=== PATIENT | female | born 1950 | race Caucasian/White ===

== ENCOUNTER → 2016-06-18 | Outpatient (CLI) | payer MEDICARE ==
[2016-06-18 14:41] LABS: BASO % 0.4 % (0.0-1.0); EOS # 0.1 K/mm3 (0.0-0.50); EOS % 0.9 % (0.0-3.0); LARGE UNSTAINED CELL # 0.2 K/mm3 (0.0-0.4); LARGE UNSTAINED CELL % 1.6 % (0.0-4.0); LYMPH # 2.5 K/mm3 (1.5-4.5); LYMPH % 22.5 % (24.0-44.0); MEAN CORPUSCULAR HEMOGLOBIN 34.1 pg (27.0-33.0); MEAN CORPUSCULAR HGB CONC 34.2 g/dl (32.0-36.5); MEAN CORPUSCULAR VOLUME 99.8 fl (80.0-96.0); MONO # 0.6 K/mm3 (0.0-0.8); MONO % 5.4 % (0.0-5.0); NEUTROPHILS # 7.8 K/mm3 (1.8-7.7); NEUTROPHILS % 69.3 % (36.0-66.0); PLATELET COUNT, AUTOMATED 283 k/mm3 (150-450); RED CELL DISTRIBUTION WIDTH 13.2 % (11.5-14.5); WHITE BLOOD COUNT 11.2 K/mm3 (4.0-10.0)
[2016-06-18 15:01] LABS: ALBUMIN 3.9 GM/DL (3.2-5.2); ALT/SGPT 20 U/L (12-78); CREATININE FOR GFR 0.97 MG/DL (0.55-1.02); GLOMERULAR FILTRATION RATE > 60.0 (>45)
== END ==
LOC: M LAB 13:48
PROVIDERS: ATTEND Internal Medicine Rheumatology
DX: Z51.81 Encounter for therapeutic drug level monitoring (principal); Z79.899 Other long term (current) drug therapy; M06.09 Rheumatoid arthritis without rheumatoid factor, multiple sites

== ENCOUNTER → 2016-09-13 | Outpatient (CLI) | payer MEDICARE ==
[2016-09-13 11:13] LABS: BASO % 0.4 % (0.0-1.0); EOS # 0.2 K/mm3 (0.0-0.50); EOS % 1.9 % (0.0-3.0); LARGE UNSTAINED CELL # 0.1 K/mm3 (0.0-0.4); LARGE UNSTAINED CELL % 0.5 % (0.0-4.0); LYMPH # 1.5 K/mm3 (1.5-4.5); MEAN CORPUSCULAR HEMOGLOBIN 34.7 pg (27.0-33.0); MEAN CORPUSCULAR HGB CONC 34.5 g/dl (32.0-36.5); MEAN CORPUSCULAR VOLUME 100.4 fl (80.0-96.0); MONO # 0.5 K/mm3 (0.0-0.8); MONO % 4.2 % (0.0-5.0); NEUTROPHILS # 9.3 K/mm3 (1.8-7.7); NEUTROPHILS % 80.9 % (36.0-66.0); PLATELET COUNT, AUTOMATED 246 k/mm3 (150-450); RED CELL DISTRIBUTION WIDTH 13.7 % (11.5-14.5); WHITE BLOOD COUNT 11.5 K/mm3 (4.0-10.0)
[2016-09-13 11:35] LABS: ALBUMIN 3.5 GM/DL (3.2-5.2); ALT/SGPT 19 U/L (12-78); CREATININE FOR GFR 0.91 MG/DL (0.55-1.02); GLOMERULAR FILTRATION RATE > 60.0 (>45)
== END ==
LOC: M LAB 10:36
PROVIDERS: ATTEND Internal Medicine Rheumatology
DX: Z51.81 Encounter for therapeutic drug level monitoring (principal); Z79.899 Other long term (current) drug therapy; M06.09 Rheumatoid arthritis without rheumatoid factor, multiple sites

== ENCOUNTER → 2016-11-05 | Outpatient (CLI) | payer MEDICAID, MEDICARE ==
[2016-11-05 13:38] LABS: BASO # 0.1 K/mm3 (0.0-0.2); BASO % 0.6 % (0.0-1.0); EOS # 0.1 K/mm3 (0.0-0.50); EOS % 1.2 % (0.0-3.0); LARGE UNSTAINED CELL # 0.1 K/mm3 (0.0-0.4); LARGE UNSTAINED CELL % 1.2 % (0.0-4.0); LYMPH # 3.1 K/mm3 (1.5-4.5); LYMPH % 28.2 % (24.0-44.0); MEAN CORPUSCULAR HEMOGLOBIN 34.2 pg (27.0-33.0); MEAN CORPUSCULAR HGB CONC 34.4 g/dl (32.0-36.5); MEAN CORPUSCULAR VOLUME 99.6 fl (80.0-96.0); MONO # 0.5 K/mm3 (0.0-0.8); MONO % 4.3 % (0.0-5.0); NEUTROPHILS # 6.7 K/mm3 (1.8-7.7); NEUTROPHILS % 64.6 % (36.0-66.0); PLATELET COUNT, AUTOMATED 265 k/mm3 (150-450); RED CELL DISTRIBUTION WIDTH 13.1 % (11.5-14.5); WHITE BLOOD COUNT 10.4 K/mm3 (4.0-10.0)
[2016-11-05 14:34] LABS: ALBUMIN 3.6 GM/DL (3.2-5.2); CREATININE FOR GFR 1.07 MG/DL (0.55-1.02); GLOMERULAR FILTRATION RATE 54.5 (>45)
== END ==
LOC: M LAB 12:57
PROVIDERS: ATTEND Internal Medicine Rheumatology
DX: Z79.899 Other long term (current) drug therapy (principal)

== ENCOUNTER → 2016-12-04 | Outpatient (CLI) | payer MEDICARE ==
[2016-12-04 13:34] LABS: ALBUMIN 3.6 GM/DL (3.2-5.2); ALT/SGPT 19 U/L (12-78); CREATININE FOR GFR 0.97 MG/DL (0.55-1.02); GLOMERULAR FILTRATION RATE > 60.0 (>45)
[2016-12-04 13:41] LABS: BASO % 0.6 % (0.0-1.0); EOS # 0.1 K/mm3 (0.0-0.50); EOS % 0.9 % (0.0-3.0); LARGE UNSTAINED CELL # 0.2 K/mm3 (0.0-0.4); LARGE UNSTAINED CELL % 1.7 % (0.0-4.0); LYMPH # 2.2 K/mm3 (1.5-4.5); LYMPH % 23.5 % (24.0-44.0); MEAN CORPUSCULAR HEMOGLOBIN 34.3 pg (27.0-33.0); MEAN CORPUSCULAR HGB CONC 34.6 g/dl (32.0-36.5); MEAN CORPUSCULAR VOLUME 99.1 fl (80.0-96.0); MONO # 0.5 K/mm3 (0.0-0.8); MONO % 5.1 % (0.0-5.0); NEUTROPHILS # 6.3 K/mm3 (1.8-7.7); NEUTROPHILS % 68.2 % (36.0-66.0); PLATELET COUNT, AUTOMATED 259 k/mm3 (150-450); RED CELL DISTRIBUTION WIDTH 13.1 % (11.5-14.5); WHITE BLOOD COUNT 9.2 K/mm3 (4.0-10.0)
== END ==
LOC: M LAB 12:29
PROVIDERS: ATTEND Internal Medicine Rheumatology
DX: Z51.81 Encounter for therapeutic drug level monitoring (principal); Z79.899 Other long term (current) drug therapy; M06.09 Rheumatoid arthritis without rheumatoid factor, multiple sites

== ENCOUNTER → 2017-02-11 | Outpatient (CLI) | payer MEDICARE ==
[2017-02-11 14:05] LABS: BASO # 0.1 10^3/uL (0.0-0.2); BASO % 0.4 % (0.0-1.0); EOS # 0.1 10^3/uL (0.0-0.50); EOS % 1.1 % (0.0-3.0); IMMATURE GRANULOCYTE % 0.4 % (0-0); LYMPH % 26.2 % (24.0-44.0); MEAN CORPUSCULAR HEMOGLOBIN 33.8 pg (27.0-33.0); MEAN CORPUSCULAR HGB CONC 33.7 g/dl (32.0-36.5); MEAN CORPUSCULAR VOLUME 100.2 fl (80.0-96.0); MONO % 8.8 % (0.0-5.0); NEUTROPHILS # 7.1 10^3/uL (1.8-7.7); NEUTROPHILS % 63.1 % (36.0-66.0); PLATELET COUNT, AUTOMATED 296 10^3/uL (150-450); RED CELL DISTRIBUTION WIDTH 14.3 % (11.5-14.5); WHITE BLOOD COUNT 11.3 10^3/uL (4.0-10.0)
[2017-02-11 14:37] LABS: ALBUMIN 3.6 GM/DL (3.2-5.2); ALT/SGPT 23 U/L (12-78); BLOOD UREA NITROGEN 11 MG/DL (7-18); CREATININE FOR GFR 0.86 MG/DL (0.55-1.02); GLOMERULAR FILTRATION RATE > 60.0 (>45)
== END ==
LOC: M LAB 13:32
PROVIDERS: ATTEND Internal Medicine Rheumatology
DX: M06.09 Rheumatoid arthritis without rheumatoid factor, multiple sites (principal)

== ENCOUNTER → 2017-04-19 | Outpatient (CLI) | payer MEDICARE ==
[2017-04-19 12:54] LABS: BASO % 0.4 % (0.0-1.0); EOS # 0.1 10^3/uL (0.0-0.50); EOS % 1.1 % (0.0-3.0); HEMATOCRIT 44.7 % (36.0-47.0); HEMOGLOBIN 14.9 g/dl (12.0-16.0); IMMATURE GRANULOCYTE # 0.1 10^3/uL (0-0); IMMATURE GRANULOCYTE % 0.6 % (0-0); LYMPH # 1.6 10^3/uL (1.5-4.5); MEAN CORPUSCULAR HEMOGLOBIN 33.3 pg (27.0-33.0); MEAN CORPUSCULAR HGB CONC 33.3 g/dl (32.0-36.5); MEAN CORPUSCULAR VOLUME 99.8 fl (80.0-96.0); MONO # 0.5 10^3/uL (0.0-0.8); MONO % 4.6 % (0.0-5.0); NEUTROPHILS # 7.8 10^3/uL (1.8-7.7); NEUTROPHILS % 77.3 % (36.0-66.0); PLATELET COUNT, AUTOMATED 231 10^3/uL (150-450); RED BLOOD COUNT 4.48 10^6/uL (4.00-5.40); RED CELL DISTRIBUTION WIDTH 13.2 % (11.5-14.5); WHITE BLOOD COUNT 10.1 10^3/uL (4.0-10.0)
[2017-04-19 13:25] LABS: ALBUMIN 3.3 GM/DL (3.2-5.2); ALT/SGPT 15 U/L (12-78); CREATININE FOR GFR 0.99 MG/DL (0.55-1.02); GLOMERULAR FILTRATION RATE 59.6 (>45)
[2017-04-19 13:25] LABS: BLOOD UREA NITROGEN 16 MG/DL (7-18)
== END ==
LOC: M LAB 11:27
DX: Z51.81 Encounter for therapeutic drug level monitoring (principal); Z79.899 Other long term (current) drug therapy; M06.09 Rheumatoid arthritis without rheumatoid factor, multiple sites
CPT/HCPCS: 84460

== ENCOUNTER 2018-03-11 06:27 | Day surgery (SDC) | payer MEDICARE ==
[~2018-03-11] VITALS: Ht 157.5 cm; Wt 59.0 kg
[~2018-03-11 06:27] MED LIST: ALPR0.25 PO; ASPI1TAB PO; BUSP15TA47 PO; FOLI1TAB5 PO; METH2.5T48 PO; METO50TA7 PO; NORT25CA2 PO; NORT75CA2 PO; OMEP20CA3 PO; SIMV10TA2 PO; VITA50005 PO
[2018-03-11] MEDS ORDERED: NS 1,000 ML IV ONE (07:30)
[2018-03-11] MEDS ORDERED: PROPOFOL 200 MG/20 ML VIAL As Ordered ONE ×2 (07:43→07:55)
[2018-03-11] MEDS ORDERED: LIDOCAINE 2% INJ 100 MG/5 ML SDV (FOR ANES.) As Ordered ONE (07:43)
--- NOTE | 2018-03-11 08:07 | ROOR ---
Patient Name: Gloria Raza Procedure Date: 03/11/2018 7:34 AM Date of : 1950 Age: 67 Room: [facility] Gender: Female Note Status: Finalized Procedure: Colonoscopy Indications: Screening for colorectal malignant neoplasm Providers: Nima Rodriguez MD Referring MD: Kiko Rae MD Requesting Provider: Medicines: Monitored Anesthesia Care Complications: No immediate complications. Procedure: Pre-Anesthesia Assessment: - Prior to the procedure, a History and Physical was performed, and patient medications and allergies were reviewed. The patient is competent. The risks and benefits of the procedure and the sedation options and risks were discussed with the patient. All questions were answered and informed consent was obtained. Patient identification and proposed procedure were verified by the physician, the nurse and the anesthesiologist in the procedure room. Mental Status Examination: alert and oriented. Airway Examination: normal oropharyngeal airway and neck mobility. Respiratory Examination: clear to auscultation. CV Examination: normal. Prophylactic Antibiotics: The patient does not require prophylactic antibiotics. Prior Anticoagulants: The patient has taken no previous anticoagulant or antiplatelet agents. ASA Grade Assessment: II - A patient with mild systemic disease. After reviewing the risks and benefits, the patient was deemed in satisfactory condition to undergo the procedure. The anesthesia plan was to use monitored anesthesia care (MAC). Immediately prior to administration of medications, the patient was re-assessed for adequacy to receive sedatives. The heart rate, respiratory rate, oxygen saturations, blood pressure, adequacy of pulmonary ventilation, and response to care were monitored throughout the procedure. The physical status of the patient was re-assessed after the procedure. The Colonoscope was introduced through the anus and advanced to the terminal ileum, with identification of the appendiceal orifice and IC valve. Findings: The perianal and digital rectal examinations were normal. The terminal ileum appeared normal. A 4 mm polyp was found in the ascending colon. The polyp was sessile. The polyp was removed with a jumbo cold forceps. Resection and retrieval were complete. Verification of patient identification for the specimen was done by the physician and nurse using the patient's name, date and medical record number. Estimated blood loss was minimal. A 3 mm polyp was found in the descending colon. The polyp was sessile. The polyp was removed with a jumbo cold forceps. Resection and retrieval were complete. Non-bleeding external and internal hemorrhoids were found during retroflexion. The hemorrhoids were large. Impression: - The examined portion of the ileum was normal. - One 4 mm polyp in the ascending colon, removed with a jumbo cold forceps. Resected and retrieved. - One 3 mm polyp in the descending colon, removed with a jumbo cold forceps. Resected and retrieved. - Non-bleeding external and internal hemorrhoids. Recommendation: - Patient has a contact number available for emergencies. The signs and symptoms of potential delayed complications were discussed with the patient. Return to normal activities tomorrow. Written discharge instructions were provided to the patient. - High fiber diet. - Continue present medications. - Await pathology results. - Repeat colonoscopy in 5-10 years for surveillance based on pathology results. - Return to primary care physician. - Based on the biopsy results you will receive a phone call from GI clinic in 2-3 weeks to review the pathology results AND/OR your results will be faxed to your Primary care physician. Nima Rodriguez MD Nima Rodriguez MD 03/11/2018 8:07:16 AM This report has been signed electronically. Number of Addenda: 0 Note Initiated On: 03/11/2018 7:34 AM Estimated Blood Loss: Estimated blood loss was minimal.
[2018-03-11] MEDS ORDERED: ePHEDrine SULFATE 25 MG/5 ML(5MG/ML) SYRINGE As Ordered ONE (08:11)
[2018-03-11 08:20] VITALS: BP 112/63
== END 2018-03-11 08:30 | disposition home or self-care (01) ==
LOC: M OPP 06:27
PROVIDERS: ATTEND Internal Medicine Gastroenterology
DX: D12.2 Benign neoplasm of ascending colon (principal); D12.4 Benign neoplasm of descending colon; K64.8 Other hemorrhoids; Z12.11 Encounter for screening for malignant neoplasm of colon

== ENCOUNTER 2018-03-16 14:34 | Emergency (ER) | payer MEDICARE | END 2018-03-16 15:51 | disposition home or self-care (01) | LOC: M ED 14:34 | DX: S60.222A Contusion of left hand, initial encounter (principal); Y04.8XXA Assault by other bodily force, initial encounter; Y92.018 Other place in single-family (private) house as the place of occurrence of the external cause; Y07.499 Other family member, perpetrator of maltreatment and neglect; I10 Essential (primary) hypertension; E78.5 Hyperlipidemia, unspecified; K21.9 Gastro-esophageal reflux disease without esophagitis; F41.9 Anxiety disorder, unspecified; Z91.048 Other nonmedicinal substance allergy status; F17.210 Nicotine dependence, cigarettes, uncomplicated | CPT/HCPCS: 73130 ==

== ENCOUNTER → 2019-04-09 | Outpatient (CLI) | payer MEDICARE ==
[~2019-04-09] MED LIST changes: -ASPI1TAB PO; +ASPI81TA26 PO; +AZOP0.2S OD; +FOLI1TAB11 PO; -FOLI1TAB5 PO; +LOPE1CAP5 PO; +OMEP1CAP73 PO; -OMEP20CA3 PO; -SIMV10TA2 PO; +SIMV10TA21 PO; +TRAV04OPD OD
--- NOTE | 2019-04-09 11:22 | REPMRS ---
Patient History The patient states she had a clinical breast exam in April 2019.Family history of breast cancer under age 50 in daughter. No Hormone Replacement Therapy Digital Woman Screen Mammo: April 09, 2019 - Exam #: [id number] Bilateral CC and MLO view(s) were taken. Technologist: Jennifer Oliva, Technologist Prior study comparison: July 06, 2015, digital woman screen mammo performed at [facility]. May 20, 2014, digital woman screen mammo performed at [facility]. FINDINGS: There are scattered fibroglandular densities. There is a 10 mm nodular neodensity showing spiculation in the upper outer quadrant of the right breast which merits further evaluation. There has been no other change in the appearance of the mammogram from the prior studies. There is a mild amount of scattered fibroglandular density which is fairly symmetric. There is no other interval development of dominant mass, architectural distortion, or grouped microcalcification suggestive of malignancy. 3-D tomosynthesis shows no additional findings. Assessment: BI-RADS/ACR category 0 mammogram, Incomplete: Need additional imaging evaluation and/or prior mammograms for comparison. Recommendation Ultrasound and special view mammogram of the right breast. This patient's Lifetime Breast Cancer Risk is estimated at 8.1 %. This mammogram was interpreted with the aid of an FDA-approved computer-aided dectection system. Electronically Signed By: Buster Mcwilliams MD 04/09/19 [id number]
--- NOTE | 2019-04-15 11:27 | DEXA ---
AP SPINE L1 - L4 0.952 -2.0 -0.3 LT FEMUR TOTAL 0.922 -0.7 0.8 LT NECK 0.870 -1.2 0.5 RT FEMUR TOTAL 0.839 -1.3 0.1 RT NECK 0.801 -1.7 0.0 TOTAL BODY TOTAL OTHER COMMENTS: There is low bone density of the spine and hips. The density of the spine has increased 0.0% since the initial exam on 10/19/2003. The spine density has increased 3.5% since the most recent exam on 08/04/2015. The density of the left hip has decreased 3.8% since the initial exam on 10/19/2003. The density of the left hip has increased 3.2% since the most recent exam on 08/04/2015. The density of the right hip has decreased 6.0% since the initial exam on 10/19/2003. The density of the right hip has decreased 3.7% since the most recent exam on 08/04/2015. FOLLOW-UP: Recommendation for the next bone density exam: 2 years. LANIE
== END ==
LOC: M WHC 09:34
PROVIDERS: ATTEND Family Medicine
DX: Z01.411 Encounter for gynecological examination (general) (routine) with abnormal findings (principal); Z12.31 Encounter for screening mammogram for malignant neoplasm of breast; M81.0 Age-related osteoporosis without current pathological fracture; Z80.3 Family history of malignant neoplasm of breast; N63.11 Unspecified lump in the right breast, upper outer quadrant
CPT/HCPCS: 77063; 77067; 77080; G0101

== ENCOUNTER → 2019-04-24 | Outpatient (CLI) | payer MEDICARE ==
--- NOTE | 2019-04-24 13:33 | REP ---
Digital diagnostic unilateral right breast mammography with CAD and focused right breast sonography: History: Screening mammography April 09, 2019 was BIRADS category 0 incomplete because of a nodular neodensity in the upper outer quadrant of the right breast for which diagnostic imaging was recommended. Comparison is also made with the July 06, 2015 prior study. Mammographic findings: Mediolateral, CC and MLO magnified spot views confirm the presence of a spiculated nodule in the upper outer quadrant of the right breast measuring 8 mm in greatest diameter. This has suspicious mammographic features. It appears to contain a few tiny microcalcifications as well. Sonographic findings: The right breast is examined from 10 o'clock to 11 o'clock position. At 10 o'clock, there is a hypoechoic mass producing acoustic shadowing with hyperechoic tissue adjacent to it. This measures 7 x 5 x 6 mm and is located 5.6 cm from the nipple. This is felt to correspond with the mammographic opacity. Impression: BIRADS 5: BI-RADS/ACR category 5 mammogram. Highly Suggestive of Malignancy - appropriate action should be taken. BIRADS category 5 highly suspicious right breast imaging. Spiculated nodule seen mammographically in the upper outer quadrant with a corresponding irregular shadowing mass seen sonographically. Ultrasound-guided needle biopsy recommended with marker clip placement and post clip placement mammography. This mammogram was interpreted with the aid of an FDA-approved computer-aided detection system. The patient states she had a clinical breast exam in April 2019. The patient letter being requested is m4. Electronically Signed by Fantasma Mcwilliams MD 04/24/2019 06:38 P
== END ==
LOC: M RAD 09:37
PROVIDERS: ATTEND Family Medicine
DX: Z12.31 Encounter for screening mammogram for malignant neoplasm of breast (principal); R92.8 Other abnormal and inconclusive findings on diagnostic imaging of breast

== ENCOUNTER → 2019-05-20 | Outpatient (CLI) | payer MEDICARE ==
[~2019-05-20] MED LIST changes: +LIDOCAINE 1% MDV 20ML VIAL As Ordered ONE
[2019-05-20 12:04] VITALS: BP 139/67
--- NOTE | 2019-05-20 14:03 | REP ---
DIGITAL DIAGNOSTIC UNILATERAL RIGHT BREAST MAMMOGRAPHY WITH CAD: Two views. HISTORY: Marker clip placement views. The patient status post ultrasound-guided needle biopsy for a spiculated nodule in the right breast upper outer quadrant. Comparison mammography April 09, 2019. FINDINGS: Craniocaudal and true mediolateral views demonstrate the target spiculated nodule in the superior breast just lateral to the plane of the nipple on the CC view. Post biopsy edema is seen indicating good biopsy targeting. However, no marker clip is visible. The marker clip apparently did not deploy. Since the target is visible and conspicuous both mammographically and sonographically, we opted not to re-attempt clip deployment. IMPRESSION: Marker clip apparently did not deploy. Spiculated nodular target persists both mammographically and sonographically. This mammogram was interpreted with the aid of an FDA-approved computer-aided detection system. Electronically Signed by Fantasma Mcwilliams MD 05/20/2019 04:28 P
--- NOTE | 2019-05-20 16:31 | REP ---
Ultrasound-guided right breast biopsy. The procedure was performed by MONI Pacheco, under the direct supervision of Dr. Mcwilliams. The risks and benefits of the procedure were explained to the patient and informed consent was obtained both verbally and written. Directly prior to the start of the procedure, a formal timeout was completed in the procedure room. The right breast mass was localized using ultrasound guidance. The skin was prepped and draped in a sterile fashion. 10 ml of buffered lidocaine was used as a local anesthetic. Using ultrasound guidance a 13-gauge suction assisted Mammotome needle was inserted and 8 core biopsy samples were obtained. The patient tolerated the procedure well and there were no immediate complications. After the appropriate monitored convalescence the patient was discharged from the department. Reviewed by MONI Rojo 05/20/2019 02:06 P Electronically Signed by Fantasma Mcwilliams MD 05/20/2019 04:22 P
== END | disposition home or self-care (01) ==
LOC: M IRPRO 11:37
PROVIDERS: ATTEND Family Medicine
DX: C50.411 Malignant neoplasm of upper-outer quadrant of right female breast (principal); Z17.0 Estrogen receptor positive status [ER+]

== ENCOUNTER → 2019-06-04 | Outpatient (CLI) | payer MEDICARE ==
[~2019-06-04] MED LIST changes: -LIDOCAINE 1% MDV 20ML VIAL As Ordered ONE
== END ==
LOC: M PLALAB 14:17
PROVIDERS: ATTEND Surgery
DX: Z13.79 Encounter for other screening for genetic and chromosomal anomalies (principal)

== ENCOUNTER → 2019-06-16 | Outpatient (REF) | payer MEDICARE ==
[2019-06-16 13:50] LABS: BLOOD UREA NITROGEN 14 MG/DL (7-18); CALCIUM LEVEL 10.4 MG/DL (8.8-10.2); CARBON DIOXIDE LEVEL 31 MEQ/L (21-32); CHLORIDE LEVEL 105 MEQ/L (98-107); GLOMERULAR FILTRATION RATE > 60.0 (>45); GLUCOSE, FASTING 104 MG/DL (70-100); POTASSIUM SERUM 4.3 MEQ/L (3.5-5.1); SODIUM LEVEL 138 MEQ/L (136-145)
== END ==
LOC: M PLALAB 11:44
PROVIDERS: ATTEND Surgery
DX: C50.919 Malignant neoplasm of unspecified site of unspecified female breast (principal)

== ENCOUNTER → 2019-06-17 | Outpatient (CLI) | payer MEDICARE ==
[~2019-06-17] MED LIST changes: +PROHANCE 279.3MG/ML 15ML VIAL (A9576) As Ordered ONE
--- NOTE | 2019-06-17 10:14 | REP ---
MRI BILATERAL BREAST WITH AND WITHOUT CONTRAST: HISTORY: Right breast cancer. COMPARISON: Mammogram 04/09/2019, 04/24/2019 and postbiopsy mammogram 05/20/2019. TECHNIQUE: Multiple sequences obtained in the axial, coronal and sagittal planes prior to and following the intravenous administration of 12 mL ProHance. Images are evaluated in the 5skills software including dynamic post-IV gadolinium axial T1 fat sat images, CAD images, color overlay images and MIP reconstruction images. In the upper outer quadrant of the right breast, approximately 6.5 cm from the nipple, there is a spiculated enhancing mass. It measures proximally 1.3 x 0.9 x 0.9 cm. There is variable internal enhancement with areas of persistent enhancement, other areas of gradually increasing enhancement, and yet other areas demonstrating rapid enhancement with washout. This lesion is consistent with the postbiopsy pathology result of carcinoma. More posteriorly in the right breast, near the chest wall, there are small ill-defined areas of hyperintensity mixed with areas of signal dropout consistent with a small area of postbiopsy hemorrhage and hemosiderin deposition. No other suspicious enhancing mass is seen bilaterally. There is mild background parenchymal enhancement. There is mild fibroglandular tissue scattered bilaterally. There is no axillary adenopathy with several small subcentimeter lymph nodes present bilaterally. Incidental note is made of multiple small cysts in the liver, which do not enhance. IMPRESSION: BIRADS category 6 known breast cancer upper outer quadrant right breast. The biopsy proven, known breast cancer in the upper outer quadrant of the right breast is located approximately 6.5 cm from the nipple and demonstrates mixed internal enhancement with spiculated margins. More posteriorly in the right breast near the chest wall, there is signal abnormality consistent with a small amount of postbiopsy hemorrhage. There is no other enhancing suspicious mass or morphologic abnormality bilaterally. No evidence of axillary adenopathy. Electronically Signed by Guillermo Niño MD 06/17/2019 10:36 A
== END ==
LOC: M RAD 07:40
PROVIDERS: ATTEND Surgery
DX: C50.919 Malignant neoplasm of unspecified site of unspecified female breast (principal)
CPT/HCPCS: A9576; C8908

== ENCOUNTER → 2019-06-23 | Outpatient (REF) | payer MEDICARE ==
[~2019-06-23] MED LIST changes: -PROHANCE 279.3MG/ML 15ML VIAL (A9576) As Ordered ONE; +SULF500T2 PO
[2019-06-23 17:29] LABS: IONIZED CALCIUM 5.2 MG/DL (4.5-5.3)
[2019-06-23 17:49] LABS: PTH INTACT 110.6 PG/ML (18.5-88.0)
== END ==
LOC: M LAB REF 17:22
PROVIDERS: ATTEND Family Medicine
DX: E83.52 Hypercalcemia (principal)

== ENCOUNTER → 2019-06-24 | Outpatient (CLI) | payer MEDICARE ==
[2019-06-24 11:46] VITALS: BP 124/76
--- NOTE | 2019-06-24 12:38 | REP ---
FOCUSED LEFT BREAST SONOGRAPHY: HISTORY: Confirmed invasive lobular carcinoma in the contralateral right breast April 2019. Palpable abnormality 12 o'clock position in the left breast. FINDINGS: Focused left breast scanning is performed in the area of the palpable abnormality. Somewhat heterogeneous fibroglandular background echotexture is seen. No cyst or mass is seen. No acoustic shadowing is noted. IMPRESSION: BIRADS category 1 negative findings. Clinical followup is advised.
--- NOTE | 2019-06-24 12:39 | REP ---
DIGITAL DIAGNOSTIC UNILATERAL RIGHT BREAST MAMMOGRAPHY WITH CAD: TWO VIEWS. HISTORY: Marker clip placement views. Comparison right breast mammography May 20, 2019. Recent biopsy right breast showed invasive lobular carcinoma. Ultrasound-guided procedure today. FINDINGS: There is a needle biopsy marker clip in the upper outer quadrant of the right breast at the site of today's biopsy. There is also a needle biopsy marker clip in the medial edge of the spiculated mass which was previously biopsied. No other finding. IMPRESSION: Two marker clips are now visible.
--- NOTE | 2019-06-24 12:40 | REP ---
FOCUSED RIGHT BREAST SONOGRAPHY: HISTORY: Right breast mass. Ultrasound guided biopsy. FINDINGS: Sonographic guidance to is provided to Dr. Delaney who performed ultrasound-guided needle biopsy of the right breast at the site of a palpable abnormality at the 10 o'clock position. A marker clip was placed here. A second marker clip was placed at the site of the previous biopsy which was shown to be invasive lobular carcinoma.
--- NOTE | 2019-06-24 13:49 | ROOPDOC ---
[facility] Report Of Operation Report of Operation DATE OF PROCEDURE: 06/24/19 PREPROCEDURE DIAGNOSES: Left breast invasive lobular carcinoma and additional left breast mass POSTPROCEDURE DIAGNOSES: Left breast invasive lobular carcinoma and additional left breast mass PROCEDURE: Ultrasound-guided biopsy of the left breast palpable mass with clip placement and additional clip placement at at the site of previously biopsied it right breast cancer SURGEON: Sloan Woodward BLOCK SEALER: ANESTHESIA: Local ESTIMATED BLOOD LOSS: Approximately 1 mL. COMPLICATIONS: None REMARKS: 2 clips are visible on postbiopsy mammogram. Both clips are in expected locations DESCRIPTION OF PROCEDURE: Lidocaine 1% LOT [id number] Expiration 05/2020 Sodium Bicarbonate 8.4% LOT [id number] Expiration 07/2020 Hydromark clip LOT [id number] Expiration 01/2022 SHAPE4 (closed coil) AT PREVIOUS BX site (KNOWN CA) Hydromark clip LOT [id number] Expiration 03/2022 SHAPE3 (open spring) AT RIGHT PALPABLE MASS Bx device: Click Quote Save [id number] x10 cm LOT HUEN 1024 Expiration 03/2022 Informed consent was obtained. The most common risk and possible complications including bleeding, hematoma, bruising, infection, injury to surrounding structures were explained to the patient and she expressed understanding. We have agreed to do a biopsy of the palpable mass area away from previously biopsied cancer. We are also planning to place 2 clips. One clip will be placed at the site of new biopsy. The other clip will be placed at the site of previously biopsied cancer because that mass was not previously marked with the clip which makes things easier during surgical planning. Patient was taken to the procedure room and placed on the bed in the supine position with the right upper extremity placed above the head. Appropriate time out was done stating patients name, date of , and the procedure to be performed. The right breast was prepped and draped in the usual fashion. The ultrasound was used to confirm the location of the previously biopsied cancer at 10:00 6CFN. The areas of palpable mass, which is located at the lateral edge of the previously biopsied cancer, was also scanned with ultrasound for possible targets and some tissue irregularity was chosen for target. Procedure was started at the site of previously biopsied cancer. Plain Lidocaine 1% and 8.4% sodium bicarbonate 10:1 mix was used to numb the skin and the tissues along the anticipated clip delivery system track. Small skin incision was made with blade number 11. The Hydromark SHAPE4 introducer was inserted into anesthetized breast under direct vision and a clip was deployed at the mass site. Post-clip placement image was captured. Direct pressure was held post removal of the device. Next, our attention was shifter toward palpable right breast mass which was located at the edge of previously biopsied cancer. Ultrasound was used to assure safe tack of biopsy away from the lung and muscle. Plain Lidocaine 1% and 8.4% sodium bicarbonate 10:1 mix was used to numb the skin, the biopsy site and tissues along the anticipated biopsy tract. Small skin incision was made with blade number 11. BARD Marquee 14G cannula with introducer ([id number]) was inserted through the incision and advanced under the ultrasound guidance to position immediately adjacent to the lesion. Next, the introducer was removed and BARD Marquee 14G biopsy device was places in the cannula. Pre-biopsy imaging, and post-biopsy imaging were captured. Five good core biopsies were taken at various levels of the lesion. Specimen was placed in formaldehyde, labeled with appropriate biopsy site and patients name, and sent to pathology for evaluation. Next, the biopsy device was withdrawn and a clip introducer was inserted into the biopsy site via the cannula. The Hydromark SHAPE 3 clip was deployed under direct vision. Post-clip placement image was captured. Manual pressure over the biopsy cavity and tract was held after the clip introducer was withdrawn. No bleeding was noted upon removal of the pressure. Post-biopsy mammogram of the right breast was obtained and showed two clips in expected position. Postprocedural dressing was placed. Patient tolerated procedure well. Discharge instructions were discussed with the patient and she expressed understanding. SLOAN WOODWARD DO Jun 24, 2019 13:16
== END ==
LOC: M WHCPRO 09:49
PROVIDERS: ATTEND Surgery
DX: N60.11 Diffuse cystic mastopathy of right breast (principal); D05.02 Lobular carcinoma in situ of left breast

== ENCOUNTER 2019-07-10 06:45 | Day surgery (SDC) | payer MEDICARE ==
[~2019-07-10] VITALS: Ht 154.9 cm; Wt 61.2 kg
[~2019-07-10 06:45] MED LIST changes: -AZOP0.2S OD; +AZOP0.2S OU; +IBUP200C28 PO; +LIDOCAINE 1% MDV 20ML VIAL SQ PRN; -TRAV04OPD OD; +TRAV04OPD OU
[2019-07-10] MEDS ORDERED: LR 1,000 ML IV ONE (07:00)
[2019-07-10] MEDS ORDERED: LIDO2.5C15 (07:52)
[2019-07-10] MEDS ORDERED: LIDOCAINE 1% SDV 30ML VIAL As Ordered ONE (08:39)
[2019-07-10] MEDS ORDERED: BUPIVACAINE HCL 0.25% 30ML VIAL As Ordered ONE (08:39)
[2019-07-10] MEDS ORDERED: METHYLENE BLUE 0.5% (5MG/ML) 10 ML AMP (PROVAYBLUE)(Q9968 PER 1MG) As Ordered ONE (08:40)
[2019-07-10] MEDS ORDERED: ceFAZolin SOD 2 GM in IV 1 EA IV ONE (09:45)
[2019-07-10] MEDS ORDERED: HEPARIN SOD (PORCINE) 5000UNITS/ML VIAL (J1644 PER 1000UNITS) SQ ONE (09:45)
[2019-07-10] MEDS ORDERED: NS 1,000 ML IV SCH (09:45)
[2019-07-10] MEDS ORDERED: dexameTHASONE 4 MG/ML 1ML VIAL (J1100 PER 1MG) As Ordered ONE (09:55)
[2019-07-10] MEDS ORDERED: fentaNYL 250 MCG/5 ML INJECTION (J3010) As Ordered ONE (09:55)
[2019-07-10] MEDS ORDERED: MIDAZOLAM INJ 2MG/2ML VIAL (J2250 PER 1MG) As Ordered ONE (09:55)
[2019-07-10] MEDS ORDERED: ONDANSETRON 4MG/2ML VIAL (J2405 PER 1MG) As Ordered ONE (09:55)
[2019-07-10] MEDS ORDERED: ePHEDrine SULFATE 25 MG/5 ML(5MG/ML) SYRINGE As Ordered ONE ×2 (09:56→12:04)
[2019-07-10] MEDS ORDERED: LIDOCAINE 2% 100MG/5ML SDV (FOR ANES.) As Ordered ONE (09:56)
[2019-07-10] MEDS ORDERED: SUGAMMADEX SODIUM 500 MG/5 ML VIAL (BRIDION) As Ordered ONE (09:56)
[2019-07-10] MEDS ORDERED: PHENYLephrine HCL 500 MCG/5 ML (100MCG/ML) SYRINGE (J2370) As Ordered ONE ×3 (09:56→13:11)
[2019-07-10] MEDS ORDERED: ROCURONIUM BROMIDE 50 MG/5 ML VIAL As Ordered ONE (09:56)
[2019-07-10] MEDS ORDERED: propofoL 200 MG/20 ML VIAL As Ordered ONE (09:56)
[2019-07-10] MEDS ORDERED: BUPIVACAINE LIPOSOME/PF 1.3% 20ML VIAL (13.3MG/ML)(EXPAREL)(C9290 PER1MG) As Ordered ONE (10:03)
[2019-07-10] MEDS ORDERED: ACETAMINOPHEN 1000MG 100ML IV BTL (OFIRMEV) (J0131 PER 10MG) As Ordered ONE (10:35)
--- NOTE | 2019-07-10 11:52 | REP ---
Right Breast Lymphoscintigraphy The procedure was performed by MONI Pacheco, under the direct supervision of Dr. Niño. The risks and benefits of the procedure were explained to the patient and informed consent was obtained both verbally and written. Directly prior to the start of the procedure, a formal timeout was completed in the procedure room. Using topical anesthetic and sterile technique 1.032 mCi of technetium 99m filtered sulfur colloid was injected subdermally in eight fractionated periareolar injections. Images obtained 1 hour after injection show a right axillary focus. Impression: 1. Right axillary focus. Reviewed by MONI Rojo 07/10/2019 11:11 A Electronically Signed by Guillermo Niño MD 07/10/2019 11:40 A
[2019-07-10] MEDS ORDERED: TRAM50TA2 PO (13:50)
[2019-07-10] MEDS ORDERED: fentaNYL 100 MCG/2 ML INJECTION (J3010) IV PRN (14:00)
[2019-07-10] MEDS ORDERED: LR 1,000 ML IV SCH (14:00)
[2019-07-10] MEDS ORDERED: ONDANSETRON 4MG/2ML VIAL (J2405 PER 1MG) IV PRN (14:00)
[2019-07-10 15:25] VITALS: BP 137/76
--- NOTE | 2019-07-10 16:42 | REP ---
Specimen radiography right breast: Single view. History: Excisional biopsy. Comparison mammography June 24, 2019. Findings: Specimen radiograph demonstrates a [place] localizer wire centrally located in the excised specimen. The marker clip from previous biopsy and the spiculated nodular opacity are seen centrally in the specimen as well. Electronically Signed by Fantasma Mcwilliams MD 07/10/2019 05:35 P
--- NOTE | 2019-07-11 14:31 | ROOPDOC ---
[facility] Report Of Operation Report of Operation DATE OF PROCEDURE: 07/10/19 PREPROCEDURE DIAGNOSES: Right invasive lobular carcinoma. POSTPROCEDURE DIAGNOSES: Right invasive lobular carcinoma. PROCEDURE: Right lumpectomy and right sentinel lymph node biopsy with Intra-Op wire placement. SURGEON: Sloan Delaney PLATE PAINTER APPRENTICE: Briana Slater ANESTHESIA: general anesthesia was used. ESTIMATED BLOOD LOSS: Approximately 25 mL. COMPLICATIONS: none REMARKS: Clip and the wire are seen in the middle of the lumpectomy specimen. Sonographic targeted was seen Intra-Op during dissection and preop during wire placement DESCRIPTION OF PROCEDURE: INDICATIONS: Ms. Raza is a 69-year-old woman who was found to have a suspicious mass in the right breast on screening mammogram. This was evaluated with US and sonographic correlate was found. US guided biopsy of the right breast mass came back as invasive lobular carcinoma, ER +, RI+, HER-2 negative, grade 2. 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 During the clinical breast exam she was found to have area of density much more extensive than the sonographically visualized tumor. Since invasive lobular carcinoma can be extensive without clear mass lesion formation, we performed ultrasound guided biopsy of the density and pathology came back as fibrocystic changes without malignancy. We have discussed surgical options with mastectomy and lumpectomy along with sentinel lymph node biopsy. Due to patients current age and the Coronavirus pandemic, she opted for breast conservative surgery with sentinel lymph node biopsy on the right. She was medically cleared for surgery by her primary care doctor. Risks and possible complications of surgical procedure including bleeding, infection and injury to surrounding structures were explained to the patient and she wished to proceed. Consent was signed. My initials were placed on the operative site. Subcutaneous injection of 5000 units of heparin was done in Preop. The injection of radioactive tracer was done in radiology department preoperatively. Lymphoscintigraphy imaging was reviewed in preop. DETAILS: Patient was taken to the operating room and placed on the operating room table. A sign in was called stating patients name, date of and the procedure to be done. Preoperative antibiotics were infused. Smooth induction of general anesthesia was done. Patients hands were extended on arm rests. Care was taken not to over extend the arms. Procedure was started with right breast intraop wire localization. Appropriate time out was done and patients name, date of , and the procedure to be done were confirmed. Right breast was cleaned by me. Intraoperative ultrasound was used to confirm location of the Hydromark clip. Location of the clip was marked on the skin as well. 21 G Kopans Breast Lesion Localization Needle was used to place 25 cm wire through the lesion. The wire was placed next to the clip and through the cancer. The end of the wire was passed a centimeter deep. The images were captured confirming adequate placement of the localizing wire. Data Reduction Technician assisted with the wire placement. Next, patients right breast and axilla were prepped and draped in the usual fashion. Care was taken not to displace the wire. Appropriate time out was done again prior second part of the procedure. Patients name, date of , and the procedure to be done were confirmed. Procedure was started with sentinel lymph node biopsy. Neoprobe was used to locate area of maximum intensity of the signal. Local anesthetic using 1% lidocaine and 0.25 % Marcaine 50/50 mix was injected. An incision was made with scalpel number 15 at the inferior aspect of axillary hair line in the right axilla where the maximum signal was identified. The sharp and blunt dissection was continued through the subcutaneous adipose tissue. Clavipectoral fascia was opened. Neoprobe was used to guide the dissection. First sentinel lymph node was identified and excised. The ex-vivo 10 second count was 1572. Second sentinel lymph node was identified and excised as well. The ex-vivo 10 second count was 1228. Third sentinel lymph node was identified and excised as well. The ex-vivo 10 second count was 6141. The specimens were labeled with patients name and sent to pathology. No additional lymph nodes with high radioactive signal were identified. The 10 second count of the background was 280. Doctors Bryon assistance was critical to obtain adequate hemostasis and to progress case in expeditious fashion. Additional local anesthetic was injected into surrounding tissues. Wound was irrigated. Clavipectoral fascia was closed with 3-0 Vicryl interrupted suture. Dermal layer was closed with interrupted 3-0 Monocryl. Surgical glue was applied to the incision at the end of the procedure. Next, our attention was turned toward the right breast. Local anesthetic using 1% lidocaine and 0.25 % Marcaine 50/50 mix was injected at the site of planned periareolar incision. The incision was made with the scalpel. Subcutaneous skin flaps were raised and the guide wire was carefully pulled into the wound. Dissection was carries along the wire until the previously marked on the skin area of target lesion location was encountered. At this point, wider excision of the tissue surrounding the wire was done. The Hydromark clip was identified in the tissue with intraoperative hockey stick ultrasound probe. The end of the wire was identified with palpation. The lumpectomy specimen was carefully removed from the breast keeping its proper orientation and moved to the back table where margins were marked with the surgical inking kit following the standard colors recommendations. Specimen was then placed on the grid and placed in [employer] Specimen Imaging System. The image revealed the wire and the Hydromark in the specimen. The specimen was labeled with patients name and right lumpectomy and sent to pathology. Next, four additional margins were taken: inferior, superior, medial, and lateral. All new margins, defined as margin farthest away from lumpectomy cavity, were marked with black ink. Each margin was sent as a separate specimen with appropriate labeling. The deep margin was at the muscle and no additional tissue was removed. Anterior margin was at the dermal layer which was thin hence no additional margin was taken anteriorly. Wound was thoroughly irrigated. Doctor Yu assistance was critical again in achieving adequate hemostasis and in progressing the case in expeditious fashion. Additional local anesthetic was injected into surrounding tissues. Clips were placed to clinton the cavity. Dr Slater performed oncoplastic closure of the space created by removing the tumor and surrounding tissue. 3-0 Vicryl was used to approximate tissues and to eliminate the defect. The dermis was closed with 3-0 Monocryl. Surgical glue was placed over the incision. Patient emerged from the anesthesia without any problems. Fluffs were placed over the operative site and patients chest was wrapped snuggly in the GINA wrap. Sponge and instrument counts were done and were correct. Patient tolerated procedure well and was taken to recovery unit in stable condition. SLOAN DELANEY DO Jul 10, 2019 23:15
== END 2019-07-10 15:28 | disposition home or self-care (01) ==
LOC: M SDC 06:45
PROVIDERS: ATTEND Surgery
DX: C50.411 Malignant neoplasm of upper-outer quadrant of right female breast (principal); Z17.0 Estrogen receptor positive status [ER+]; I10 Essential (primary) hypertension; E78.5 Hyperlipidemia, unspecified; E11.9 Type 2 diabetes mellitus without complications; E55.9 Vitamin D deficiency, unspecified; E83.52 Hypercalcemia; M06.09 Rheumatoid arthritis without rheumatoid factor, multiple sites; K58.8 Other irritable bowel syndrome; K21.9 Gastro-esophageal reflux disease without esophagitis; M79.7 Fibromyalgia; F41.9 Anxiety disorder, unspecified; M81.0 Age-related osteoporosis without current pathological fracture; Z79.82 Long term (current) use of aspirin; Z79.899 Other long term (current) drug therapy
CPT/HCPCS: 19125; 36415; 38525; 76942; 78195; 86850; 86900; 86901; 88305; 88307; 88342; A9541; J0131; J0690; J1100; J1644; J2250; J2370; J2405; J3010

== ENCOUNTER → 2019-07-30 | Outpatient (CLI) | payer MEDICARE ==
[~2019-07-30] MED LIST changes: +LETR2.5T2 PO; +LIDO2.5C15; -LIDOCAINE 1% MDV 20ML VIAL SQ PRN; +TRAM50TA2 PO
--- NOTE | 2019-08-04 10:31 | RADONC ---
RADIATION ONCOLOGY CONSULTATION NOTE DATE: 07/30/2019 CHART #: [id number] DIAGNOSIS: Right breast cancer. STAGE: I A, pT1b, pN0, M0, ER positive, FL positive, HER2/mague negative. ECOG PERFORMANCE STATUS: 0. CONSULTATION NOTE: Ms. Raza is a very pleasant 69-year-old white female with the diagnosis of what appears to be a stage I A, pT1b, pN0, M0, moderately differentiated grade 2 invasive lobular carcinoma of the right breast which is ER positive, FL positive and HER2/mague negative, who is presenting to us today status post lumpectomy and sentinel lymph node biopsy for consideration of postoperative radiation therapy for conservative breast management. HISTORY OF PRESENT ILLNESS: The patient was in her usual state of health, but found to have a suspicious area in her right breast. On 07/10/2019, the patient underwent lumpectomy and sentinel lymph node biopsy. Pathology revealed a 1.0 cm x 0.8 cm x 0.8 cm moderately differentiated invasive lobular carcinoma. Lymph vascular invasion was not identified. There was noted to be perineural invasion. The margins of resection were negative for malignancy. A total of two sentinel lymph nodes were sampled and were negative for metastatic disease. Again, the tumor was noted to be estrogen receptor strongly positive at 100%, progesterone receptor strongly positive at 100% and HER2/mague negative. The patient is now presenting as noted above for discussion of postoperative radiation therapy for conservative breast management. Oncotype DX test is not yet available and the patient is scheduled to be seen by her medical oncologist, Dr. Yue Renteria, at 2 o'clock this afternoon for further discussion. PAST MEDICAL HISTORY: The patient's past medical history is positive for fibromyalgia, kidney stones, osteoporosis, vertigo. She had an appendectomy as well as an abdominal hysterectomy. She had a polypectomy on the larynx. ALLERGIES: The patient is allergic to nickel and adhesives. SOCIAL HISTORY: The patient has a long smoking history. She does not abuse alcohol. FAMILY HISTORY: The patient's daughter had breast cancer. REVIEW OF SYSTEMS: The patient's review of systems is noncontributory. Denies nausea, vomiting, fevers, chills, night sweats, diplopia, headaches, anxiety or depression, anorexia, weight loss, visual disturbances, chest pain, urinary or bowel difficulties, bone pain, or neurological problems. PHYSICAL EXAMINATION: Physical examination was deferred as per COVID-19 precautions. This was a telephone consultation. ASSESSMENT: Clearly, the patient is a candidate for postoperative radiation therapy and I have so informed her. I have discussed with the patient in detail the potential benefits as well as possible acute and chronic sequelae of external beam radiation therapy. We discussed logistics of treatment planning, simulation and subsequent fractionated daily radiation treatments. Oncotype testing is pending and the patient is scheduled to be seen by her medical oncologist, Dr. Yue Renteria, at 2 o'clock this afternoon to discuss systemic therapy. Clearly, if the patient is to receive systemic therapy, that will be delivered prior to radiation and the patient will then be referred back to us and radiation will start several months from now. If however chemotherapy is not to be given, radiation can begin without delay. We also spoke of the conventional fractionated radiation therapy to the breast versus hypofractionated [place] protocol radiation. We talked of the benefits and the drawbacks of each. In light of the COVID-19 situation, the patient may consider the hypofractionated protocol as preferable if for technical reasons it can begin without difficulty. Thank you for allowing us to participate in the care of this very pleasant woman. If I could be of any further assistance or provide you with any information, please feel free to contact me anytime. As always warm regards. This is a telemedicine visit. The patient was informed of the risks including security breech, technological failure, inability to perform a comprehensive physical exam which could delay or prevent an accurate diagnosis, and potential complications from treatment decisions rendered over a telemedicine platform. The patient understands and consented to the use of telehealth services phone only. cc: DO Yue Lepe MD
== END ==
LOC: M ONCR 10:05
PROVIDERS: ATTEND Radiology Radiation Oncology
DX: C50.911 Malignant neoplasm of unspecified site of right female breast (principal)

== ENCOUNTER → 2019-08-04 | Outpatient (REF) | payer MEDICARE ==
[2019-08-04 19:25] LABS: ALBUMIN 3.7 GM/DL (3.2-5.2); ALT/SGPT 35 U/L (12-78); BILIRUBIN,TOTAL 0.5 MG/DL (0.2-1.0); BLOOD UREA NITROGEN 16 MG/DL (7-18); CALCIUM LEVEL 10.3 MG/DL (8.8-10.2); CARBON DIOXIDE LEVEL 28 MEQ/L (21-32); CHLORIDE LEVEL 109 MEQ/L (98-107); CREATININE FOR GFR 0.85 MG/DL (0.55-1.30); GLOMERULAR FILTRATION RATE > 60.0 (>39); GLUCOSE, FASTING 84 MG/DL (70-100); POTASSIUM SERUM 4.5 MEQ/L (3.5-5.1); SODIUM LEVEL 143 MEQ/L (136-145); TOTAL PROTEIN 6.8 GM/DL (6.4-8.2)
== END ==
LOC: M LABDRWAD 18:34
PROVIDERS: ATTEND Internal Medicine Medical Oncology
DX: C50.919 Malignant neoplasm of unspecified site of unspecified female breast (principal)

== ENCOUNTER → 2019-08-25 | Outpatient (REF) | payer MEDICARE ==
[2019-08-25 13:57] LABS: ALBUMIN 3.7 GM/DL (3.2-5.2); ALT/SGPT 27 U/L (12-78); BILIRUBIN,TOTAL 0.8 MG/DL (0.2-1.0); BLOOD UREA NITROGEN 13 MG/DL (7-18); CARBON DIOXIDE LEVEL 27 MEQ/L (21-32); CHLORIDE LEVEL 107 MEQ/L (98-107); CREATININE FOR GFR 0.93 MG/DL (0.55-1.30); GLOMERULAR FILTRATION RATE > 60.0 (>39); GLUCOSE, FASTING 133 MG/DL (70-100); POTASSIUM SERUM 4.5 MEQ/L (3.5-5.1); SODIUM LEVEL 140 MEQ/L (136-145); TOTAL PROTEIN 6.8 GM/DL (6.4-8.2)
== END ==
LOC: M LABDRWAD 12:22
PROVIDERS: ATTEND Internal Medicine Medical Oncology
DX: C50.919 Malignant neoplasm of unspecified site of unspecified female breast (principal)

== ENCOUNTER 2019-08-28 15:00 | Outpatient (RCR) | payer MEDICARE ==
[2019-08-13 15:00] LABS: HEMATOCRIT 41.9 % (36.0-47.0); HEMOGLOBIN 13.9 g/dl (12.0-15.5); MEAN CORPUSCULAR HEMOGLOBIN 32.9 pg (27.0-33.0); MEAN CORPUSCULAR HGB CONC 33.2 g/dl (32.0-36.5); MEAN CORPUSCULAR VOLUME 99.1 fl (80.0-96.0); PLATELET COUNT, AUTOMATED 262 10^3/uL (150-450); RED BLOOD COUNT 4.23 10^6/uL (4.00-5.40); WHITE BLOOD COUNT 10.5 10^3/uL (4.0-10.0)
--- NOTE | 2019-08-18 12:05 | RADONC ---
RADIATION ONCOLOGY SIMULATION NOTE DATE: 08/13/2019 CHART NUMBER: [id number] SIMULATION NOTE: Ms. Raza was taken to the CT scan for CT simulation of her right breast field. CT was accomplished without difficulty or discomfort. Radiation treatment planning is underway and radiation treatments will begin subsequently. An immobilization device was created without difficulty or discomfort. It will be used throughout the course of treatment. I was physically present throughout the course of CT simulation.
== END 2019-08-30 ==
LOC: M ONCR 15:00
PROVIDERS: ATTEND Radiology Radiation Oncology
DX: C50.411 Malignant neoplasm of upper-outer quadrant of right female breast (principal)

== ENCOUNTER 2019-09-21 14:57 | Outpatient (RCR) | payer MEDICARE ==
--- NOTE | 2019-09-02 09:45 | RADONC ---
RADIATION ONCOLOGY PROGRESS NOTE DATE: 08/25/2019 CHART #: [id number] Ms. Raza underwent her first fraction of radiation today to her right breast for a dose of 267 cGy. It was tolerated without difficulty or discomfort. REVIEW OF SYSTEMS: The patient's review of systems is noncontributory. Denies nausea, vomiting, fevers, chills, night sweats, diplopia, headaches, anxiety or depression, anorexia, weight loss, visual disturbances, chest pain, urinary or bowel difficulties, bone pain, or neurological problems. PHYSICAL EXAMINATION: Clearly, the patient's breast showed no evidence of radiation change present as this was her first fraction. The remainder of her physical exam remained unchanged as well. Ms. Raza tolerated her first fraction without difficulty and radiation will continue as scheduled.
--- NOTE | 2019-09-06 11:09 | RADONC ---
RADIATION ONCOLOGY PROGRESS NOTE DATE: 08/31/2019 CHART NUMBER: [id number] PROGRESS NOTE: Ms. San is presently at a dose of 1335 cGy to her right breast and is tolerating treatments quite well at this point with no complaints related to her radiation therapy. She has no significant breast or bone pain. REVIEW OF SYSTEMS: The patient's review of systems is noncontributory. Denies nausea, vomiting, fevers, chills, night sweats, diplopia, headaches, anxiety or depression, anorexia, weight loss, visual disturbances, chest pain, urinary or bowel difficulties, bone pain, or neurological problems. PHYSICAL EXAMINATION: The patient's skin is in good condition with no evidence of moist or dry desquamation. The remainder of her physical exam remains unchanged. Ms. San is tolerating treatments quite well radiation will continue as scheduled.
--- NOTE | 2019-09-11 08:39 | RADONC ---
RADIATION ONCOLOGY PROGRESS NOTE DATE: 09/07/2019 CHART #: [id number] Ms. Raza is presently at a dose of 2670 cGy to her right breast and is tolerating treatments quite well at this point with no complaints related to her radiation therapy. She had no breast pain or other problems. REVIEW OF SYSTEMS: The patient's review of systems is noncontributory. Denies nausea, vomiting, fevers, chills, night sweats, diplopia, headaches, anxiety or depression, anorexia, weight loss, visual disturbances, chest pain, urinary or bowel difficulties, bone pain, or neurological problems. PHYSICAL EXAMINATION: The patient's skin is in good condition with no evidence of moist or dry desquamation. The remainder of her physical exam remains unchanged. Ms. Raza is tolerating treatments quite well and radiation will continue as scheduled.
--- NOTE | 2019-09-12 12:47 | RADONC ---
RADIATION ONCOLOGY SIMULATION NOTE DATE: 09/08/2019 CHART NUMBER: [id number] SIMULATION NOTE: Ms. San was taken to the linear accelerator today for clinical setup of her right breast electron boost field. Setup was accomplished without difficulty or discomfort. Radiation treatment planning is underway and radiation treatments will begin subsequently. An immobilization device was created without difficulty or discomfort. It will be used throughout the course of treatment. I was physically present throughout the course of clinical setup simulation.
--- NOTE | 2019-09-16 13:34 | RADONC ---
RADIATION ONCOLOGY PROGRESS NOTE DATE: 09/14/2019 CHART #: [id number] Ms. Raza is presently at a dose of 4005 cGy to her right breast and is tolerating treatments quite well at this point with no complaints related to her radiation therapy. She is having no breast or bone pain. REVIEW OF SYSTEMS: The patient's review of systems is noncontributory. Denies nausea, vomiting, fevers, chills, night sweats, diplopia, headaches, anxiety or depression, anorexia, weight loss, visual disturbances, chest pain, urinary or bowel difficulties, bone pain, or neurological problems. PHYSICAL EXAMINATION: The patient's skin is in good condition with no evidence of moist or dry desquamation. The remainder of her physical exam remains unchanged. Ms. Raza is tolerating treatments quite well and radiation will continue as scheduled.
--- NOTE | 2019-09-30 11:03 | RADONC ---
RADIATION ONCOLOGY DATE: 09/22/2019 Gloria Raza carries the diagnosis of right breast CA. She started radiation therapy on 09/15/2019 and she received a total dose of 4905 cGy in 20 fractions from 08/25/2019 to 09/21/2019. Initial dose of 4005 cGy was delivered in 15 fractions to the right breast using 6 MEV photon beams from 08/25/2019 to 09/14/2019. An additional dose of 900 cGy in five fractions was boosted to the lumpectomy site using 6 MEV electron beams from 09/15/2019 through 09/21/2019. Treatment was uneventful. She did not have any complaints or discomfort. She developed a moderate degree of skin erythema. Further skin care instructions was given to her. She is scheduled to start tamoxifen. She was advised continuous followup care with physicians involved and she was also asked to return here in 1 month for checkup. LANIE
== END 2019-09-29 ==
LOC: M ONCR 14:57
PROVIDERS: ATTEND Radiology Radiation Oncology
DX: C50.411 Malignant neoplasm of upper-outer quadrant of right female breast (principal)

== ENCOUNTER → 2019-10-21 | Outpatient (CLI) | payer MEDICARE ==
[~2019-10-21] MED LIST changes: +EXEM25TA PO; +OFLO3OPSO; +PREDOPD
== END ==
LOC: M ONCR 15:01
PROVIDERS: ATTEND Radiology Radiation Oncology
DX: C50.411 Malignant neoplasm of upper-outer quadrant of right female breast (principal)

== ENCOUNTER → 2020-01-27 | Outpatient (CLI) | payer MEDICARE ==
--- NOTE | 2020-01-27 15:15 | RADONC ---
Radiation Oncology Hx/FUP Radiation Oncology Hx/FUP Date of Service: Jan 27, 2020 Pt Identifier Gloria Raza is a 69 year old female seen for a followup visit today at the department of radiation oncology for a history of right breast cancer pT1bN0(sn)M0 ER/NM+ HER2- Grade 2. She is s/p lumpectomy and SLNB on 07/10/19 and she completed adjuvant RT 40 Gy in 15 fractions WBI and 9 Gy in 5 fractions to the tumor bed on 09/21/19. She continues on letrozole. She carries a CHEK2 mutation. Diagnosis/Treatment History Oncologic History As above Interval History Feels well overall. Complains of join pain on letrozole, would like to switch AI. Has call in to Dr. Evangelista about this. No skin or cosmetic concerns at this time. Has mammogram scheduled for April 2020. Current Therapy Letrozole Stage pT1bN0(sn)M0 ER/NM+ HER2- Grade 2 stage IA right breast cancer Social History: Current smoker 50+ pack year Non-drinker Allergies / Meds Allergies: Coded Allergies: nickel (Verified Allergy, Intermediate, rash, 07/03/19) adhesive (Verified Adverse Reaction, Mild, redness, 07/03/19) Home Meds Active Scripts Letrozole (Letrozole) 2.5 Mg Tablet, 1 TAB PO DAILY for 30 Days, #30 TAB 11 Refills Prov:Yue Renteria MD 07/30/19 Reported Medications Ofloxacin (Ofloxacin) 0.3% 5ML Drops 01/27/20 Prednisolone Acetate (Prednisolone Acetate 1% Opth Susp) 5 Ml Drops.susp 01/27/20 Sulfasalazine (Sulfasalazine) 500 Mg Tablet, 1 TAB PO BID 12/01/19 Loperamide HCl (Loperamide) 2 Mg Capsule, 2 MG PO PRN, CAP 05/12/19 Travoprost (Travatan Z) 0.004% 2.5ML Drops, 1 DROP OU QPM, #3 ML 05/12/19 Brinzolamide (Azopt) 1% 10ML Drops.susp, 1 DROP OU BID for 30 Days, #5 ML 05/12/19 Alprazolam (Alprazolam) 0.25 Mg Tab, 0.25 MG PO PRN PRN for ANXIETY/AGITATION, TAB 02/27/18 Aspirin (Aspirin EC) 81 Mg Tab, 81 MG PO DAILY, #30 TAB 02/27/18 Omeprazole (Omeprazole) 20 Mg Cap, 20 MG PO DAILY, CAP 02/27/18 Simvastatin (Simvastatin) 10 Mg Tab, 10 MG PO QHS, TAB 02/27/18 Metoprolol Tartrate (Metoprolol Tartrate) 50 Mg Tab, 50 MG PO BID, TAB 02/27/18 Nortriptyline HCl (Nortriptyline HCl) 25 Mg Cap, 25 MG PO QHS, CAP 02/27/18 Nortriptyline HCl (Nortriptyline HCl) 75 Mg Cap, 75 MG PO QHS, CAP 02/27/18 Buspirone HCl (Buspirone HCl) 15 Mg Tab, 15 MG PO BID, TAB 02/27/18 Review of Systems Review of Systems Constitutional: Denies: ROS Unabtainable, Chills, Fever, Malaise, Night Sweats, Weakness, Fatigue, Weight Loss, Lethargy, Normal appetite, Other symptoms Eyes: Denies: Pain, Vision change, Conjunctivae inflammation, Eyelid inflammation, Redness, Other HEENT: Denies: Head Aches, Ear Pain, Dysphagia, Sinus Congestion, Post Nasal Drip, Sore Throat, Epistaxis, Other Symptoms Skin: Denies: Rash, Lesions, Jaundice, Bruising, Other Breast: Denies: New Breast Lumps / Masses, Nipple Retraction, Nipple Discharge, Breast Skin Changes, Breast Pain or Tenderness, Other Breast Complaints Pulmonary: Denies: Dyspnea, Cough, Pleuritic Chest Pain, Other Symptoms Cardiovascular: Denies: Chest Pain, Palpitations, Orthopnea, Paroxysmal Noc. Dyspnea, Edema, Lt Headedness, Other Symptoms Gastrointestinal: Denies: Nausea, Vomiting, Abdominal Pain, Diarrhea, Constipation, Melena, Hematochezia, Other Symptoms Genitourinary: Denies: Dysuria, Frequency, Incontinence, Hematuria, Retention, Other Symptoms Hematologic: Denies: Bruising, Bleeding Excessively, Petecchia, Purpura, Enlarged Lymph Nodes, Other Hematologic Musculoskeletal: Denies: Neck pain, Shoulder pain, Arm pain, Back pain, Hand pain, Leg pain, Foot pain, Joint pain, Muscle pain, Spasms, Gout, Joint sweling, Muscle stiffness, Midthoracic pain, Other Neurological: Denies: Weakness, Numbness, Incoordination, Change in Speech, Confusion, Seizures, Other Symptoms Psych: Denies: Mood Normal, Anxiety, Depression, Memory Issues, Thoughts of Self Harm, Anger, Thoughts of harming Other, Other Psych Physical Examination Vital Signs Ht 62" Wt 132 lb BMI 24 P 83 RR 18 BP 128/84 O2 97% Pain 0 Fatigue 0 General Exam: Positive: Alert, Cooperative, No Acute Distress Eye Exam: Positive: PERRLA, EOMI ENT EXAM: Positive: Atraumatic, Pharynx Normal Neck Exam: Positive: Supple; Negative: Lymphadenopathy Chest Exam: Positive: Clear to auscultation, Normal air movement Heart Exam: Positive: Rate Normal, Regular Rhythm Breast Exam: Positive: Symmetric Bilaterally (Ptosis Bl symmetrical lie and shape); Negative: Lumps or Masses (No palpable lumps in breast or axillae BL. There is palpable post-operative fibrosis in the central right breast ), Nipple Retraction, Nipple Discharge, Skin Changes (No skin pigmentation changes, no telangiectasias. ) Abdomen Exam: Positive: Normal bowel sounds, Soft; Negative: Tenderness Extremity Exam: Negative: Edema Skin Exam: Positive: Nl turgor and temperature; Negative: Rash Neuro Exam: Positive: Normal Gait, Normal Speech, Cranial Nerves 3-12 NL Psych Exam: Positive: Mental status NL, Mood NL; Negative: Anxiety Diagnostic and Laboratory Diagnostic Review Radiologic images, relevant labs and pathology reports were personally reviewed and discussed with Ms. Raza. Assessment and Plan Impression Assessment Ms. Raza is a 69 year old female with a history of right breast cancer pT1bN0(sn)M0 ER/NM+ HER2- Grade 2. She is s/p lumpectomy and SLNB on 07/10/19 and she completed adjuvant RT 40 Gy in 15 fractions WBI and 9 Gy in 5 fractions to the tumor bed on 09/21/19. She continues on letrozole. She carries a CHEK2 mutation. She is doing well overall. She has no discernible sequelae of RT in the treated right breast, nor evidence of recurrent disease on exam today. She expressed desire to try a different AI, will see Dr. Evangelista about this. She has mammograms scheduled for April 2020. Because she has follow up in place with surgical oncology, medical oncology and mammography, I will see her on an annual basis from now. Plan Follow up in 1 year Ms. Raza was encouraged to call with questions or concerns in the interim period. CASSIE BOOGIE MD Jan 27, 2020 15:15
== END | disposition home or self-care (01) ==
LOC: M ONCR 14:24
PROVIDERS: ATTEND General Practice
DX: Z85.3 Personal history of malignant neoplasm of breast (principal)

== ENCOUNTER → 2020-04-11 | Outpatient (REF) | payer MEDICARE ==
[~2020-04-11] MED LIST changes: +TAMO20TA8 PO
[2020-04-11 17:02] LABS: HEMOGLOBIN A1c 13.3 %
== END ==
LOC: M LAB REF 16:31
PROVIDERS: ATTEND Family Medicine
DX: E11.9 Type 2 diabetes mellitus without complications (principal)

== ENCOUNTER → 2020-05-09 | Outpatient (CLI) | payer MEDICARE ==
--- NOTE | 2020-05-09 14:32 | REPMRS ---
Patient History The patient states she had a clinical breast exam in 04/2020 Patient has history of cancer in the right breast at age 69 and has history of cancer in the right breast at age 68. Family history of breast cancer under age 50 in daughter. Malignant radio exam breast specimen of the right breast, July 10, 2019. Benign US guided breast biopsy. of the left breast, June 24, 2019. Malignant US guided breast biopsy of the right breast, May 20, 2019. Radiation therapy of the right breast, 2019. No Hormone Replacement Therapy Diagnostic Bilateral Mammo: May 09, 2020 - Exam #: [id number] Bilateral CC and MLO view(s) were taken. Technologist: Gloria Nielsen, Technologist Prior study comparison: June 24, 2019, right breast diagnostic unilateral mammo performed at [facility]. May 20, 2019, right breast digital mammo diagnostic unilateral, performed at [facility]. April 09, 2019, bilateral digital woman screen mammo performed at [facility]. FINDINGS: There are scattered fibroglandular densities. The Volpara volumetric breast density category is:B. There are post treatment changes in the right breast. There are multiple surgical clips at the lumpectomy site and in the axilla on the right breast. There has been no change in the appearance of the mammogram from the prior studies. There is a mild amount of scattered fibroglandular density which is fairly symmetric. There is no interval development of dominant mass, architectural distortion, or grouped microcalcification suggestive of malignancy. 3-D tomosynthesis shows no additional findings. Assessment: BI-RADS/ACR category 2 mammogram. Benign Findings. Recommendation Routine screening mammogram of both breasts in 1 year (for women over age 40). This patient's [facility] Lifetime Breast Cancer Risk is estimated at %. This mammogram was interpreted with the aid of an FDA-approved computer-aided dectection system. Electronically Signed By: Buster Mcwilliams MD 05/09/20 [id number]
== END ==
LOC: M WHC 13:47
PROVIDERS: ATTEND Surgery
DX: Z85.3 Personal history of malignant neoplasm of breast (principal)
CPT/HCPCS: 77066; G0279

== ENCOUNTER → 2020-09-02 | Outpatient (REF) | payer MEDICARE ==
[~2020-09-02] MED LIST changes: +LIDO1CRE42; -LIDO2.5C15; +METF500T13 PO
[2020-09-02 16:26] LABS: PTH INTACT 43.4 PG/ML (18.5-88.0)
== END ==
LOC: M LAB REF 15:33
PROVIDERS: ATTEND Nurse Practitioner Adult Health
DX: E83.52 Hypercalcemia (principal)

== ENCOUNTER → 2020-09-28 | Outpatient (CLI) | payer MEDICARE ==
[~2020-09-28] MED LIST changes: +CENTCHW4 PO; +CVS5000S2 PO; +D31000TA2 PO; +E-Z-GAS II EFFERVESCENT PACKET (SODIUM BICARB./CITRIC ACID/SIMETHICONE) As Ordered ONE; +E-Z-HD 98% w/w 340GM SUSP BTL As Ordered ONE; +E-Z-PAQUE 96% w/w SUSP 176GM BTL As Ordered ONE; +METF-838 PO; +OMEG10002 PO
--- NOTE | 2020-09-28 17:05 | REP ---
INDICATION: WT LOSS EARLY SATITY. COMPARISON: None. TECHNIQUE: The procedure was performed under the direct supervision of Dr. Mcwilliams. The images were reviewed with Dr. Mcwilliams. Liquid barium and gas producing crystals were given in the erect position as well as liquid barium in the prone oblique position in order to perform a double contrast upper GI examination. Additionally liquid barium was given at the end of the examination in order to perform a small bowel follow through. A combination od fluoroscopy, spot films and last image hold technology was utilized, 2.6 minutes of fluoro time was utilized for this procedure. FINDINGS: The beef breaker film shows no organomegaly or pathological masses. The intestinal gas pattern is non-specific. The oral and pharyngeal stages of deglutition are unremarkable. During esophageal transport there are tertiary waves demonstrated. There is no esophagitis stricture mucosal ring or hiatal hernia. There is gastroesophageal reflux demonstrated to the level of the thoracic inlet. Within the stomach there are prominent folds which may represent gastritis. There is no miles ulcer identified. The stomach is otherwise unremarkable.. The duodenal bentley are normally outlined . The mucosal folds are smooth and regular. There is no duodenitis pancreatitis peptic ulcer disease or neoplasm. The visualized portion of the proximal small bowel appears normal in course and caliber. The barium column was followed through the small bowel to the level of the terminal ileum. Small bowel transit time is approximately 30 minutes. During fluoroscopy gentle palpation shows all loops are freely movable and pliable. There are no fixed or angulated loops. The small bowel mucosal pattern is normal in course and caliber. There is no transition to suggest a partial small-bowel obstruction. Spot filming of the terminal ileum shows it to be unremarkable. IMPRESSION: 1. Tertiary waves. 2. Prominent gastric folds which may represent gastritis. There is no miles ulcer identified. 3. There is gastroesophageal reflux demonstrated to the level of the thoracic inlet. . <Electronically signed by Rigoberto Warner > 09/28/20 1701 <Electronically signed by Buster Mcwilliams > 09/28/20 1702
== END ==
LOC: M RAD 08:48
PROVIDERS: ATTEND Nurse Practitioner Adult Health
DX: R19.2 Visible peristalsis (principal); K31.9 Disease of stomach and duodenum, unspecified; K21.9 Gastro-esophageal reflux disease without esophagitis; R63.4 Abnormal weight loss; R68.81 Early satiety

== ENCOUNTER → 2020-10-10 | Outpatient (REF) | payer MEDICARE ==
[~2020-10-10] MED LIST changes: -E-Z-GAS II EFFERVESCENT PACKET (SODIUM BICARB./CITRIC ACID/SIMETHICONE) As Ordered ONE; -E-Z-HD 98% w/w 340GM SUSP BTL As Ordered ONE; -E-Z-PAQUE 96% w/w SUSP 176GM BTL As Ordered ONE
== END ==
LOC: M LAB REF 11:22
PROVIDERS: ATTEND Family Medicine
DX: E83.52 Hypercalcemia (principal)

== ENCOUNTER → 2020-10-14 | Outpatient (CLI) | payer MEDICARE ==
[2020-10-14 13:41] LABS: BLOOD UREA NITROGEN 16 MG/DL (7-18); CALCIUM LEVEL 10.3 MG/DL (8.8-10.2); CARBON DIOXIDE LEVEL 29 MEQ/L (21-32); CHLORIDE LEVEL 110 MEQ/L (98-107); CREATININE FOR GFR 0.62 MG/DL (0.55-1.30); GLOMERULAR FILTRATION RATE > 60.0 (>39); GLUCOSE, FASTING 126 MG/DL (70-100); POTASSIUM SERUM 4.4 MEQ/L (3.5-5.1); SODIUM LEVEL 143 MEQ/L (136-145)
== END ==
LOC: M PLALAB 11:08
PROVIDERS: ATTEND Surgery
DX: Z91.89 Other specified personal risk factors, not elsewhere classified (principal)

== ENCOUNTER → 2020-10-17 | Outpatient (CLI) | payer MEDICARE ==
--- NOTE | 2020-10-17 11:51 | REP ---
INDICATION: PERSONAL H/O NICOTINE DEPEND. COMPARISON: CT this 05/07/2011 TECHNIQUE: Low-dose lung CT screening protocol FINDINGS: There is 11 mm pleural based nodule longer than tall adjacent linear a density from it in the paraspinal region on image of 32-35. This is in the superior segment of the right lower lobe. There are a few other scattered nodules adjacent on image 33 with a tree in bud appearance. Triangular shaped soft tissue density pleural based on image 23 also noted. A see no definite other upper or lower lobe nodules. The right middle lobe shows some parenchymal scarring in the medial and lateral segments pleural based and curvilinear. The left lung is clear. No enlargement of the cardiac silhouette. IMPRESSION: 1. Lung RADS category 4A suspicious, new solid nodule about 11 mm size superior segment in the right lower lobe and some adjacent smaller nodules with a tree in bud configuration. Given this set of findings a follow-up low-dose CT in 3 months may be performed, PET-CT can also be utilized with patient's showing solid components greater than 8 mm size. With this category of findings there is a 5-15% chance of malignancy at the time of the examination. Follow-up is certainly warranted. <Electronically signed by Yazan Diaz > 10/17/20 [id number]
== END ==
LOC: M RAD 10:52
PROVIDERS: ATTEND Internal Medicine Medical Oncology
DX: R91.8 Other nonspecific abnormal finding of lung field (principal); Z87.891 Personal history of nicotine dependence

== ENCOUNTER → 2020-10-21 | Outpatient (CLI) | payer MEDICARE ==
[~2020-10-21] MED LIST changes: +PROHANCE 279.3MG/ML 5ML VIAL As Ordered ONE
--- NOTE | 2020-10-22 09:03 | REP ---
INDICATION: HIGH RISK BREAST CA H/O BREAST CA SELF. Personal history of a right breast malignancy diagnosed in July of 2019. Positive family history of breast carcinoma. Status post right breast radiotherapy. COMPARISON: Comparison mammography May 09, 2020. Comparison breast MRI study June 17, 2019. TECHNIQUE: Three Dana MRI imaging was performed with a dedicated breast coil. Axial, coronal, and sagittal T1 and T2 weighted scans were obtained with and without fat saturation in the usual fashion. The study includes dynamically acquired post gadolinium-enhanced imaging with image subtraction. Maximum intensity projection and multi planar reformation imaging is included as well. This study is interpreted with the aid of [employer], an FDA approved computer aided detection (CAD) software program, on a dedicated breast MRI workstation. The gadolinium enhancement dose is 9 mL of intravenous ProHance. FINDINGS: There is a mild amount of fibroglandular tissue bilaterally corresponding with the mammographic pattern. There is minimal background parenchymal enhancement. There is no evidence of axillary lymphadenopathy or significant breast cystic change. Multiple foci of magnetic field susceptibility artifact are scattered throughout the superior right breast and in the right axilla consistent with postoperative clips and or needle biopsy marker clips. The numerous small hepatic cysts under a cm in diameter are seen and there are granular filling defects in the gallbladder lumen consistent with cholelithiasis. The gallbladder was not included in the field of view of the previous study. The liver cysts are unchanged. High-resolution pre and post-contrast T1 and T2 weighted scans show no suspicious morphologic abnormality in either breast. Dynamically acquired sequential postcontrast images show no suspicious area of enhancement and washout kinetics in either breast to suggest malignancy. Subtraction images show no additional abnormality. There are some prominent retroareolar ducts bilaterally. This is unchanged. IMPRESSION: BI-RADS category 2 benign bilateral breast MRI findings. Cholelithiasis and subcentimeter hepatic cysts noted incidentally. <Electronically signed by Buster Mcwilliams > 10/22/20 [id number]
== END ==
LOC: M RAD 15:35
PROVIDERS: ATTEND Surgery
DX: Z91.89 Other specified personal risk factors, not elsewhere classified (principal); Z85.3 Personal history of malignant neoplasm of breast
CPT/HCPCS: A9576; C8908

== ENCOUNTER → 2020-11-22 | Outpatient (CLI) | payer MEDICARE ==
[~2020-11-22] MED LIST changes: -PROHANCE 279.3MG/ML 5ML VIAL As Ordered ONE
[2020-11-22 10:56] LABS: PLATELET COUNT, AUTOMATED 265 10^3/uL (150-450)
[2020-11-22 11:07] LABS: INR 0.93; PROTHROMBIN TIME 12.8 SECONDS (12.7-14.5)
[2020-11-22 11:08] LABS: PARTIAL THROMBOPLASTIN TIME 38.8 SECONDS (25.9-37.0)
== END ==
LOC: M LAB 09:59
PROVIDERS: ATTEND Internal Medicine Pulmonary Disease
DX: R91.1 Solitary pulmonary nodule (principal); Z79.01 Long term (current) use of anticoagulants

== ENCOUNTER → 2020-12-08 | Outpatient (CLI) | payer MEDICARE ==
[~2020-12-08] MED LIST changes: +LIDOCAINE 1% MDV 20ML VIAL As Ordered ONE; +SODIUM BICARBONATE 8.4% INJ 50MEQ 50 ML VIAL As Ordered ONE
[2020-12-08 10:53] VITALS: BP 133/59
--- NOTE | 2020-12-08 12:54 | REP ---
INDICATION: RLL NODULE. COMPARISON: CT 10/17/2020. TECHNIQUE: CT chest performed without the use of intravenous contrast. Sagittal and coronal reconstruction images are performed. FINDINGS: Lungs: The previously noted nodular opacity in the superior segment of the right lower lobe has resolved. There is mild scattered interstitial fibrotic change which appears stable. Mediastinum: No gross adenopathy. Ashly: No gross adenopathy. Axilla: No gross adenopathy. Pleura: No effusion. Heart: Not enlarged. Thoracic aorta: No aneurysm. Upper abdominal structures: Multiple gallstones are seen in the gallbladder. There is a 1.8 cm left renal nodule a in the upper pole, not definitely a cyst. Subcentimeter intrarenal calculus is seen in the left lower pole. Visualized osseous structures: There are degenerative changes of the spine without compression deformity.. IMPRESSION: The previously noted nodular opacity in the superior segment of the right lower lobe has resolved. Therefore CT-guided biopsy is not performed today. There is a nodule in the upper pole the left kidney 1.8 cm in diameter which is measuring greater than water density. This could represent a complex cyst or solid nodule. Recommend renal ultrasound to further evaluate. <Electronically signed by Guillermo Niño > 12/08/20 [id number]
== END ==
LOC: M IRPRO 10:34
PROVIDERS: ATTEND Internal Medicine Pulmonary Disease
DX: R91.1 Solitary pulmonary nodule (principal); Z53.8 Procedure and treatment not carried out for other reasons

== ENCOUNTER → 2020-12-13 | Outpatient (REF) | payer MEDICARE ==
[~2020-12-13] MED LIST changes: +ALBU8.5H; +AMOX875T2 PO; +ANTI2TAB16 PO; +ASPI1CHW3 PO; +BREO1INH3; +BREO1INH3 INH; +FISH1000 PO; +GLIM1TAB4 PO; +IBUP200C25 PO; -LIDOCAINE 1% MDV 20ML VIAL As Ordered ONE; +ONDA-83 PO; +PROAAER10 INH; +PROC10TA5 PO; +ROLLMIS8 XX; -SODIUM BICARBONATE 8.4% INJ 50MEQ 50 ML VIAL As Ordered ONE; +SULF1TAB30 PO; +VITMTA PO; +XARE10TA PO; +ZOFR4TAB16 PO
[2020-12-13 18:31] LABS: C REACTIVE PROTEIN QUANTITATIV 0.62 MG/DL (0.00-0.30); PTH INTACT 63.5 PG/ML (18.5-88.0)
== END ==
LOC: M LAB REF 16:50
PROVIDERS: ATTEND Family Medicine
DX: E83.52 Hypercalcemia (principal); R63.4 Abnormal weight loss

== ENCOUNTER → 2021-01-18 | Outpatient (CLI) | payer MEDICARE ==
[~2021-01-18] MED LIST changes: -ALBU8.5H; -AMOX875T2 PO; -ANTI2TAB16 PO; -ASPI1CHW3 PO; -BREO1INH3; -BREO1INH3 INH; -FISH1000 PO; -GLIM1TAB4 PO; -IBUP200C25 PO; -ONDA-83 PO; -PROAAER10 INH; -PROC10TA5 PO; -ROLLMIS8 XX; -SULF1TAB30 PO; -VITMTA PO; -XARE10TA PO; -ZOFR4TAB16 PO
--- NOTE | 2021-01-18 15:01 | RADONC ---
Radiation Oncology Hx/FUP Radiation Oncology Hx/FUP Date of Service: Jan 18, 2021 Pt Identifier Gloria Raza is a 70 year old female seen for a followup visit today at the department of radiation oncology for a history of pT1bN0(sn)M0 ER/MS+ HER2- Grade 2. She is s/p lumpectomy and SLNB on 07/10/19 and she completed adjuvant RT 40 Gy in 15 fractions WBI and 9 Gy in 5 fractions to the tumor bed on 09/21/19. She continues on letrozole. She carries a CHEK2 mutation. Diagnosis/Treatment History Oncologic History As above Survivorship Test Due Next Last result Notes TSH, T4* 6m post-tx, then q1y N/A Carotid US* q10 y post-tx N/A Smoking cessation Assess annually if applicable Next visit Not ready to quit 12/[address] chest q1y if eligible per [facility] Per Dr. Ohara/[facility] Mammograms Min q1y, if breast conservation summer negative CBC,CMP, Lipids q1y 2021 DEXA q2y if on AI [address] Hollis Interval History Gloria feels well she has been trying to gain back weight after losing some over the last year. She had a screening CT chest which showed a small nodule which on subsequent study resolved. Thought to be RA nodule. She has established with Dr. Ohara who is helping to follow this up. She is now on breo which has helped her breathing. Current Therapy Letrozole Stage pT1bN0(sn)M0 ER/MS+ HER2- Grade 2 stage IA right breast cancer Social History: Current smoker 50+ pack year Non-drinker Allergies / Meds Allergies: Coded Allergies: nickel (Verified Allergy, Intermediate, rash, 07/03/19) adhesive (Verified Adverse Reaction, Mild, redness, 07/03/19) Home Meds Active Scripts Tamoxifen Citrate (Tamoxifen Citrate) 20 Mg Tablet, 20 MG PO DAILY, #90 TAB 2 Refills Prov:TEO HOLLIS MD FACP 05/25/20 Reported Medications Multivit-Min/Iron/Folic/Vit K1 (Centrum Chewables Adults Tab) 1 Each Tab.chew, 1 TAB PO DAILY for 30 Days, #30 TAB 09/21/20 Cholecalciferol (Vitamin D3) (Vitamin D3) 1,000 Unit Tablet, 5000 UNITS PO DAILY, TAB 09/21/20 Cyanocobalamin (Vitamin B-12) (Vitamin B12) 5,000 Mcg Tab.rapdis, 500 MCG PO DAILY 09/21/20 Plevna-3/Dha/Epa/Fish Oil (Fish Oil 1,000 mg Softgel) 1 Each Capsule, 1 CAP PO DAILY for 30 Days, #30 CAP 09/21/20 Metformin HCl (Metformin HCl ER) 500 Mg Tab.er.24h, 1 TAB PO BID 09/21/20 Sulfasalazine (Sulfasalazine) 500 Mg Tablet, 1 TAB PO BID 12/01/19 Loperamide HCl (Loperamide) 2 Mg Capsule, 2 MG PO PRN, CAP 05/12/19 Alprazolam (Alprazolam) 0.25 Mg Tab, 0.25 MG PO PRN PRN for ANXIETY/AGITATION, TAB 02/27/18 Aspirin (Aspirin EC) 81 Mg Tab, 81 MG PO DAILY, #30 TAB 02/27/18 Omeprazole (Omeprazole) 20 Mg Cap, 20 MG PO DAILY, CAP 02/27/18 Simvastatin (Simvastatin) 10 Mg Tab, 10 MG PO QHS, TAB 02/27/18 Metoprolol Tartrate (Metoprolol Tartrate) 50 Mg Tab, 50 MG PO BID, TAB 02/27/18 Nortriptyline HCl (Nortriptyline HCl) 25 Mg Cap, 25 MG PO QHS, CAP 02/27/18 Nortriptyline HCl (Nortriptyline HCl) 75 Mg Cap, 75 MG PO QHS, CAP 02/27/18 Buspirone HCl (Buspirone HCl) 15 Mg Tab, 15 MG PO TID, TAB 02/27/18 Review of Systems Review of Systems Constitutional: Denies: Fatigue, Weight Loss Eyes: Denies: Pain HEENT: Denies: Head Aches Skin: Denies: Rash Breast: Denies: New Breast Lumps / Masses, Nipple Retraction, Breast Pain or Tenderness Pulmonary: Reports: Dyspnea, Cough Cardiovascular: Denies: Chest Pain, Edema Gastrointestinal: Denies: Abdominal Pain Musculoskeletal: Denies: Neck pain, Back pain Neurological: Denies: Weakness, Numbness Psych: Reports: Mood Normal Physical Examination Vital Signs Wt 111 lbs T 97.2 P 80 RR 18 BP 123/71 O2 96% Pain 0 Fatigue 0 General Exam: Alert, Cooperative, No Acute Distress Eye Exam: PERRLA, EOMI ENT EXAM: Atraumatic Neck Exam: Supple Chest Exam: Clear to auscultation, Normal air movement Breast Exam: Symmetric Bilaterally (ptotic. no lesions Bl) Abdomen Exam: Soft Extremity Exam: Negative: Edema Neuro Exam: Normal Gait, Normal Speech, Cranial Nerves 3-12 NL Psych Exam: Mental status NL Diagnostic and Laboratory Diagnostic Review Radiologic images, relevant labs and pathology reports were personally reviewed and discussed with Ms. Raza. Assessment and Plan Impression Assessment Ms. Raza is a 70 year old female with a history of pT1bN0(sn)M0 ER/MS+ HER2- Grade 2. She is s/p lumpectomy and SLNB on 07/10/19 and she completed adjuvant RT 40 Gy in 15 fractions WBI and 9 Gy in 5 fractions to the tumor bed on 09/21/19. She continues on letrozole. She carries a CHEK2 mutation. She is doing well. Mammography is up to date and she has appropriate medical oncology, surgical and pulmonology follow up. No evidence of disease on exam. I will see her in 12 months time in effort to split follow up with her other providers. Performance Status ECOG 0 Plan 12 month follow up Ms. Raza was encouraged to call with questions or concerns in the interim period. Billing Statement Total time of [23] minutes was spent preparing for the visit [1], obtaining HPI [6], examining the patient [1], reviewing diagnostic tests [2], discussing m anagement options [6], coordinating care [2], and writing this note [5]. CASSIE BOOGIE MD Jan 18, 2021 15:01
== END ==
LOC: M ONCR 13:48
PROVIDERS: ATTEND General Practice
DX: C50.411 Malignant neoplasm of upper-outer quadrant of right female breast (principal); F17.210 Nicotine dependence, cigarettes, uncomplicated; Z79.82 Long term (current) use of aspirin; Z79.84 Long term (current) use of oral hypoglycemic drugs; Z79.899 Other long term (current) drug therapy; Z91.048 Other nonmedicinal substance allergy status; Z91.09 Other allergy status, other than to drugs and biological substances; Z92.3 Personal history of irradiation

== ENCOUNTER 2021-03-02 17:35 | Inpatient (IN) | payer MEDICARE ==
[~2021-03-02] VITALS: Ht 154.9 cm; Wt 47.3 kg
--- OUTSIDE RECORDS SUMMARY | 2021-03-02 17:43 | CCD | Continuity of Care Document ---
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 Automatic Name Role Phone Kiko Rae MD AUTM [phone] Nahum Gibbs MD AUTM [phone] [facility] AUTM [facility] AUTM [phone] [facility] AUTM [phone] Che Delaney DO AUTM Guillermo Deras MD AUTM [phone] Yue Renteria MD AUTM [phone] Problems Active Problems Provider Date Orthostatic hypotension Onset: 1 Prediabetes Onset: 11/20/2010 Benign paroxysmal positional vertigo Ons et: 08/26/2010 Fatigue Onset: 07/22/2010 Hypercalcemia Onset: 09/22/2009 Vitamin D deficiency Onset: 12/06/2008 Leukocytosis Onset: 08/09/2008 Fibromyositis Onset: 03/16/2008 Tobacco dependence syndrome Onset: 03/07 Mixed hyperlipidemia Onset: 02/27/2008 Benign essential hypertension Onset: 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 Onset: 5 Adenomatous polyp of colon Kiko Rae M.D. Onset: 03/26 Social History Type Date Description Comments Sex Unknown ETOH Use Rarely consumes alcohol Tobacco Use Start: Unknown End: Unknown Patient is a former smoker pack/day 45 years Quit 03/27/19 and "only cheated a couple times" Allergies and adverse reactions Description No Known Drug Allergies Medications Active Medications SIG Qnty Indications Ordering Provide r Date Vitamin D3 Ultra Potency 1.25mg (80019 Ut) Tablets 1 tablet once a week 12tabs Kiko Rae M.D. 10/11/2020 Vitamin B12 3000mcg Tablets Sub 1/2 by mouth every day Kiko Rae M.D. 10/11/2020 Letrozole 2.5mg Tablets 1 by mouth every day 30tabs Kiko Rae M.D. 10/11/2020 Prolia 60mg/ml Soln Prefill Syring e inject under the skin every 6 months 1Dawit Maier 10/11/2020 Glimepiride 1mg Tablets take one tablet by mouth every day before breakfast 90tabs Kiko Rae M.D. 06/21/2020 Onetouch Verio Flex Blood Glucose Monito ring System w/Device Kit use as directed DX E11.65 1eliezer Rae M.D. 04/15/2020 [employer] Verio Strips test twice a day dx e11.65 200eliezer Rae M.D. 04/15/2020 [employer]etouch Ultrasoft Lancets Misc test twice a day e11.65 200eliezer Rae M.D. 04/15/19 21 Onetouch Delica Lancing Dev Misc use twice daily 1eliezer Rae M.D. 04/15/2020 Onetouch Delica Plus Lancets Extra Fine 33G Plus 33G Misc use to test blood sugar two times a day E11.65 200eliezer Rae M.D. 04/15/2020 Metformin HCL ER 500mg Tablets ER 24HR 1 by mouth bid 180tabs E11.65 Kiko Rae M.D. 04/12/2020 Aspirin Adult Low Dose 81mg Tablet s DR 1 by mouth every day 90tabs Kiko Rae M.D. 07/20/19 16 Lotrisone 1-0.05% Cream apply toically BId to right flank lesion. 45gm Kiko Rae M.D. 07/[address] 1 by mouth every day 90capnatty Rae M.D. 09/17/2014 Simvastatin 10mg Tablets take one tablet by mouth at bedtime 90tamicha Rae M.D. 015 Metoprolol Tartrate 50mg Tablets 1 by mouth twice a day 180tamicha Rae M.D. 5 Econazole Nitrate 1% Cream twice a day 85gm Kiko Rae M.D. 09/17/2014 Alprazolam 0.25mg Tablets 1 by mouth every day as needed anxiety 20tamicha Rae M.D. 09/17 Nortriptyline HCL 75mg Capsules 1 by mouth every night at bedtime 90steph Rae M.D. Nortriptyline HCL 25mg Capsules take 1 capsule by mouth at bedtime 90steph Rae M.D. Sulfasalazine 500mg Tablets 1 by mouth twice a day Unknown Fish Oil 1290 MG Per Sevig/900 MG [place] 3 1 Tablet Dailt\\Y Unknown Multivitamin Adult Tablets 1 by mouth every day Unknown Tamoxifen Citrate 20mg Tablets every day Unknown Administration Of Flu Vaccine Inj ection Unknown Medications Administered in Office Medication SIG Qnty Indications Ordering Provider Date Administration Of Flu Vaccine Inj martine Rae M.D. 01/06/2020 Administration Of Flu Vaccine Inj martine Rae M.D. 01/06/2019 Administration Of Flu Vaccine Inj martine Rae M.D. 02/05/2018 Therapeutic Injection Injection Unknown 07/05/2017 Administration Of Flu Vaccine Inj martine Rae M.D. 01/18/2017 Administration Of Flu Vaccine Inj martine Rae M.D. 01/12/2016 Administration Of Flu Vaccine Inj martine Rae M.D. 01/18/2015 Immunizations CPT Code Status Date Vaccine Lot # [id number] Given 01/12/2021 Influenza Vaccin e Quadrivalent Preser/Antibiotic Free Im Use [id number] 60022 Given 01/06/2020 Influenza Vaccin e Quadrivalent Preser/Antibiotic Free Im Use 168805 15457 Given 01/06/2019 Influenza Vaccin e Quadrivalent Preser/Antibiotic Free Im Use [id number] 94585 Given 02/05/2018 Influenza Virus Vaccine, Quadrivalent ([id number]), Derived From 2 Given 01/18/2017 Influenza Vaccin e Quadrivalent Preser/Antibiotic Free Im Use [id number] Q2037 Given 01/12/2016 Fluvirin Virus Vaccine 66794 01 Q2037 Given 01/18/2015 Fluvirin Virus Vaccine 10578 01 92955 Given 12/16/2013 Influenza Virus Vaccine 08422 Given 08/03/2013 Adacel- Tetanus Diphtheria P ertussis 08388 Given 03/04/2013 Influenza Virus Vaccine 46765 Given 01/09/2012 Influenza Virus Vaccine 39430 Given 01/30/2010 Influenza Virus Vaccine 13818 Given 01/30/2010 Influenza Virus Vaccine 48361 Given 01/12/2010 Influenza Virus Vaccine 19694 Given 05/30/2005 Pneumovax 23 57690 Given 04/01/2005 Adacel- Tetanus Diphtheria P ertussis 94662 Refused 08/14/2018 Zoster Vaccine 17032 Refused 08/14/2018 Shingrix Zoster Vaccine (HZV), Recombinant, Subunit, Adjuvanted Vital Signs Date Vital Result Comment 12/13/2020 2:36pm BP Systolic 120 mmHg BP Diastolic 70 mmHg Heart Rate 78 /min Height 62 inches 5'2" Weight 106.00 lb BMI (Body Mass Index) 19.4 kg/m2 10/11/2020 3:00pm BP Systolic 119 mmHg BP Diastolic 82 mmHg Heart Rate 91 /min Height 62 inches 5'2" Weight 111.00 lb BMI (Body Mass Index) 20.3 kg/m2 Results Test Acquired Date Facility Test Result H/L Range Note Complete Blood Count 12/13/2020 [facility] radha luz Contract Forester: Dr Primo Field [place] [id number] [phone] WBC 11.6 x10*3/UL High 4.1 - 10.9 1 RBC 4.39 x10*6/UL 4.20 - 6.30 Hemoglobin 14.1 g/dL 12.0 - 18.0 Hematocrit 41.5 % 37.0 - 51.0 MCV 94.4 fL 80.0 - 97.0 MCH 32.1 pg High 26.0 - 32.0 MCHC 34.0 g/dL 31.0 - 38.0 RDW 12.7 % 11.6 - 13.7 PLT 302 x10*3/UL 140 - 440 MPV 9.0 FL 7.8 - 11.0 Lymph % 21.4 % 10.0 - 58.5 Mid % 6.3 % 1.7 - 9.3 Neut % 72.3 % 37.0 - 92.0 Lymph # 2.5 x10*3/UL 0.6 - 4.1 Mid # 0.7 x10*3/UL High 0.1 - 0.6 Neut # 8.4 x10*3/UL High 2.0 - 7.8 Laboratory test finding 12/13/2020 [facility] [email or web address], Contract Forester: [place] [address] [phone] Sed Rate 30 mm/hr High 0 - 15 A1c 12/13/2020 [place] [facility] , Contract Forester: [place] [address] [phone] Hba1c 6.6 % High <5.7 2 Est Avg Glucose 143 mg/dL High 60 - 110 Comprehensive Chem Profile 12/13/2020 [place], Contract Forester: [place] [address] [phone] Glucose 218 mg/dL High 74 - 99 3 BUN 14 mg/dL 7 - 18 Creatinine 0.9 mg/dL 0.6 - 1.3 Sodium 140 mEq/L 136 - 145 Potassium 4.0 mEq/L 3.5 - 5.1 Chloride 103 mEq/L 98 - 107 Carbon Dioxide 32 mEq/L 21 - 32 Calcium 10.5 mg/dL High 8.5 - 10.1 4 Alk. Phosphatase 54 mg/dL 46 - 116 Total Bilirubin 0.3 mg/dL 0.2 - 1.0 Ast (Sgot) 19 U/L 15 - 37 Alt (SGPT) 19 U/L 12 - 78 Albumin 3.4 g/dL 3.4 - 5.0 Total Protein 7.0 g/dL 6.4 - 8.2 A/G Ratio 0.94 CALC Low 1.00 - 1.90 GFR >= 60 mL/min >60 GFR >= 60 mL/min >60 5 Laboratory test finding 12/13/[address] [address] [phone] PTH Intact 63.5 pg/mL Normal 18.5-88.0 Ionized Calcium 5.5 mg/dL High 4.5-5.3 C Reactive Protein Quantitativ 0.62 mg/dL High 0.00-0.30 Laboratory test finding 11/22/[address] [address] [phone] Platelet Count, Automated 265 10 Normal 150-45 0 PT & Aptt 11/22/2020 [facility] nter [address] [place] [address] [phone] Prothrombin Time 12.8 seconds Normal 12.7-14.5 Inr 0.93 Normal 6 Partial Thromboplastin Time 38.8 seconds High 25.9-37.0 Basic Metabolic Profile 10/14/[address] [address] [phone] Glucose, Fasting 126 mg/dL High 70-100 Blood Urea Nitrogen 16 mg/dL Normal 7-18 Creatinine For GFR 0.62 mg/dL Normal 0.55-1.30 Glomerular Filtration Rate > 60.0 Normal >39 7 Sodium Level 143 mEq/L Normal 136-145 Potassium Serum 4.4 mEq/L Normal 3.5-5.1 Chloride Level 110 mEq/L High 98-107 Carbon Dioxide Level 29 mEq/L Normal 21-32 Anion Gap 4 mEq/L Low 8-16 Calcium Level 10.3 mg/dL High 8.8-10.2 Comprehensive Chem Profile 10/10/2020 [place] radha Fletcher Contract Forester: [place] [address] [phone] Glucose 138 mg/dL High 74 - 99 8 BUN 17 mg/dL 7 - 18 Creatinine 0.7 mg/dL 0.6 - 1.3 Sodium 141 mEq/L 136 - 145 Potassium 4.4 mEq/L 3.5 - 5.1 Chloride 104 mEq/L 98 - 107 Carbon Dioxide 29 mEq/L 21 - 32 Calcium 10.4 mg/dL High 8.5 - 10.1 9 Alk. Phosphatase 52 mg/dL 46 - 116 Total Bilirubin 0.5 mg/dL 0.2 - 1.0 Ast (Sgot) 15 U/L 15 - 37 Alt (SGPT) 16 U/L 12 - 78 Albumin 3.2 g/dL Low 3.4 - 5.0 Total Protein 6.2 g/dL Low 6.4 - 8.2 A/G Ratio 1.07 CALC 1.00 - 1.90 GFR >= 60 mL/min >60 GFR >= 60 mL/min >60 10 Microalbumin/Creatinine Urine 10/10/2020 [facility], Contract Forester: Dr Primo Field [place] [id number] [phone] Microalbumin Urine 29.8 mg/L High 1.3 - 20.0 Urine Creatinine 141.3 mg/dL High 30.0 - 125.0 Microalb/Creat Ratio 21.1 ug/mg 0.0 - 30.0 Lipid Profile 10/10/2020 [facility] , Contract Forester: [place] [address] [phone] Cholesterol 183 mg/dL 131 - 200 Triglycerides 186 mg/dL High 30 - 150 HDL Cholesterol 67 mg/dL High 35 - 60 LDL (Calculated) 79 CALC 50 - 159 Laboratory test finding 10/10/2020 [facility] [address] [place] [address] [phone] Ionized Calcium 5.2 mg/dL Normal 4.5-5.3 Laboratory test finding 09/02/2020 [facility] [address] [place] [address] [phone] Vitamin B12 Level 421 pg/mL Normal 247-911 11 PTH Intact 43.4 pg/mL Normal 18.5-88.0 Laboratory test finding 09/02/2020 [place] [facility] Contract Forester: [place] [address] [phone] Vitamin D 25-Hydroxy 47.2 ng/ml 24.0 - 80.0 12 Complete Blood Count 09/02/2020 [facility] Contract Forester: [place] [address] [phone] WBC 11.3 x10*3/UL High 4.1 - 10.9 RBC 4.59 x10*6/UL 4.20 - 6.30 Hemoglobin 14.5 g/dL 12.0 - 18.0 Hematocrit 43.3 % 37.0 - 51.0 MCV 94.2 fL 80.0 - 97.0 MCH 31.5 pg 26.0 - 32.0 MCHC 33.4 g/dL 31.0 - 38.0 RDW 13.1 % 11.6 - 13.7 PLT 336 x10*3/UL 140 - 440 MPV 8.9 FL 7.8 - 11.0 Lymph % 16.8 % 10.0 - 58.5 Mid % 4.8 % 1.7 - 9.3 Neut % 78.4 % 37.0 - 92.0 Lymph # 1.9 x10*3/UL 0.6 - 4.1 Mid # 0.5 x10*3/UL 0.1 - 0.6 Neut # 8.9 x10*3/UL High 2.0 - 7.8 A1c 09/02/2020 [facility] Contract Forester: [place] [address] [phone] Hba1c 7.6 % High <5.7 13 Est Avg Glucose 171 mg/dL High 60 - 110 Comprehensive Chem Profile 09/02/2020 [facility] Contract Forester: [place] [address] [phone] Glucose 146 mg/dL High 74 - 99 14 BUN 15 mg/dL 7 - 18 Creatinine 0.8 mg/dL 0.6 - 1.3 Sodium 142 mEq/L 136 - 145 Potassium 4.1 mEq/L 3.5 - 5.1 Chloride 105 mEq/L 98 - 107 Carbon Dioxide 26 mEq/L 21 - 32 Calcium 10.7 mg/dL High 8.5 - 10.1 15 Alk. Phosphatase 51 mg/dL 46 - 116 Total Bilirubin 0.4 mg/dL 0.2 - 1.0 Ast (Sgot) 12 U/L Low 15 - 37 Alt (SGPT) 14 U/L 12 - 78 Albumin 3.4 g/dL 3.4 - 5.0 Total Protein 6.2 g/dL Low 6.4 - 8.2 A/G Ratio 1.21 CALC 1.00 - 1.90 GFR >= 60 mL/min >60 GFR >= 60 mL/min >60 16 Laboratory test finding 09/02/2020 [facility] Contract Forester: [place] [address] [phone] Thyroid Stimulating Hormone 2.61 uIU/mL 0.3 6 - 3.74 1 NOTE: RESULT VERIFIED. 2 Lab Result Notes: Pre-Diabetes 5.7 - 6.4 % Diabetes = or > 6.5% 3 100-125 mg/dL PRE-DIABET ES/FASTING >126 mg/dL DIABETES/FASTING 4 NOTE: RESULT VERIFIED. 5 CHRONIC KIDNEY DISEASE STAGI NG PER NKF STAGE I & II GFR >= 60 NORMAL TO MILDLY DECREASED STAGE III GFR 30-59 MODERATELY DECREASED STAGE IV GFR 15-29 SEVERELY DECREASED STAGE V GFR <15 VERY LITTLE GFR LEFT ESRD GFR <15 ON RADIOLOGY ADMINISTRATOR 6 THERAPUTIC HUMAN INR VALUES INDICATIONS NORMAL RANGES PROPHYLAXIS/TREATMENT OF: VENOUS THROMBOSIS 2.0-3.0 PULMONARY EMBOLISM 2.0-3.0 PREVENTION OF SYSTEMIC EMBOLISM FROM: TISSUE HEART VALVES 2.0-3.0 ACUTE MYOCARDIAL INFARCTION 2.0-3.0 VALVULAR HEART DISEASE 2.0-3.0 ATRIAL FIBRILLATION 2.0-3.0 MECHANICAL VALVES(HIGH RISK) 2.5-3.5 RECURRENT MYOCARDIAL INFARCTION 2.5-3.5 7 Units are mL/min/1.73 m2 Chronic Kidney Disease Staging per NKF: Stage I & II GFR >=60 Normal to Mildly Decreased Stage III GFR 30-59 Moderately Decreased Stage IV GFR 15-29 Severely Decreased Stage V GFR <15 Very Little GFR Left ESRD GFR <15 on RADIOLOGY ADMINISTRATOR 8 100-125 mg/dL PRE-DIABET ES/FASTING >126 mg/dL DIABETES/FASTING 9 NOTE: RESULT VERIFIED. 10 CHRONIC KIDNEY DISEASE STAGI NG PER NKF STAGE I & II GFR >= 60 NORMAL TO MILDLY DECREASED STAGE III GFR 30-59 MODERATELY DECREASED STAGE IV GFR 15-29 SEVERELY DECREASED STAGE V GFR <15 VERY LITTLE GFR LEFT ESRD GFR <15 ON RADIOLOGY ADMINISTRATOR 11 VITAMIN B12 NORMAL RANGE NORMAL 247 - 911 PG/ML INDETERMINATE 211 - 246 PG/ML DEFICIENT LESS THAN 211 PG/ML 12 This test was performed [employer] Vitamin D immunoassay kit. Values obtained with different assay methods should not be used interchangeably. 13 Lab Result Notes: Pre-Diabetes 5.7 - 6.4 % Diabetes = or > 6.5% 14 100-125 mg/dL PRE-DIABET ES/FASTING >126 mg/dL DIABETES/FASTING 15 NOTE: CALCIUM,ALBUMIN,T.PROTEIN VERIFIED 16 CHRONIC KIDNEY DISEASE STAGI NG PER NKF STAGE I & II GFR >= 60 NORMAL TO MILDLY DECREASED STAGE III GFR 30-59 MODERATELY DECREASED STAGE IV GFR 15-29 SEVERELY DECREASED STAGE V GFR <15 VERY LITTLE GFR LEFT ESRD GFR <15 ON RADIOLOGY ADMINISTRATOR Procedures Date Code Description Status 10/11/2020 13770 Office/Outpatient Established Mo d MDM 30-39 Min Completed 09/02/2020 65396 Office/Outpatient Established Mo d MDM 30-39 Min Completed 05/20/2019 [id number] Mammogram Completed 04/24/2019 [id number] Mammogram Completed 04/09/2019 [id number] Bone Mineral Density Test [facility] 04/09/2019 [id number] Mammogram Completed 08/14/2018 [id number] Diabetic Retinal Eye Exam [facility] 07/15/2018 [id number] Diabetic Retinal Eye Exam [facility] 03/11/2018 [id number] Colonoscopy Completed 03/04/2018 [id number] Diabetic Retinal Eye Exam [facility] 02/26/2018 [id number] Diabetic Retinal Eye Exam [facility] 05/20/2017 [id number] Colonoscopy Completed 07/06/2015 [id number] Mammogram Completed Medical Devices Description No Information Available Encounters Type Date Location Provider Dx Diagnosis Office Visit 10/11/2020 3:00p [facility] Kiko Rae M.D. R63.4 Abnormal weight loss Z79.84 FPC (current) use of o ral hypoglycemic drugs E11.65 Type 2 diabetes mellitus wit h hyperglycemia E83.52 Hypercalcemia F41.9 Anxiety disorder, unspecifie d M06.09 Rheumatoid arthritis w/o rhe umatoid factor, multiple sites M79.7 Fibromyalgia Z85.3 Personal history of malignan t neoplasm of breast Office Visit 09/02/2020 9:20a [facility] ne, NUTRITION AND DIETETICS INSTRUCTOR R68.81 Early satiety R63.4 Abnormal weight loss R53.83 Other fatigue E11.65 Type 2 diabetes mellitus wit h hyperglycemia E55.9 Vitamin D deficiency, unspec ified Assessments Date Code Description Provider 12/13/2020 E83.52 Hypercalcemia Kiko Rae M.D. 12/13/2020 R63.4 Abnormal weight loss Kiko RcKamini pappas M.D. 12/13/2020 E11.65 Type 2 diabetes mellitus with hy perglycemia Kiko Rae M.D. 12/13/2020 M06.09 Rheumatoid arthritis without rhe umatoid factor, multiple sit Kiko Rae M.D. 12/13/2020 Z85.3 Personal history of malignant ne oplasm of breast Kiko Rae M.D. 12/13/2020 R91.8 Other nonspecific abnormal findi ng of lung field Kiko Rae M.D. 10/11/2020 R63.4 Abnormal weight loss Kiko RcKamini pappas M.D. 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 10/11/2020 E11.65 Type 2 diabetes mellitus with hy perglycemia Kiko Rae M.D. 10/11/2020 E83.52 Hypercalcemia Kiko Rae M.D. 10/11/2020 F41.9 Anxiety disorder, unspecified Juaquin Rae M.D. 10/11/2020 M06.09 Rheumatoid arthritis without rhe umatoid factor, multiple sit Kiko Rae M.D. 10/11/2020 M79.7 Fibromyalgia Kiko Rae M.D. 10/11/2020 Z85.3 Personal history of malignant ne oplasm of breast Kiko Rae M.D. 10/10/2020 E83.52 Hypercalcemia Kiko Rae M.D. 10/10/2020 E83.52 Hypercalcemia Lab Schedule 10/10/2020 E11.65 Type 2 diabetes mellitus with hy perglycemia Kiko Rae M.D. 10/10/2020 E11.65 Type 2 diabetes mellitus with hy perglycemia Lab Schedule 10/10/2020 E78.5 Hyperlipidemia, unspecified Renny Rae M.D. 10/10/2020 E78.5 Hyperlipidemia, unspecified Lab Schedule 09/02/2020 R68.81 Early satiety Jayne Avery, [facility] 09/02/2020 R63.4 Abnormal weight loss Jayne Avery , [facility] 09/02/2020 R53.83 Other fatigue Jayne Avery [facility] 09/02/2020 E11.65 Type 2 diabetes mellitus with hy perglycemia Jayne Avery [facility] 09/02/2020 E55.9 Vitamin D deficiency, unspecifie d Jayne Avery [facility] Plan of Treatment 12/13/2020 - Kiko Rae M.D.* E83.52 Hypercalcemia * R63.4 Abnormal weight loss * E11.65 Type 2 diabetes mellitus with hyperglycemia * M06.09 Rheumatoid arthritis w/o rheumatoid factor, multiple sites * Z85.3 Personal history of malignant neoplasm of breast * R91.8 Other nonspecific abnormal finding of lung field * * Comments:* 1. Hypercalcemia: We do await for labs today. Her calcium level was high prior although ionized calcium level was normal. Concerned for underlying cancer and work up with Dr Evangelista and Dr Ohara is ongoing. I am rechecking today with ionized calcum and PTH as well as imflammatory markers.2. Abnormal weight loss: I also very concerned with her continued weight loss raad in the setting of possible cancer. She was recently treated for breast cancer and a biopsy was planned for the lungs. If not present an abdominal pelvis CT / PET scan mentioned but no report, patient is unsure and we will check on this.3. Type 2 diabetes mellitus with hyperglycemia: We do await for labs. Continue current regimen, improved on last check.4. Rheumatoid arthritis w/o rheumatoid factor, multiple sites: Doing well with sulfasalazine 500 mg 1 tablet twice daily. She will follow with up with Rheumatology at [facility] appropriately. Inflammatory marker labs sent.5. Personal history of malignant neoplasm of breast: Patient has been tolerating Tamox ifen well. She did have joint pain with letrozole in the past. She will continue to follow up with Dr. Evangelista and Dr. Delaney appropriately.6. Other nonspecific abnormal finding of lung field: She did have CT-guided lung biopsy via Dr. Ohara on 12/08/2020, which per patient was unable to be done after not being seen on the imaging. She was noted to have 1 cm nodule on LDCT scan in October via Dr. Evangelista. She is going to follow up with Dr. Ohara tomorrow. We will monitor.Ongoing cares: I am going to see her again in 1 month with TBD. She will call and follow up on those ordered today. She will also call to verify all medicines since she is not sure of each of them If she has new problems or issues sooner she will let us know. Functional Status Description No Information Available Mental Status Description No Information Available Referrals Description No Information Available
--- OUTSIDE RECORDS SUMMARY | 2021-03-02 17:43 | CCD | Continuity of Care Document ---
Author Author Nurse Ginger Gloria Makenna Organization Unknown Address [address] [facility] [address] [place] [address] Phone [phone] Care Team Providers Care Ranch Supervisor Name Role Phone Kiko Rae MD AUTM [phone] Nahum Gibbs MD AUTM [phone] [facility] AUTM [facility] AUTM [phone] [facility] AUTM [phone] Che Delaney DO AUTM [phone] Guillermo Deras MD AUTM [phone] Yue Renteria MD AUTM [phone] Problems Active Problems Provider Date Orthostatic hypotension [...] r Date Vitamin D3 Ultra Potency 1.25mg (49120 Ut) Tablets 1 tablet once a week [...] Fish Oil 1290 MG Per Sevig/900 MG Delancey 3 1 Tablet Dailt\\Y Unknown Multivitamin Adult Tablets 1 by mouth every day Unknown Tamoxifen Citrate 20mg Tablets every day Unknown Administration Of Flu Vaccine Inj ection Unknown Medications Administered in Office Medication SIG Qnty Indications Ordering Provider Date Administration Of Flu Vaccine Inj martine Rae M.D. 01/12/2021 Administration Of Flu Vaccine Inj marleeion Kiko Rae M.D. 01/06/2020 Administration Of Flu Vaccine Inj martine Rae M.D. 01/06/2019 Administration Of Flu Vaccine Inj martine Rae M.D. 02/05/2018 Therapeutic Injection Injection Unknown 07/05/2017 Administration Of Flu Vaccine Inj martine Rae M.D. 01/18/2017 Administration Of Flu Vaccine Inj martine Rae M.D. 01/12/2016 Administration Of Flu Vaccine Inj ection Kiko Rae M.D. 01/18/2015 Immunizations CPT Code Status Date Vaccine Lot # [id number] Given 01/12/2021 Influenza Vaccin e Quadrivalent Preser/Antibiotic Free Im Use [id number] 01834 Given 01/06/2020 Influenza Vaccin e Quadrivalent Preser/Antibiotic Free Im Use [id number] 53000 Given 01/06/2019 Influenza Vaccin e Quadrivalent Preser/Antibiotic Free Im Use [id number] 38544 Given 02/05/2018 Influenza Virus Vaccine, Quadrivalent ([id number]), Derived From 1 Given 01/18/2017 Influenza Vaccin e Quadrivalent Preser/Antibiotic Free Im Use [id number] Given 01/12/2016 Fluvirin Virus Vaccine 70585 01 Q2037 Given 01/18/2015 Fluvirin Virus Vaccine 07443 01 30687 Given 12/16/2013 Influenza Virus Vaccine 03790 Given 08/03/2013 Adacel- Tetanus Diphtheria P ertussis 84409 Given 03/04/2013 Influenza Virus Vaccine 00751 Given 01/09/2012 Influenza Virus Vaccine 33117 Given 01/30/2010 Influenza Virus Vaccine 62093 Given 01/30/2010 Influenza Virus Vaccine 36025 Given 01/12/2010 Influenza Virus Vaccine 69868 Given 05/30/2005 Pneumovax 23 51832 Given 04/01/2005 Adacel- Tetanus Diphtheria P ertussis 13673 Refused 08/14/2018 Zoster Vaccine 46965 Refused 08/14/2018 Shingrix Zoster Vaccine (HZV), Recombinant, [...] Range Note Complete Blood Count 12/13/2020 [facility] Down Filler: Dr Primo Field [place] [id number] [phone] WBC 11.6 x10*3/UL High 4.1 - 10.9 [...] 2.0 - 7.8 Laboratory test finding 12/13/2020 [facility], Down Filler: [place] [address] [phone] Sed Rate 30 mm/hr High 0 - 15 A1c 12/13/2020 [facility] Down Filler: [place] [address] [phone] Hba1c 6.6 % High <5.7 2 Est Avg Glucose 143 mg/dL High 60 - 110 Comprehensive Chem Profile 12/13/2020 [facility] Down Filler: [place] [address] [phone] Glucose 218 mg/dL High 74 - 99 [...] mL/min >60 5 Laboratory test finding 12/13/[address] [address] [phone] PTH Intact 63.5 pg/mL Normal 18.5-88.0 Ionized Calcium 5.5 mg/dL High 4.5-5.3 C Reactive Protein Quantitativ 0.62 mg/dL High 0.00-0.30 Laboratory test finding 11/22/[address] [address] [phone] Platelet Count, Automated 265 10 Normal 150-45 0 PT & Aptt 11/22/2020 [facility]ter [address] [place] [address] [phone] Prothrombin Time 12.8 seconds Normal 12.7-14.5 Inr 0.93 Normal 6 Partial Thromboplastin Time 38.8 seconds High 25.9-37.0 Basic Metabolic Profile 10/14/[address] [address] [phone] Glucose, Fasting 126 mg/dL High 70-100 Blood [...] mg/dL High 8.8-10.2 Comprehensive Chem Profile 10/10/2020 [facility] Down Filler: Dr Primo Field [place], [place] [address] [phone] Glucose 138 mg/dL High 74 - 99 [...] 60 mL/min >60 10 Microalbumin/Creatinine Urine 10/10/2020 [facility], Down Filler: Dr Primo Field [place], [place] [address] [phone] Microalbumin Urine 29.8 mg/L High 1.3 - 20.0 Urine Creatinine 141.3 mg/dL High 30.0 - 125.0 Microalb/Creat Ratio 21.1 ug/mg 0.0 - 30.0 Lipid Profile 10/10/2020 [facility] , Down Filler: [place] [address] [phone] Cholesterol 183 mg/dL 131 - 200 Triglycerides 186 mg/dL High 30 - 150 HDL Cholesterol 67 mg/dL High 35 - 60 LDL (Calculated) 79 CALC 50 - 159 Laboratory test finding 10/10/2020 [facility] [address] [place] [address] [phone] Ionized Calcium 5.2 mg/dL Normal 4.5-5.3 Laboratory test finding 09/02/2020 [facility] [address] [place] [address] [phone] Vitamin B12 Level 421 pg/mL Normal 247-911 11 PTH Intact 43.4 pg/mL Normal 18.5-88.0 Laboratory test finding 09/02/2020 [facility] murphy Down Filler: [place] [address] [phone] Vitamin D 25-Hydroxy 47.2 ng/ml 24.0 - 80.0 12 Complete Blood Count 09/02/2020 [facility] Down Filler: [place] [address] [phone] WBC 11.3 x10*3/UL High 4.1 - 10.9 [...] x10*3/UL High 2.0 - 7.8 A1c 09/02/2020 [facility] , Down Filler: [place] [address] [phone] Hba1c 7.6 % High <5.7 13 Est Avg Glucose 171 mg/dL High 60 - 110 Comprehensive Chem Profile 09/02/2020 [facility] Down Filler: [place] [address] [phone] Glucose 146 mg/dL High 74 - 99 [...] mL/min >60 16 Laboratory test finding 09/02/2020 [facility] Down Filler: [place] [address] [phone] Thyroid Stimulating Hormone 2.61 uIU/mL 0.3 6 [...] LITTLE GFR LEFT ESRD GFR <15 ON METAL SMELTER 6 THERAPUTIC HUMAN INR VALUES INDICATIONS NORMAL [...] Little GFR Left ESRD GFR <15 on METAL SMELTER 8 100-125 mg/dL PRE-DIABET ES/FASTING >126 mg/dL DIABETES/FASTING 9 NOTE: RESULT VERIFIED. 10 CHRONIC KIDNEY DISEASE STAGI NG PER NKF STAGE I & II GFR >= 60 NORMAL TO MILDLY DECREASED STAGE III GFR 30-59 MODERATELY DECREASED STAGE IV GFR 15-29 SEVERELY DECREASED STAGE V GFR <15 VERY LITTLE GFR LEFT ESRD GFR <15 ON METAL SMELTER 11 VITAMIN B12 NORMAL RANGE NORMAL 247 - 911 PG/ML INDETERMINATE 211 - 246 PG/ML DEFICIENT LESS THAN 211 PG/ML 12 This test was performed [employer] Vitamin D immunoassay kit. Values obtained with [...] LITTLE GFR LEFT ESRD GFR <15 ON METAL SMELTER Procedures Date Code Description Status 10/11/2020 79765 Office/Outpatient Established Mo d MDM 30-39 Min Completed 09/02/2020 52925 Office/Outpatient Established Mo d MDM 30-39 Min Completed 05/20/2019 [id number] Mammogram Completed 04/24/2019 [id number] Mammogram Completed 04/09/2019 [id number] Bone Mineral Density Test [facility] 04/09/2019 [id number] Mammogram Completed 08/14/2018 [id number] Diabetic Retinal Eye Exam [facility] 07/15/2018 [id number] Diabetic Retinal Eye Exam [facility] 03/11/2018 [id number] Colonoscopy Completed 03/04/2018 [id number] Diabetic Retinal Eye Exam [facility] 02/26/2018 [id number] Diabetic Retinal Eye Exam [facility] 05/20/2017 [id number] Colonoscopy Completed 07/06/2015 [id number] Mammogram Completed Medical Devices Description No Information Available Encounters Type Date Location Provider Dx Diagnosis Office Visit 10/11/2020 3:00p [facility] Kiko Rae M.D. 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 01/12/2021 Z23 Encounter for immunization Nurse Schedule 12/13/2020 E83.52 Hypercalcemia Kiko Rae M.D. 12/13/2020 R63.4 Abnormal weight loss Kiko pappas M.D. 12/13/2020 E11.65 Type 2 diabetes mellitus with hy perglycemia Kiko Rae M.D. 12/13/2020 M06.09 Rheumatoid arthritis without rhe umatoid factor, multiple sit Kiko Rae M.D. 12/13/2020 Z85.3 Personal history of malignant ne oplasm of breast Kiko Rae M.D. 12/13/2020 R91.8 Other nonspecific abnormal findi ng of lung field Kiko Rae M.D. 10/11/2020 R63.4 Abnormal weight loss Kiko pappas M.D. 10/11/2020 Z79.84 technician terminal and repeater (current) use of oral hypoglycemic drugs Kiko [...] Schedule 09/02/2020 R68.81 Early satiety Jayne Avery, [facility] 09/02/2020 R63.4 Abnormal weight loss Jayne Avery [facility] 09/02/2020 R53.83 Other fatigue Jayne Avery [facility] 09/02/2020 E11.65 Type 2 diabetes mellitus with hy perglycemia Jayne Avery, [facility] 09/02/2020 E55.9 Vitamin D deficiency, unspecifie d Jayne Avery [facility] Plan of Treatment 12/13/2020 - Kiko [...] will follow with up with Rheumatology at [facility] appropriately. Inflammatory marker labs sent.5. Personal history [...]
--- OUTSIDE RECORDS SUMMARY | 2021-03-02 17:43 | CCD | Continuity of Care Document ---
Author Author Gloria OHARA MD Organization Unknown Address [address] [place] [address] Phone [phone] Care Team Providers Care Chief Procurement Officer Name Role Phone Kiko Rae M.D. AUTM [phone] AUTM Unavailable Nuvia Evangelista M.D. AUTM [phone] AUTM Unavailable Problems Active Problems Provider Date Dyspnea Krzysztof Ohara MD Onset: 03/27/2011 Cough Krzysztof Ohara MD Onset: 03/27/2011 Ex-smoker Krzysztof Ohara MD Onset: 03/27/2011 Body mass index 30+ - obesity Krzysztof Ohara MD Onset: Obesity Krzysztof Ohara MD Onset: 03/27/2011 Social History Type Date Description Comments Sex Unknown ETOH Use Denies alcohol use Tobacco Use Start: Unknown End: Unknown Patient is a former smoker April 2019 Smoking Status Reviewed: 12/20/20 Patient is a former smoker [facility] 2019 Allergies and adverse reactions Description No Known Drug Allergies Medications Active Medications SIG Qnty Indications Ordering Provide r Date Albuterol Sulfate HFA 108(90Base) mcg/Act Aerosol inhale two puffs by mouth four times a day as needed 25.5gm Krzysztof Ohara MD 12/20/2020 Breo Ellipta 200-25mcg/Inh Aerosol 1 puff every day 180units Krzysztof Ohara MD 12/20/[address] take 4 tabs by mouth prior to procedure per instructions. 4tabs Z12.11 Alfonzo Clifford MD 02/13/2018 Glucerna Advance Shake Liquid 3 shakes by mouth every day Unknown Sentry Senior Tablets 1 tab by mouth every day Unknown Sulfasalazine 500mg Tablets 1 tab by mouth twice a day ( take after eating/ meals ) Unknown Fish Oil 1000mg Capsules 1 cap by mouth every day Unknown Glimepiride 1mg Tablets 1 tab by mouth every day Unknown Metformin HCL 500mg Tablets 1 tab by mouth twice a day Unknown Loperamide HCL 2mg Capsules take 1 capsule 1-2 times a day for severe diarrhea (only take when having diarrhea) Unknown Tamoxifen Citrate 20mg Tablets 1 tab by mouth every day Unknown Alprazolam 0.25mg Tablets 1 tab by mouth every day as needed Unknown Aspirin 81mg Tablets DR 1 tab by mouth every day Unknown Vitamin D (Ergocalciferol) 73200Dttm Capsules every 2 weeks Unknown Metoprolol Tartrate 50mg Tablets 1 tab by mouth every day 60tabs Unknown Buspirone HCL 15mg Tablets 1 tab by mouth three times a day Unknown Nortriptyline HCL 75mg Capsules 1 cap by mouth every day at bedtime Unknown Simvastatin 10mg Tablets 1 tab by mouth every day Unknown Omeprazole 20mg Capsules DR 1 cap by mouth every day Unknown Nortriptyline HCL 25mg Capsules 1 cap by mouth every day at bedtime Unknown Immunizations CPT Code Status Date Vaccine Lot # [id number] Given 02/07/2011 Influenza Vaccine 3 Years Of Age Or Older (Flulaval) Vital Signs Date Vital Result Comment 12/20/2020 2:30pm BP Systolic 124 mmHg BP Diastolic 80 mmHg Heart Rate 101 /min O2 % BldC Oximetry 95 % Room Air Height 62 inches 5'2" [place] Body Weight 110 lb 02/13/2018 10:07am BP Systolic 124 mmHg BP Diastolic 72 mmHg Height 62 inches 5'2" Weight 136.00 lb BMI (Body Mass Index) 24.9 kg/m2 [place] Body Weight 110 lb Weight 61.690 kg BSA (Body Surface Area) 1.62 m2 Results Test Acquired Date Facility Test Result H/L Range Note Coag Panel For Procedures 11/22/2020 [facility] [address] [place] [address] [phone] Platelet Count, Automated 265 10 Normal 150-45 0 Prothrombin Time/Inr 11/22/2020 [facility] enter Main Lab [address] [place] [address] [phone] Prothrombin Time 12.8 seconds Normal 12.7-14.5 Inr 0.93 Normal 1 Partial Thromboplastin Time 38.8 seconds High 25.9-37.0 1 THERAPUTIC HUMAN INR VALUES INDICATIONS NORMAL RANGES PROPHYLAXIS/TREATMENT OF: VENOUS THROMBOSIS 2.0-3.0 PULMONARY EMBOLISM 2.0-3.0 PREVENTION OF SYSTEMIC EMBOLISM FROM: TISSUE HEART VALVES 2.0-3.0 ACUTE MYOCARDIAL INFARCTION 2.0-3.0 VALVULAR HEART DISEASE 2.0-3.0 ATRIAL FIBRILLATION 2.0-3.0 MECHANICAL VALVES(HIGH RISK) 2.5-3.5 RECURRENT MYOCARDIAL INFARCTION 2.5-3.5 Procedures Date Code Description Status 12/20/2020 16980 Office/Outpatient Established Mo d MDM 30-39 Min Completed 12/20/2020 55093 Inhaler Teaching Completed 12/15/2020 85028 Diffusing Capacity Completed 12/15/2020 42683 Plethysmography Determination Courtney ng Volumes & Per Airway Resist Completed 12/15/2020 23796 Bronchospasm Evaluation Complete d 12/14/2020 60314 Office/Outpatient Established Mo d MDM 30-39 Min Completed 11/14/2020 16198 Office/Outpatient New Moderate M DM 45-59 Minutes Completed Medical Devices Description No Information Available Encounters Type Date Location Provider Dx Diagnosis Office Visit 12/20/2020 2:45p [facility] Rosalio Ohara MD J43.9 Emphysema, unspecified R91.8 Other nonspecific abnormal f inding of lung field Z87.891 Personal history of nicotine dependence Office Visit 12/14/2020 1:00p [facility] Rosalio Ohara MD R91.8 Other nonspecific abnormal finding of courtney ng field R06.02 Shortness of breath Z87.891 Personal history of nicotine dependence 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 Office Visit 11/14/2020 10:00a [facility] Rosalio Ohara MD R91.1 Solitary pulmonary nodule R91.8 Other nonspecific abnormal f inding of lung field Z87.891 Personal history of nicotine dependence 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 Assessments Date Code Description Provider 12/20/2020 J43.9 Emphysema, unspecified Krzysztof Ohara MD 12/20/2020 R91.8 Other nonspecific abnormal findi ng of lung field Krzysztof Ohara MD 12/20/2020 Z87.891 Personal history of nicotine dep irineoence Krzysztof Ohara MD 12/15/2020 R91.1 Solitary pulmonary nodule [facility] 12/14/2020 R91.8 Other nonspecific abnormal findi ng of lung field Krzysztof Ohara MD 12/14/2020 R06.02 Shortness of breath Krzysztof guerrero MD 12/14/2020 Z87.891 Personal history of nicotine dep irineoence Krzysztof Ohara MD 12/14/2020 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 Krzysztof Ohara MD 11/14/2020 R91.1 Solitary pulmonary nodule Aarti taylor Ohara MD 11/14/2020 R91.8 Other nonspecific abnormal findi ng of lung field Krzysztof Ohara MD 11/14/2020 Z87.891 Personal history of nicotine dep irineoence Krzysztof Ohara MD 11/14/2020 Z79.899 Other long-term (current) drug t herapy Krzysztof Ohara MD Plan of Treatment Future Appointment(s):* 03/22/2021 1:30 pm - Krzysztof Ohara MD at [facility] 12/20/2020 - Krzysztof Ohara MD* J43.9 Emphysema, unspecified * R91.8 Other nonspecific abnormal finding of lung field * Z87.891 Personal history of nicotine dependence * * Comments:* ~ At this point, we will start her on Breo 200 mcg Ellipta, and she was instructed on the use of the device, and samples and script were provided. We, also, instructed her on the use of an albuterol HFA, as she can use that on a p.r.n. basis.~ I will see her in a minimum of 3 months with spirometry, oximetry and flow volume loop for her underlying obstructive lung disease. ~ She will need low-dose CT scanning, at least, yearly, and I will make those arrangements at some point between now and then, as we will be following her regularly because of her medication changes. She can, certainly, call sooner in the interim if problems arise with which we can be of assistance. * Follow up:* Follow up in three months with spirometry, oximetry and flow volume loop. Functional Status Description No Information Available Mental Status Description No Information Available Referrals Refer to Reason for Referral Status Appt Date Krzysztof Ohara M.D. ABNORMAL CT Closed 1 [facility] [address] [place], [place] [address] [phone]
--- OUTSIDE RECORDS SUMMARY | 2021-03-02 17:43 | CCD | Continuity of Care Document ---
Author Author Gloria PRIETO M.D. Organization Unknown Address [address] [facility] [address] [place] [address] Phone [phone] Care Team Providers Care Block And Case Maker Name Role Phone Kiko Prieto MD AUTM [phone] Nahum Gibbs MD AUTM [phone] [facility] AUTM [phone] [facility] AUTM [phone] [facility] AUTM [phone] Che Delaney DO AUTM Guillermo Deras MD AUTM [phone] Yue Renteria MD AUTM [phone] Problems Active Problems Provider Date Orthostatic hypotension [...] reflux finding Onset: 008 Essential hypertension Kiko Prieto M.D. Onset: 5 Adenomatous polyp of colon Kiko Prieto M.D. Onset: 03/26 Social History Type Date Description Comments Sex Unknown ETOH Use Rarely consumes alcohol Tobacco Use Start: Unknown End: Unknown Patient is a former smoker pack/day 45 years Quit 03/27/19 and "only cheated a couple times" Allergies and adverse reactions Description No Known Drug Allergies Medications Active Medications SIG Qnty Indications Ordering Provide r Date Vitamin D3 Ultra Potency 1.25mg (91041 Ut) Tablets 1 tablet once a week 12tabs Kiko Prieto M.D. 10/11/2020 Vitamin B12 3000mcg Tablets Sub 1/2 by mouth every day Kiko Prieto M.D. 10/11/2020 Letrozole 2.5mg Tablets 1 by mouth every day 30tabs Kiko Prieto M.D. 10/11/2020 Prolia 60mg/ml Soln Prefill Syring e inject under the skin every 6 months Dawit Rene 10/11/2020 Glimepiride 1mg Tablets take one tablet by mouth every day before breakfast 90tabs Kiko Prieto M.D. 06/21/2020 Onetouch Verio Flex Blood Glucose Monito ring System w/Device Kit use as directed DX E11.65 1eliezer Prieto M.D. 04/15/2020 Onetouch Verio Strips test twice a day dx e11.65 200eliezer Prieto M.D. 04/15/2020 Onetouch Ultrasoft Lancets Misc test twice a day e11.65 200eliezer Prieto M.D. 04/15/19 Onetouch Delica Lancing Dev Misc use twice daily mago Prieto M.D. 04/15/2020 Onetouch Delica Plus Lancets Extra Fine 33G Plus 33G Misc use to test blood sugar two times a day E11.65 200eliezer Prieto M.D. 04/15/2020 Metformin HCL ER 500mg Tablets ER 24HR 1 by mouth bid 180tabs E11.65 Kiko Prieto M.D. 04/12/2020 Aspirin Adult Low Dose 81mg Tablet s DR 1 by mouth every day 90tabs Kiko Prieto M.D. 07/20/19 16 Lotrisone 1-0.05% Cream apply toically BId to right flank lesion. 45gm Kiko Prieto M.D. 07/[address] 1 by mouth every day 90capnatty Prieto M.D. 09/17/2014 Simvastatin 10mg Tablets take one tablet by mouth at bedtime 90tamicha Prieto M.D. 015 Metoprolol Tartrate 50mg Tablets 1 by mouth twice a day 180tamicha Prieto M.D. 5 Econazole Nitrate 1% Cream twice a day 85gm Kiko Prieto M.D. 09/17/2014 Alprazolam 0.25mg Tablets 1 by mouth every day as needed anxiety 20tamicha Prieto M.D. 09/17 Nortriptyline HCL 75mg Capsules 1 by mouth every night at bedtime 90steph Prieto M.D. Nortriptyline HCL 25mg Capsules take 1 capsule by mouth at bedtime 90steph Prieto M.D. Sulfasalazine 500mg Tablets 1 by mouth twice a day Unknown Fish Oil 1290 MG Per Sevig/900 MG [place] 3 1 Tablet Dailt\\Y Unknown Multivitamin Adult Tablets 1 by mouth every day Unknown Tamoxifen Citrate 20mg Tablets every day Unknown Administration Of Flu Vaccine Inj ection Unknown Medications Administered in Office Medication SIG Qnty Indications Ordering Provider Date Administration Of Flu Vaccine Inj martine Prieto M.D. 01/06/2020 Administration Of Flu Vaccine Inj marleeion Kiko Prieto M.D. 01/06/2019 Administration Of Flu Vaccine Inj martine Prieto M.D. 02/05/2018 Therapeutic Injection Injection Unknown 07/05/2017 Administration Of Flu Vaccine Inj martine Prieto M.D. 01/18/2017 Administration Of Flu Vaccine Inj martine Prieto M.D. 01/12/2016 Administration Of Flu Vaccine Inj marleeion Kiko Prieto M.D. 01/18/2015 Immunizations CPT Code Status Date Vaccine Lot # 37864 Given 01/06/2020 Influenza Vaccin e Quadrivalent Preser/Antibiotic Free Im Use [id number] 51797 Given 01/06/2019 Influenza Vaccin e Quadrivalent Preser/Antibiotic Free Im Use [id number] 06341 Given 02/05/2018 Influenza Virus Vaccine, Quadrivalent ([id number]), Derived From 8 Given 01/18/2017 Influenza Vaccin e Quadrivalent Preser/Antibiotic Free Im Use [id number] Q2037 Given 01/12/2016 Fluvirin Virus Vaccine 98888 01 Q2037 Given 01/18/2015 Fluvirin Virus Vaccine 96949 01 01058 Given 12/16/2013 Influenza Virus Vaccine 81250 Given 08/03/2013 Adacel- Tetanus Diphtheria P ertussis 27137 Given 03/04/2013 Influenza Virus Vaccine 81725 Given 01/09/2012 Influenza Virus Vaccine 51596 Given 01/30/2010 Influenza Virus Vaccine 63008 Given 01/30/2010 Influenza Virus Vaccine 62539 Given 01/12/2010 Influenza Virus Vaccine 13983 Given 05/30/2005 Pneumovax 23 49258 Given 04/01/2005 Adacel- Tetanus Diphtheria P ertussis 21520 Refused 08/14/2018 Zoster Vaccine 87804 Refused 08/14/2018 Shingrix Zoster Vaccine (HZV), Recombinant, [...] H/L Range Note Complete Blood Count 12/13/2020 [facility] sradha Tree Warden: [place] [address] [phone] WBC 11.6 x10*3/UL High 4.1 - 10.9 [...] 2.0 - 7.8 Laboratory test finding 12/13/2020 [facility] isdharmesh, Tree Warden: [place] [address] [phone] Sed Rate 30 mm/hr High 0 - 15 A1c 12/13/2020 [facility] , Tree Warden: [place] [address] [phone] Hba1c 6.6 % High <5.7 2 Est Avg Glucose 143 mg/dL High 60 - 110 Comprehensive Chem Profile 12/13/2020 [facility], Tree Warden: [place] [address] [phone] Glucose 218 mg/dL High 74 - 99 [...] mL/min >60 5 Laboratory test finding 12/13/[address] [address] [phone] PTH Intact 63.5 pg/mL Normal 18.5-88.0 Ionized Calcium 5.5 mg/dL High 4.5-5.3 C Reactive Protein Quantitativ 0.62 mg/dL High 0.00-0.30 Laboratory test finding 11/22/[address] [address] [phone] Platelet Count, Automated 265 10 Normal 150-45 0 PT & Aptt 11/22/2020 [facility] nter [address] [place] [address] [phone] Prothrombin Time 12.8 seconds Normal 12.7-14.5 Inr 0.93 Normal 6 Partial Thromboplastin Time 38.8 seconds High 25.9-37.0 Basic Metabolic Profile 10/14/[address] [address] [phone] Glucose, Fasting 126 mg/dL High 70-100 Blood [...] mg/dL High 8.8-10.2 Comprehensive Chem Profile 10/10/2020 [facility] Fletcher Tree Warden: [place] [address] [phone] Glucose 138 mg/dL High 74 - 99 [...] 60 mL/min >60 10 Microalbumin/Creatinine Urine 10/10/2020 [facility], Tree Warden: [place] [address] [phone] Microalbumin Urine 29.8 mg/L High 1.3 - 20.0 Urine Creatinine 141.3 mg/dL High 30.0 - 125.0 Microalb/Creat Ratio 21.1 ug/mg 0.0 - 30.0 Lipid Profile 10/10/2020 [facility] , Tree Warden: [place] [address] [phone] Cholesterol 183 mg/dL 131 - 200 Triglycerides 186 mg/dL High 30 - 150 HDL Cholesterol 67 mg/dL High 35 - 60 LDL (Calculated) 79 CALC 50 - 159 Laboratory test finding 10/10/2020 [place] [address] [phone] Ionized Calcium 5.2 mg/dL Normal 4.5-5.3 Laboratory test finding 09/02/2020 [place] [place] [address] [phone] Vitamin B12 Level 421 pg/mL Normal 247-911 11 PTH Intact 43.4 pg/mL Normal 18.5-88.0 Laboratory test finding 09/02/2020 [facility] isdharmesh, pc Tree Warden: Dr Pirmo [place] [id number] [phone] Vitamin D 25-Hydroxy 47.2 ng/ml 24.0 - 80.0 12 Complete Blood Count 09/02/2020 [facility] s, pc Tree Warden: Dr Primo Field [place] [id number] [phone] WBC 11.3 x10*3/UL High 4.1 - 10.9 [...] x10*3/UL High 2.0 - 7.8 A1c 09/02/2020 [facility] , [facility] Tree Warden: [place] [address] [phone] Hba1c 7.6 % High <5.7 13 Est Avg Glucose 171 mg/dL High 60 - 110 Comprehensive Chem Profile 09/02/2020 [facility], [facility] Tree Warden: Dr Primo Field [place], [place] [address] [phone] Glucose 146 mg/dL High 74 - 99 [...] >60 16 Laboratory test finding 09/02/2020 Esequiel Salinas isdharmesh, pc Tree Warden: [place] [address] [phone] Thyroid Stimulating Hormone 2.61 uIU/mL 0.3 6 [...] LITTLE GFR LEFT ESRD GFR <15 ON ORNAMENTAL METAL FABRICATOR APPRENTICE 6 THERAPUTIC HUMAN INR VALUES INDICATIONS NORMAL [...] Little GFR Left ESRD GFR <15 on ORNAMENTAL METAL FABRICATOR APPRENTICE 8 100-125 mg/dL PRE-DIABET ES/FASTING >126 mg/dL DIABETES/FASTING 9 NOTE: RESULT VERIFIED. 10 CHRONIC KIDNEY DISEASE STAGI NG PER NKF STAGE I & II GFR >= 60 NORMAL TO MILDLY DECREASED STAGE III GFR 30-59 MODERATELY DECREASED STAGE IV GFR 15-29 SEVERELY DECREASED STAGE V GFR <15 VERY LITTLE GFR LEFT ESRD GFR <15 ON ORNAMENTAL METAL FABRICATOR APPRENTICE 11 VITAMIN B12 NORMAL RANGE NORMAL 247 - 911 PG/ML INDETERMINATE 211 - 246 PG/ML DEFICIENT LESS THAN 211 PG/ML 12 This test was performed usin [email or web address] Vitamin D immunoassay kit. Values obtained with [...] LITTLE GFR LEFT ESRD GFR <15 ON ORNAMENTAL METAL FABRICATOR APPRENTICE Procedures Date Code Description Status 10/11/2020 50458 Office/Outpatient Established Mo d MDM 30-39 Min Completed 09/02/2020 42497 Office/Outpatient Established Mo d MDM 30-39 Min Completed 05/20/2019 [id number] Mammogram Completed 04/24/2019 [id number] Mammogram Completed 04/09/2019 [id number] Bone Mineral Density Test Comple [facility] 04/09/2019 [id number] Mammogram Completed 08/14/2018 [id number] Diabetic Retinal Eye Exam [facility] 07/15/2018 [id number] Diabetic Retinal Eye Exam Comple [facility] 03/11/2018 [id number] Colonoscopy Completed 03/04/2018 [id number] Diabetic Retinal Eye Exam [facility] 02/26/2018 [id number] Diabetic Retinal Eye Exam Comple [facility] 05/20/2017 [id number] Colonoscopy Completed 07/06/2015 [id number] Mammogram Completed Medical Devices Description No Information Available Encounters Type Date Location Provider Dx Diagnosis Office Visit 10/11/2020 3:00p [facility] Kiko Prieto M.D. R63.4 Abnormal weight loss Z79.84 USP (current) use of o ral hypoglycemic drugs E11.65 Type 2 diabetes mellitus wit h hyperglycemia E83.52 Hypercalcemia F41.9 Anxiety disorder, unspecifie d M06.09 Rheumatoid arthritis w/o rhe umatoid factor, multiple sites M79.7 Fibromyalgia Z85.3 Personal history of malignan t neoplasm of breast Office Visit 09/02/2020 9:20a [facility], RECONCILIATION COORDINATOR R68.81 Early satiety R63.4 Abnormal weight loss R53.83 Other fatigue E11.65 Type 2 diabetes mellitus wit h hyperglycemia E55.9 Vitamin D deficiency, unspec ified Assessments Date Code Description Provider 12/13/2020 E83.52 Hypercalcemia Kiko Prieto M.D. 12/13/2020 R63.4 Abnormal weight loss Kikomiguelina Andrea Kermit pappas M.D. 12/13/2020 E11.65 Type 2 diabetes mellitus with hy perglycemia Kiko Prieto M.D. 12/13/2020 M06.09 Rheumatoid arthritis without rhe umatoid factor, multiple sit Kiko Prieto M.D. 12/13/2020 Z85.3 Personal history of malignant ne oplasm of breast Kiko Prieto M.D. 12/13/2020 R91.8 Other nonspecific abnormal findi ng of lung field Kiko Prieto M.D. 10/11/2020 R63.4 Abnormal weight loss Kiko RcKamini pappas M.D. 10/11/2020 Z79.84 USP (current) use of oral hypoglycemic drugs Kiko Prieto M.D. 10/11/2020 E11.65 Type 2 diabetes mellitus with hy perglycemia Kiko Prieto M.D. 10/11/2020 E83.52 Hypercalcemia Kiko Prieto M.D. 10/11/2020 F41.9 Anxiety disorder, unspecified Juaquin Prieto M.D. 10/11/2020 M06.09 Rheumatoid arthritis without rhe umatoid factor, multiple sit Kiko Prieto M.D. 10/11/2020 M79.7 Fibromyalgia Kiko Prieto M.D. 10/11/2020 Z85.3 Personal history of malignant ne oplasm of breast Kiko Prieto M.D. 10/10/2020 E83.52 Hypercalcemia Kiko Prieto M.D. 10/10/2020 E83.52 Hypercalcemia Lab Schedule 10/10/2020 E11.65 Type 2 diabetes mellitus with hy perglycemia Kiko Prieto M.D. 10/10/2020 E11.65 Type 2 diabetes mellitus with hy perglycemia Lab Schedule 10/10/2020 E78.5 Hyperlipidemia, unspecified Renny Prieto M.D. 10/10/2020 E78.5 Hyperlipidemia, unspecified Lab Schedule 09/02/2020 R68.81 Early satiety Jayne Avery [facility] 09/02/2020 R63.4 Abnormal weight loss Jayne Avery [facility] 09/02/2020 R53.83 Other fatigue Jayne Avery [facility] 09/02/2020 E11.65 Type 2 diabetes mellitus with hy perglycemia Jayne Avery [facility] 09/02/2020 E55.9 Vitamin D deficiency, unspecifie d Jayne Avery [facility] Plan of Treatment Future Appointment(s):* 01/12/2021 10:30 am - Nurse Schedule at [facility] 12/13/2020 - Kiko Prieto M.D.* E83.52 Hypercalcemia * R63.4 Abnormal weight [...] will follow with up with Rheumatology at [facility] appropriately. Inflammatory marker labs sent.5. Personal [...]
--- OUTSIDE RECORDS SUMMARY | 2021-03-02 17:43 | CCD ---
Author Author [facility] Organization [facility] Address Unknown Phone Unavailable Care Team Providers Care Senior Principal Software Engineer Name Role Phone Kwan Unavailable PROBLEMS Type Condition ICD9-CM Code ZYS40-LW Code Onset Dates Condition S tatus W/U Status Risk SNOMED Code Notes Problem Hypercalcemia E83.52 Active confirmed 519512 09 Problem Invasive lobular carcinoma of breast in female C50 .919 Active confirmed 481439099 Problem Stress incontinence N39.3 Active confirmed 67548122 Problem Vaginal atrophy N95.2 Active confirmed 2971 65166 Problem Cystocele N81.10 Active confirmed 372578076 Problem Menopausal disorder N95.9 Active confirmed 029637422 ALLERGIES Allergen (clinical drug ingredient) Drug/Non Drug Allergy do cumented on EMR Reaction Allergy Type Onset Date Status Adhesive Unknown Drug Allergy 06/04/2019 Active nickel Nickel Unknown Drug Allergy 06/04/2019 Active ENCOUNTERS from 1950 to 2021-01-19 Encounter Location Date Provider Diagnosis [facility] [address] [place] [address] [place] [address] 08 Dec, 2020 Jennifer Bowens Invasive lobular carcinoma o f breast in female C50.919 ; At high risk for breast cancer Z91.89 ; Breast pain N64.4 ; Genetic testing Z13.79 ; Hypercalcemia E83.52 ; Aspirin long-term use Z79.82 and Right elbow tendinitis M77.8 IMMUNIZATIONS No Information SOCIAL HISTORY Tobacco Use: Social History Observation Description Date Details (start date - stop date) Former Smoker Sex Assigned At : Social History Observation Description Sex Assigned At Unknown Language: Question Answer Notes Languages spoken: Samoan Alcohol Screening: Question Answer Notes Did you have a drink containing alcohol in the past year? No Points 0 Interpretation Negative BMI Care Goal Follow-Up Question Answer Notes Above Normal BMI Follow-Up Giving encouragement to exercise Tobacco Use: Question Answer Notes Are you a: former smoker How long has it been since you last smoked? 1-3 months REASON FOR REFERRAL No Information VITAL SIGNS Weight 113.6 lbs Dec, Weight-kg 51.53 kg Dec, Height 61.8 in Dec, BMI 20.91 kg/m2 Dec, Heart Rate 64 /min Dec, Respiratory Rate 18 /min Dec, Temperature 98.1 degrees Fahrenheit Dec, Oximetry 96 Dec, MEDICATIONS Medication SIG (Take, Route, Frequency, Duration) Notes Start Da te End Date Status Nystatin-Triamcinolone 082313-4.1 UNIT/GM-% 1 applicat ion to affected area Externally twice daily for 10, then off 5 days back on for twice daily for 10days. Active Methotrexate Sodium 2.5 MG 4 tabs Orally once weekly Not-Taking Fish Oil 1000 MG 1 capsule Orally Once a day for 30 day(s) Active Travatan Not-Taking Lidocaine-Prilocaine 2.5-2.5 % apply generously to the right nipple 2 hours before coming to hospital. Cover with plastic wrap Externally once for 1 day May, Not-Taking Letrozole 2.5 MG 1 tablet Orally Once a day Active Letrozole 2.5 MG 1 tablet Orally Once a day Active Imodium A-D 2 MG 1 tablet Orally 8 time(s) a day if needed for diarrhea for 30 day(s) as needed Active Omeprazole 20mg 20mg 1 tab(s) oral daily Active Folic Acid 1 MG 1 tablet Orally Once a day for 30 day(s) Not-Taking Azopt 1 % 1 drop into affected eye Ophthalmic Three times a day Not-Taking Metoprolol Tartrate 50 mg 1 tab(s) oral twice daily Active Nortriptyline HCl 75 MG takes 1 -75mg. cap and 1 25m g. cap at once Orally at night for 30 day(s) Active Econazole Nitrate 1 % 1 application to affected area Externally twi ce aily Not-Taking sulfaSALAzine 500 MG 1 tablet Orally twice daily Active Simvastatin 10 10mg 1 tab(s) oral daily Active ALPRAZolam 0.25 MG 1 tablet on the tongue and allow to dissolve Ora lly PRN Active Vitamin D 38090 U 1 capsule Orally every other wk. Not-Taking Prolia 60 MG/ML as directed Subcutaneous Not-Taking busPIRone HCl 15 MG 1 tablet Orally 3 x daily Active metFORMIN HCl 500 MG 1 tablet with a meal Orally Once a day Active Aspirin 81 81 MG 1 tablet Orally Once a day has not taken since surge ry Active PROCEDURES No Information RESULTS No Results REASON FOR VISIT 1.5 year postop, R CA, CHEK 2 mutation, follows high risk screening, MRI 10/19, M ammo 05/2021, ok for Melia MEDICAL (GENERAL) HISTORY Type Description Date Medical History fibromyalgia Medical History arhtritis, inflamatory Medical History fibrocystic breast disease Medical History kidney and gall stones Medical History neg. for ciliac disease Medical History sees chiropractor Medical History osteoporosis Medical History blood calcium levels are high Medical History vertigo Medical History Right breast invasive lobular carcinoma Surgical History appendectomy Surgical History fx jaw Surgical History abdominal hysterectomy 1985 Surgical History throat polypectomy Surgical History colonoscopy 2005, 2017 Surgical History breast biopsy/ benign/ at [facility] yrs. ago/ unsure what breast. Surgical History Bilateral cataract Surgical History Right breast biopsy - benign 06/24/2019 Surgical History Right breast biopsy - invasive carcinoma 05/2019 Surgical History Right breast lumpectomy 07/10/2019 Goals Section No Information Health Concerns No Information MEDICAL EQUIPMENT No Information MENTAL STATUS No Information FUNCTIONAL STATUS No Information ASSESSMENTS Encounter Date Diagnosis Assessment Notes Treatment Notes Treatm ent Clinical Notes Dec, Invasive lobular carcinoma of breast in female (ICD-10 - C50.919) RIGHT BREAST CANCER ILC ER 100% [place] 100% HER2 Negative GRADE 2 cT 1c (1.3 cm on MRI) cN0 cM0 STAGE 1 pT1b (1.0 cm) pN0 (0/3) cM0 STAGE1 s/p Right lumpectomy and right sentinel lymph node biopsy 07/10/2019 MARGINS NEGATIVE NO LVI + PERINEURAL INVASION ONCOTYPE DX SCORE:14 GENETICS: CHEK2 RT completed, on Tamoxifen (2/2 bone/ jaw pain) Some dimpling post op-does not bother patient PLAN: 1: Follow up for 2 year post op on 06/30/2021 mmmogram ordered for 05/10/2021-needs to be scheduled 3. Following with Medical Oncology, on tamoxifen All questions were answered. Patient expressed understanding and agrees with the plan Dec, At high risk for breast cancer (ICD-10 - Z91.89) Based on the history of CHEK2 mutation and right ILC patient is at increased risk to develop additional breast cancers. She is agreeable to continue high risk screening since no mastectomies were done. Her last MRI was done on 10/21/2020. Her last mammogram was done on 05/09/2020. Her next MRI will need to be ordered for 10/22/2021. Her next mammogram will need to be scheduled for 05/2021. All questions were answered. Patient agrees with the plan Dec, Breast pain (ICD-10 - N64.4) Patient's pain is noncyclical, worse on palpation. Patient may follow up with me on as needed basis. All questions were answered. Patient agrees with the plan Dec, Genetic testing (ICD-10 - Z13.79) I have discussed genetic results previously. Patient has a known CHEK2 mutation. Dec, Hypercalcemia (ICD-10 - E83.52) Primary care team is managing Dec, Aspirin long-term use (ICD-10 - Z79.82) on ASA and Sulfasalazine Dec, Right elbow tendinitis (ICD-10 - M77.8) Patient reports right elbow tendinitis. This is being evaluated by arthritis physician. Patient could not remember the name. I will defer treatment to them Dec, Other Total time spent with patient: 35 min Total time spent reviewing notes, labs, and diagnostic imagin 37 minutes spent on this encounter PLAN OF TREATMENT Treatment Notes Assessment Notes Clinical Notes Invasive lobular carcinoma of breast in female RIGHT B REAST CANCERILC ER 100% [place] 100% HER2 Negative GRADE 2cT 1c (1.3 cm on MRI) cN0 cM0 STAGE 1pT1b (1.0 cm) pN0 (0/3) cM0 SAUNN2h/p Right lumpectomy and right sentinel lymph node biopsy 07/10/2019MARGINS NEGATIVENO LVI+ PERINEURAL INVASIONONCOTYPE DX SCORE:14GENETICS: [id number] completed, on Tamoxifen (2/2 bone/ jaw pain)Some dimpling post op-does not bother patientPLAN:1: Follow up for 2 year post op on 06/30/2021mmmogram ordered for 05/10/2021-needs to be scheduled3. Following with Medical Oncology, on tamoxifenAll questions were answered. Patient expressed understanding and agrees with the plan At high risk for breast cancer Based on the history of CHEK2 mutation and right ILC patient is at increased risk to develop additional breast cancers.She is agreeable to continue high risk screening since no mastectomies were done.Her last MRI was done on 10/21/2020. Her last mammogram was done on 05/09/2020.Her next MRI will need to be ordered for 10/22/2021. Her next mammogram will need to be scheduled for 05/2021.All questions were answered. Patient agrees with the plan Breast pain Patient's pain is noncyclica l, worse on palpation.Patient may follow up with me on as needed basis.All questions were answered. Patient agrees with the plan Genetic testing I have discussed genetic res ults previously. Patient has a known CHEK2 mutation. Hypercalcemia Primary care team is managing Aspirin long-term use on ASA and Sulfasalazine Right elbow tendinitis Patient reports right elbow tendinitis. This is being evaluated by arthritis physician. Patient could not remember the name. I will defer treatment to them Next Appt Details 6 Months Reason:2 year brca f/u, needs i maging first Provider Name:Jennifer Thaojac, 2021-06-30 02:00:00 PM, [address] [place] [address], , [place], [place], [facility], Follow Up:6 Months2 year brca f/u, needs imaging first Insurance Providers Payer Name Payer Address Payer Phone Insured Name Patient Relati onship to Insured Coverage Start Date Coverage End Date [facility] [address] [address] [facility] [address] [phone] CAMMY GARNER MEDICARE Part A and B [address] [facility] [address] [phone] CAMMY GARNER
--- OUTSIDE RECORDS SUMMARY | 2021-03-02 17:43 | CCD | Continuity of Care Document ---
Author Author Gloria PRIETO M.D. Organization Unknown Address [address] [facility] [address] [place] [address] Phone [phone] Care Team Providers Care Leguillon Debeader Name Role Phone Kiko Prieto MD AUTM [phone] Nahum Gibbs MD AUTM [phone] [facility] AUTM [facility] AUTM [phone] [facility] AUTM [phone] Che Delaney DO AUTM Guillermo Deras MD AUTM [phone] Yue Renteria MD AUTM [phone] Problems Active Problems Provider Date Orthostatic hypotension [...] r Date Vitamin D3 Ultra Potency 1.25mg (96274 Ut) Tablets 1 tablet once a week 12tabs Kiko Prieto M.D. 10/11/2020 Vitamin B12 3000mcg Tablets Sub 1/2 by mouth every day Kiko Prieto M.D. 10/11/2020 Letrozole 2.5mg Tablets 1 by mouth every day 30tabs Kiko Prieto M.D. 10/11/2020 Prolia 60mg/ml Soln Prefill Syring e inject under the skin every 6 months Daiwt Rene 10/11/2020 Glimepiride 1mg Tablets take one [...] Fish Oil 1290 MG Per Sevig/900 MG Jackson 3 1 Tablet Dailt\\Y Unknown Multivitamin Adult [...] CPT Code Status Date Vaccine Lot # 27658 Given 01/06/2020 Influenza Vaccin e Quadrivalent Preser/Antibiotic Free Im Use [id number] 24121 Given 01/06/2019 Influenza Vaccin e Quadrivalent Preser/Antibiotic Free Im Use [id number] 67259 Given 02/05/2018 Influenza Virus Vaccine, Quadrivalent (Cciiv4), Derived From 5 Given 01/18/2017 Influenza Vaccin e Quadrivalent Preser/Antibiotic Free Im Use [id number] Q2037 Given 01/12/2016 Fluvirin Virus Vaccine 64056 01 Q2037 Given 01/18/2015 Fluvirin Virus Vaccine 81187 01 62017 Given 12/16/2013 Influenza Virus Vaccine 45334 Given 08/03/2013 Adacel- Tetanus Diphtheria P ertussis 58544 Given 03/04/2013 Influenza Virus Vaccine 80657 Given 01/09/2012 Influenza Virus Vaccine 92376 Given 01/30/2010 Influenza Virus Vaccine 55276 Given 01/30/2010 Influenza Virus Vaccine 20111 Given 01/12/2010 Influenza Virus Vaccine 10771 Given 05/30/2005 Pneumovax 23 54548 Given 04/01/2005 Adacel- Tetanus Diphtheria P ertussis 50672 Refused 08/14/2018 Zoster Vaccine 23850 Refused 08/14/2018 Shingrix Zoster Vaccine (HZV), Recombinant, [...] H/L Range Note Complete Blood Count 12/13/2020 [facility] Program Director/Traffic Director sradha Slitting Machine Operator Helper: [place] [address] [phone] WBC 11.6 x10*3/UL High 4.1 - 10.9 [...] 2.0 - 7.8 Laboratory test finding 12/13/2020 [facility] [employer] Outreach Specialist isdharmesh, Slitting Machine Operator Helper: [place] [address] [phone] Sed Rate 30 mm/hr High 0 - 15 A1c 12/13/2020 [facility] , Slitting Machine Operator Helper: [place] [address] [phone] Hba1c 6.6 % High <5.7 2 Est Avg Glucose 143 mg/dL High 60 - 110 Comprehensive Chem Profile 12/13/2020 [facility], Slitting Machine Operator Helper: [place] [address] [phone] Glucose 218 mg/dL High 74 - 99 [...] mL/min >60 5 Laboratory test finding 12/13/[address] [address] [phone] [phone] Intact 63.5 pg/mL Normal 18.5-88.0 Ionized Calcium 5.5 mg/dL High 4.5-5.3 C Reactive Protein Quantitativ 0.62 mg/dL High 0.00-0.30 Laboratory test finding 11/22/[address] [address] [phone] Platelet Count, Automated 265 10 Normal 150-45 0 PT & Aptt 11/22/2020 [facility] nter [address] [place] [address] [phone] Prothrombin Time 12.8 seconds Normal 12.7-14.5 Inr 0.93 Normal 6 Partial Thromboplastin Time 38.8 seconds High 25.9-37.0 Basic Metabolic Profile 10/14/[address] [address] [phone] Glucose, Fasting 126 mg/dL High 70-100 Blood [...] mg/dL High 8.8-10.2 Comprehensive Chem Profile 10/10/2020 [facility] radha Fletcher Slitting Machine Operator Helper: [place] [address] [phone] Glucose 138 mg/dL High 74 - 99 [...] 60 mL/min >60 10 Microalbumin/Creatinine Urine 10/10/2020 [facility], Slitting Machine Operator Helper: [place] [address] [phone] Microalbumin Urine 29.8 mg/L High 1.3 - 20.0 Urine Creatinine 141.3 mg/dL High 30.0 - 125.0 Microalb/Creat Ratio 21.1 ug/mg 0.0 - 30.0 Lipid Profile 10/10/2020 [facility] , Slitting Machine Operator Helper: [place] [address] [phone] Cholesterol 183 mg/dL 131 - 200 Triglycerides 186 mg/dL High 30 - 150 HDL Cholesterol 67 mg/dL High 35 - 60 LDL (Calculated) 79 CALC 50 - 159 Laboratory test finding 10/10/2020 [place] [address] [phone] Ionized Calcium 5.2 mg/dL Normal 4.5-5.3 Laboratory test finding 09/02/2020 [place] [address] [place] [address] [phone] Vitamin B12 Level 421 pg/mL Normal 247-911 11 PTH Intact 43.4 pg/mL Normal 18.5-88.0 Laboratory test finding 09/02/2020 [facility] [employer] Outreach Specialist isdharmesh, pc Slitting Machine Operator Helper: Dr Primo Field [place] [id number] [phone] Vitamin D 25-Hydroxy 47.2 ng/ml 24.0 - 80.0 12 Complete Blood Count 09/02/2020 [facility] Program Director/Traffic Director s, pc Slitting Machine Operator Helper: Dr Primo Field [place] [id number] [phone] WBC 11.3 x10*3/UL High 4.1 - 10.9 [...] x10*3/UL High 2.0 - 7.8 A1c 09/02/2020 [facility] Slitting Machine Operator Helper: [place] [address] [phone] Hba1c 7.6 % High <5.7 13 Est Avg Glucose 171 mg/dL High 60 - 110 Comprehensive Chem Profile 09/02/2020 [facility] pc Slitting Machine Operator Helper: Dr Primo Field [place], [place] [address] [phone] Glucose 146 mg/dL High 74 - 99 [...] test finding 09/02/2020 [facility] isdharmesh, pc Slitting Machine Operator Helper: [place] [address] [phone] Thyroid Stimulating Hormone 2.61 uIU/mL 0.3 6 [...] LITTLE GFR LEFT ESRD GFR <15 ON AIRLINE MANAGERIAL SUPERVISOR 6 THERAPUTIC HUMAN INR VALUES INDICATIONS NORMAL [...] Little GFR Left ESRD GFR <15 on AIRLINE MANAGERIAL SUPERVISOR 8 100-125 mg/dL PRE-DIABET ES/FASTING >126 mg/dL DIABETES/FASTING 9 NOTE: RESULT VERIFIED. 10 CHRONIC KIDNEY DISEASE STAGI NG PER NKF STAGE I & II GFR >= 60 NORMAL TO MILDLY DECREASED STAGE III GFR 30-59 MODERATELY DECREASED STAGE IV GFR 15-29 SEVERELY DECREASED STAGE V GFR <15 VERY LITTLE GFR LEFT ESRD GFR <15 ON AIRLINE MANAGERIAL SUPERVISOR 11 VITAMIN B12 NORMAL RANGE NORMAL 247 - 911 PG/ML INDETERMINATE 211 - 246 PG/ML DEFICIENT LESS THAN 211 PG/ML 12 This test was performed usin T-VIPS Vitamin D immunoassay kit. Values obtained with [...] LITTLE GFR LEFT ESRD GFR <15 ON AIRLINE MANAGERIAL SUPERVISOR Procedures Date Code Description Status 10/11/2020 22627 Office/Outpatient Established Mo d MDM 30-39 Min Completed 09/02/2020 13753 Office/Outpatient Established Mo d MDM 30-39 Min Completed 05/20/2019 [id number] Mammogram Completed 04/24/2019 [id number] Mammogram Completed 04/09/2019 [id number] Bone Mineral Density Test [facility] 04/09/2019 [id number] Mammogram Completed 08/14/2018 [id number] Diabetic Retinal Eye Exam [facility] 07/15/2018 [id number] Diabetic Retinal Eye Exam [facility] 03/11/2018 [id number] Colonoscopy Completed 03/04/2018 [id number] Diabetic Retinal Eye Exam [facility] 02/26/2018 [id number] Diabetic Retinal Eye Exam [facility] 05/20/2017 [id number] Colonoscopy Completed 07/06/2015 [id number] Mammogram Completed Medical Devices Description No Information Available Encounters Type Date Location Provider Dx Diagnosis Office Visit 10/11/2020 3:00p [facility] Kiko Prieto M.D. R63.4 Abnormal weight loss Z79.84 senior care (current) use of o ral hypoglycemic drugs E11.65 Type 2 diabetes mellitus wit h hyperglycemia E83.52 Hypercalcemia F41.9 Anxiety disorder, unspecifie d M06.09 Rheumatoid arthritis w/o rhe umatoid factor, multiple sites M79.7 Fibromyalgia Z85.3 Personal history of malignan t neoplasm of breast Office Visit 09/02/2020 9:20a [facility].CKamini Sultana Pi ne, CEMENTER HELPER R68.81 Early satiety R63.4 Abnormal weight loss [...] loss Kiko RcKamini pappas M.D. 10/11/2020 Z79.84 senior care (current) use of oral hypoglycemic drugs Kiko [...] Schedule 09/02/2020 R68.81 Early satiety Jayne Avery [facility] 09/02/2020 R63.4 Abnormal weight loss Jayne Avery [facility] 09/02/2020 R53.83 Other fatigue Jayne Avery [facility] 09/02/2020 E11.65 Type 2 diabetes mellitus with hy perglycemia Jayne Avrey [facility] 09/02/2020 E55.9 Vitamin D deficiency, unspecifie d Jayne Avery [facility] Plan of Treatment Future Appointment(s):* 01/12/2021 10:30 am - Nurse Schedule at [facility] 12/13/2020 - Kiko Prieto M.D.* [...] will follow with up with Rheumatology at [facility] appropriately. Inflammatory marker labs sent.5. Personal [...]
--- OUTSIDE RECORDS SUMMARY | 2021-03-02 17:43 | CCD | Continuity of Care Document ---
Author Author Nurse Ginger Gloria Makenna Organization Unknown Address [address] [facility] [address] [place] [address] Phone [phone] Care Team Providers Care Mold Release Worker Name Role Phone Kiko Rae MD AUTM [phone] Nahum Gibbs MD AUTM [phone] [facility] Chiropractic AUTM [phone] [facility] AUTM [phone] [facility] AUTM [phone] Che Delaney DO AUTM [phone] Guillermo Deras MD AUTM [phone] Yue Renteria MD AUTM [phone] Problems Active Problems Provider Date Orthostatic hypotension [...] r Date Vitamin D3 Ultra Potency 1.25mg (91712 Ut) Tablets 1 tablet once a week [...] Fish Oil 1290 MG Per Sevig/900 MG [place] 3 1 Tablet Dailt\\Y Unknown Multivitamin Adult [...] CPT Code Status Date Vaccine Lot # 96189 Given 01/12/2021 Influenza Vaccin e Quadrivalent Preser/Antibiotic Free Im Use 250975 85710 Given 01/06/2020 Influenza Vaccin e Quadrivalent Preser/Antibiotic Free Im Use 329960 73221 Given 01/06/2019 Influenza Vaccin e Quadrivalent Preser/Antibiotic Free Im Use 198291 21091 Given 02/05/2018 Influenza Virus Vaccine, Quadrivalent (Cciiv4), Derived From 2 Given 01/18/2017 Influenza Vaccin e Quadrivalent Preser/Antibiotic Free Im Use 740028 Q2037 Given 01/12/2016 Fluvirin Virus Vaccine 79095 01 Q2037 Given 01/18/2015 Fluvirin Virus Vaccine 18965 01 45315 Given 12/16/2013 Influenza Virus Vaccine 52832 Given 08/03/2013 Adacel- Tetanus Diphtheria P ertussis 43283 Given 03/04/2013 Influenza Virus Vaccine 62117 Given 01/09/2012 Influenza Virus Vaccine 78931 Given 01/30/2010 Influenza Virus Vaccine 96656 Given 01/30/2010 Influenza Virus Vaccine 89303 Given 01/12/2010 Influenza Virus Vaccine 78421 Given 05/30/2005 Pneumovax 23 27208 Given 04/01/2005 Adacel- Tetanus Diphtheria P ertussis 97188 Refused 08/14/2018 Zoster Vaccine 31058 Refused 08/14/2018 Shingrix Zoster Vaccine (HZV), Recombinant, [...] Range Note Complete Blood Count 12/13/2020 [facility] Public Policy Analyst radha luz Sheet Metal Shop Helper: Dr Primo Field [place] [id number] [phone] WBC 11.6 x10*3/UL High 4.1 - 10.9 [...] 2.0 - 7.8 Laboratory test finding 12/13/2020 [place] [employer] Pipeline Supervisor isdharmesh, Sheet Metal Shop Helper: [place] [address] [phone] Sed Rate 30 mm/hr High 0 - 15 A1c 12/13/2020 [facility] Intern[facility] , Sheet Metal Shop Helper: [place] [address] [phone] Hba1c 6.6 % High <5.7 2 Est Avg Glucose 143 mg/dL High 60 - 110 Comprehensive Chem Profile 12/13/2020 [facility] ernjeffrey, Sheet Metal Shop Helper: [place] [address] [phone] Glucose 218 mg/dL High 74 - 99 [...] mL/min >60 5 Laboratory test finding 12/13/[address] [address] [phone] [phone] Intact 63.5 pg/mL Normal 18.5-88.0 Ionized Calcium 5.5 mg/dL High 4.5-5.3 C Reactive Protein Quantitativ 0.62 mg/dL High 0.00-0.30 Laboratory test finding 11/22/[address] [address] [phone] Platelet Count, Automated 265 10 Normal 150-45 0 PT & Aptt 11/22/2020 [facility] nter [address] [place] [address] [phone] Prothrombin Time 12.8 seconds Normal 12.7-14.5 Inr 0.93 Normal 6 Partial Thromboplastin Time 38.8 seconds High 25.9-37.0 Basic Metabolic Profile 10/14/[address] [address] [phone] Glucose, Fasting 126 mg/dL High 70-100 Blood [...] mg/dL High 8.8-10.2 Comprehensive Chem Profile 10/10/2020 [place] radha Fletcher Sheet Metal Shop Helper: [place] [address] [phone] Glucose 138 mg/dL High 74 - 99 [...] 60 mL/min >60 10 Microalbumin/Creatinine Urine 10/10/2020 [facility], Sheet Metal Shop Helper: Dr Primo Field [place] [id number] [phone] Microalbumin Urine 29.8 mg/L High 1.3 - 20.0 Urine Creatinine 141.3 mg/dL High 30.0 - 125.0 Microalb/Creat Ratio 21.1 ug/mg 0.0 - 30.0 Lipid Profile 10/10/2020 [facility] , Sheet Metal Shop Helper: [place] [address] [phone] Cholesterol 183 mg/dL 131 - 200 Triglycerides 186 mg/dL High 30 - 150 HDL Cholesterol 67 mg/dL High 35 - 60 LDL (Calculated) 79 CALC 50 - 159 Laboratory test finding 10/10/2020 [facility] [address] [place] [address] [phone] Ionized Calcium 5.2 mg/dL Normal 4.5-5.3 Laboratory test finding 09/02/2020 [facility] [address] [place] [address] [phone] Vitamin B12 Level 421 pg/mL Normal 247-911 11 PTH Intact 43.4 pg/mL Normal 18.5-88.0 Laboratory test finding 09/02/2020 [place] [employer] Pipeline Supervisor ists, pc Sheet Metal Shop Helper: [place] [address] [phone] Vitamin D 25-Hydroxy 47.2 ng/ml 24.0 - 80.0 12 Complete Blood Count 09/02/2020 [place] Public Policy Analyst s pc Sheet Metal Shop Helper: [place] [address] [phone] WBC 11.3 x10*3/UL High 4.1 - 10.9 [...] x10*3/UL High 2.0 - 7.8 A1c 09/02/2020 [place] Intern[facility] , pc Sheet Metal Shop Helper: [place] [address] [phone] Hba1c 7.6 % High <5.7 13 Est Avg Glucose 171 mg/dL High 60 - 110 Comprehensive Chem Profile 09/02/2020 [facility] [facility], pc Sheet Metal Shop Helper: [place] [address] [phone] Glucose 146 mg/dL High 74 - 99 [...] Laboratory test finding 09/02/2020 [facility] murphy, pc Sheet Metal Shop Helper: [place] [address] [phone] Thyroid Stimulating Hormone 2.61 uIU/mL 0.3 6 [...] LITTLE GFR LEFT ESRD GFR <15 ON DEGREASING WHEEL OPERATOR 6 THERAPUTIC HUMAN INR VALUES INDICATIONS NORMAL [...] Little GFR Left ESRD GFR <15 on DEGREASING WHEEL OPERATOR 8 100-125 mg/dL PRE-DIABET ES/FASTING >126 mg/dL DIABETES/FASTING 9 NOTE: RESULT VERIFIED. 10 CHRONIC KIDNEY DISEASE STAGI NG PER NKF STAGE I & II GFR >= 60 NORMAL TO MILDLY DECREASED STAGE III GFR 30-59 MODERATELY DECREASED STAGE IV GFR 15-29 SEVERELY DECREASED STAGE V GFR <15 VERY LITTLE GFR LEFT ESRD GFR <15 ON DEGREASING WHEEL OPERATOR 11 VITAMIN B12 NORMAL RANGE NORMAL 247 - 911 PG/ML INDETERMINATE 211 - 246 PG/ML DEFICIENT LESS THAN 211 PG/ML 12 This test was performed [employer] Vitamin D immunoassay kit. Values obtained with [...] LITTLE GFR LEFT ESRD GFR <15 ON DEGREASING WHEEL OPERATOR Procedures Date Code Description Status 10/11/2020 31582 Office/Outpatient Established Mo d MDM 30-39 Min Completed 09/02/2020 50576 Office/Outpatient Established Mo d MDM 30-39 Min Completed 05/20/2019 [id number] Mammogram Completed 04/24/2019 [id number] Mammogram Completed 04/09/2019 [id number] Bone Mineral Density Test Comple [facility] 04/09/2019 [id number] Mammogram Completed 08/14/2018 [id number] Diabetic Retinal Eye Exam [facility] 07/15/2018 [id number] Diabetic Retinal Eye Exam [facility] 03/11/2018 [id number] Colonoscopy Completed 03/04/2018 [id number] Diabetic Retinal Eye Exam [facility] 02/26/2018 [id number] Diabetic Retinal Eye Exam [facility] 05/20/2017 [id number] Colonoscopy Completed 07/06/2015 [id number] Mammogram Completed Medical Devices Description No Information Available Encounters Type Date Location Provider Dx Diagnosis Office Visit 10/11/2020 3:00p [facility] Kiko Rae M.D. R63.4 Abnormal weight loss Z79.84 longterm (current) use of o ral hypoglycemic drugs E11.65 Type 2 diabetes mellitus wit h hyperglycemia E83.52 Hypercalcemia F41.9 Anxiety disorder, unspecifie d M06.09 Rheumatoid arthritis w/o rhe umatoid factor, multiple sites M79.7 Fibromyalgia Z85.3 Personal history of malignan t neoplasm of breast Office Visit 09/02/2020 9:20a [facility]Roopa Sultana Pi ne, ROUTE SALESPERSON R68.81 Early satiety R63.4 Abnormal weight loss [...] loss Kiko RcKamini pappas M.D. 10/11/2020 Z79.84 manager long term care (current) use of oral hypoglycemic drugs [...] Schedule 09/02/2020 R68.81 Early satiety Jayne Avery, [facility] 09/02/2020 R63.4 Abnormal weight loss Jayne Avery , [facility] 09/02/2020 R53.83 Other fatigue Jayne Avery [facility] 09/02/2020 E11.65 Type 2 diabetes mellitus with hy perglycemia Jayne Avery [facility] 09/02/2020 E55.9 Vitamin D deficiency, unspecifie d Jayne Avery [facility] Plan of Treatment 12/13/2020 - Kiko [...] will follow with up with Rheumatology at [facility] appropriately. Inflammatory marker labs sent.5. Personal [...]
--- OUTSIDE RECORDS SUMMARY | 2021-03-02 17:43 | CCD | Continuity of Care Document ---
Author Author Nurse Ginger Gloria Makenna Organization Unknown Address [address] [facility] [address] [place] [address] Phone [phone] Care Team Providers Care Woolen Suiting Shrinker Name Role Phone Kiko Rae MD AUTM [phone] Nahum Gibbs MD AUTM [phone] [facility] AUTM [phone] [facility] AUTM [phone] [facility] AUTM [phone] Che Delaney DO AUTM Guillermo Deras MD AUTM [phone] Yue Renteria MD AUTM [phone] Problems Active Problems Provider Date Orthostatic hypotension [...] r Date Vitamin D3 Ultra Potency 1.25mg (23489 Ut) Tablets 1 tablet once a week [...] Nitrate 1% Cream twice a day 85gm iKko Rae M.D. 09/17/2014 Alprazolam 0.25mg Tablets 1 by mouth every day as needed anxiety 20tamicha Rae M.D. 09/17 Nortriptyline HCL 75mg Capsules 1 by mouth every night at bedtime 90steph Rae M.D. Nortriptyline HCL 25mg Capsules take 1 capsule by mouth at bedtime 90steph Rae M.D. Sulfasalazine 500mg Tablets 1 by mouth twice a day Unknown Fish Oil 1290 MG Per Sevig/900 MG Searcy 3 1 Tablet Dailt\\Y Unknown Multivitamin Adult [...] CPT Code Status Date Vaccine Lot # 62085 Given 01/12/2021 Influenza Vaccin e Quadrivalent Preser/Antibiotic Free Im Use [id number] 40748 Given 01/06/2020 Influenza Vaccin e Quadrivalent Preser/Antibiotic Free Im Use 523107 79480 Given 01/06/2019 Influenza Vaccin e Quadrivalent Preser/Antibiotic Free Im Use 109684 10434 Given 02/05/2018 Influenza Virus Vaccine, Quadrivalent (Cciiv4), Derived From 2 Given 01/18/2017 Influenza Vaccin e Quadrivalent Preser/Antibiotic Free Im Use [id number] Q2037 Given 01/12/2016 Fluvirin Virus Vaccine 79107 01 Q2037 Given 01/18/2015 Fluvirin Virus Vaccine 19458 01 88231 Given 12/16/2013 Influenza Virus Vaccine 00913 Given 08/03/2013 Adacel- Tetanus Diphtheria P ertussis 40179 Given 03/04/2013 Influenza Virus Vaccine 43889 Given 01/09/2012 Influenza Virus Vaccine 52801 Given 01/30/2010 Influenza Virus Vaccine 72009 Given 01/30/2010 Influenza Virus Vaccine 52482 Given 01/12/2010 Influenza Virus Vaccine 93547 Given 05/30/2005 Pneumovax 23 93448 Given 04/01/2005 Adacel- Tetanus Diphtheria P ertussis 12760 Refused 08/14/2018 Zoster Vaccine 75591 Refused 08/14/2018 Shingrix Zoster Vaccine (HZV), Recombinant, [...] Range Note Complete Blood Count 12/13/2020 [facility] Power Saw Mechanic radha luz Carpet Installation Specialist: Dr Primo Field [place] [id number] [phone] WBC 11.6 x10*3/UL High 4.1 - 10.9 [...] 2.0 - 7.8 Laboratory test finding 12/13/2020 [facility] [facility]iping Inspector isdharmesh, Carpet Installation Specialist: [place] [address] [phone] Sed Rate 30 mm/hr High 0 - 15 A1c 12/13/2020 [facility] [facility] , Carpet Installation Specialist: [place] [address] [phone] Hba1c 6.6 % High <5.7 2 Est Avg Glucose 143 mg/dL High 60 - 110 Comprehensive Chem Profile 12/13/2020 [facility] ern[facility]ff[facility], Carpet Installation Specialist: [place] [address] [phone] Glucose 218 mg/dL High 74 - 99 [...] mL/min >60 5 Laboratory test finding 12/13/[address] [address] [phone] PTH Intact 63.5 pg/mL Normal 18.5-88.0 Ionized Calcium 5.5 mg/dL High 4.5-5.3 C Reactive Protein Quantitativ 0.62 mg/dL High 0.00-0.30 Laboratory test finding 11/22/[address] [address] [phone] Platelet Count, Automated 265 10 Normal 150-45 0 PT & Aptt 11/22/2020 [facility] nter [address] [place] [address] [phone] Prothrombin Time 12.8 seconds Normal 12.7-14.5 Inr 0.93 Normal 6 Partial Thromboplastin Time 38.8 seconds High 25.9-37.0 Basic Metabolic Profile 10/14/[address] [address] [phone] Glucose, Fasting 126 mg/dL High 70-100 Blood [...] mg/dL High 8.8-10.2 Comprehensive Chem Profile 10/10/2020 [place] radha Fletcher Carpet Installation Specialist: [place] [address] [phone] Glucose 138 mg/dL High 74 - 99 [...] 60 mL/min >60 10 Microalbumin/Creatinine Urine 10/10/2020 [facility], Carpet Installation Specialist: Dr Primo Field [place] [id number] [phone] Microalbumin Urine 29.8 mg/L High 1.3 - 20.0 Urine Creatinine 141.3 mg/dL High 30.0 - 125.0 Microalb/Creat Ratio 21.1 ug/mg 0.0 - 30.0 Lipid Profile 10/10/2020 [facility] , Carpet Installation Specialist: [place] [address] [phone] Cholesterol 183 mg/dL 131 - 200 Triglycerides 186 mg/dL High 30 - 150 HDL Cholesterol 67 mg/dL High 35 - 60 LDL (Calculated) 79 CALC 50 - 159 Laboratory test finding 10/10/2020 [facility] [address] [place] [address] [phone] Ionized Calcium 5.2 mg/dL Normal 4.5-5.3 Laboratory test finding 09/02/2020 [facility] [address] [place] [address] [phone] Vitamin B12 Level 421 pg/mL Normal 247-911 11 PTH Intact 43.4 pg/mL Normal 18.5-88.0 Laboratory test finding 09/02/2020 [facility] [facility]ip[facility] Inspector ists, pc Carpet Installation Specialist: [place] [address] [phone] Vitamin D 25-Hydroxy 47.2 ng/ml 24.0 - 80.0 12 Complete Blood Count 09/02/2020 [place] [facility] Saw Mechanic s pc Carpet Installation Specialist: [place] [address] [phone] WBC 11.3 x10*3/UL High 4.1 - 10.9 [...] x10*3/UL High 2.0 - 7.8 A1c 09/02/2020 [facility] , pc Carpet Installation Specialist: [place] [address] [phone] Hba1c 7.6 % High <5.7 13 Est Avg Glucose 171 mg/dL High 60 - 110 Comprehensive Chem Profile 09/02/2020 [facility], pc Carpet Installation Specialist: [place] [address] [phone] Glucose 146 mg/dL High 74 - 99 [...] Laboratory test finding 09/02/2020 Esequiel murphy, pc Carpet Installation Specialist: [place] [address] [phone] Thyroid Stimulating Hormone 2.61 uIU/mL 0.3 6 [...] LITTLE GFR LEFT ESRD GFR <15 ON SWINGING CUT OFF SAW OPERATOR 6 THERAPUTIC HUMAN INR VALUES INDICATIONS [...] Little GFR Left ESRD GFR <15 on SWINGING CUT OFF SAW OPERATOR 8 100-125 mg/dL PRE-DIABET ES/FASTING >126 mg/dL DIABETES/FASTING 9 NOTE: RESULT VERIFIED. 10 CHRONIC KIDNEY DISEASE STAGI NG PER NKF STAGE I & II GFR >= 60 NORMAL TO MILDLY DECREASED STAGE III GFR 30-59 MODERATELY DECREASED STAGE IV GFR 15-29 SEVERELY DECREASED STAGE V GFR <15 VERY LITTLE GFR LEFT ESRD GFR <15 ON SWINGING CUT OFF SAW OPERATOR 11 VITAMIN B12 NORMAL RANGE NORMAL 247 - 911 PG/ML INDETERMINATE 211 - 246 PG/ML DEFICIENT LESS THAN 211 PG/ML 12 This test was performed [employer] Vitamin D immunoassay kit. Values obtained with [...] LITTLE GFR LEFT ESRD GFR <15 ON SWINGING CUT OFF SAW OPERATOR Procedures Date Code Description Status 10/11/2020 89319 Office/Outpatient Established Mo d MDM 30-39 Min Completed 09/02/2020 62791 Office/Outpatient Established Mo d MDM 30-39 Min Completed 05/20/2019 [id number] Mammogram Completed 04/24/2019 [id number] Mammogram Completed 04/09/2019 [id number] Bone Mineral Density Test [facility] 04/09/2019 [id number] Mammogram Completed 08/14/2018 [id number] Diabetic Retinal Eye Exam [facility] 07/15/2018 [id number] Diabetic Retinal Eye Exam [facility] 03/11/2018 [id number] Colonoscopy Completed 03/04/2018 [id number] Diabetic Retinal Eye Exam [facility] 02/26/2018 [id number] Diabetic Retinal Eye Exam [facility] 05/20/2017 [id number] Colonoscopy Completed 07/06/2015 [id number] Mammogram Completed Medical Devices Description No Information Available Encounters Type Date Location Provider Dx Diagnosis Office Visit 10/11/2020 3:00p [facility] Kiko Rae M.D. R63.4 Abnormal weight loss Z79.84 [facility] (current) use of o ral hypoglycemic drugs E11.65 Type 2 diabetes mellitus wit h hyperglycemia E83.52 Hypercalcemia F41.9 Anxiety disorder, unspecifie d M06.09 Rheumatoid arthritis w/o rhe umatoid factor, multiple sites M79.7 Fibromyalgia Z85.3 Personal history of malignan t neoplasm of breast Office Visit 09/02/2020 9:20a [facility] Sult[facility] Pi ne, VEGETABLE SCULLION R68.81 Early satiety R63.4 Abnormal weight loss [...] loss Kiko RcKamini pappas M.D. 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 10/11/2020 E11.65 Type 2 diabetes mellitus with hy perglycemia Kiko Rae M.D. 10/11/2020 E83.52 Hypercalcemia Kiko aRe M.D. 10/11/2020 F41.9 Anxiety disorder, unspecified Juaquin [...] Schedule 09/02/2020 R68.81 Early satiety Jayne Avery, [facility] 09/02/2020 R63.4 Abnormal weight loss Jayne Avery , [facility] 09/02/2020 R53.83 Other fatigue Jayne Avery [facility] 09/02/2020 E11.65 Type 2 diabetes mellitus with hy perglycemia Jayne Avery [facility] 09/02/2020 E55.9 Vitamin D deficiency, unspecifie d Jayne Avery [facility] Plan of Treatment 12/13/2020 - Kiko [...] will follow with up with Rheumatology at [facility] appropriately. Inflammatory marker labs sent.5. [...]
--- OUTSIDE RECORDS SUMMARY | 2021-03-02 17:43 | CCD | Continuity of Care Document ---
Author Author Gloria PRIETO M.D. Organization Unknown Address [address] [facility] [address] [place] [address] Phone [phone] Care Team Providers Care Wire Brush Operator Name Role Phone Kiko Prieto MD AUTM [phone] Nahum Gibbs MD AUTM [phone] [facility] Chiropractic AUTM [facility] AUTM [phone] [facility] AUTM [phone] Che Delaney DO AUTM [phone] Guillermo Deras MD AUTM [phone] Yue Renteria MD AUTM [phone] Problems Active Problems Provider Date Orthostatic hypotension [...] r Date Vitamin D3 Ultra Potency 1.25mg (36607 Ut) Tablets 1 tablet once a week [...] Fish Oil 1290 MG Per Sevig/900 MG [place] 3 1 Tablet Dailt\\Y Unknown Multivitamin Adult [...] CPT Code Status Date Vaccine Lot # 83937 Given 01/06/2020 Influenza Vaccin e Quadrivalent Preser/Antibiotic Free Im Use 009240 36111 Given 01/06/2019 Influenza Vaccin e Quadrivalent Preser/Antibiotic Free Im Use 644186 30497 Given 02/05/2018 Influenza Virus Vaccine, Quadrivalent (Cciiv4), Derived From 7 Given 01/18/2017 Influenza Vaccin e Quadrivalent Preser/Antibiotic Free Im Use 950921 Q2037 Given 01/12/2016 Fluvirin Virus Vaccine 45826 01 Q2037 Given 01/18/2015 Fluvirin Virus Vaccine 87530 01 06159 Given 12/16/2013 Influenza Virus Vaccine 77014 Given 08/03/2013 Adacel- Tetanus Diphtheria P ertussis 89711 Given 03/04/2013 Influenza Virus Vaccine 62247 Given 01/09/2012 Influenza Virus Vaccine 05267 Given 01/30/2010 Influenza Virus Vaccine 47812 Given 01/30/2010 Influenza Virus Vaccine 65632 Given 01/12/2010 Influenza Virus Vaccine 72477 Given 05/30/2005 Pneumovax 23 85581 Given 04/01/2005 Adacel- Tetanus Diphtheria P ertussis 15018 Refused 08/14/2018 Zoster Vaccine 28807 Refused 08/14/2018 Shingrix Zoster Vaccine (HZV), Recombinant, [...] H/L Range Note Complete Blood Count 12/13/2020 [place] [facility] Teacher sradha Distribution Systems Serviceperson: [place] [address] [phone] WBC 11.6 x10*3/UL High 4.1 - 10.9 [...] 2.0 - 7.8 Laboratory test finding 12/13/2020 [place] Technical Recruiter isdharmesh, Distribution Systems Serviceperson: [place] [address] [phone] Sed Rate 30 mm/hr High 0 - 15 A1c 12/13/2020 [facility] , Distribution Systems Serviceperson: [place] [address] [phone] Hba1c 6.6 % High <5.7 2 Est Avg Glucose 143 mg/dL High 60 - 110 Comprehensive Chem Profile 12/13/2020 [place] [facility] ernjeffrey, Distribution Systems Serviceperson: [place] [address] [phone] Glucose 218 mg/dL High 74 - 99 [...] mL/min >60 5 Laboratory test finding 12/13/[address] [address] [phone] PTH Intact 63.5 pg/mL Normal 18.5-88.0 Ionized Calcium 5.5 mg/dL High 4.5-5.3 C Reactive Protein Quantitativ 0.62 mg/dL High 0.00-0.30 Laboratory test finding 11/22/[address] [address] [phone] Platelet Count, Automated 265 10 Normal 150-45 0 PT & Aptt 11/22/2020 [facility] nter [address] [place] [address] [phone] Prothrombin Time 12.8 seconds Normal 12.7-14.5 Inr 0.93 Normal 6 Partial Thromboplastin Time 38.8 seconds High 25.9-37.0 Basic Metabolic Profile 10/14/[address] [address] [phone] Glucose, Fasting 126 mg/dL High 70-100 Blood [...] mg/dL High 8.8-10.2 Comprehensive Chem Profile 10/10/2020 [place] radha Fletcher Distribution Systems Serviceperson: [place] [address] [phone] Glucose 138 mg/dL High 74 - 99 [...] 60 mL/min >60 10 Microalbumin/Creatinine Urine 10/10/2020 [facility], Distribution Systems Serviceperson: [place] [address] [phone] Microalbumin Urine 29.8 mg/L High 1.3 - 20.0 Urine Creatinine 141.3 mg/dL High 30.0 - 125.0 Microalb/Creat Ratio 21.1 ug/mg 0.0 - 30.0 Lipid Profile 10/10/2020 [place] [facility] , Distribution Systems Serviceperson: [place] [address] [phone] Cholesterol 183 mg/dL 131 - 200 Triglycerides 186 mg/dL High 30 - 150 HDL Cholesterol 67 mg/dL High 35 - 60 LDL (Calculated) 79 CALC 50 - 159 Laboratory test finding 10/10/2020 [place] [address] [phone] Ionized Calcium 5.2 mg/dL Normal 4.5-5.3 Laboratory test finding 09/02/2020 [place] [address] [place] [address] [phone] Vitamin B12 Level 421 pg/mL Normal 247-911 11 PTH Intact 43.4 pg/mL Normal 18.5-88.0 Laboratory test finding 09/02/2020 [place] Technical Recruiter isdharmesh, pc Distribution Systems Serviceperson: Dr Primo Field [place] [id number] [phone] Vitamin D 25-Hydroxy 47.2 ng/ml 24.0 - 80.0 12 Complete Blood Count 09/02/2020 [place] Music Therapy Teacher s, pc Distribution Systems Serviceperson: Dr Primo Field [place] [id number] [phone] WBC 11.3 x10*3/UL High 4.1 - 10.9 [...] x10*3/UL High 2.0 - 7.8 A1c 09/02/2020 [facility] , [facility] Distribution Systems Serviceperson: [place] [address] [phone] Hba1c 7.6 % High <5.7 13 Est Avg Glucose 171 mg/dL High 60 - 110 Comprehensive Chem Profile 09/02/2020 [place] [facility], pc Distribution Systems Serviceperson: Dr Primo Field [place], [place] [address]99 [phone] Glucose 146 mg/dL High 74 - 99 [...] test finding 09/02/2020 Esequiel Salinas isdharmesh, pc Distribution Systems Serviceperson: [place] [address] [phone] Thyroid Stimulating Hormone 2.61 uIU/mL 0.3 6 [...] LITTLE GFR LEFT ESRD GFR <15 ON SSRS DEVELOPER 6 THERAPUTIC HUMAN INR VALUES INDICATIONS NORMAL [...] Little GFR Left ESRD GFR <15 on SSRS DEVELOPER 8 100-125 mg/dL PRE-DIABET ES/FASTING >126 mg/dL DIABETES/FASTING 9 NOTE: RESULT VERIFIED. 10 CHRONIC KIDNEY DISEASE STAGI NG PER NKF STAGE I & II GFR >= 60 NORMAL TO MILDLY DECREASED STAGE III GFR 30-59 MODERATELY DECREASED STAGE IV GFR 15-29 SEVERELY DECREASED STAGE V GFR <15 VERY LITTLE GFR LEFT ESRD GFR <15 ON SSRS DEVELOPER 11 VITAMIN B12 NORMAL RANGE NORMAL 247 - 911 PG/ML INDETERMINATE 211 - 246 PG/ML DEFICIENT LESS THAN 211 PG/ML 12 This test was performed usin [email or web address] Vitamin D immunoassay kit. Values obtained with [...] LITTLE GFR LEFT ESRD GFR <15 ON SSRS DEVELOPER Procedures Date Code Description Status 10/11/2020 39414 Office/Outpatient Established Mo d MDM 30-39 Min Completed 09/02/2020 47232 Office/Outpatient Established Mo d MDM 30-39 Min Completed 05/20/2019 [id number] Mammogram Completed 04/24/2019 [id number] Mammogram Completed 04/09/2019 [id number] Bone Mineral Density Test [facility] 04/09/2019 [id number] Mammogram Completed 08/14/2018 [id number] Diabetic Retinal Eye Exam [facility] 07/15/2018 [id number] Diabetic Retinal Eye Exam [facility] 03/11/2018 [id number] Colonoscopy Completed 03/04/2018 [id number] Diabetic Retinal Eye Exam [facility] 02/26/2018 [id number] Diabetic Retinal Eye Exam [facility] 05/20/2017 [id number] Colonoscopy Completed 07/06/2015 [id number] Mammogram Completed Medical Devices Description No Information Available Encounters Type Date Location Provider Dx Diagnosis Office Visit 10/11/2020 3:00p [facility] Kiko Prieto M.D. R63.4 Abnormal weight loss Z79.84 assisted (current) use of o ral hypoglycemic drugs E11.65 Type 2 diabetes mellitus wit h hyperglycemia E83.52 Hypercalcemia F41.9 Anxiety disorder, unspecifie d M06.09 Rheumatoid arthritis w/o rhe umatoid factor, multiple sites M79.7 Fibromyalgia Z85.3 Personal history of malignan t neoplasm of breast Office Visit 09/02/2020 9:20a [facility], P.CKamini Sultana Pi ne, LIME SPREADER R68.81 Early satiety R63.4 Abnormal weight loss [...] loss Kiko RcKamini pappas M.D. 10/11/2020 Z79.84 assisted (current) use of oral hypoglycemic drugs Kiko [...] Type 2 diabetes mellitus with hy perglycemia iKko Prieto M.D. 10/10/2020 E11.65 Type 2 diabetes mellitus with hy perglycemia Lab Schedule 10/10/2020 E78.5 Hyperlipidemia, unspecified Renny Prieto M.D. 10/10/2020 E78.5 Hyperlipidemia, unspecified Lab Schedule 09/02/2020 R68.81 Early satiety Jayne Avery [facility] 09/02/2020 R63.4 Abnormal weight loss Jayne Avery [facility] 09/02/2020 R53.83 Other fatigue Jayne Avery [facility] 09/02/2020 E11.65 Type 2 diabetes mellitus with hy perglycemia Jayne Avery [facility] 09/02/2020 E55.9 Vitamin D deficiency, unspecifie d Jayne Avery [facility] Plan of Treatment Future Appointment(s):* 01/12/2021 10:30 am - Nurse Schedule at [facility] 12/13/2020 - Kiko Prieto M.D.* [...] will follow with up with Rheumatology at [facility] appropriately. Inflammatory marker labs sent.5. Personal history [...]
--- OUTSIDE RECORDS SUMMARY | 2021-03-02 17:44 | CCD | Continuity of Care Document ---
Author Author Pulmonary Lab Gloria Mensah Organization Unknown Address [address] [place] [address] Phone [phone] Care Team Providers Care Lead Caster Helper Name Role Phone Kiko Rae M.D. AUTM [phone] AUTM Unavailable Nuvia Evangelista M.D. AUTM [phone] AUTM Unavailable Problems Active Problems Provider Date [...] former smoker April 2019 Smoking Status Reviewed: 11/14/20 Patient is a former smoker [facility] 2019 Allergies, Adverse Reactions, Alerts Description No Known Drug Allergies Medications Active Medications SIG Qnty Indications Ordering Provide r Date Dulcolax 5mg Tablets DR take 4 tabs by mouth prior to procedure per instructions. 4tabs Z12.11 Alfonzo Clifford MD 02/13/2018 Alprazolam 0.25mg Tablets 1 tab by mouth every day as needed Unknown Glucerna Advance Shake Liquid 3 shakes by [...] 1 tab by mouth every day Unknown Aspirin 81mg Tablets DR 1 tab by mouth every day Unknown Vitamin D (Ergocalciferol) 52886Ofug Capsules every 2 weeks Unknown Metoprolol Tartrate [...] (Flulaval) Vital Signs Date Vital Result Comment 02/13/2018 10:07am BP Systolic 124 mmHg BP Diastolic 72 mmHg Height 62 inches 5'2" Weight 136.00 lb BMI (Body Mass Index) 24.9 kg/m2 Mcrae Body Weight 110 lb Weight 61.690 kg BSA (Body Surface Area) 1.62 m2 03/27/2011 8:33am BP Systolic 122 mmHg BP Diastolic 80 mmHg Heart Rate 87 /min O2 % BldC Oximetry 95 % Height 61.25 inches Weight 161.00 lb BMI (Body Mass Index) 30.2 kg/m2 Weight 73.028 kg Results Test Acquired Date Facility Test Result H/L Range Note Coag Panel For Procedures 11/22/2020 [facility] [address] [place] [address] [phone] Platelet Count, Automated 265 10 Normal 150-45 0 Prothrombin Time/Inr 11/22/2020 [facility] Lab [address] [place] [address] [phone] Prothrombin Time 12.8 seconds Normal 12.7-14.5 Inr [...] INFARCTION 2.5-3.5 Procedures Date Code Description Status 12/15/2020 18925 Diffusing Capacity Completed 12/15/2020 48699 Plethysmography Determination Courtney ng Volumes & Per Airway Resist Completed 12/15/2020 99424 Bronchospasm Evaluation Complete d 12/14/2020 80673 Office/Outpatient Established Mo d MDM 30-39 Min Completed 11/14/2020 89434 Office/Outpatient New Moderate M DM 45-59 Minutes Completed Medical Devices Description No Information Available Encounters Type Date Location Provider Dx Diagnosis Office Visit 12/14/2020 1:00p [facility] Rosalio Ohara MD R91.8 Other nonspecific abnormal finding of courtney ng field R06.02 Shortness of breath Z87.891 Personal history of nicotine dependence Z79.899 Other senior living (current) dr melendez therapy Office Visit 11/14/2020 10:00a [facility] Rosalio Ohara MD R91.1 Solitary pulmonary nodule R91.8 Other nonspecific abnormal f inding of lung field Z87.891 Personal history of nicotine dependence Z79.899 Other senior living (current) dr melendez therapy Assessments Date Code Description Provider 12/15/2020 R91.1 Solitary pulmonary nodule [facility] 12/14/2020 R91.8 Other nonspecific abnormal findi ng of lung field Krzysztof Ohara MD 12/14/2020 R06.02 Shortness of breath Krzysztof guerrero MD 12/14/2020 Z87.891 Personal history of nicotine dep endence Krzysztof Ohara MD 12/14/2020 Z79.899 Other senior living (current) drug t herapy Krzysztof Ohara MD 11/14/2020 R91.1 Solitary pulmonary nodule Aarti Ohara MD 11/14/2020 R91.8 Other nonspecific abnormal findi ng of lung field Krzysztof Ohara MD 11/14/2020 Z87.891 Personal history of nicotine dep endence Krzysztof Ohara MD 11/14/2020 Z79.899 Other senior living (current) drug t herapy Krzysztof Ohara MD Plan of Treatment Future Appointment(s):* 12/20/2020 2:45 pm - Krzysztof Ohara MD at [facility] Pulmonary/Thoracic 12/14/2020 - Krzysztof Ohara MD* R91.8 Other nonspecific abnormal finding of lung field * R06.02 Shortness of breath * Z87.891 Personal history of nicotine dependence * Z79.899 Other senior living (current) drug therapy * * Comments:* ~ At this point, we will schedule her pulmonary function testing. I will see her in return with them. We did discuss the fact that she should have continued lung cancer surveillance, at least, for the next 9 years. She wonders who will schedule that and, certainly, if she has active issues with which we need to be involved, I will be more than happy to do that. Otherwise, she had been having her surveillance done through Dr. Evangelista, in view of her history of breast cancer. We will make that decision as time goes on. We await her pulmonary function, and I will see her in return at that time. She says she still follows closely with Dr. Rae.~ She tells me she was seen by the "welfare doctor" yesterday who told her she needs to be taking vitamin B. She is not sure why, and I have asked her to discuss it more with Dr. Rae. ~ We will see her as outlined above. * Follow up:* See after PFTs Functional Status Description No Information Available Mental Status Description No Information Available Referrals Refer to Dr Reason for Referral Status Appt Date Krzysztof Ohara M.D. ABNORMAL CT Scheduled 1 [facility] [address] [place], [place] [id number] [phone]
--- OUTSIDE RECORDS SUMMARY | 2021-03-02 17:44 | CCD | Continuity of Care Document ---
Author Author Gloria PRIETO M.D. Organization Unknown Address [address] [facility] [address] [place] [address] Phone [phone] Care Team Providers Care Supervisor Rice Milling Name Role Phone Kiko Prieto MD AUTM [phone] Nahum Gibbs MD AUTM [phone] [facility] AUTM [phone] [facility] AUTM [phone] [facility] AUTM [phone] Che Delaney DO AUTM [phone] Guillermo Deras MD AUTM [phone] Yue Renteria MD AUTM [phone] Problems Active Problems Provider Date Orthostatic hypotension [...] 03/27/19 and "only cheated a couple times" Allergies, Adverse Reactions, Alerts Description No Known Drug Allergies Medications Active Medications SIG Qnty Indications Ordering Provide r Date Vitamin D3 Ultra Potency 1.25mg (67996 Ut) Tablets 1 tablet once a week [...] a day e11.65 200eliezer Prieto M.D. 04/15/19 21 Onetouch Delica Lancing Dev [...] DR 1 by mouth every day 90tabs Melissa Peñaloza.D. 07/20/19 16 Lotrisone 1-0.05% Cream apply toically BId to right flank lesion. 45gm Kiko Prieto M.D. 07/[address] 1 by mouth every day 90steph Prieto M.D. 09/17/2014 Simvastatin 10mg Tablets take one tablet by mouth at bedtime 90tamicha Pireto M.D. 015 Metoprolol Tartrate 50mg Tablets 1 [...] Fish Oil 1290 MG Per Sevig/900 MG Dunlap 3 1 Tablet Dailt\\Y Unknown Multivitamin Adult Tablets 1 by mouth every day Unknown Tamoxifen Citrate 20mg Tablets every day Unknown Administration Of Flu Vaccine Inj ection Unknown Medications Administered in Office Medication SIG Qnty Indications Ordering Provider Date Administration Of Flu Vaccine Inj martine Prieto M.D. 01/06/2020 Administration Of Flu Vaccine Inj martine Prieto M.D. 01/06/2019 Administration Of Flu Vaccine Inj martine Prieto M.D. 02/05/2018 Therapeutic Injection Injection Unknown 07/05/2017 Administration Of Flu Vaccine Inj martine Prieto M.D. 01/18/2017 Administration Of Flu Vaccine Inj maritne Prieto M.D. 01/12/2016 Administration Of Flu Vaccine Inj ection Kiko Prieto M.D. 01/18/2015 Immunizations CPT Code Status Date Vaccine Lot # [id number] Given 01/06/2020 Influenza Vaccin e Quadrivalent Preser/Antibiotic Free Im Use 334578 18665 Given 01/06/2019 Influenza Vaccin e Quadrivalent Preser/Antibiotic Free Im Use 990394 46534 Given 02/05/2018 Influenza Virus Vaccine, Quadrivalent (Cciiv4), Derived From 4 Given 01/18/2017 Influenza Vaccin e Quadrivalent Preser/Antibiotic Free Im Use [id number] Q2037 Given 01/12/2016 Fluvirin Virus Vaccine 38748 01 Q2037 Given 01/18/2015 Fluvirin Virus Vaccine 70689 01 40199 Given 12/16/2013 Influenza Virus Vaccine 85757 Given 08/03/2013 Adacel- Tetanus Diphtheria P ertussis (Age64 & Under) 32050 Given 03/04/2013 Influenza Virus Vaccine 65672 Given 01/09/2012 Influenza Virus Vaccine 60661 Given 01/30/2010 Influenza Virus Vaccine 33272 Given 01/30/2010 Influenza Virus Vaccine 17191 Given 01/12/2010 Influenza Virus Vaccine 74058 Given 05/30/2005 Pneumovax 23 87061 Given 04/01/2005 Adacel- Tetanus Diphtheria P ertussis (Age64 & Under) 45032 Refused 08/14/2018 Zoster Vaccine 89304 Refused 08/14/2018 Shingrix Zoster Vaccine (HZV), Recombinant, [...] Date Facility Test Result H/L Range Note Laboratory test finding 12/13/2020 radha Nagel Boat Cleaner: [facility] Primo Field [place] [id number] [phone] Sed Rate <pending> A1c <pending> Laboratory test finding 12/13/[address] [address] [phone] [phone] Intact <pending> Ionized Calcium Serum <pending> High Sensitivity C-Reactive Protein <pending> Laboratory test finding 11/22/[address] [address] [phone] Platelet Count, Automated 265 10 Normal 150-45 0 PT & Aptt 11/22/2020 [facility] nter [address] [place] [address] [phone] Prothrombin Time 12.8 seconds Normal 12.7-14.5 Inr 0.93 Normal 1 Partial Thromboplastin Time 38.8 seconds High 25.9-37.0 Basic Metabolic Profile 10/14/[address] [address] [phone] Glucose, Fasting 126 mg/dL High 70-100 Blood Urea Nitrogen 16 mg/dL Normal 7-18 Creatinine For GFR 0.62 mg/dL Normal 0.55-1.30 Glomerular Filtration Rate > 60.0 Normal >39 2 Sodium Level 143 mEq/L Normal 136-145 Potassium Serum 4.4 mEq/L Normal 3.5-5.1 Chloride Level 110 mEq/L High 98-107 Carbon Dioxide Level 29 mEq/L Normal 21-32 Anion Gap 4 mEq/L Low 8-16 Calcium Level 10.3 mg/dL High 8.8-10.2 Microalbumin/Creatinine Urine 10/10/2020 [facility], Boat Cleaner: [place] [address] [phone] Microalbumin Urine 29.8 mg/L High 1.3 - 20.0 Urine Creatinine 141.3 mg/dL High 30.0 - 125.0 Microalb/Creat Ratio 21.1 ug/mg 0.0 - 30.0 Lipid Profile 10/10/2020 [facility] , Boat Cleaner: [place] [address] [phone] Cholesterol 183 mg/dL 131 - 200 Triglycerides 186 mg/dL High 30 - 150 HDL Cholesterol 67 mg/dL High 35 - 60 LDL (Calculated) 79 CALC 50 - 159 Comprehensive Chem Profile 10/10/2020 [facility] Boat Cleaner: [place] [address] [phone] Glucose 138 mg/dL High 74 - 99 3 BUN 17 mg/dL 7 - 18 Creatinine 0.7 mg/dL 0.6 - 1.3 Sodium 141 mEq/L 136 - 145 Potassium 4.4 mEq/L 3.5 - 5.1 Chloride 104 mEq/L 98 - 107 Carbon Dioxide 29 mEq/L 21 - 32 Calcium 10.4 mg/dL High 8.5 - 10.1 4 Alk. Phosphatase 52 mg/dL 46 - 116 [...] 60 mL/min >60 5 Laboratory test finding 10/10/2020 [address] [place] [address] [phone] Ionized Calcium 5.2 mg/dL Normal 4.5-5.3 Laboratory test finding 09/02/2020 [address] [place] [address] [phone] Vitamin B12 Level 421 pg/mL Normal 247-911 6 PTH Intact 43.4 pg/mL Normal 18.5-88.0 Laboratory test finding 09/02/2020 [facility] Boat Cleaner: [place] [address] [phone] Vitamin D 25-Hydroxy 47.2 ng/ml 24.0 - 80.0 7 Complete Blood Count 09/02/2020 [facility] Boat Cleaner: [place] [address] [phone] WBC 11.3 x10*3/UL High 4.1 - 10.9 [...] x10*3/UL High 2.0 - 7.8 A1c 09/02/2020 [facility] , Boat Cleaner: [place] [address] [phone] Hba1c 7.6 % High <5.7 8 Est Avg Glucose 171 mg/dL High 60 - 110 Comprehensive Chem Profile 09/02/2020 [facility], Boat Cleaner: [place] [address] [phone] Glucose 146 mg/dL High 74 - 99 9 BUN 15 mg/dL 7 - 18 Creatinine 0.8 mg/dL 0.6 - 1.3 Sodium 142 mEq/L 136 - 145 Potassium 4.1 mEq/L 3.5 - 5.1 Chloride 105 mEq/L 98 - 107 Carbon Dioxide 26 mEq/L 21 - 32 Calcium 10.7 mg/dL High 8.5 - 10.1 10 Alk. Phosphatase 51 mg/dL 46 - 116 Total Bilirubin 0.4 mg/dL 0.2 - 1.0 Ast (Sgot) 12 U/L Low 15 - 37 Alt (SGPT) 14 U/L 12 - 78 Albumin 3.4 g/dL 3.4 - 5.0 Total Protein 6.2 g/dL Low 6.4 - 8.2 A/G Ratio 1.21 CALC 1.00 - 1.90 GFR >= 60 mL/min >60 GFR >= 60 mL/min >60 11 Laboratory test finding 09/02/2020 [facility]rey, radha Boat Cleaner: Dr Primo Field [place], [place] [id number] [phone] Thyroid Stimulating Hormone 2.61 uIU/mL 0.3 6 - 3.74 Comprehensive Chem Profile 06/20/2020 [facility]ae[facility] Boat Cleaner: Dr Primo Field [place] [address]578 [phone] Glucose 160 mg/dL High 74 - 99 12 BUN 10 mg/dL 7 - 18 Creatinine 0.8 mg/dL 0.6 - 1.3 Sodium 143 mEq/L 136 - 145 Potassium 3.7 mEq/L 3.5 - 5.1 Chloride 105 mEq/L 98 - 107 Carbon Dioxide 26 mEq/L 21 - 32 Calcium 9.9 mg/dL 8.5 - 10.1 Alk. Phosphatase 50 mg/dL 46 - 116 Total Bilirubin 0.5 mg/dL 0.2 - 1.0 Ast (Sgot) 13 U/L Low 15 - 37 Alt (SGPT) 12 U/L 12 - 78 Albumin 3.5 g/dL 3.4 - 5.0 Total Protein 6.3 g/dL Low 6.4 - 8.2 A/G Ratio 1.25 CALC 1.00 - 1.90 GFR >= 60 mL/min >60 GFR >= 60 mL/min >60 13 A1c 06/20/2020 [facility] , radha Boat Cleaner: Dr Primo Field [place] [address]25 [phone] Hba1c 9.8 % High <5.7 14 Est Avg Glucose 235 mg/dL High 60 - 110 1 THERAPUTIC HUMAN INR VALUES INDICATIONS NORMAL RANGES PROPHYLAXIS/TREATMENT OF: VENOUS THROMBOSIS 2.0-3.0 PULMONARY EMBOLISM 2.0-3.0 PREVENTION OF SYSTEMIC EMBOLISM FROM: TISSUE HEART VALVES 2.0-3.0 ACUTE MYOCARDIAL INFARCTION 2.0-3.0 VALVULAR HEART DISEASE 2.0-3.0 ATRIAL FIBRILLATION 2.0-3.0 MECHANICAL VALVES(HIGH RISK) 2.5-3.5 RECURRENT MYOCARDIAL INFARCTION 2.5-3.5 2 Units are mL/min/1.73 m2 Chronic Kidney Disease Staging per NKF: Stage I & II GFR >=60 Normal to Mildly Decreased Stage III GFR 30-59 Moderately Decreased Stage IV GFR 15-29 Severely Decreased Stage V GFR <15 Very Little GFR Left ESRD GFR <15 on NAILER MACHINE 3 100-125 mg/dL PRE-DIABET ES/FASTING >126 mg/dL DIABETES/FASTING 4 NOTE: RESULT VERIFIED. 5 CHRONIC KIDNEY DISEASE STAGI NG PER NKF STAGE I & II GFR >= 60 NORMAL TO MILDLY DECREASED STAGE III GFR 30-59 MODERATELY DECREASED STAGE IV GFR 15-29 SEVERELY DECREASED STAGE V GFR <15 VERY LITTLE GFR LEFT ESRD GFR <15 ON NAILER MACHINE 6 VITAMIN B12 NORMAL RANGE NORMAL 247 - 911 PG/ML INDETERMINATE 211 - 246 PG/ML DEFICIENT LESS THAN 211 PG/ML 7 This test was performed NanoOpto Vitamin D immunoassay kit. Values obtained with different assay methods should not be used interchangeably. 8 Lab Result Notes: Pre-Diabetes 5.7 - 6.4 % Diabetes = or > 6.5% 9 100-125 mg/dL PRE-DIABET ES/FASTING >126 mg/dL DIABETES/FASTING 10 NOTE: CALCIUM,ALBUMIN,T.PROTEIN VERIFIED 11 CHRONIC KIDNEY DISEASE STAGI NG PER NKF STAGE I & II GFR >= 60 NORMAL TO MILDLY DECREASED STAGE III GFR 30-59 MODERATELY DECREASED STAGE IV GFR 15-29 SEVERELY DECREASED STAGE V GFR <15 VERY LITTLE GFR LEFT ESRD GFR <15 ON NAILER MACHINE 12 100-125 mg/dL PRE-DIABET ES/FASTING >126 mg/dL DIABETES/FASTING 13 CHRONIC KIDNEY DISEASE STAGI NG PER NKF STAGE I & II GFR >= 60 NORMAL TO MILDLY DECREASED STAGE III GFR 30-59 MODERATELY DECREASED STAGE IV GFR 15-29 SEVERELY DECREASED STAGE V GFR <15 VERY LITTLE GFR LEFT ESRD GFR <15 ON NAILER MACHINE 14 Lab Result Notes: Pre-Diabetes 5.7 - 6.4 % Diabetes = or > 6.5% Procedures Date Code Description Status 10/11/2020 31324 Office/Outpatient Established Mo d MDM 30-39 Min Completed 09/02/2020 22543 Office/Outpatient Established Mo d MDM 30-39 Min Completed 06/21/2020 64277 Office/Outpatient Established Lo w MDM 20-29 Min Completed 05/20/2019 [id number] Mammogram Completed 04/24/2019 [id number] Mammogram Completed 04/09/2019 [id number] Bone Mineral Density Test Comple jose luis 04/09/2019 [id number] Mammogram Completed 08/14/2018 [id number] Diabetic Retinal Eye Exam Comple jose luis 07/15/2018 [id number] Diabetic Retinal Eye Exam Comple jose luis 03/11/2018 [id number] Colonoscopy Completed 03/04/2018 [id number] Diabetic Retinal Eye Exam Comple jose luis 02/26/2018 [id number] Diabetic Retinal Eye Exam Comple jose luis 05/20/2017 [id number] Colonoscopy Completed 07/06/2015 [id number] Mammogram Completed Medical Devices Description No Information Available Encounters Type Date Location Provider Dx Diagnosis Office Visit 10/11/2020 3[facility] R63.4 Abnormal weight loss Z79.84 senior care (current) use of o ral hypoglycemic drugs E11.65 Type 2 diabetes mellitus wit h hyperglycemia E83.52 Hypercalcemia F41.9 Anxiety disorder, unspecifie d M06.09 Rheumatoid arthritis w/o rhe umatoid factor, multiple sites M79.7 Fibromyalgia Z85.3 Personal history of malignan t neoplasm of breast Office Visit 09/02/2020 9:20a [facility] Jayne Sultana Pi ne, RN BARIATRIC R68.81 Early satiety R63.4 Abnormal weight loss R53.83 Other fatigue E11.65 Type 2 diabetes mellitus wit h hyperglycemia E55.9 Vitamin D deficiency, unspec ified Office Visit 06/21/2020 3:00p [facility] Prieto M.D. E11.65 Type 2 diabetes mellitus with hyperglyce eric I10 Essential (primary) hyperten elvin F41.9 Anxiety disorder, unspecifie d K21.9 Gastro-esophageal reflux dis ease without esophagitis Assessments Date Code Description Provider 12/13/2020 E83.52 Hypercalcemia Kiko Prieto M.D. 12/13/2020 R63.4 Abnormal weight loss Kiko [...] weight loss Kiko pappas M.D. 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 06/21/2020 I10 Essential (primary) hypertension Kiko Prieto M.D. 06/21/2020 F41.9 Anxiety disorder, unspecified Juaquin Prieto M.D. 06/21/2020 K21.9 Gastro-esophageal reflux disease without esophagitis Kiko Prieto M.D. 06/20/2020 E11.65 Type 2 diabetes mellitus with hy perglycemia Kiko Prieto M.D. 06/20/2020 E11.65 Type 2 diabetes mellitus with hy perglycemia Lab Schedule 06/20/2020 I10 Essential (primary) hypertension Kiko Prieto M.D. 06/20/2020 I10 Essential (primary) hypertension Lab Schedule Plan of Treatment Future Appointment(s):* 01/12/2021 10:30 am - Nurse Schedule at [facility] 12/13/2020 - Kiko Prieto M.D.* [...] will follow with up with Rheumatology at [facility] appropriately. Inflammatory marker labs sent.5. Personal [...]
--- OUTSIDE RECORDS SUMMARY | 2021-03-02 17:44 | CCD | Continuity of Care Document ---
Author Author Gloria PRIETO M.D. Organization Unknown Address [address] [facility] [address] [place] [address] Phone [phone] Care Team Providers Care Tyre Builder Name Role Phone Kiko Prieto MD AUTM [phone] Nahum Gibbs MD AUTM [phone] [facility]ract[facility] AUTM [facility] AUTM [phone] [facility] AUTM [phone] Che Delaney DO AUTM Guillermo Deras MD AUTM [phone] Yue Renteria MD AUTM [phone] Problems Active Problems Provider Date Orthostatic hypotension [...] r Date Vitamin D3 Ultra Potency 1.25mg (33320 Ut) Tablets 1 tablet once a week [...] Fish Oil 1290 MG Per Sevig/900 MG Vernon 3 1 Tablet Dailt\\Y Unknown Multivitamin Adult [...] CPT Code Status Date Vaccine Lot # 47289 Given 01/06/2020 Influenza Vaccin e Quadrivalent Preser/Antibiotic Free Im Use [id number] 66632 Given 01/06/2019 Influenza Vaccin e Quadrivalent Preser/Antibiotic Free Im Use 866061 87643 Given 02/05/2018 Influenza Virus Vaccine, Quadrivalent (Cciiv4), Derived From 8 Given 01/18/2017 Influenza Vaccin e Quadrivalent Preser/Antibiotic Free Im Use 379249 Q2037 Given 01/12/2016 Fluvirin Virus Vaccine 42430 01 Q2037 Given 01/18/2015 Fluvirin Virus Vaccine 41249 01 65786 Given 12/16/2013 Influenza Virus Vaccine 66307 Given 08/03/2013 Adacel- Tetanus Diphtheria P ertussis (Age64 & Under) 18020 Given 03/04/2013 Influenza Virus Vaccine 91987 Given 01/09/2012 Influenza Virus Vaccine 79446 Given 01/30/2010 Influenza Virus Vaccine 66249 Given 01/30/2010 Influenza Virus Vaccine 60631 Given 01/12/2010 Influenza Virus Vaccine 06368 Given 05/30/2005 Pneumovax 23 73776 Given 04/01/2005 Adacel- Tetanus Diphtheria P ertussis (Age64 & Under) 64039 Refused 08/14/2018 Zoster Vaccine 21746 Refused 08/14/2018 Shingrix Zoster Vaccine (HZV), Recombinant, [...] Note Laboratory test finding 12/13/2020 radha Nagel Physician Internist: Dr Primo Field [place] [id number] [phone] Sed Rate <pending> A1c <pending> Laboratory test finding 12/13/[address] [address] [phone] [phone] Intact <pending> Ionized Calcium Serum <pending> High Sensitivity C-Reactive Protein <pending> Laboratory test finding 11/22/[address] [address] [phone] Platelet Count, Automated 265 10 Normal 150-45 0 PT & Aptt 11/22/2020 [facility] nter [address] [place] [address] [phone] Prothrombin Time 12.8 seconds Normal 12.7-14.5 Inr 0.93 Normal 1 Partial Thromboplastin Time 38.8 seconds High 25.9-37.0 Basic Metabolic Profile 10/14/[address] [address] [phone] Glucose, Fasting 126 mg/dL High 70-100 Blood [...] 10.3 mg/dL High 8.8-10.2 Microalbumin/Creatinine Urine 10/10/2020 [facility], Physician Internist: [place] [address] [phone] Microalbumin Urine 29.8 mg/L High 1.3 - 20.0 Urine Creatinine 141.3 mg/dL High 30.0 - 125.0 Microalb/Creat Ratio 21.1 ug/mg 0.0 - 30.0 Lipid Profile 10/10/2020 [facility] , Physician Internist: [place] [address] [phone] Cholesterol 183 mg/dL 131 - 200 Triglycerides 186 mg/dL High 30 - 150 HDL Cholesterol 67 mg/dL High 35 - 60 LDL (Calculated) 79 CALC 50 - 159 Comprehensive Chem Profile 10/10/2020 [facility] Physician Internist: [place] [address] [phone] Glucose 138 mg/dL High 74 - 99 [...] mL/min >60 5 Laboratory test finding 10/10/2020 [address] [place] [address] [phone] Ionized Calcium 5.2 mg/dL Normal 4.5-5.3 Laboratory test finding 09/02/2020 [address] [place] [address] [phone] Vitamin B12 Level 421 pg/mL Normal 247-911 6 PTH Intact 43.4 pg/mL Normal 18.5-88.0 Laboratory test finding 09/02/2020 [facility] [employer] Patrol Police Officer jeffrey, pc Physician Internist: [place] [address] [phone] Vitamin D 25-Hydroxy 47.2 ng/ml 24.0 - 80.0 7 Complete Blood Count 09/02/2020 [facility] Fingerprinting Technician s pc Physician Internist: [place] [address] [phone] WBC 11.3 x10*3/UL High 4.1 - 10.9 [...] x10*3/UL High 2.0 - 7.8 A1c 09/02/2020 [facility] , Physician Internist: [place] [address] [phone] Hba1c 7.6 % High <5.7 8 Est Avg Glucose 171 mg/dL High 60 - 110 Comprehensive Chem Profile 09/02/2020 [facility], Physician Internist: [place] [address] [phone] Glucose 146 mg/dL High 74 - 99 [...] mL/min >60 11 Laboratory test finding 09/02/2020 [facility] [employer] Officer jeffrey, radha Physician Internist: Dr Primo Field [place], [place] [address] [phone] Thyroid Stimulating Hormone 2.61 uIU/mL 0.3 6 - 3.74 Comprehensive Chem Profile 06/20/2020 [facility] schaeffer Physician Internist: Dr Primo Field [place], [place] [address] [phone] Glucose 160 mg/dL High 74 - 99 [...] >= 60 mL/min >60 13 A1c 06/20/2020 [facility] , radha Physician Internist: Dr Primo Field [place], [place] [address] [phone] Hba1c 9.8 % High <5.7 14 Est [...] Little GFR Left ESRD GFR <15 on SOFTWARE CLERK 3 100-125 mg/dL PRE-DIABET ES/FASTING >126 mg/dL DIABETES/FASTING 4 NOTE: RESULT VERIFIED. 5 CHRONIC KIDNEY DISEASE STAGI NG PER NKF STAGE I & II GFR >= 60 NORMAL TO MILDLY DECREASED STAGE III GFR 30-59 MODERATELY DECREASED STAGE IV GFR 15-29 SEVERELY DECREASED STAGE V GFR <15 VERY LITTLE GFR LEFT ESRD GFR <15 ON SOFTWARE CLERK 6 VITAMIN B12 NORMAL RANGE NORMAL 247 - 911 PG/ML INDETERMINATE 211 - 246 PG/ML DEFICIENT LESS THAN 211 PG/ML 7 This test was performed [employer] Vitamin D immunoassay kit. Values obtained with [...] LITTLE GFR LEFT ESRD GFR <15 ON SOFTWARE CLERK 12 100-125 mg/dL PRE-DIABET ES/FASTING >126 mg/dL DIABETES/FASTING 13 CHRONIC KIDNEY DISEASE STAGI NG PER NKF STAGE I & II GFR >= 60 NORMAL TO MILDLY DECREASED STAGE III GFR 30-59 MODERATELY DECREASED STAGE IV GFR 15-29 SEVERELY DECREASED STAGE V GFR <15 VERY LITTLE GFR LEFT ESRD GFR <15 ON SOFTWARE CLERK 14 Lab Result Notes: Pre-Diabetes 5.7 - 6.4 % Diabetes = or > 6.5% Procedures Date Code Description Status 10/11/2020 09738 Office/Outpatient Established Mo d MDM 30-39 Min Completed 09/02/2020 34679 Office/Outpatient Established Mo d MDM 30-39 Min Completed 06/21/2020 90212 Office/Outpatient Established Lo w MDM 20-29 Min Completed 05/20/2019 [id number] Mammogram Completed 04/24/2019 [id number] Mammogram Completed 04/09/2019 [id number] Bone Mineral Density Test Comple jose luis 04/09/2019 [id number] Mammogram Completed 08/14/2018 [id number] Diabetic Retinal Eye Exam Comple jose luis 07/15/2018 [id number] Diabetic Retinal Eye Exam Comple jose luis 03/11/2018 [id number] Colonoscopy Completed 03/04/2018 [id number] Diabetic Retinal Eye Exam Comple jose luis 02/26/2018 [id number] Diabetic Retinal Eye Exam Comple jose luis 05/20/2017 [id number] Colonoscopy Completed 07/06/2015 [id number] Mammogram Completed Medical Devices Description No Information Available Encounters Type Date Location Provider Dx Diagnosis Office Visit 10/11/2020 3:00p [facility] Pri[facility] M.D. R63.4 Abnormal weight loss Z79.84 detention (current) use of o ral hypoglycemic drugs E11.65 Type 2 diabetes mellitus wit h hyperglycemia E83.52 Hypercalcemia F41.9 Anxiety disorder, unspecifie d M06.09 Rheumatoid arthritis w/o rhe umatoid factor, multiple sites M79.7 Fibromyalgia Z85.3 Personal history of malignan t neoplasm of breast Office Visit 09/02/2020 9:20a [facility] Jayne Sultana Pi ne, QUAL RESEARCH MANAGER R68.81 Early satiety R63.4 Abnormal weight loss R53.83 Other fatigue E11.65 Type 2 diabetes mellitus wit h hyperglycemia E55.9 Vitamin D deficiency, unspec ified Office Visit 06/21/2020 3:00p [facility]i Prieto M.D. E11.65 Type 2 [...] weight loss Kiko pappas M.D. 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 Kiko [...] Schedule 09/02/2020 R68.81 Early satiety Jayne Avery, [facility] 09/02/2020 R63.4 Abnormal weight loss Jayne Avery , [facility] 09/02/2020 R53.83 Other fatigue Jayne Avery, [facility] 09/02/2020 E11.65 Type 2 diabetes mellitus with hy perglycemia Jayne Avery [facility] 09/02/2020 E55.9 Vitamin D deficiency, unspecifie d Jayne Avery [facility] 06/21/2020 E11.65 Type 2 diabetes mellitus [...] 01/12/2021 10:30 am - Nurse Schedule at [facility] 12/13/2020 - Kiko Prieto M.D.* [...] will follow with up with Rheumatology at [facility] appropriately. Inflammatory marker labs sent.5. Personal [...]
--- OUTSIDE RECORDS SUMMARY | 2021-03-02 17:44 | CCD | Continuity of Care Document ---
Author Author Gloria PRIETO M.D. Organization Unknown Address [address] [facility] [address] [place] [address] Phone [phone] Care Team Providers Care Natural Gas Field Processing Supervisor Name Role Phone Kiko Prieto MD AUTM [phone] Nahum Gibbs MD AUTM [phone] [facility] AUTM [phone] [facility] AUTM [phone] [facility] AUTM [phone] Che Delaney DO AUTM Guillermo Deras MD AUTM [phone] Yue Renteria MD AUTM [phone] Problems Active Problems Provider Date Orthostatic hypotension [...] r Date Vitamin D3 Ultra Potency 1.25mg (38134 Ut) Tablets 1 tablet once a week [...] Fish Oil 1290 MG Per Sevig/900 MG [place] 3 1 Tablet Dailt\\Y Unknown Multivitamin Adult [...] CPT Code Status Date Vaccine Lot # 15919 Given 01/06/2020 Influenza Vaccin e Quadrivalent Preser/Antibiotic Free Im Use [id number] 03508 Given 01/06/2019 Influenza Vaccin e Quadrivalent Preser/Antibiotic Free Im Use 079141 16002 Given 02/05/2018 Influenza Virus Vaccine, Quadrivalent (Cciiv4), Derived From 1 Given 01/18/2017 Influenza Vaccin e Quadrivalent Preser/Antibiotic Free Im Use 585298 Q2037 Given 01/12/2016 Fluvirin Virus Vaccine 24100 01 Q2037 Given 01/18/2015 Fluvirin Virus Vaccine 53836 01 91981 Given 12/16/2013 Influenza Virus Vaccine 93255 Given 08/03/2013 Adacel- Tetanus Diphtheria P ertussis (Age64 & Under) 08199 Given 03/04/2013 Influenza Virus Vaccine 74313 Given 01/09/2012 Influenza Virus Vaccine 94315 Given 01/30/2010 Influenza Virus Vaccine 52135 Given 01/30/2010 Influenza Virus Vaccine 19808 Given 01/12/2010 Influenza Virus Vaccine 11381 Given 05/30/2005 Pneumovax 23 89911 Given 04/01/2005 Adacel- Tetanus Diphtheria P ertussis (Age64 & Under) 63077 Refused 08/14/2018 Zoster Vaccine 88294 Refused 08/14/2018 Shingrix Zoster Vaccine (HZV), Recombinant, [...] Note Laboratory test finding 12/13/2020 radha Nagel Database Administration Associate: Dr [place]o [place] [id number] [phone] Sed Rate <pending> A1c <pending> Laboratory test finding 12/13/[address] [address] [phone] PTH Intact <pending> Ionized Calcium Serum <pending> High Sensitivity C-Reactive Protein <pending> Laboratory test finding 11/22/[address] [address] [phone] Platelet Count, Automated 265 10 Normal 150-45 0 PT & Aptt 11/22/2020 [facility] [address] [place] [address] [phone] Prothrombin Time 12.8 seconds Normal 12.7-14.5 Inr 0.93 Normal 1 Partial Thromboplastin Time 38.8 seconds High 25.9-37.0 Basic Metabolic Profile 10/14/[address] [address] [phone] Glucose, Fasting 126 mg/dL High 70-100 Blood [...] 10.3 mg/dL High 8.8-10.2 Microalbumin/Creatinine Urine 10/10/2020 [facility], Database Administration Associate: [place] [address] [phone] Microalbumin Urine 29.8 mg/L High 1.3 - 20.0 Urine Creatinine 141.3 mg/dL High 30.0 - 125.0 Microalb/Creat Ratio 21.1 ug/mg 0.0 - 30.0 Lipid Profile 10/10/2020 [facility] , Database Administration Associate: [place] [address] [phone] Cholesterol 183 mg/dL 131 - 200 Triglycerides 186 mg/dL High 30 - 150 HDL Cholesterol 67 mg/dL High 35 - 60 LDL (Calculated) 79 CALC 50 - 159 Comprehensive Chem Profile 10/10/2020 [facility] Database Administration Associate: [place] [address] [phone] Glucose 138 mg/dL High 74 - 99 [...] mL/min >60 5 Laboratory test finding 10/10/2020 [place] [address] [place] [address] [phone] Ionized Calcium 5.2 mg/dL Normal 4.5-5.3 Laboratory test finding 09/02/2020 [place] [address] [place] [address] [phone] Vitamin B12 Level 421 pg/mL Normal 247-911 6 PTH Intact 43.4 pg/mL Normal 18.5-88.0 Laboratory test finding 09/02/2020 [facility] Database Administration Associate: [place] [address] [phone] Vitamin D 25-Hydroxy 47.2 ng/ml 24.0 - 80.0 7 Complete Blood Count 09/02/2020 [facility] Database Administration Associate: [place] [address] [phone] WBC 11.3 x10*3/UL High 4.1 - 10.9 [...] x10*3/UL High 2.0 - 7.8 A1c 09/02/2020 [facility] , Database Administration Associate: [place] [address] [phone] Hba1c 7.6 % High <5.7 8 Est Avg Glucose 171 mg/dL High 60 - 110 Comprehensive Chem Profile 09/02/2020 [facility], Database Administration Associate: [place] [address] [phone] Glucose 146 mg/dL High 74 - 99 [...] mL/min >60 11 Laboratory test finding 09/02/2020 [facility] jeffrey, radha Database Administration Associate: Dr Primo Field [place], [place] 4570942 [phone] Thyroid Stimulating Hormone 2.61 uIU/mL 0.3 6 - 3.74 Comprehensive Chem Profile 06/20/2020 [facility] radha schaeffer Database Administration Associate: Dr Primo [place] 2945981 [phone] Glucose 160 mg/dL High 74 - 99 [...] >= 60 mL/min >60 13 A1c 06/20/2020 [facility] , radha Database Administration Associate: Dr Primo Field [place] 7375796 [phone] Hba1c 9.8 % High <5.7 14 Est [...] Little GFR Left ESRD GFR <15 on DRY [place]ILN BURNER 3 100-125 mg/dL PRE-DIABET ES/FASTING >126 mg/dL DIABETES/FASTING 4 NOTE: RESULT VERIFIED. 5 CHRONIC KIDNEY DISEASE STAGI NG PER NKF STAGE I & II GFR >= 60 NORMAL TO MILDLY DECREASED STAGE III GFR 30-59 MODERATELY DECREASED STAGE IV GFR 15-29 SEVERELY DECREASED STAGE V GFR <15 VERY LITTLE GFR LEFT ESRD GFR <15 ON DRY KILN BURNER 6 VITAMIN B12 NORMAL RANGE NORMAL 247 - 911 PG/ML INDETERMINATE 211 - 246 PG/ML DEFICIENT LESS THAN 211 PG/ML 7 This test was performed [employer] Vitamin D immunoassay kit. Values obtained with [...] LITTLE GFR LEFT ESRD GFR <15 ON DRY [place]URNER 12 100-125 mg/dL PRE-DIABET ES/FASTING >126 mg/dL DIABETES/FASTING 13 CHRONIC KIDNEY DISEASE STAGI NG PER NKF STAGE I & II GFR >= 60 NORMAL TO MILDLY DECREASED STAGE III GFR 30-59 MODERATELY DECREASED STAGE IV GFR 15-29 SEVERELY DECREASED STAGE V GFR <15 VERY LITTLE GFR LEFT ESRD GFR <15 ON DRY KILN BURNER 14 Lab Result Notes: Pre-Diabetes 5.7 - 6.4 % Diabetes = or > 6.5% Procedures Date Code Description Status 10/11/2020 16323 Office/Outpatient Established Mo d MDM 30-39 Min Completed 09/02/2020 64903 Office/Outpatient Established Mo d MDM 30-39 Min Completed 06/21/2020 36405 Office/Outpatient Established Lo w MDM 20-29 Min Completed 05/20/2019 73621677 Mammogram Completed 04/24/2019 17868935 Mammogram Completed 04/09/2019 319135110 Bone Mineral Density Test Comple jose luis 04/09/2019 96593500 Mammogram Completed 08/14/2018 273570701 Diabetic Retinal Eye Exam Comple jose luis 07/15/2018 472096258 Diabetic Retinal Eye Exam Comple jose luis 03/11/2018 [id number] Colonoscopy Completed 03/04/2018 656744724 Diabetic Retinal Eye Exam Comple jose luis 02/26/2018 991058754 Diabetic Retinal Eye Exam Comple jose luis 05/20/2017 07935306 Colonoscopy Completed 07/06/2015 98960274 Mammogram Completed Medical Devices Description No Information Available Encounters Type Date Location Provider Dx Diagnosis Office Visit 10/11/2020 3:00p [facility] M.[facility]. R63.4 Abnormal weight loss Z79.84 long-term (current) use of o ral hypoglycemic drugs E11.65 Type 2 diabetes mellitus wit h hyperglycemia E83.52 Hypercalcemia F41.9 Anxiety disorder, unspecifie d M06.09 Rheumatoid arthritis w/o rhe umatoid factor, multiple sites M79.7 Fibromyalgia Z85.3 Personal history of malignan t neoplasm of breast Office Visit 09/02/2020 9:20a [facility] Jayne Sultana Pi ne, PHYSICIAN REPRESENTATIVE R68.81 Early satiety R63.4 Abnormal weight loss R53.83 Other fatigue E11.65 Type 2 diabetes mellitus wit h hyperglycemia E55.9 Vitamin D deficiency, unspec ified Office Visit 06/21/2020 3:00p [facility] Prieto M.D. E11.65 Type 2 [...] weight loss Kiko pappas M.D. 10/11/2020 Z79.84 rn long term care (current) use of oral [...] Schedule 09/02/2020 R68.81 Early satiety Jayne Avery, [facility] 09/02/2020 R63.4 Abnormal weight loss Jayne Avery , [facility] 09/02/2020 R53.83 Other fatigue Jayne Avery, [facility] 09/02/2020 E11.65 Type 2 diabetes mellitus with hy perglycemia Jayne Avery [facility] 09/02/2020 E55.9 Vitamin D deficiency, unspecifie d Jayne Avery [facility] 06/21/2020 E11.65 Type 2 diabetes mellitus with [...] 01/12/2021 10:30 am - Nurse Schedule at [facility] 12/13/2020 - Kiko Prieto M.D.* [...] will follow with up with Rheumatology at [facility] appropriately. Inflammatory marker labs sent.5. Personal history [...]
--- OUTSIDE RECORDS SUMMARY | 2021-03-02 17:44 | CCD | Continuity of Care Document ---
Author Author Gloria OHARA MD Organization Unknown Address [address] [place] [address] Phone [phone] Care Team Providers Care Animal Care Worker Name Role Phone Kiko Rae M.D. AUTM [phone] AUTM Unavailable Nuvia Evangelista M.D. AUTM [phone] AUTM Unavailable Problems Active Problems Provider Date [...] Reviewed: 11/14/20 Patient is a former smoker [facility] 2019 Allergies, Adverse Reactions, Alerts Description No [...] mouth every day Unknown Vitamin D (Ergocalciferol) 51900Jirq Capsules every 2 weeks Unknown Metoprolol Tartrate [...] lb BMI (Body Mass Index) 24.9 kg/m2 [place] Body Weight 110 lb Weight 61.690 kg BSA (Body Surface Area) 1.62 m2 03/27/2011 8:33am BP Systolic 122 mmHg BP Diastolic 80 mmHg Heart Rate 87 /min O2 % BldC Oximetry 95 % Height 61.25 inches Weight 161.00 lb BMI (Body Mass Index) 30.2 kg/m2 Weight 73.028 kg Results Test Acquired Date Facility Test Result H/L Range Note Coag Panel For Procedures 11/22/2020 [facility] Main Lab [address] [place] [address] [phone] Platelet Count, Automated 265 10 Normal 150-45 0 Prothrombin Time/Inr 11/22/2020 [facility] Main Lab [address] [place] [address] [phone] Prothrombin Time 12.8 seconds Normal 12.7-14.5 Inr [...] 2.5-3.5 Procedures Date Code Description Status 12/15/2020 97195 Diffusing Capacity Completed 12/15/2020 62524 Plethysmography Determination Courtney ng Volumes & Per Airway Resist Completed 12/15/2020 86038 Bronchospasm Evaluation Complete d 12/14/2020 67099 Office/Outpatient Established Mo d MDM 30-39 Min Completed 11/14/2020 01101 Office/Outpatient New Moderate M DM 45-59 Minutes [...] endence Krzysztof Ohara MD 12/14/2020 Z79.899 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 ABNORMAL CT Scheduled 1 [facility] [address] [place], [place] [id number] [phone]
--- OUTSIDE RECORDS SUMMARY | 2021-03-02 17:44 | CCD | Continuity of Care Document ---
Author Author Gloria OHARA MD Organization Unknown Address [address] [place] [address] Phone [phone] Care Team Providers Care Boat Laborer Name Role Phone Kiko Rae M.D. AUTM [phone] AUTM Unavailable Nuvia Evangelista M.D. AUTM [phone] AUTM Unavailable Problems Active Problems Provider Date [...] Reviewed: 12/20/20 Patient is a former smoker [facility] 2019 Allergies, Adverse Reactions, Alerts Description No [...] mouth every day Unknown Vitamin D (Ergocalciferol) 68461Uush Capsules every 2 weeks Unknown Metoprolol Tartrate [...] % Room Air Height 62 inches 5'2" [place] Body Weight 110 lb 02/13/2018 10:07am BP Systolic 124 mmHg BP Diastolic 72 mmHg Height 62 inches 5'2" Weight 136.00 lb BMI (Body Mass Index) 24.9 kg/m2 [place] Body Weight 110 lb Weight 61.690 kg BSA (Body Surface Area) 1.62 m2 Results Test Acquired Date Facility Test Result H/L Range Note Coag Panel For Procedures 11/22/2020 [facility] Main Lab [address] [place] [address] [phone] Platelet Count, Automated 265 10 Normal 150-45 0 Prothrombin Time/Inr 11/22/2020 [facility] Main Lab [address] [place] [address] [phone] Prothrombin Time 12.8 seconds Normal 12.7-14.5 Inr [...] 2.5-3.5 Procedures Date Code Description Status 12/15/2020 81773 Diffusing Capacity Completed 12/15/2020 01888 Plethysmography Determination Courtney ng Volumes & Per Airway Resist Completed 12/15/2020 08825 Bronchospasm Evaluation Complete d 12/14/2020 95335 Office/Outpatient Established Mo d MDM 30-39 Min Completed 11/14/2020 52562 Office/Outpatient New Moderate M DM 45-59 Minutes Completed Medical Devices Description No Information Available Encounters Type Date Location Provider Dx Diagnosis Office Visit 12/14/2020 1:00p [facility] Rosalio Ohara MD R91.8 Other nonspecific abnormal finding of courtney ng field R06.02 Shortness of breath Z87.891 Personal history of nicotine dependence Z79.899 Other fci (current) dr melendez therapy Office Visit 11/14/2020 10:00a [facility] Rosalio Ohara MD R91.1 Solitary pulmonary nodule R91.8 Other nonspecific abnormal f inding of lung field Z87.891 Personal history of nicotine dependence 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.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 Assessments Date Code Description Provider 12/20/2020 J44.9 Chronic obstructive pulmonary di sease, unspecified Krzysztof Ohara MD 12/20/2020 J43.9 Emphysema, unspecified Krzysztof Ohara MD 12/20/2020 R91.8 Other nonspecific abnormal findi ng of lung field Krzysztof Ohara MD 12/20/2020 Z87.891 Personal history of nicotine dep endence Krzysztof Ohara MD 12/15/2020 R91.1 Solitary pulmonary nodule [facility] 12/14/2020 R91.8 Other nonspecific abnormal findi ng of lung field Krzysztof Ohara MD 12/14/2020 R06.02 Shortness of breath Krzysztof guerrero MD 12/14/2020 Z87.891 Personal history of nicotine dep endence Krzysztof Ohara MD 12/14/2020 Z79.899 Other fci (current) drug t herapy Krzysztof Ohara MD 11/14/2020 R91.1 Solitary pulmonary nodule Aarti taylor Ohara MD 11/14/2020 R91.8 Other nonspecific abnormal findi ng of lung field Krzysztof Ohara MD 11/14/2020 Z87.891 Personal history of nicotine dep irineoence Krzysztof Ohara MD 11/14/2020 Z79.899 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 Pulmonary/Thoracic 12/20/2020 - Krzysztof Ohara MD* J44.9 Chronic obstructive pulmonary disease, unspecified * J43.9 Emphysema, unspecified * R91.8 Other nonspecific abnormal finding of lung field * Z87.891 Personal history of nicotine dependence * * New Labs:* FVL/Gael, Ordered: 12/20/20 * Follow up:* Follow up in three months with spirometry, oximetry and flow volume loop. Functional Status Description No Information Available Mental Status Description No Information Available Referrals Refer to Reason for Referral Status Appt Date Krzysztof Ohara M.D. ABNORMAL CT Scheduled [facility] [address] [place], [place] [address] [phone]
--- OUTSIDE RECORDS SUMMARY | 2021-03-02 17:44 | CCD | Continuity of Care Document ---
Author Author Pulmonary Lab Gloria Mensah Organization Unknown Address [address] [place] [address] Phone [phone] Care Team Providers Care Marsh Buggy Operator Name Role Phone Kiko Rae M.D. AUTM [phone] AUTM Unavailable Nuvia Evangelista M.D. AUTM [phone] AUTM Unavailable Problems Active Problems Provider Date [...] Reviewed: 11/14/20 Patient is a former smoker [facility] 2019 Allergies, Adverse Reactions, Alerts Description [...] mouth every day Unknown Vitamin D (Ergocalciferol) 99052Tjho Capsules every 2 weeks Unknown Metoprolol Tartrate [...] lb BMI (Body Mass Index) 24.9 kg/m2 [place] Body Weight 110 lb Weight 61.690 kg BSA (Body Surface Area) 1.62 m2 03/27/2011 8:33am BP Systolic 122 mmHg BP Diastolic 80 mmHg Heart Rate 87 /min O2 % BldC Oximetry 95 % Height 61.25 inches Weight 161.00 lb BMI (Body Mass Index) 30.2 kg/m2 Weight 73.028 kg Results Test Acquired Date Facility Test Result H/L Range Note Coag Panel For Procedures 11/22/2020 [facility] Main Lab [address] [place] [address] [phone] Platelet Count, Automated 265 10 Normal 150-45 0 Prothrombin Time/Inr 11/22/2020 [facility] Main Lab [address] [place] [address] [phone] Prothrombin Time 12.8 seconds Normal 12.7-14.5 Inr [...] INFARCTION 2.5-3.5 Procedures Date Code Description Status 11/14/2020 21708 Office/Outpatient New Moderate M DM 45-59 Minutes Completed Medical Devices Description No Information Available Encounters Type Date Location Provider Dx Diagnosis Office Visit 11/14/2020 10:00a [facility] Pulmonary/Thoracic Rosalio Ohara MD R91.1 Solitary pulmonary nodule R91.8 Other nonspecific abnormal f inding of lung field Z87.891 Personal history of nicotine dependence Z79.899 Other correction (current) dr melendez therapy Assessments Date Code Description Provider 12/15/2020 R91.1 Solitary pulmonary nodule [facility] 12/14/2020 R91.8 Other nonspecific abnormal findi ng of lung field Krzysztof Ohara MD 12/14/2020 R06.02 Shortness of breath Krzysztof guerrero MD 12/14/2020 Z87.891 Personal history of nicotine dep endence Krzysztof Ohara MD 12/14/2020 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 Krzysztof Ohara MD 11/14/2020 R91.1 Solitary pulmonary nodule Aarti Ohara MD 11/14/2020 R91.8 Other nonspecific abnormal findi ng of lung field Krzysztof Ohara MD 11/14/2020 Z87.891 Personal history of nicotine dep endence Krzysztof Ohara MD 11/14/2020 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 ABNORMAL CT Scheduled [address] [place], [place] [id number] [phone]
--- OUTSIDE RECORDS SUMMARY | 2021-03-02 17:44 | CCD | Continuity of Care Document ---
Author Author Gloria OHARA MD Organization Unknown Address [address] [place] [address] Phone [phone] Care Team Providers Care Epic Professional Name Role Phone Kiko Rae M.D. AUTM [phone] AUTM Unavailable Nuvia Evangelista M.D. AUTM [phone] AUTM Unavailable Problems Active Problems Provider Date [...] former smoker [facility] 2019 Allergies, Adverse Reactions, Alerts Description No [...] mouth every day Unknown Vitamin D (Ergocalciferol) 11340Llym Capsules every 2 weeks Unknown Metoprolol Tartrate [...] % Room Air Height 62 inches 5'2" [place] Body Weight 110 lb 02/13/2018 10:07am BP Systolic 124 mmHg BP Diastolic 72 mmHg Height 62 inches 5'2" Weight 136.00 lb BMI (Body Mass Index) 24.9 kg/m2 [place] Body Weight 110 lb Weight 61.690 kg BSA (Body Surface Area) 1.62 m2 Results Test Acquired Date Facility Test Result H/L Range Note Coag Panel For Procedures 11/22/2020 [facility] Main Lab [address] [place] [address] [phone] Platelet Count, Automated 265 10 Normal 150-45 0 Prothrombin Time/Inr 11/22/2020 [facility] enter Main Lab [address] [place] [address] [phone] Prothrombin Time 12.8 seconds Normal 12.7-14.5 Inr [...] 2.5-3.5 Procedures Date Code Description Status 12/20/2020 87029 Office/Outpatient Established Mo d MDM 30-39 Min Completed 12/20/2020 59180 Inhaler Teaching Completed 12/15/2020 46659 Diffusing Capacity Completed 12/15/2020 92167 Plethysmography Determination Courtney ng Volumes & Per Airway Resist Completed 12/15/2020 74580 Bronchospasm Evaluation Complete d 12/14/2020 94761 Office/Outpatient Established Mo d MDM 30-39 Min Completed 11/14/2020 38853 Office/Outpatient New Moderate M DM 45-59 Minutes [...] Personal history of nicotine dependence Z79.899 Other jail (current) dr melendez therapy Office Visit 11/14/2020 10:00a [facility] Rosalio Ohara MD R91.1 Solitary pulmonary nodule R91.8 Other nonspecific abnormal f inding of lung field Z87.891 Personal history of nicotine dependence Z79.899 Other jail (current) dr nora therapy Assessments Date Code [...] endence Krzysztof Ohara MD 12/14/2020 Z79.899 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 ABNORMAL CT Scheduled 1 [facility] [address] [place], [place] [address] [phone]
--- OUTSIDE RECORDS SUMMARY | 2021-03-02 17:45 | CCD ---
Author Author [facility] Organization [facility] Address Unknown Phone Unavailable Care Team Providers Care Relationship Executive Name Role Phone LePine, M Jayne SOFTWARE DEVELOPER INTERN Unavailable Unavailable LePine, M Jayne SOFTWARE DEVELOPER INTERN Unavailable Unavailable LePine, M Jayne SOFTWARE DEVELOPER INTERN Unavailable Unavailable LePine, M Jayne SOFTWARE DEVELOPER INTERN Unavailable Unavailable LePine, M Jayne SOFTWARE DEVELOPER INTERN Unavailable Unavailable LePine, M Jayne SOFTWARE DEVELOPER INTERN Unavailable Unavailable LePine, M Jayne SOFTWARE DEVELOPER INTERN Unavailable Unavailable LePine, M Jayne SOFTWARE DEVELOPER INTERN Unavailable Unavailable LePine, M Jayne SOFTWARE DEVELOPER INTERN Unavailable Unavailable LePine, M Jayne SOFTWARE DEVELOPER INTERN Unavailable Unavailable LePine, M Jayne SOFTWARE DEVELOPER INTERN Unavailable Unavailable LePine, M Jayne SOFTWARE DEVELOPER INTERN Unavailable Unavailable LePine, M Jayne SOFTWARE DEVELOPER INTERN Unavailable Unavailable LePine, M Jayne SOFTWARE DEVELOPER INTERN Unavailable Unavailable LePine, M Jayne SOFTWARE DEVELOPER INTERN Unavailable Unavailable LePine, M Jayne SOFTWARE DEVELOPER INTERN Unavailable Unavailable LePine, M Jayne SOFTWARE DEVELOPER INTERN Unavailable Unavailable LePine, M Jayne SOFTWARE DEVELOPER INTERN Unavailable Unavailable LePine, M Jayne SOFTWARE DEVELOPER INTERN Unavailable Unavailable LePine, M Jayne SOFTWARE DEVELOPER INTERN Unavailable Unavailable LePine, M Jayne SOFTWARE DEVELOPER INTERN Unavailable Unavailable LePine, M Jayne SOFTWARE DEVELOPER INTERN Unavailable Unavailable LePine, M Jayne SOFTWARE DEVELOPER INTERN Unavailable Unavailable LePine, M Jayne SOFTWARE DEVELOPER INTERN Unavailable Unavailable LePine, M Jayne SOFTWARE DEVELOPER INTERN Unavailable Unavailable LePine, M Jayne SOFTWARE DEVELOPER INTERN Unavailable Unavailable LePine, M Jayne SOFTWARE DEVELOPER INTERN Unavailable Unavailable LePine, M Jayne SOFTWARE DEVELOPER INTERN Unavailable Unavailable LePine, M Jayne SOFTWARE DEVELOPER INTERN Unavailable Unavailable LePine, M Jayne SOFTWARE DEVELOPER INTERN Unavailable Unavailable LePine, M Jayne SOFTWARE DEVELOPER INTERN Unavailable Unavailable LePine, M Jayne SOFTWARE DEVELOPER INTERN Unavailable Unavailable LePine, M Jayne SOFTWARE DEVELOPER INTERN Unavailable Unavailable LePine, M Jayne SOFTWARE DEVELOPER INTERN Unavailable Unavailable LePine, M Jayne SOFTWARE DEVELOPER INTERN Unavailable Unavailable LePine, M Jayne SOFTWARE DEVELOPER INTERN Unavailable Unavailable LePine, M Jayne SOFTWARE DEVELOPER INTERN Unavailable Unavailable LePine, M Jayne SOFTWARE DEVELOPER INTERN Unavailable Unavailable LePine, M Jayne SOFTWARE DEVELOPER INTERN Unavailable Unavailable LePine, M Jayne SOFTWARE DEVELOPER INTERN Unavailable Unavailable LePine, M Jayne SOFTWARE DEVELOPER INTERN Unavailable Unavailable LePine, M Jayne SOFTWARE DEVELOPER INTERN Unavailable Unavailable LePine, M Jayne SOFTWARE DEVELOPER INTERN Unavailable Unavailable LePine, M Jayne SOFTWARE DEVELOPER INTERN Unavailable Unavailable LePine, M Jayne SOFTWARE DEVELOPER INTERN Unavailable Unavailable LePine, M Jayne SOFTWARE DEVELOPER INTERN Unavailable Unavailable LePine, M Jayne SOFTWARE DEVELOPER INTERN Unavailable Unavailable LePine, M Jayne SOFTWARE DEVELOPER INTERN Unavailable Unavailable LePine, M Jayne SOFTWARE DEVELOPER INTERN Unavailable Unavailable LePine, M Jayne SOFTWARE DEVELOPER INTERN Unavailable Unavailable LePine, M Jayne SOFTWARE DEVELOPER INTERN Unavailable Unavailable LePine, M Jayne SOFTWARE DEVELOPER INTERN Unavailable Unavailable LePine, M Jayne SOFTWARE DEVELOPER INTERN Unavailable Unavailable LePine, M Jayne SOFTWARE DEVELOPER INTERN Unavailable Unavailable LePine, M Jayne SOFTWARE DEVELOPER INTERN Unavailable Unavailable LePine, M Jayne SOFTWARE DEVELOPER INTERN Unavailable Unavailable LePine, M Jayne SOFTWARE DEVELOPER INTERN Unavailable Unavailable NO, PCP Unavailable Unavailable Rc Rae MD Unavailable Unavailable Rc Rae MD Unavailable Unavailable Rc Rae MD Unavailable Unavailable Rc Rae MD Unavailable Unavailable Rc Rae MD Unavailable Unavailable Rc Rae MD Unavailable Unavailable Rc Rae MD Unavailable Unavailable Rc Rae MD Unavailable Unavailable Rc Rae MD Unavailable Unavailable Rc Rae MD Unavailable Unavailable Rc Rae MD Unavailable Unavailable Rc Rae MD Unavailable Unavailable Rc Rae MD Unavailable Unavailable Rc Rae MD Unavailable Unavailable Rc Rae MD Unavailable Unavailable Rc Rae MD Unavailable Unavailable Rc Rae MD Unavailable Unavailable Rc Rae MD Unavailable Unavailable Rc Rae MD Unavailable Unavailable Rc Rae MD Unavailable Unavailable Rc Rae MD Unavailable Unavailable Rc Rae MD Unavailable Unavailable Rc Rae MD Unavailable Unavailable Rc Rae MD Unavailable Unavailable Rc Rae MD Unavailable Unavailable Rc Rae MD Unavailable Unavailable Rc Rae MD Unavailable Unavailable Rc Rae MD Unavailable Unavailable Rc Rae MD Unavailable Unavailable Rc Rae MD Unavailable Unavailable Rc Rae MD Unavailable Unavailable Rc Rae MD Unavailable Unavailable Rc Rae MD Unavailable Unavailable Butch F Kiko HOWARD Unavailable Unavailable White F Kiko HOWARD Unavailable Unavailable Butch F Kiko HOWARD Unavailable Unavailable Butch F Kiko HOWARD Unavailable Unavailable Butch F Kiko HOWARD Unavailable Unavailable Butch F Kiko HOWARD Unavailable Unavailable Butch F Kiko HOWARD Unavailable Unavailable White F Kiko HOWARD Unavailable Unavailable Butch F Kiko HOWARD Unavailable Unavailable White F Kiko HOWARD Unavailable Unavailable Butch F Kiko HOWARD Unavailable Unavailable Butch F Kiko HOWARD Unavailable Unavailable Butch F Kiko HOWARD Unavailable Unavailable Butch F Kiko HOWARD Unavailable Unavailable White F Kiko HOWARD Unavailable Unavailable White F Kiko HOWARD Unavailable Unavailable Butch F Kiko HOWARD Unavailable Unavailable Butch F Kiko HOWARD Unavailable Unavailable Butch F Kiko HOWARD Unavailable Unavailable Butch F Kiko HOWARD Unavailable Unavailable Butch F Kiko HOWARD Unavailable Unavailable Butch F Kiko HOWARD Unavailable Unavailable Butch F Kiko HOWARD Unavailable Unavailable Butch F Kiko HOWARD Unavailable Unavailable Butch F Kiko HOWARD Unavailable Unavailable Rc Rae MD Unavailable Unavailable Rc Rae MD Unavailable Unavailable Rc Rae MD Unavailable Unavailable Rc Rae MD Unavailable Unavailable Rc Rae MD Unavailable Unavailable Butch F Kiko HOWARD Unavailable Unavailable Butch F Kiko HOWARD Unavailable Unavailable Butch F Kiko HOWARD Unavailable Unavailable Rc Rae MD Unavailable Unavailable Rc Rae MD Unavailable Unavailable Rc Rae MD Unavailable Unavailable Rc Rae MD Unavailable Unavailable Butch F Kiko HOWARD Unavailable Unavailable Butch F Kiko HOWARD Unavailable Unavailable Rc Rae MD Unavailable Unavailable Rc Rae MD Unavailable Unavailable Rc Rae MD Unavailable Unavailable Rc Rae MD Unavailable Unavailable Rc Rae MD Unavailable Unavailable Rc Rae MD Unavailable Unavailable Pikarsky, Sharan LICENSED PHARMACIST Unavailable Unavailable Pikarsky, Sharan LICENSED PHARMACIST Unavailable Unavailable Pikarsky, Sharan LICENSED PHARMACIST Unavailable Unavailable Pikarsky, Sharan LICENSED PHARMACIST Unavailable Unavailable Pikarsky, Sharan LICENSED PHARMACIST Unavailable Unavailable Pikarsky, Sharan LICENSED PHARMACIST Unavailable Unavailable Pikarsky, Sharan LICENSED PHARMACIST Unavailable Unavailable Pikarsky, Sharan LICENSED PHARMACIST Unavailable Unavailable Pikarsky, Sharan LICENSED PHARMACIST Unavailable Unavailable Pikarsky, Sharan LICENSED PHARMACIST Unavailable Unavailable Pikarsky, Sharan LICENSED PHARMACIST Unavailable Unavailable Pikarsky, Sharan LICENSED PHARMACIST Unavailable Unavailable Pikarsky, Sharan LICENSED PHARMACIST Unavailable Unavailable Pikarsky, Sharan LICENSED PHARMACIST Unavailable Unavailable Pikarsky, Sharan LICENSED PHARMACIST Unavailable Unavailable Pikarsky, Sharan LICENSED PHARMACIST Unavailable Unavailable Pikarsky, Sharan LICENSED PHARMACIST Unavailable Unavailable Pikarsky, Sharan LICENSED PHARMACIST Unavailable Unavailable Pikarsky, Sharan LICENSED PHARMACIST Unavailable Unavailable Pikarsky, Sharan LICENSED PHARMACIST Unavailable Unavailable Pikarsky, Sharan LICENSED PHARMACIST Unavailable Unavailable Pikarsky, Sharan LICENSED PHARMACIST Unavailable Unavailable Pikarsky, Sharan LICENSED PHARMACIST Unavailable Unavailable Pikarsky, Sharan LICENSED PHARMACIST Unavailable Unavailable Pikarsky, Sharan LICENSED PHARMACIST Unavailable Unavailable Pikarsky, Sharan LICENSED PHARMACIST Unavailable Unavailable Pikarsky, Sharan LICENSED PHARMACIST Unavailable Unavailable Pikarsky, Sharan LICENSED PHARMACIST Unavailable Unavailable Pikarsky, Sharan LICENSED PHARMACIST Unavailable Unavailable Pikarsky, Sharan LICENSED PHARMACIST Unavailable Unavailable Everette Ortega MD Unavailable Unavailable Everette Ortega MD Unavailable Unavailable Everette Ortega MD Unavailable Unavailable Everette Ortega MD Unavailable Unavailable Everette Ortega MD Unavailable Unavailable Everette Ortega MD Unavailable Unavailable Everette Ortega MD Unavailable Unavailable Everette Ortega MD Unavailable Unavailable Everette Ortega MD Unavailable Unavailable Everette Ortega MD Unavailable Unavailable Everette Ortega MD Unavailable Unavailable Everette Ortega MD Unavailable Unavailable Everette Ortega MD Unavailable Unavailable Everette Ortega MD Unavailable Unavailable Everette Ortega MD Unavailable Unavailable Everette Ortega MD Unavailable Unavailable Everette Ortega MD Unavailable Unavailable Everette Ortega MD Unavailable Unavailable Everette Ortega MD Unavailable Unavailable Everette Ortega MD Unavailable Unavailable Everette Ortega MD Unavailable Unavailable Everette Ortega MD Unavailable Unavailable Everette Ortega MD Unavailable Unavailable Everette Ortega MD Unavailable Unavailable Everette Ortega MD Unavailable Unavailable Everette Ortega MD Unavailable Unavailable Everette Ortega MD Unavailable Unavailable Everette Ortega MD Unavailable Unavailable Everette Ortega MD Unavailable Unavailable Everette Ortega MD Unavailable Unavailable Everette Ortega MD Unavailable Unavailable Everette Ortega MD Unavailable Unavailable Everette Ortega MD Unavailable Unavailable Everette Ortega MD Unavailable Unavailable Everette Ortega MD Unavailable Unavailable Isaias Ohara MD Unavailable Unavailable Isaias Ohara MD Unavailable Unavailable Isaias Ohara MD Unavailable Unavailable Isaias Ohara MD Unavailable Unavailable Isaias Ohara MD Unavailable Unavailable Isaias Ohara MD Unavailable Unavailable Isaias Ohara MD Unavailable Unavailable Ohara, Isaias Krzysztof MD Unavailable Unavailable Ohara, Isaias Blankenship MD Unavailable Unavailable Ohara, Isaias Blankenship MD Unavailable Unavailable Ohara, Isaias Blankenship MD Unavailable Unavailable Ohara, Isaias Blankenship MD Unavailable Unavailable Ohara, Isaias Blankenship MD Unavailable Unavailable Ohara, Isaias Blankenship MD Unavailable Unavailable Ohara, Isaias Blankenship MD Unavailable Unavailable Ohara, Isaias Blankenship MD Unavailable Unavailable Ohara, Isaias Blankenship MD Unavailable Unavailable Ohara, Isaias Blankenship MD Unavailable Unavailable Ohara, Isaias Blankenship MD Unavailable Unavailable Ohara, Isaias Blankenship MD Unavailable Unavailable Ohara, Isaias Blankenship MD Unavailable Unavailable Ohara, Isaias Blankenship MD Unavailable Unavailable Ohara, Isaias Blankenship MD Unavailable Unavailable Ohara, Isaias Blankenship MD Unavailable Unavailable Ohara, Isaias Blankenship MD Unavailable Unavailable Ohara, Isaias Blankenship MD Unavailable Unavailable Ohara, Iasias Blankenship MD Unavailable Unavailable Ohara, Isaias Blankenship MD Unavailable Unavailable Ohara, Isaias Blankenship MD Unavailable Unavailable Ohara, Isaias Blankenship MD Unavailable Unavailable Ohara, Isaias Blankenship MD Unavailable Unavailable Ohara, Isaias Blankenship MD Unavailable Unavailable Ohara, Isaias Blankenship MD Unavailable Unavailable Ohara, Isaias Blankenship MD Unavailable Unavailable Ohara, Isaias Balnkenship MD Unavailable Unavailable Ohara, Isaias Blankenship MD Unavailable Unavailable Ohara, Isaias Blankenship MD Unavailable Unavailable Ohara, Isaias Blankenship MD Unavailable Unavailable Ohara, Isaias Blankenship MD Unavailable Unavailable Ohara, Isaias Blankenship MD Unavailable Unavailable Ohara, Isaias Blankenship MD Unavailable Unavailable Ohara, Isaias Blankenship MD Unavailable Unavailable Ohara, Isaias Blankenship MD Unavailable Unavailable Ohara, Isaias Blankenship MD Unavailable Unavailable Ohara, Isaias Blankenship MD Unavailable Unavailable Ohara, Isaisa Blankenship MD Unavailable Unavailable Ohara, Isaias Blankenship MD Unavailable Unavailable Ohara, Isaias Blankenship MD Unavailable Unavailable Ohara, Isaias Blankenship MD Unavailable Unavailable Ohara, Isaias Blankenship MD Unavailable Unavailable Ohara, Isaias Blankenship MD Unavailable Unavailable Ohara, Isaias Blankenship MD Unavailable Unavailable Ohara, Isaias Blankenship MD Unavailable Unavailable Ohara, Isaias Blankenship MD Unavailable Unavailable Ohara, Isaias Blankenship MD Unavailable Unavailable Re-disclosure Warning The records that you are about to access may contain information from federally-assisted alcohol or drug abuse programs. If such information is present, then the following federally mandated warning applies: This information has been disclosed to you from records protected by federal confidentiality rules (42 CFR part 2). The federal rules prohibit you from making any further disclosure of this information unless further disclosure is expressly permitted by the written consent of the person to whom it pertains or as otherwise permitted by 42 CFR part 2. A general authorization for the release of medical or other information is NOT sufficient for this purpose. The Federal rules restrict any use of the information to criminally investigate or prosecute any alcohol or drug abuse patient.The records that you are about to access may contain highly sensitive health information, the redisclosure of which is protected by Article 27-F of the [facility] Public Health law. If you continue you may have access to information: Regarding HIV / AIDS; Provided by facilities licensed or operated by the [facility] Office of Mental Health; or Provided by the [facility] Office for People With Developmental Disabilities. If such information is present, then the following [facility] mandated warning applies: This information has been disclosed to you from confidential records which are protected by state law. State law prohibits you from making any further disclosure of this information without the specific written consent of the person to whom it pertains, or as otherwise permitted by law. Any unauthorized further disclosure in violation of state law may result in a fine or half-way sentence or both. A general authorization for the release of medical or other information is NOT sufficient authorization for further disc losure. Allergies and Adverse Reactions Type Description Substance Reaction Status Data Source(s ) Drug allergy NICKEL NICKEL SORE THROAT [facility] Family History Family Member Name Family Member Gender Family Member Status Date o f Status Description Data Source(s) Unknown Male Problem (finding) 06/25/2017 12:00:00 AM EDT [facility] ([facility]) Unknown Male Problem (finding) 06/25/2017 12:00:00 AM EDT [facility] ([facility]) Unknown Unknown Problem [facility] ([facility]) Unknown Unknown Problem [facility] ([facility] ) Unknown Female Problem [facility] ([facility]) Unknown Female Problem MED[facility] ([facility] Encounters Encounter Providers Location Date Indications Data Source(s ) [place] [address] [address] 01/06/2021 12:00:00 AM EDT eCW1 ([facility]) Outpatient Attender: Krzysztof Sims/Jeanna/Luis/Sarah cook 12/20/2020 02:45:00 PM EDT MED[facility] ([facility], ) Outpatient Attender: Krzysztof Sims/Deanne/Sarah cook 12/14/2020 01:00:00 PM EDT [facility] Outpatient Attender: Krzysztof Sims/[place]/Fitz cook 11/14/2020 10:00:00 AM EDT [facility] ([facility] [place] [address] [facility] [address] 10/28/2020 12:00:00 AM EDT eCW1 ([facility]) Outpatient Attender: Kiko Shipman 10/11 03:00:00 PM EDT MED[facility] ([facility] ) Outpatient Attender: Jayne Shipman 09/02 09:20:00 AM EDT [facility] ([facility] ) [place] [address] [address] 07/08/2020 12:00:00 AM EDT eCW1 ([facility]) OutpatientOFFICE/OUTPATIENT VISIT, EST Attender: Sharan paulino NP [facility] 06/27/2020 11:40:00 AM EDT - 06/27/2020 11:40:00 AM ED T Other assisted (current) drug therapyRheumatoid arthritis with rheumatoid factor of multiple sites without organ or systems involvement [facility] ([facility]) Other manager intermediate (current) drug therapy Rheumatoid arthritis with rheumatoid fac tor of multiple sites without organ or systems involvement [place] [address] [facility] [address] 06/24/2020 12:00:00 AM EDT eCW1 ([facility]) Outpatient Attender: Kiko Shipman 06/21 03:00:00 PM EDT MED[facility] ([facility] ) Attender: Sharan Mora NP [facility] 06/01/2020 02:19:00 PM EST - 06/01/2020 02:19:00 PM EST [facility] ( [facility]) [place] [address] [facility] [address] 05/12/2020 12:00:00 AM EST eCW1 ([facility]) [place] [address] [address] 04/27/2020 12:00:00 AM EST eCW1 ([facility]) Outpatient Attender: Kiko Shipman 04/12 10:00:00 AM EST MEDENT ([facility] ) OutpatientOFFICE/OUTPATIENT VISIT, EST Attender: Sharan paulino NP [facility] 03/22/2020 12:20:00 PM EST - 03/22/2020 12:20:00 PM ES T Other manager intermediate (current) drug therapyRheumatoid arthritis without rheumatoid factor, multiple sites [facility] ([facility]) Other assisted (current) drug therapy Rheumatoid arthritis without rheumatoid factor, multiple sites Attender: Sharan Mora NP [facility] 03/01/2020 03:16:00 PM EST - 03/01/2020 03:16:00 PM EST [facility] ( [facility]) Outpatient Attender: Everette Ortega MDConsultant: PCP DONAVON 02/10/2020 08:00:00 AM EST - 02/10/2020 11:46:00 AM EST [facility] Patient discharged. Outpatient Attender: Everette Ortega MDConsultant: PCP DONAVON 02/03/2020 08:00:00 AM EST - 02/03/2020 09:58:00 AM EST [facility] Patient discharged. Outpatient Attender: Everette Ortega MDConsultant: PCP DONAVON 01/28/2020 10:51:27 AM EDT - 02/02/2020 12:20:00 PM EST [facility] Patient discharged. [place]patient [address] [address] 01/18/2020 12:00:00 AM EDT eCW1 ([facility]) [facility] [address] [place] [address] 01/14/2020 12:00:00 AM EDT eCW1 ([facility]) Outpatient Attender: Kiko Shipman 01/05 10:30:00 AM EDT MED[facility] ([facility] ) Immunizations Vaccine Date Status Description Data Source(s) COVID-19 VACCINE Moderna 02/08/2021 12:00:00 AM EST completed [facility] Vaccine Series Complete: YESThis Data wa s Submitted to [facility] Via [facility]. Influenza, injectable, MDCK, preservative free, nandini valent 01/12/2021 10:23:00 AM EDT completed [facility] ([facility]) COVID-19 VACCINE Moderna 07/09/2020 12:00:00 AM EDT completed [facility] Vaccine Series Complete: YESThis Data wa s Submitted to [facility] Via [employer]. Covid 19 Moderna Vaccine 06/03/2020 12:00:00 AM EST completed Covid 19 Moderna Vaccine [facility] ([facility]) Source: Other Provider COVID-19 VACCINE Moderna 06/03/2020 12:00:00 AM EST completed [facility] Vaccine Series Complete: NOThis Data was Submitted to [facility] Via [employer]. Influenza, injectable, MDCK, preservative free, nandini valent 01/12/2020 12:00:00 AM EDT completed Flucelvax [facility] ([facility]) Note: approx ; Source: Other Provider Influenza, injectable, MDCK, preservative free, nandini valent 01/06/2020 10:55:00 AM EDT completed [facility] ([facility]) Medications Medication Brand Name Start Date Product Form Dose Route Admi nistrative Instructions Pharmacy Instructions Status Indications Reaction Description Data Source(s) Administration Of Flu Vaccine 01/12/2021 12:00:00 AM EDT completed [facility] ([facility]) Medication administered onsite 60 ACTUAT Albuterol 0.09 MG/ACTUAT Metered Dose Inhaler Albu terol Sulfate HFA 12/20/2020 12:00:00 AM EDT ORAL active MEDENT ([facility], ) 30 ACTUAT fluticasone furoate 0.2 MG/ACT UAT / vilanterol 0.025 MG/ACTUAT Dry Powder Inhaler [Breo] Breo Ellipta 12/20/2020 12:00:00 AM EDT RESPIRATORY active MEDENT ([facility], ) Cholecalciferol 55014 UNT Oral Tablet Vitamin D3 Ultra Poten cy 10/11/2020 12:00:00 AM EDT active M EDENT ([facility]) Vitamin B 12 3 MG Sublingual Tablet Vitamin B12 10/11/2020 12:00:00 A M EDT ORAL active MEDENT ([facility]) 1 ML denosumab 60 MG/ML Prefilled Syringe [Prolia] Prolia 10/11/2020 12:00:00 AM EDT active [facility] ([facility]) letrozole 2.5 MG Oral Tablet Letrozole 10/11/2020 12:00:00 AM EDT ORAL active [facility]ENT ([facility]) Folic Acid 1 MG Oral Tablet folic acid 1 mg tablet folic aci d 1 mg tablet 06/27/2020 12:00:00 AM EDT 1 {tbl} ORAL active take 1 Tablet by oral route every day [facility] ([facility]) Sulfasalazine 500 MG Oral Tablet sulfasalazine 500 mg tablet sulfasalazine 500 mg tablet 06/27/2020 12:00:00 AM EDT 1 {tbl} ORAL active take 1 Tablet by oral route 2 times every day after meals [facility] ([facility]) glimepiride 1 MG Oral Tablet Glimepiride 06/21/2020 12:00:00 AM EDT ORAL active MEDENT ([facility]) Sulfasalazine 500 MG Oral Tablet sulfasalazine 500 mg tablet sulfasalazine 500 mg tablet 06/01/2020 12:00:00 AM EST 1 {tbl} ORAL complet ed take 1 Tablet by oral route 2 times every day after meals [facility] ([facility]) 20 mg 05/07/2020 12:00:00 AM EST capsule,delayed release (DR/EC) 90 TAKE ONE CAPSULE BY MOUTH EVERY DAY TAKE ONE CAPSULE BY MOUTH EVERY DAY SOLD: 05/12/2020 [facility] 500 mg 04/22/2020 12:00:00 AM EST tablet extended release 24 hr 14 TAKE ONE TABLET BY MOUTH EVERY DAY TAKE ONE TABLET BY MOUTH EVERY DAY SOLD: 04/22/2020 [facility] 500 mg 04/22/2020 12:00:00 AM EST tablet extended release 24 hr 7 TAKE ONE TABLET BY MOUTH EVERY DAY TAKE ONE TABLET BY MOUTH EVERY DAY SOLD: 06/25/2020 [facility] On[employer] Verio Flex Blood Glucose Monitoring System 04/15/2020 12:00:00 AM EST active MEDENT ([facility]) [employer] Delica Lancing Dev 04/15/2020 12:00:00 AM EST active MEDENT ([facility]) [employer] Delica Plus Lancets Extra Fine 33G 04/15/2020 12:00 :00 AM EST active [facility] ([facility]) [employer] Verio 04/15/2020 12:00:00 AM EST act luis MEDENT ([facility]) [employer] Ultrasoft Lancets 04/15/2020 12:00:00 AM EST active [facility] ([facility]) 24 HR Metformin hydrochloride 500 MG Extended Release Oral Tablet Metformin HCL ER 04/12/2020 12:00:00 AM EST ORAL active [facility]ENT ([facility]) Sulfasalazine 500 MG Oral Tablet sulfasalazine 500 mg tablet sulfasalazine 500 mg tablet 03/01/2020 12:00:00 AM EST 1 {tbl} ORAL complet ed take 1 Tablet by oral route 2 times every day after meals [facility] ([facility]) 1 % 02/23/2020 12:00:00 AM EST drops,suspension 5 INSTILL ONE DROP INTO RIGHT EYE FOUR TIMES A DAY DIRECTED STARTING THE DAY OF SURGERY AFTER YOU GET HOME INSTILL ONE DROP INTO RIGHT EYE FOUR GLADYS ES A DAY DIRECTED STARTING THE DAY OF SURGERY AFTER YOU GET HOME SOLD: 02/24/2020 [facility] 1 % 01/27/2020 12:00:00 AM EDT drops,suspension 5 INSTILL ONE DROP INTO RIGHT EYE FOUR TIMES A DAY DIRECTED PLEASE START THE DAY OF SURGERY AFTER YOU GET HOME INSTILL ONE DROP INTO RIGHT EYE FOUR GLADYS ES A DAY DIRECTED PLEASE START THE DAY OF SURGERY AFTER YOU GET HOME SOLD: 01/28/2020 [facility] 0.3 % 01/27/2020 12:00:00 AM EDT drops 5 INSTILL ONE DROP INTO RIGHT EYE FOUR TIMES A DAY DIRECTED PLEASE START THREE DAYS PRIOR TO SURGERY INSTILL ONE DROP INTO RIGHT EYE FOUR TIMES A DAY DIRECTED PLEASE START THREE DAYS PRIOR TO SURGERY SOLD: 01/28/2020 [facility] Administration Of Flu Vaccine 01/06/2020 12:00:00 AM EDT completed [facility] ([place] [facility]) Medication administered onsite Sulfasalazine 500 MG Oral Tablet sulfasalazine 500 mg tablet sulfasalazine 500 mg tablet 11/26/2019 12:00:00 AM EDT 1 {tbl} ORAL complet ed take 1 Tablet by oral route 2 times every day after meals [facility] ([facility]) Prednisone 5 MG Oral Tablet prednisone 5 mg tablet prednison e 5 mg tablet 11/12/2019 12:00:00 AM EDT completed Take 15mg daily for 4 days then decrease to 10mg daily. Cont to decrease by 5mg every 4 days until done [facility] ([facility]) Folic Acid 1 MG Oral Tablet folic acid 1 mg tablet folic aci d 1 mg tablet 04/27/2019 12:00:00 AM EST 1 {tbl} ORAL completed take 1 Tablet by oral route every day [facility] ([facility]) travoprost 0.04 MG/ML Ophthalmic Solutio n [Travatan] Travatan Z 0.004 % eye drops Travatan Z 0.004 % eye drops 1.00 drop OPHTHALMIC completed travoprost 0.04 MG/ML Ophthalmic Solution [facility] brinzolamide 10 MG/ML Ophthalmic Suspens ion [Azopt] Azopt 1 % eye drops,suspension Azopt 1 % eye drops,suspension 1.00 drop OPHTHA LMIC completed brinzolamide 10 MG/ML Ophthalmic Suspension [Azopt] [facility] ([facility]) prednisolone acetate 10 MG/ML Ophthalmic Suspension prednisolone acetate 1 % eye drops,suspension prednisolone acetate 1 % eye drops,suspension 1 drop OPHTHALMIC completed instill 1 drop by ophthalmic route 3 times every day into affected eye(s) [facility] ([facility]) Insurance Providers Payer name Policy type / Coverage type Policy ID Covered democrat ID Covered democrat's relationship to zuleta Policy [place] Plan Information Medicare Natl Govt Servic Medicare Primary [id number] Self [id number] Medicare Natl Govt Servic Medicare Primary [id number] Self [id number] Medicare Natl Govt Servic Medicare Primary [id number] Self Medicare Natl Govt Serv Medicare Primary [id number] Self [id number] MEDICARE BLUE PPO 306 [id number] SP [id number] Medicare Blue Ppo Commercial [id number] Self [id number] MEDICARE BLUE PPO 306 [id number] SP [id number] Medicare Blue Ppo Commercial [id number] Self [id number] Medicare Blue Ppo Commercial [id number] Self [id number] MEDICARE BLUE PPO 306 [id number] SP [id number] [place] [id number] 00 [id number] Self [id number] 00 [facility] Medicare Aga Commercial [id number] Self [id number] MEDICARE COMPLETE [id number] SP [id number] TODAYS OPTIONS [id number] SP [id number] [facility] [id number] 00 [id number] Self [id number] 00 WELLCARE [id number] SP [id number] WELLCARE MEDICARE HMO G [id number] Self [id number] Medicare Medigap Part B [id number] Self BC/BS OF [place] P [id number] S [id number] WELLCARE [id number] SP [id number] WELLCARE [id number] SP [id number] WELLCARE [id number] SP [id number] WELLCARE [id number] SP [id number] WELLCARE -O/P [id number] 18 [id number] WELLCARE [id number] SP [id number] WELLCARE O [id number] O [id number] MEDICARE [id number] SP [id number] WELLCARE O [id number] S [id number] [place] [facility] Medicare Primary [id number] Self [id number] [employer] Medicare Commercial [id number] Self [id number] [facility] [id number] SP [id number] MEDICARE COMPLETE-UHC O [id number] S [id number] MEDICAID [id number] SP [id number] EXCELLUS BCBS B [id number] S [id number] Blue Shield MCR Advantage Commercial [id number] Self BS [place] Commercial [id number] Self Problems, Conditions, and Diagnoses Code Display Name Description Problem Type Effective Dates Data Source(s) 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, left eye, stage uns pecified Pigmentary glaucoma, left eye, stage unspecified Diagnosis 02/10/2020 08:00:00 AM [facility] 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, right eye, stage un specified Pigmentary glaucoma, right eye, stage unspecified Diagnosis 02/03/2020 08:00:00 AM [facility] [id number] Encounter for other preprocedural examin ation Encounter for other preprocedural examination Diagnosis 02/02/2020 11:40:00 AM [facility] C50.919 Malignant neoplasm of female breast Inva sive lobular carcinoma of breast in female Problem 12/30/2020 12:00:00 AM EDT [email or web address] ([facility]) Surgeries/Procedures Procedure Description Date Indications Data Source(s) DEMO&/EVAL OF PT UTILIZ AERSL GEN/NEB/INHLR/IPPB 12/20 12:00:00 AM EDT [facility] ([facility], ) OFFICE OUTPATIENT VISIT 25 MINUTES 12/20/2020 12:00:00 AM EDT [facility] ([facility], ) Bronchospasm Evaluation 12/15/2020 12:00:00 AM EDT [facility] ([facility], ) Plethysmography Determination Lung Volumes & Per Airway Resi st 12/15/2020 12:00:00 AM EDT [facility] ([facility], ) DIFFUSING CAPACITY 12/15/2020 12:00:00 AM EDT [facility] ([facility]) OFFICE OUTPATIENT VISIT 25 MINUTES 12/14/2020 12:00:00 AM EDT [facility] ([facility]) OFFICE OUTPATIENT NEW 45 MINUTES 11/14/2020 12:00:00 A M EDT [facility] ([facility]) OFFICE OUTPATIENT VISIT 25 MINUTES 10/11/2020 12:00:00 AM EDT [facility] ([facility]) OFFICE OUTPATIENT VISIT 25 MINUTES 09/02/2020 12:00:00 AM EDT [facility] ([facility]) RBC SED RATE, AUTOMATED 06/27/2020 12:00 :00 AM EDT - 06/27/2020 12:00:00 AM EDT [facility] ([facility]) C-REACTIVE PROTEIN 06/27/2020 12:00:00 AM EDT - 2020 12:00:00 AM EDT [facility] ([facility]) ASSAY OF CREATININE 06/27/2020 12:00:00 AM EDT - 06/27 12:00:00 AM EDT [facility] ([facility]) ASSAY OF SERUM ALBUMIN 06/27/2020 12:00: 00 AM EDT - 06/27/2020 12:00:00 AM EDT [facility] ([facility]) ALANINE AMINO (ALT) (SGPT) 06/27/2020 12 :00:00 AM EDT - 06/27/2020 12:00:00 AM EDT [facility] ([facility]) TRANSFERASE (AST) (SGOT) 06/27/2020 12:0 0:00 AM EDT - 06/27/2020 12:00:00 AM EDT [facility] ([facility]) ASSAY OF UREA NITROGEN 06/27/2020 12:00: 00 AM EDT - 06/27/2020 12:00:00 AM EDT [facility] ([facility]) COMPLETE CBC W/AUTO DIFF WBC 06/27/2020 12:00:00 AM EDT - 06/27/2020 12:00:00 AM EDT [facility] ([facility]) ROUTINE VENIPUNCTURE 06/27/2020 12:00:00 AM EDT - 06/27/2020 12:00:00 AM EDT [facility] ([facility]) OFFICE/OUTPATIENT VISIT, EST 06/27/2020 12:00:00 AM EDT - 06/27/2020 12:00:00 AM EDT [facility] ([facility]) OFFICE OUTPATIENT VISIT 15 MINUTES 06/21/2020 12:00:00 AM EDT [facility] ([facility]) OFFICE/OUTPATIENT VISIT, EST 03/22/2020 12:00:00 AM EST - 03/22/2020 12:00:00 AM EST [facility] ([facility]) ASSAY OF SERUM ALBUMIN 03/22/2020 12:00: 00 AM EST - 03/22/2020 12:00:00 AM EST [facility] ([facility]) ALANINE AMINO (ALT) (SGPT) 03/22/2020 12 :00:00 AM EST - 03/22/2020 12:00:00 AM EST [facility] ([facility]) TRANSFERASE (AST) (SGOT) 03/22/2020 12:0 0:00 AM EST - 03/22/2020 12:00:00 AM EST [facility] ([facility]) ASSAY OF CREATININE 03/22/2020 12:00:00 AM EST - 03/22 12:00:00 AM EST [facility] ([facility]) C-REACTIVE PROTEIN 03/22/2020 12:00:00 AM EST - 2019 12:00:00 AM EST [facility] ([facility]) RBC SED RATE, AUTOMATED 03/22/2020 12:00 :00 AM EST - 03/22/2020 12:00:00 AM EST [facility] ([facility]) COMPLETE CBC W/AUTO DIFF WBC 03/22/2020 12:00:00 AM EST - 03/22/2020 12:00:00 AM EST [facility] ([facility]) ROUTINE VENIPUNCTURE 03/22/2020 12:00:00 AM EST - 03/22/2020 12:00:00 AM EST [facility] ([facility]) ECG ROUTINE ECG W/LEAST 12 LDS W/I&R 01/06/2020 12:00: 00 AM EDT [facility] ([facility]) Results ID Date Data Source [id number] 12/13/2020 03:33:00 PM EDT [facility] ([facility]) Name Value Range Interpretation Code Description Data Luciana rce(s) Supporting Document(s) Parathyrin.intact [Mass/volume] in Serum or Plasma 63.5 pg/mL 18.5-88 .0 [facility] ([facility]) Calcium.ionized [Mass/volume] in Serum o r Plasma by Ion-selective membrane electrode (ISE) 5.5 mg/dL 4.5-5.3 [facility] ([place] [facility]) C reactive protein [Mass/volume] in Serum or Plasma by High sensitivity method 0.62 mg/dL 0.00-0.30 [facility] ([facility] ) ID Date Data Source [id number] 12/13/2020 03:32:00 PM EDT [facility] ([facility]) Name Value Range Interpretation Code Description Data Luciana rce(s) Supporting Document(s) Glucose [Mass/volume] in Serum or Plasma 218 mg/dL 74-99 [facility] ([facility]) 100-125 mg/dL PRE-DIABETES/FASTING >126 mg/dL DIABETES/FASTING Creatinine 0.9 mg/dL 0.6-1.3 [facility] ([facility]) Sodium [Moles/volume] in Serum or Plasma 140 meq/L 136-145 [facility] ([facility]) Urea nitrogen [Mass/volume] in Serum or Plasma 14 mg/dL 7-18 [facility] ([facility]) Chloride [Moles/volume] in Serum or Plasma 103 meq/L 98-107 [facility] ([facility]) Potassium [Moles/volume] in Serum or Plasma 4.0 meq/L 3.5-5.1 [facility] ([facility]) Alkaline phosphatase isoenzyme [Units/volume] in Serum or Pl asma 54 mg/dL 46-116 [facility] ([facility]) Calcium [Mass/volume] in Serum or Plasma 10.5 mg/dL 8.5-10.1 [facility] ([facility]) NOTE: RESULT VERIFIED. Carbon dioxide, total [Moles/volume] in Serum or Plasma 32 meq/L 21 -32 [facility] ([facility]) Total Bilirubin 0.3 mg/dL 0.2-1.0 [facility] ([facility]) Aspartate aminotransferase [Enzymatic activity/volume] in Serum or Plasma 19 U/L 15-37 [facility] ([facility] ) Albumin [Mass/volume] in Serum or Plasma 3.4 g/dL 3.4-5.0 [facility] ([facility]) Alanine aminotransferase [Enzymatic activity/volume] in Seru m or Plasma 19 U/L 12-78 [facility] ([facility]) Proteinase 3 Ab [Units/volume] in Serum 7.0 g/dL 6.4-8.2 [facility] ([facility]) Glomerular filtration rate/1.73 sq M pre dicted among blacks [Volume Rate/Area] in Serum or Plasma by Creatinine-based formula (MDRD) [facility] <content>CHRONIC KIDNEY DISEASE STAGING PER NKF</content>
<content></content>
<content>STAGE I & II GFR >= 60 NORMAL TO MILDLY DECREASED</content>
<content>STAGE III GFR 30-59 MODERATELY DECREASED</content>
<content>STAGE IV GFR 15-29 SEVERELY DECREASED</content>
<content>STAGE V GFR <15 VERY LITTLE GFR LEFT</content>
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
<content></content> Glomerular filtration rate/1.73 sq M pre dicted among non-blacks [Volume Rate/Area] in Serum or Plasma by Creatinine-based formula (MDRD) Laboratory test result [facility] ([facility] ) A/G Ratio 0.94 CALC 1.00-1.90 [facility] ([facility]) ID Date Data Source [id number] 12/13/2020 03:32:00 PM EDT [facility] ([facility]) Name Value Range Interpretation Code Description Data Luciana rce(s) Supporting Document(s) Hemoglobin A1c/Hemoglobin.total in Blood 6.6 % [facility] ([facility]) Lab Result Notes: Pre-Diabetes 5.7 - 6.4 % Diabetes = or > 6.5% Glucose mean value [Mass/volume] in Blood Estimated fr om glycated hemoglobin 143 mg/dL 60-110 [facility] ([facility] ) ID Date Data Source [id number] 12/13/2020 03:32:00 PM EDT [facility] Name Value Range Interpretation Code Description Data Luciana rce(s) Supporting Document(s) Hemoglobin A1c/Hemoglobin.total in Blood Laboratory test result [facility] ([facility]) Erythrocyte sedimentation rate by Westergren method 30 mm/hr 0-15 [facility] ([facility]) ID Date Data Source [id number] 12/13/2020 03:32:00 PM EDT [facility] ([facility]) Name Value Range Interpretation Code Description Data Luciana rce(s) Supporting Document(s) Leukocytes [#/volume] in Blood by Automated count 11.6 x10*3/UL 4.1-1 0.9 [facility] ([facility]) NOTE: RESULT VERIFIED. Hematocrit [Volume Fraction] of Blood by Automated count 41.5 % 3 7.0-51.0 [facility] ([facility]) Erythrocytes [#/volume] in Blood by Automated count 4.39 x10*6/UL 4.2 0-6.30 [facility] ([facility] Hemoglobin [Mass/volume] in Blood 14.1 g/dL 12.0-18.0 [facility] ([facility]) MCH 32.1 pg 26.0-32.0 [facility] ([facility] [facility]) MCV 94.4 fL 80.0-97.0 [facility] ([facility]) MCHC 34.0 g/dL 31.0-38.0 [facility] ([facility]) Platelets [#/volume] in Blood by Automated count 302 x10*3/UL 140-440 [facility] ([facility]) Erythrocyte distribution width [Ratio] by Automated count 12.7 % 11.6-13.7 [facility] ([facility] MPV 9.0 FL 7.8-11.0 [facility] ([facility] [facility]) Mid % 6.3 % 1.7-9.3 [facility] ([place] [facility]) Lymph % 21.4 % 10.0-58.5 [facility] ([place] [facility]) Lymph # 2.5 x10*3/UL 0.6-4.1 [facility] ([facility]) Neut % 72.3 % 37.0-92.0 [facility] ([facility] [facility]) Mid # 0.7 x10*3/UL 0.1-0.6 [facility] ([facility]) Neut # 8.4 x10*3/UL 2.0-7.8 [facility] ([facility]) ID Date Data Source [id number] 11/22/2020 10:16:00 AM EDT [facility] ([facility]) Name Value Range Interpretation Code Description Data Luciana rce(s) Supporting Document(s) Inr 0.93 [facility] ([facility]) THERAPUTIC HUMAN INR VALUES INDICATIONS NORMAL RANGES PROPHYLAXIS/TREATMENT OF: VENOUS THROMBOSIS 2.0-3.0 PULMONARY EMBOLISM 2.0-3.0 PREVENTION OF SYSTEMIC EMBOLISM FROM: TISSUE HEART VALVES 2.0-3.0 ACUTE MYOCARDIAL INFARCTION 2.0-3.0 VALVULAR HEART DISEASE 2.0-3.0 ATRIAL FIBRILLATION 2.0-3.0 MECHANICAL VALVES(HIGH RISK) 2.5-3.5 RECURRENT MYOCARDIAL INFARCTION 2.5-3.5 Prothrombin Time 12.8 s 12.7-14.5 [facility] ([facility]) Partial Thromboplastin Time 38.8 s 25.9-37.0 [facility] ([facility]) ID Date Data Source [id number] 11/22/2020 10:16:00 AM EDT [facility] ([facility]) Name Value Range Interpretation Code Description Data Luciana rce(s) Supporting Document(s) Platelets [#/volume] in Blood by Automated count 265 10 150-450 [facility] ([facility]) ID Date Data Source [id number] 11/22/2020 10:16:00 AM EDT [facility] ([facility], ) Name Value Range Interpretation Code Description Data Luciana rce(s) Supporting Document(s) Inr 0.93 Normal (applies to non-numeric resul ts) [facility] ([facility]) THERAPUTIC HUMAN INR VALUES INDICATIONS NORMAL RANGES PROPHYLAXIS/TREATMENT OF: VENOUS THROMBOSIS 2.0-3.0 PULMONARY EMBOLISM 2.0-3.0 PREVENTION OF SYSTEMIC EMBOLISM FROM: TISSUE HEART VALVES 2.0-3.0 ACUTE MYOCARDIAL INFARCTION 2.0-3.0 VALVULAR HEART DISEASE 2.0-3.0 ATRIAL FIBRILLATION 2.0-3.0 MECHANICAL VALVES(HIGH RISK) 2.5-3.5 RECURRENT MYOCARDIAL INFARCTION 2.5-3.5 Prothrombin Time 12.8 s 12.7-14.5 Normal (applies to non-numeric results) [facility] ([facility]) Partial Thromboplastin Time 38.8 s 25.9-37.0 Above high normal [facility] ([facility]) ID Date Data Source [id number] 11/22/2020 10:16:00 AM EDT [facility] ([facility]) Name Value Range Interpretation Code Description Data Luciana rce(s) Supporting Document(s) Platelets [#/volume] in Blood by Automated count 265 10 150-450 Normal (applies to non-numeric results) [facility] ([facility]) ID Date Data Source [id number] 10/14/2020 11:23:00 AM EDT [facility] ([facility] Name Value Range Interpretation Code Description Data Luciana rce(s) Supporting Document(s) Glucose, Fasting 126 mg/dL 70-100 [facility]) Blood Urea Nitrogen 16 mg/dL 7-18 [facility] Creatinine For GFR 0.62 mg/dL 0.55-1.30 [facility] ([facility] Glomerular Filtration Rate Laboratory test result [facility] ([facility]) <content>Units are mL/min/1.73 m2</content>
<content></content>
<content>Chronic Kidney Disease Staging per NKF:</content>
<content></content>
<content>Stage I & II GFR >=60 Normal to Mildly Decreased</content>
<content>Stage III GFR 30- 59 Moderately Decreased</content>
<content>Stage IV GFR 15-29 Severely Decreased</content>
<content>Stage V GFR <15 Very Little GFR Left</content>
<content>ESRD GFR <15 on COLD ROLL OPERATOR</content>
<content></content> Sodium Level 143 meq/L 136-145 [facility] ([facility]) Carbon Dioxide Level 29 meq/L 21-32 [facility] ([facility]) Potassium Serum 4.4 meq/L 3.5-5.1 [facility] ([facility]) Chloride Level 110 meq/L 98-107 [facility] ([facility]) Calcium Level 10.3 mg/dL 8.8-10.2 [facility] ([facility]) Anion Gap 4 meq/L 8-16 [facility] ([facility]) ID Date Data Source [id number] 10/10/2020 10:37:00 AM EDT [facility] ([facility] Name Value Range Interpretation Code Description Data Luciana rce(s) Supporting Document(s) Calcium.ionized [Mass/volume] in Serum o r Plasma by Ion-selective membrane electrode (ISE) 5.2 mg/dL 4.5-5.3 [facility] ([facility]) ID Date Data Source [id number] 10/10/2020 10:36:00 AM EDT [facility] ([facility]) Name Value Range Interpretation Code Description Data Luciana rce(s) Supporting Document(s) Triglyceride [Mass/volume] in Serum or Plasma 186 mg/dL 30-150 [facility] ([facility]) Cholesterol [Mass/volume] in Serum or Plasma 183 mg/dL 131-200 [facility] ([facility]) Cholesterol in HDL [Mass/volume] in Serum or Plasma 67 mg/dL 35-60 [facility] ([facility]) Cholesterol in LDL [Mass/volume] in Serum or Plasma by calcu lation 79 CALC 50-159 [facility] ([facility]) ID Date Data Source [id number] 10/10/2020 10:36:00 AM EDT [facility] ([facility]) Name Value Range Interpretation Code Description Data Luciana rce(s) Supporting Document(s) Microalbumin Urine 29.8 mg/L 1.3-20.0 [facility] ([facility]) Urine Creatinine 141.3 mg/dL 30.0-125.0 [facility] ([facility]) Microalb/Creat Ratio 21.1 ug/mg 0.0-30.0 [facility] ( [facility]) ID Date Data Source [id number] 10/10/2020 10:36:00 AM EDT [facility] ([facility]) Name Value Range Interpretation Code Description Data Luciana rce(s) Supporting Document(s) Glucose [Mass/volume] in Serum or Plasma 138 mg/dL 74-99 [facility] ([facility]) 100-125 mg/dL PRE-DIABETES/FASTING >126 mg/dL DIABETES/FASTING Urea nitrogen [Mass/volume] in Serum or Plasma 17 mg/dL 7-18 [facility] ([facility]) Creatinine 0.7 mg/dL 0.6-1.3 [facility] ([facility]) Sodium [Moles/volume] in Serum or Plasma 141 meq/L 136-145 [facility] ([facility]) Potassium [Moles/volume] in Serum or Plasma 4.4 meq/L 3.5-5.1 [facility] ([facility]) Carbon dioxide, total [Moles/volume] in Serum or Plasma 29 meq/L 21 -32 [facility] ([facility]) Chloride [Moles/volume] in Serum or Plasma 104 meq/L 98-107 [facility] ([facility]) Calcium [Mass/volume] in Serum or Plasma 10.4 mg/dL 8.5-10.1 [facility] ([facility]) NOTE: RESULT VERIFIED. Alkaline phosphatase isoenzyme [Units/volume] in Serum or Pl asma 52 mg/dL 46-116 [facility] ([facility]) Total Bilirubin 0.5 mg/dL 0.2-1.0 [facility] ([facility]) Aspartate aminotransferase [Enzymatic activity/volume] in Serum or Plasma 15 U/L 15-37 [facility] ([facility] ) Alanine aminotransferase [Enzymatic activity/volume] in Seru m or Plasma 16 U/L 12-78 [facility]) Albumin [Mass/volume] in Serum or Plasma 3.2 g/dL 3.4-5.0 [facility] ([facility] A/G Ratio 1.07 CALC 1.00-1.90 [facility]) Proteinase 3 Ab [Units/volume] in Serum 6.2 g/dL 6.4-8.2 [facility] Glomerular filtration rate/1.73 sq M pre dicted among blacks [Volume Rate/Area] in Serum or Plasma by Creatinine-based formula (MDRD) Laboratory test result [facility] ([facility]) <content>CHRONIC KIDNEY DISEASE STAGING PER NKF</content>
<content></content>
<content>STAGE I & II GFR >= 60 NORMAL TO MILDLY DECREASED</content>
<content>STAGE III GFR 30-59 MODERATELY DECREASED</content>
<content>STAGE IV GFR 15-29 SEVERELY DECREASED</content>
<content>STAGE V GFR <15 VERY LITTLE GFR LEFT</content>
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
<content></content> Glomerular filtration rate/1.73 sq M pre dicted among non-blacks [Volume Rate/Area] in Serum or Plasma by Creatinine-based formula (MDRD) Laboratory test result [facility] ([facility] ) ID Date Data Source [id number] 09/02/2020 10:08:00 AM EDT [facility] ([facility] Name Value Range Interpretation Code Description Data Luciana rce(s) Supporting Document(s) Cobalamin (Vitamin B12) [Mass/volume] in Serum or Plasma 421 pg/mL 2 47-911 [facility] ([facility]) VITAMIN B12 NORMAL RANGE NORMAL 247 - 911 PG/ML INDETERMINATE 211 - 246 PG/ML DEFICIENT LESS THAN 211 PG/ML Parathyrin.intact [Mass/volume] in Serum or Plasma 43.4 pg/mL 18.5-88 .0 [facility] ([facility]) ID Date Data Source [id number] 09/02/2020 10:06:00 AM EDT [facility] [facility] Name Value Range Interpretation Code Description Data Luciana rce(s) Supporting Document(s) Calcidiol [Mass/volume] in Serum or Plasma 47.2 ng/mL 24.0-80.0 [facility] ([facility]) This test was performed using FastPack I P Vitamin D immunoassay kit. Values obtained with different assay methods should not be used interchangeably. ID Date Data Source [id number] 09/02/2020 10:05:00 AM EDT [facility]) Name Value Range Interpretation Code Description Data Luciana rce(s) Supporting Document(s) Thyrotropin [Units/volume] in Serum or Plasma by Detec tion limit <= 0.05 mIU/L 2.61 uIU/mL 0.36-3.74 [facility] ([facility] ) ID Date Data Source [id number] 09/02/2020 10:05:00 AM EDT [facility] ([facility]) Name Value Range Interpretation Code Description Data Luciana rce(s) Supporting Document(s) Urea nitrogen [Mass/volume] in Serum or Plasma 15 mg/dL 7-18 [facility] ([facility]) Glucose [Mass/volume] in Serum or Plasma 146 mg/dL 74-99 [facility] ([facility]) 100-125 mg/dL PRE-DIABETES/FASTING >126 mg/dL DIABETES/FASTING Creatinine 0.8 mg/dL 0.6-1.3 [facility] Sodium [Moles/volume] in Serum or Plasma 142 meq/L 136-145 [facility] ([facility]) Potassium [Moles/volume] in Serum or Plasma 4.1 meq/L 3.5-5.1 [facility] ([facility]) Chloride [Moles/volume] in Serum or Plasma 105 meq/L 98-107 [facility] ([facility]) Carbon dioxide, total [Moles/volume] in Serum or Plasma 26 meq/L 21 -32 [facility] ([facility]) Calcium [Mass/volume] in Serum or Plasma 10.7 mg/dL 8.5-10.1 [facility] ([facility]) NOTE: CALCIUM,ALBUMIN,T.PROTEIN VERIFIED Alkaline phosphatase isoenzyme [Units/volume] in Serum or Pl asma 51 mg/dL 46-116 [facility] ([facility]) Total Bilirubin 0.4 mg/dL 0.2-1.0 [facility] ([facility]) Alanine aminotransferase [Enzymatic activity/volume] in Seru m or Plasma 14 U/L 12-78 [facility] ([facility]) Aspartate aminotransferase [Enzymatic activity/volume] in Serum or Plasma 12 U/L 15-37 [facility] ([facility] ) Proteinase 3 Ab [Units/volume] in Serum 6.2 g/dL 6.4-8.2 [facility] ([facility]) Albumin [Mass/volume] in Serum or Plasma 3.4 g/dL 3.4-5.0 [facility] ([facility]) A/G Ratio 1.21 CALC 1.00-1.90 [facility]) Glomerular filtration rate/1.73 sq M pre dicted among blacks [Volume Rate/Area] in Serum or Plasma by Creatinine-based formula (MDRD) Laboratory test result [facility] ([facility]) <content>CHRONIC KIDNEY DISEASE STAGING PER NKF</content>
<content></content>
<content>STAGE I & II GFR >= 60 NORMAL TO MILDLY DECREASED</content>
<content>STAGE III GFR 30-59 MODERATELY DECREASED</content>
<content>STAGE IV GFR 15-29 SEVERELY DECREASED</content>
<content>STAGE V GFR <15 VERY LITTLE GFR LEFT</content>
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
<content></content> Glomerular filtration rate/1.73 sq M pre dicted among non-blacks [Volume Rate/Area] in Serum or Plasma by Creatinine-based formula (MDRD) Laboratory test result [facility] ([facility] ) ID Date Data Source [id number] 09/02/2020 10:05:00 AM EDT [facility] ([facility]) Name Value Range Interpretation Code Description Data Luciana rce(s) Supporting Document(s) Hemoglobin A1c/Hemoglobin.total in Blood 7.6 % [facility] ([facility]) Lab Result Notes: Pre-Diabetes 5.7 - 6.4 % Diabetes = or > 6.5% Glucose mean value [Mass/volume] in Blood Estimated fr om glycated hemoglobin 171 mg/dL 60-110 [facility] ([facility] ) ID Date Data Source [id number] 09/02/2020 10:05:00 AM EDT [facility] ([facility]) Name Value Range Interpretation Code Description Data Luciana rce(s) Supporting Document(s) Leukocytes [#/volume] in Blood by Automated count 11.3 x10*3/UL 4.1-1 0.9 [facility] ([facility]) Erythrocytes [#/volume] in Blood by Automated count 4.59 x10*6/UL 4.2 0-6.30 [facility] ([facility]) Hemoglobin [Mass/volume] in Blood 14.5 g/dL 12.0-18.0 [facility] ([facility]) MCH 31.5 pg 26.0-32.0 [facility] [facility]) MCV 94.2 fL 80.0-97.0 [facility] ([facility]) Hematocrit [Volume Fraction] of Blood by Automated count 43.3 % 3 7.0-51.0 [facility]) Erythrocyte distribution width [Ratio] by Automated count 13.1 % 11.6-13.7 [facility] ([facility]) MCHC 33.4 g/dL 31.0-38.0 [facility] [facility]) Lymph % 16.8 % 10.0-58.5 [facility] ([facility]) Platelets [#/volume] in Blood by Automated count 336 x10*3/UL 140-440 [facility] ([facility]) MPV 8.9 FL 7.8-11.0 [facility] ([place] [facility]) Mid % 4.8 % 1.7-9.3 [facility] [facility]) Neut % 78.4 % 37.0-92.0 [facility] Lymph # 1.9 x10*3/UL 0.6-4.1 [facility] ([facility]) Mid # 0.5 x10*3/UL 0.1-0.6 [facility] ([facility]) Neut # 8.9 x10*3/UL 2.0-7.8 [facility] ([facility]) ID Date Data Source [id number] 06/27/2020 11:55:00 AM EDT [facility] ([facility]) Name Value Range Interpretation Code Description Data Luciana rce(s) Supporting Document(s) 1.2 mg/dL 0.0-0.5 Above high normal CRP [facility] ([facility]) ID Date Data Source [id number] 06/27/2020 11:55:00 AM EDT [facility] ([facility]) Name Value Range Interpretation Code Description Data Luciana rce(s) Supporting Document(s) 0.9 mg/dL 0.6-1.2 CREATININE [facility] ([facility]) >60 eGFR Non- [facility] ([facility]) >60 eGFR [facility] ([facility]) ID Date Data Source [id number] 06/27/2020 11:55:00 AM EDT [facility] ([facility]) Name Value Range Interpretation Code Description Data Luciana rce(s) Supporting Document(s) 12 mg/dL 10-23 BUN [facility] ([facility]) ID Date Data Source [id number] 06/27/2020 11:55:00 AM EDT [facility] ([facility]) Name Value Range Interpretation Code Description Data Luciana rce(s) Supporting Document(s) 12 U/L 15-37 Below low normal AST [facility] ([facility]) ID Date Data Source [id number] 06/27/2020 11:55:00 AM EDT [facility] ([facility]) Name Value Range Interpretation Code Description Data Luciana rce(s) Supporting Document(s) 17 U/L 30-65 Below low normal ALT [facility] ([facility]) ID Date Data Source [id number] 06/27/2020 11:55:00 AM EDT [facility] ([facility]) Name Value Range Interpretation Code Description Data Luciana rce(s) Supporting Document(s) 3.6 g/dL 3.4-4.4 ALB [facility] ([facility]) ID Date Data Source [id number] 06/27/2020 11:55:00 AM EDT [facility] ([facility]) Name Value Range Interpretation Code Description Data Luciana rce(s) Supporting Document(s) 9 mm/Hr 0-20 ESR [facility] ([facility]) ID Date Data Source [id number] 06/27/2020 11:55:00 AM EDT [facility] ([facility]) Name Value Range Interpretation Code Description Data Luciana rce(s) Supporting Document(s) 4.45 10*6/uL 3.50-5.50 RBC [facility] ([facility]) 11.3 10*3/uL 3.7-10.1 Above high normal WBC [facility] ([facility]) 14.4 g/dL 12.0-16.0 HGB [facility] ([facility]) 45.4 % 36.0-48.0 HCT [facility] ([facility]) 32.4 pg 26.0-34.0 MCH [facility] ([facility]) 102.0 fL 80.0-100.0 Above high normal MCV [facility] ([facility]) 11.8 % 10.0-15.0 RDW [facility] ([facility]) 31.7 g/dL 31.0-37.0 MCHC [facility] ([facility]) 8.6 fL 6.0-10.0 MPV [facility] ([facility]) 291 10*3/uL 150-500 PLATELETS [facility] ([facility]) 7.56 10*3/uL 2.10-8.00 LIBERTAD# [facility] ([facility]) 2.57 10*3/uL 1.00-5.00 LYM# [facility] ([facility]) 0.1 10*3/uL 0.0-0.5 EOS# [facility] ([facility]) 0.85 10*3/uL 0.10-1.00 MONO# [facility] ([facility]) 22.8 % 25.0-50.0 Below low normal LYM% [facility] ([facility]) 67.1 % 50.0-80.0 LIBERTAD% [facility] ([facility]) 0.2 10*3/uL 0.0-0.2 BASO# [facility] ([facility]) 7.6 % 2.0-10.0 MONO% [facility] ([facility]) 0.9 % 0.0-5.0 EOS% [facility] ([facility]) 1.7 % 0.0-4.0 BASO% [facility] ([facility]) ID Date Data Source [id number] 06/20/2020 10:51:00 AM EDT [facility]) Name Value Range Interpretation Code Description Data Luciana rce(s) Supporting Document(s) Glucose mean value [Mass/volume] in Blood Estimated fr om glycated hemoglobin 235 mg/dL 60-110 [facility] ([facility] ) Hemoglobin A1c/Hemoglobin.total in Blood 9.8 % [facility] ([facility]) Lab Result Notes: Pre-Diabetes 5.7 - 6.4 % Diabetes = or > 6.5% ID Date Data Source [id number] 06/20/2020 10:51:00 AM EDT [facility]) Name Value Range Interpretation Code Description Data Luciana rce(s) Supporting Document(s) Urea nitrogen [Mass/volume] in Serum or Plasma 10 mg/dL 7-18 [facility]) Glucose [Mass/volume] in Serum or Plasma 160 mg/dL 74-99 [facility] ([facility]) 100-125 mg/dL PRE-DIABETES/FASTING >126 mg/dL DIABETES/FASTING Sodium [Moles/volume] in Serum or Plasma 143 meq/L 136-145 [facility] ([facility]) Creatinine 0.8 mg/dL 0.6-1.3 [facility] ([facility]) Chloride [Moles/volume] in Serum or Plasma 105 meq/L 98-107 [facility] ([facility]) Potassium [Moles/volume] in Serum or Plasma 3.7 meq/L 3.5-5.1 [facility] ([facility]) Calcium [Mass/volume] in Serum or Plasma 9.9 mg/dL 8.5-10.1 [facility] ([facility]) Carbon dioxide, total [Moles/volume] in Serum or Plasma 26 meq/L 21 -32 [facility] ([facility]) Alkaline phosphatase isoenzyme [Units/volume] in Serum or Pl asma 50 mg/dL 46-116 [facility] ([facility]) Total Bilirubin 0.5 mg/dL 0.2-1.0 [facility] ([facility]) Aspartate aminotransferase [Enzymatic activity/volume] in Serum or Plasma 13 U/L 15-37 [facility] ([facility] ) Alanine aminotransferase [Enzymatic activity/volume] in Seru m or Plasma 12 U/L 12-78 [facility] ([facility]) Proteinase 3 Ab [Units/volume] in Serum 6.3 g/dL 6.4-8.2 [facility] ([facility]) Albumin [Mass/volume] in Serum or Plasma 3.5 g/dL 3.4-5.0 [facility] ([facility]) A/G Ratio 1.25 CALC 1.00-1.90 [facility]) Glomerular filtration rate/1.73 sq M pre dicted among non-blacks [Volume Rate/Area] in Serum or Plasma by Creatinine-based formula (MDRD) Laboratory test result [facility] ([facility] ) Glomerular filtration rate/1.73 sq M pre dicted among blacks [Volume Rate/Area] in Serum or Plasma by Creatinine-based formula (MDRD) Laboratory test result [facility] ([facility]) <content>CHRONIC KIDNEY DISEASE STAGING PER NKF</content>
<content></content>
<content>STAGE I & II GFR >= 60 NORMAL TO MILDLY DECREASED</content>
<content>STAGE III GFR 30-59 MODERATELY DECREASED</content>
<content>STAGE IV GFR 15-29 SEVERELY DECREASED</content>
<content>STAGE V GFR <15 VERY LITTLE GFR LEFT</content>
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
<content></content> ID Date Data Source [id number] 06/20/2020 10:51:00 AM EDT [facility] ([facility]) Name Value Range Interpretation Code Description Data Luciana rce(s) Supporting Document(s) Hemoglobin A1c/Hemoglobin.total in Blood Laboratory test result [facility] ([facility]) ID Date Data Source [id number] 05/25/2020 03:10:00 PM EST [facility] ([facility]) Name Value Range Interpretation Code Description Data Luciana rce(s) Supporting Document(s) Creatinine For GFR 0.81 mg/dL 0.55-1.30 [facility] ([facility]) Blood Urea Nitrogen 12 mg/dL 7-18 [facility] ([facility]) Glucose, Fasting 181 mg/dL 70-100 [facility] ([facility]) Sodium Level 140 meq/L 136-145 [facility] ([facility]) Glomerular Filtration Rate Laboratory test result [facility] ([facility]) <content>Units are mL/min/1.73 m2</content>
<content></content>
<content>Chronic Kidney Disease Staging per NKF:</content>
<content></content>
<content>Stage I & II GFR >=60 Normal to Mildly Decreased</content>
<content>Stage III GFR 30-59 Moderately Decreased</content>
<content>Stage IV GFR 15-29 Severely Decreased</content>
<content>Stage V GFR <15 Very Little GFR Left</content>
<content>ESRD GFR <15 on COLD ROLL OPERATOR</content>
<content></content> Potassium Serum 3.8 meq/L 3.5-5.1 [facility] ([facility]) Chloride Level 106 meq/L 98-107 [facility] ([facility]) Calcium Level 9.3 mg/dL 8.8-10.2 [facility] ([facility]) Carbon Dioxide Level 29 meq/L 21-32 [facility] ([facility]) Anion Gap 5 meq/L 8-16 [facility] Alt/SGPT 13 U/L 12-78 [facility] Ast/Sgot 8 U/L 7-37 [facility] ([place] [facility]) Total Protein 6.5 GM/DL 6.4-8.2 [facility] ([facility]) Alkaline Phosphatase 60 U/L 45-117 [facility] ([facility]) Bilirubin,Total 0.4 mg/dL 0.2-1.0 [facility] ([facility]) Albumin/Globulin Ratio 1.0 1.2-2.2 [facility] ([facility]) Albumin 3.2 GM/DL 3.2-5.2 [facility] ([facility] [facility]) ID Date Data Source [id number] 05/25/2020 03:10:00 PM EST [facility] ([facility]) Name Value Range Interpretation Code Description Data Luciana rce(s) Supporting Document(s) Red Blood Count 4.32 10 4.00-5.40 [facility] ([facility]) White Blood Count 9.4 10 4.0-10.0 [facility] ([facility]) Mean Corpuscular Volume 97.5 fl 80.0-96.0 [facility] ([facility]) Hemoglobin 13.8 g/dL 12.0-15.5 [facility]) Hematocrit 42.1 % 36.0-47.0 [facility]) Mean Corpuscular Hemoglobin 31.9 pg 27.0-33.0 [facility] ([facility]) Mean Corpuscular HGB Conc 32.8 g/dL 32.0-36.5 [facility] ([facility]) Neutrophils % 66.6 % 36.0-66.0 [facility] ([facility]) Platelet Count, Automated 263 10 150-450 [facility] ([facility]) Red Cell Distribution Width 11.9 % 11.5-14.5 [facility] ([facility]) [place] % 9.6 % 2.0-8.0 [facility] Lymph % 21.7 % 24.0-44.0 [facility] [facility]) Immature Granulocyte % 0.6 % 0-3.0 [facility] ([facility]) Eos % 0.9 % 0.0-3.0 [facility] ([facility]) Baso % 0.6 % 0.0-1.0 [facility] ([facility]) Neutrophils # 6.3 10 1.5-8.5 [facility] ([facility]) Nucleated Red Blood Cell % 0.0 % 0-0 [facility] ([facility]) Lymph # 2.0 10 1.5-5.0 [facility] [facility]) Eos # 0.1 10 0.0-0.5 [facility] ([facility]) [place] # 0.9 10 0.0-0.8 [facility] ([facility] Baso # 0.1 10 0.0-0.2 [facility] ([facility] [facility]) ID Date Data Source [id number] 04/11/2020 09:45:00 AM EST [facility] ([facility]) Name Value Range Interpretation Code Description Data Luciana rce(s) Supporting Document(s) Thyrotropin [Units/volume] in Serum or Plasma by Detec tion limit <= 0.05 mIU/L 2.42 uIU/mL 0.36-3.74 [facility] ([facility] ) ID Date Data Source [id number] 04/11/2020 09:45:00 AM EST [facility] ([facility]) Name Value Range Interpretation Code Description Data Luciana rce(s) Supporting Document(s) Hemoglobin A1c 13.3 % [facility] <content>REFERENCE RANGES:</content><br/ ><content></content>
<content><=5.6% NORMAL</content>
<content>5.7-6.4% SUGGESTS IMPAIRED GLUCOSE METABOLISM/PREDIABETIC</content>
<content>>= 6.5% ABNORMAL</content>
<content></content> Estimated Average Glucose 335 mg/dL 60-110 [facility] ([facility]) ID Date Data Source [id number] 04/11/2020 09:45:00 AM EST [facility] ([facility]) Name Value Range Interpretation Code Description Data Luciana rce(s) Supporting Document(s) Glucose [Mass/volume] in Serum or Plasma 458 mg/dL 74-99 Above upper panic limits [facility] ([facility]) CRITICAL: DR RAE NOTIFIED 100-125 mg/dL PRE-DIABETES/FASTING >126 mg/dL DIABETES/FASTING Creatinine 0.8 mg/dL 0.6-1.3 [facility] ([facility]) Urea nitrogen [Mass/volume] in Serum or Plasma 12 mg/dL 7-18 [facility] ([facility]) Potassium [Moles/volume] in Serum or Plasma 4.2 meq/L 3.5-5.1 [facility] ([facility]) Sodium [Moles/volume] in Serum or Plasma 135 meq/L 136-145 [facility] ([facility]) Carbon dioxide, total [Moles/volume] in Serum or Plasma 31 meq/L 21 -32 [facility] ([facility]) Chloride [Moles/volume] in Serum or Plasma 99 meq/L 98-107 [facility] ([facility]) Calcium [Mass/volume] in Serum or Plasma 10.1 mg/dL 8.5-10.1 [facility] ([facility]) Alkaline phosphatase isoenzyme [Units/volume] in Serum or Pl asma 138 mg/dL 46-116 [facility] ([facility]) Total Bilirubin 0.5 mg/dL 0.2-1.0 [facility] ([facility]) Aspartate aminotransferase [Enzymatic activity/volume] in Serum or Plasma 12 U/L 15-37 [facility] ([facility] ) Alanine aminotransferase [Enzymatic activity/volume] in Seru m or Plasma 18 U/L 12-78 [facility] ([facility]) Albumin [Mass/volume] in Serum or Plasma 3.4 g/dL 3.4-5.0 [facility] Proteinase 3 Ab [Units/volume] in Serum 6.5 g/dL 6.4-8.2 [facility]) A/G Ratio 1.10 CALC 1.00-1.90 [facility] ([place] [facility]) Glomerular filtration rate/1.73 sq M pre dicted among non-blacks [Volume Rate/Area] in Serum or Plasma by Creatinine-based formula (MDRD) [facility] Glomerular filtration rate/1.73 sq M pre dicted among blacks [Volume Rate/Area] in Serum or Plasma by Creatinine-based formula (MDRD) Laboratory test [facility]) <content>CHRONIC KIDNEY DISEASE STAGING PER NKF</content>
<content></content>
<content>STAGE I & II GFR >= 60 NORMAL TO MILDLY DECREASED</content>
<content>STAGE III GFR 30-59 MODERATELY DECREASED</content>
<content>STAGE IV GFR 15-29 SEVERELY DECREASED</content>
<content>STAGE V GFR <15 VERY LITTLE GFR LEFT</content>
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
<content></content> ID Date Data Source [id number] 04/11/2020 09:45:00 AM EST [facility] ([facility]) Name Value Range Interpretation Code Description Data Luciana rce(s) Supporting Document(s) Leukocytes [#/volume] in Blood by Automated count 9.7 x10*3/UL 4.1-10 .9 [facility]) Erythrocytes [#/volume] in Blood by Automated count 4.67 x10*6/UL 4.2 0-6.30 [facility]) Hemoglobin [Mass/volume] in Blood 15.0 g/dL 12.0-18.0 [facility] ([facility]) MCV 93.7 fL 80.0-97.0 [facility] ([facility]) Hematocrit [Volume Fraction] of Blood by Automated count 43.7 % 3 7.0-51.0 [facility] ([facility]) MCHC 34.3 g/dL 31.0-38.0 [facility] [facility] MCH 32.1 pg 26.0-32.0 [facility] ([facility]) Erythrocyte distribution width [Ratio] by Automated count 12.3 % 11.6-13.7 [facility] ([facility]) Platelets [#/volume] in Blood by Automated count 268 x10*3/UL 140-440 [facility] ([facility] Lymph % 19.0 % 10.0-58.5 [facility] ([facility]) MPV 9.6 FL 7.8-11.0 [facility] ([facility]) Mid % 4.5 % 1.7-9.3 [facility] ([facility]) Neut % 76.5 % 37.0-92.0 [facility] ([facility]) Lymph # 1.8 x10*3/UL 0.6-4.1 [facility] ([facility]) Neut # 7.4 x10*3/UL 2.0-7.8 [facility] ([facility]) Mid # 0.5 x10*3/UL 0.1-0.6 [facility] ([facility]) ID Date Data Source [id number] 04/11/2020 09:45:00 AM EST [facility] ([facility]) Name Value Range Interpretation Code Description Data Luciana rce(s) Supporting Document(s) Hemoglobin A1c/Hemoglobin.total in Blood Laboratory test result [facility] ([facility]) ID Date Data Source [id number] 03/22/2020 12:49:00 PM EST [facility] ([facility]) Name Value Range Interpretation Code Description Data Luciana rce(s) Supporting Document(s) 3.0 mg/dL 0.0-0.5 Above high normal CRP [facility] ([facility]) ID Date Data Source [id number] 03/22/2020 12:49:00 PM EST [facility] ([facility]) Name Value Range Interpretation Code Description Data Luciana rce(s) Supporting Document(s) 45.8 mL/min/1.73m eGFR Non- A merican [facility] ([facility]) 1.2 mg/dL 0.6-1.2 CREATININE [facility] ([facility]) 53.0 mL/min/1.73 eGFR [place] [facility] ([facility]) ID Date Data Source [id number] 03/22/2020 12:49:00 PM EST [facility] ([facility]) Name Value Range Interpretation Code Description Data Luciana rce(s) Supporting Document(s) 12 U/L 15-37 Below low normal AST [facility]) ID Date Data Source [id number] 03/22/2020 12:49:00 PM EST [facility] ([facility]) Name Value Range Interpretation Code Description Data Luciana rce(s) Supporting Document(s) 18 U/L 30-65 Below low normal ALT [facility] ([facility]) ID Date Data Source [id number] 03/22/2020 12:49:00 PM EST [facility] ([facility]) Name Value Range Interpretation Code Description Data Luciana rce(s) Supporting Document(s) 3.2 g/dL 3.4-4.4 Below low normal ALB [facility] ([facility]) ID Date Data Source [id number] 03/22/2020 12:49:00 PM EST [facility] ([facility]) Name Value Range Interpretation Code Description Data Luciana rce(s) Supporting Document(s) 17 mm/Hr 0-20 ESR [facility] ([facility]) ID Date Data Source [id number] 03/22/2020 12:49:00 PM EST [facility] ([facility]) Name Value Range Interpretation Code Description Data Luciana rce(s) Supporting Document(s) 9.5 10*3/uL 3.7-10.1 WBC [facility] ([facility]) 4.38 10*6/uL 3.50-5.50 RBC [facility] ([facility]) 14.1 g/dL 12.0-16.0 HGB [facility] ([facility]) 100.0 fL 80.0-100.0 MCV [facility] ([facility]) 43.8 % 36.0-48.0 HCT [facility] ([facility]) 32.2 pg 26.0-34.0 MCH [facility] ([facility]) 32.2 g/dL 31.0-37.0 MCHC [facility] ([facility]) 243 10*3/uL 150-500 PLATELETS [facility] ([facility]) 11.8 % 10.0-15.0 RDW [facility] ([facility]) 7.17 10*3/uL 2.10-8.00 LIBERTAD# [facility] ([facility]) 1.44 10*3/uL 1.00-5.00 LYM# [facility] ([facility]) 9.9 fL 6.0-10.0 MPV [facility] ([facility]) 0.0 10*3/uL 0.0-0.5 EOS# [facility] ([facility]) 0.74 10*3/uL 0.10-1.00 MONO# [facility] ([facility]) 15.1 % 25.0-50.0 Below low normal LYM% [facility] ([facility]) 0.1 10*3/uL 0.0-0.2 BASO# [facility] ([facility]) 75.4 % 50.0-80.0 LIBERTAD% [facility] ([facility]) 0.4 % 0.0-5.0 EOS% [facility] ([facility]) 1.3 % 0.0-4.0 BASO% [facility] ([facility]) 7.8 % 2.0-10.0 MONO% [facility] ([facility]) ID Date Data Source [id number] 02/29/2020 07:18:00 [place] [address] OPERATIVE SUMMARYNAME: PATSY CHAWLA DATE OF : 1950ATTENDING PHYS: Everette Ortega MD DATE: 02/10/20 MR#: [id number] OF PROCEDURE: 02/10/2020PREOPERATIVE DIAGNOSIS: Glaucoma, left eye.POSTOPERATIVE DIAGNOSIS: Glaucoma, left eye.PROCEDURE: Placement of a XEN gel stent, lot #[id number], using the external approach.SURGEON: Everette Ortega MD.INCENDIARY POWDER MIXER: None.COMPLICATIONS: None.INDICATION: Glaucoma and intolerance to drops.DETAILS OF PROCEDURE:The patient was brought to the operating room and laid in the supine position. The eye was preppedand draped in a sterile fashion for ophthalmic surgery, following which a lid speculum was placed.Lidocaine gel was placed on the eye surface, following which the XEN implant was removed fromthe cartridge. The stent was advanced and marked with a sterile marker, following which the stentwas refracted and the XEN implant was inserted into the subconjunctival space 7-8 mm away fromthe pre-marked point of entry which was about 2.5 mm behind the limbus. The conjunctiva waspinched. The XEN stent was inserted into the subconjunctival space and it was then rotatedvertically to enter the sclera about 2 mm behind the limbus where the subconjunctival entry wasabout 6-7 mm away from the scleral entry. The needle was advanced and the XEN stent wasdeployed. The prop cutter was retracted. The XEN implant was noted to be in good position. The eyewas gently massaged and it was noted that the stent was working. 0.4 mg % of mitomycin, 0.1 cc ofwhich was then placed subconjunctivally away from the stent posteriorly. Antibiotic and steroiddrops were placed, the lid speculum was then removed and the patient was then discharged to therecovery room in stable condition where postop instructions were given. [address] [place] [address] OPERATIVE SUMMARYNAME: PATSY CHAWLA DATE OF : 1950ATTENDING PHYS: Everette Ortega MD DATE: 02/10/20 MR#: [id number]: Everette Ortega MD 02/29/20 04:14DT: SSR 02/29/20 07:16DS: Everette Ortega MD 03/02/20 09:59 2 Name Value Range Interpretation Code Description Data Luciana rce(s) Supporting Document(s) ID Date Data Source [id number] 02/05/2020 08:28:00 [place] [address] OPERATIVE SUMMARYNAME: PATSY CHAWLA DATE OF : 1950ATTENDING PHYS: Everette Ortega MD DATE: 02/03/20 MR#: [id number] OF PROCEDURE: 02/03/2020PREOPERATIVE DIAGNOSIS: Glaucoma, right eye.POSTOPERATIVE DIAGNOSIS: Glaucoma, right eye.PROCEDURE: Placement of a XEN gel stent, right eye, using the external approach. Serial#[id number].SURGEON: Everette Ortega MD.INCENDIARY POWDER MIXER: None.COMPLICATIONS: None.INDICATION: Glaucoma and intolerance to drops.DETAILS OF PROCEDURE:The patient was brought to the operating room and laid in the supine position. The eye was preppedand draped in a sterile fashion for ophthalmic surgery, following which a lid speculum was placed.Lidocaine gel was placed on the eye surface, following which the XEN implant was removed fromthe cartridge. The stent was advanced and marked with a sterile marker, following which the stentwas refracted and the XEN implant was inserted into the subconjunctival space 7-8 mm away fromthe pre-marked point of entry which was about 2.5 mm behind the limbus. The conjunctiva waspinched. The XEN stent was inserted into the subconjunctival space and it was then rotatedvertically to enter the sclera about 2 mm behind the limbus where the subconjunctival entry wasabout 6-7 mm away from the scleral entry. The needle was advanced and the XEN stent w asdeployed. The prop cutter was retracted. The XEN implant was noted to be in good position. The eyewas gently massaged and it was noted that the stent was working. 0.4 mg % of mitomycin, 0.1 cc ofwhich was then placed subconjunctivally away from the stent posteriorly. Antibiotic and steroiddrops were placed, the lid speculum was then removed and the patient was then discharged to therecovery room in stable condition where postop instructions were given. [address] [place] [address] OPERATIVE SUMMARYNAME: PATSY CHAWLA DATE OF : 1950ATTENDING PHYS: Everette Ortega MD DATE: 02/03/20 MR#: [id number]: Everette Ortega MD 02/04/20 17:44DT: SSR 02/05/20 08:26DS: Everette Ortega MD 03/02/20 09:59 2 Name Value Range Interpretation Code Description Data Luciana rce(s) Supporting Document(s) ID Date Data Source [id number] 02/05/2020 06:01:00 PM EST [facility] Name Value Range Interpretation Code Description Data Luciana rce(s) Supporting Document(s) SARS-CoV-2 (COVID-19) [facility] This lab was ordered by [facility] and reported by [facility]. ID Date Data Source [id number] 01/29/2020 05:57:00 PM EDT [facility] Name Value Range Interpretation Code Description Data Luciana rce(s) Supporting Document(s) SARS-CoV-2 (COVID19) [facility] This lab was ordered by [facility] and reported by [facility]. ID Date Data Source [id number] 01/05/2020 09:25:00 AM EDT [facility] ([facility]) Name Value Range Interpretation Code Description Data Luciana rce(s) Supporting Document(s) Glucose mean value [Mass/volume] in Blood Estimated fr om glycated hemoglobin 194 mg/dL 60-110 [facility] ([facility] ) Hemoglobin A1c/Hemoglobin.total in Blood 8.4 % [facility] Lab Result Notes: Pre-Diabetes 5.7 - 6.4 % Diabetes = or > 6.5% ID Date Data Source [id number] 01/05/2020 09:25:00 AM EDT [facility] ([facility]) Name Value Range Interpretation Code Description Data Luciana rce(s) Supporting Document(s) Thyrotropin [Units/volume] in Serum or Plasma by Detec tion limit <= 0.05 mIU/L 2.57 uIU/mL 0.36-3.74 [facility] ([facility] ) ID Date Data Source [id number] 01/05/2020 09:25:00 AM EDT [facility] ([facility]) Name Value Range Interpretation Code Description Data Luciana rce(s) Supporting Document(s) Cholesterol in HDL [Mass/volume] in Serum or Plasma 55 mg/dL 35-60 [facility] ([facility]) Triglyceride [Mass/volume] in Serum or Plasma 206 mg/dL 30-150 [facility] ([facility]) Cholesterol [Mass/volume] in Serum or Plasma 204 mg/dL 131-200 [facility] ([facility]) Cholesterol in LDL [Mass/volume] in Serum or Plasma by calcu lation 108 CALC 50-159 [facility] ([facility]) ID Date Data Source [id number] 01/05/2020 09:25:00 AM EDT [facility] ([facility]) Name Value Range Interpretation Code Description Data Luciana rce(s) Supporting Document(s) Glucose [Mass/volume] in Serum or Plasma 200 mg/dL 74-99 [facility] ([facility]) 100-125 mg/dL PRE-DIABETES/FASTING >126 mg/dL DIABETES/FASTING Urea nitrogen [Mass/volume] in Serum or Plasma 11 mg/dL 7-18 [facility] ([facility]) Sodium [Moles/volume] in Serum or Plasma 140 meq/L 136-145 [facility] ([facility]) Creatinine 0.9 mg/dL 0.6-1.3 [facility] Potassium [Moles/volume] in Serum or Plasma 4.2 meq/L 3.5-5.1 [facility] ([facility]) Calcium [Mass/volume] in Serum or Plasma 10.1 mg/dL 8.5-10.1 [facility] ([facility]) Chloride [Moles/volume] in Serum or Plasma 103 meq/L 98-107 [facility] ([facility]) Carbon dioxide, total [Moles/volume] in Serum or Plasma 30 meq/L 21 -32 [facility] Total Bilirubin 0.6 mg/dL 0.2-1.0 [facility] ([facility]) Aspartate aminotransferase [Enzymatic activity/volume] in Serum or Plasma 18 U/L 15-37 [facility] ([facility] ) Alkaline phosphatase isoenzyme [Units/volume] in Serum or Pl asma 89 mg/dL 46-116 [facility] ([facility]) Albumin [Mass/volume] in Serum or Plasma 3.5 g/dL 3.4-5.0 [facility] ([facility]) Alanine aminotransferase [Enzymatic activity/volume] in Seru m or Plasma 28 U/L 12-78 [facility] Proteinase 3 Ab [Units/volume] in Serum 6.8 g/dL 6.4-8.2 [facility] ([facility]) Glomerular filtration rate/1.73 sq M pre dicted among non-blacks [Volume Rate/Area] in Serum or Plasma by Creatinine-based formula (MDRD) Laboratory test result [facility] Glomerular filtration rate/1.73 sq M pre dicted among blacks [Volume Rate/Area] in Serum or Plasma by Creatinine-based formula (MDRD) Laboratory test result [facility] <content>CHRONIC KIDNEY DISEASE STAGING PER NKF</content>
<content></content>
<content>STAGE I & II GFR >= 60 NORMAL TO MILDLY DECREASED</content>
<content>STAGE III GFR 30-59 MODERATELY DECREASED</content>
<content>STAGE IV GFR 15-29 SEVERELY DECREASED</content>
<content>STAGE V GFR <15 VERY LITTLE GFR LEFT</content>
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
<content></content> A/G Ratio 1.06 CALC 1.00-1.90 [facility] ([facility]) ID Date Data Source [id number] 01/05/2020 09:25:00 AM EDT [facility] ([facility]) Name Value Range Interpretation Code Description Data Luciana rce(s) Supporting Document(s) Erythrocytes [#/volume] in Blood by Automated count 4.69 x10*6/UL 4.2 0-6.30 [facility] ([facility]) Leukocytes [#/volume] in Blood by Automated count 12.5 x10*3/UL 4.1-1 0.9 [facility] ([facility]) MCV 91.1 fL 80.0-97.0 [facility] ([facility]) Hemoglobin [Mass/volume] in Blood 15.1 g/dL 12.0-18.0 [facility] ([facility]) Hematocrit [Volume Fraction] of Blood by Automated count 42.8 % 3 7.0-51.0 [facility] ([facility]) Erythrocyte distribution width [Ratio] by Automated count 12.7 % 11.6-13.7 [facility] ([facility]) MCHC 35.3 g/dL 31.0-38.0 [facility] MCH 32.2 pg 26.0-32.0 [facility] MPV 8.7 FL 7.8-11.0 [facility] ([facility] [facility]) Platelets [#/volume] in Blood by Automated count 243 x10*3/UL 140-440 [facility] ([facility]) Lymph % 12.3 % 10.0-58.5 [facility] Neut % 84.6 % 37.0-92.0 [facility] Lymph # 1.5 x10*3/UL 0.6-4.1 [facility] ([facility]) Mid % 3.1 % 1.7-9.3 [facility] [facility] Mid # 0.4 x10*3/UL 0.1-0.6 [facility] ([facility]) Neut # 10.6 x10*3/UL 2.0-7.8 [facility] ([facility]) Procedure Social History Code Duration Value Status Description Data Source(s ) Smoking 01/14/2021 12:00:00 AM EDT Former Smoker completed Former Smoker eCW1 ([facility]) Smoking 12/20/2020 12:00:00 AM EDT Patient is a former smoker completed Patient is a former smoker [facility] ([facility] ) Smoking 07/08/2020 12:00:00 AM EDT Former Smoker completed Former Smoker eCW1 ([facility]) Smoking 07/08/2020 12:00:00 AM EDT Former Smoker completed Former Smoker eCW1 ([facility]) Caffeine Use Details 06/27/2020 12:00:00 AM EDT coffee, 3 cups comp leted coffee, 3 cups [facility] ([facility]) 06/27/2020 12:00:00 AM EDT Ex-cigarette smoker completed Ex-cigarette smoker [facility] ([facility]) Smoking 06/27/2020 12:00:00 AM EDT Unknown if ever smoked comp leted Unknown if ever smoked [facility] ([facility]) Smoking 02/15/2020 12:00:00 AM EST Former Smoker completed Former Smoker eCW1 ([facility]) Smoking 02/15/2020 12:00:00 AM EST Former Smoker completed Former Smoker eCW1 ([facility]) Smoking 02/15/2020 12:00:00 AM EST Former Smoker completed Former Smoker eCW1 ([facility]) Smoking 02/15/2020 12:00:00 AM EST Former Smoker completed Former Smoker eCW1 ([facility]) Vital Signs ID Date Data Source [id number] Name Value Range Interpretation Code Description Data Source(s) Body weight 113.6 [lb_av] 113.6 [lb_av] eCW1 ([facility]) Body weight 51.53 kg 51.53 kg eCW1 ([facility]) Body height 61.8 [in_i] 61.8 [in_i] eCW1 ([facility]) Body mass index (BMI) [Ratio] 20.91 kg/m2 20.91 kg/m2 W1 ([facility]) Heart rate 64 /min 64 /min [facility]CW[facility] Respiratory rate 18 /min 18 /min eCW1 ([facility]) Body temperature 98.1 [degF] 98.1 [degF] eCW1 ( [facility]) Heart rate 101 /min 101 /min [facility] ([facility], ) Oxygen saturation in Arterial blood by Pulse oximetry 95 % 95 % [facility] ([facility], ) Room Air Body height 62 [in_i] 62 [in_i] [facility], [facility] 5'2" Systolic blood pressure 124 mm[Hg] 124 mm[Hg] [facility] ([facility], ) Diastolic blood pressure 80 mm[Hg] 80 mm[Hg] [facility] ([facility]) [place] body weight 110 [lb_av] 110 [lb_av] [facility] T ([facility]) Systolic blood pressure 120 mm[Hg] 120 mm[Hg] [facility] ([facility]) Diastolic blood pressure 70 mm[Hg] 70 mm[Hg] [facility] Heart rate 78 /min 78 /min [facility] Body weight 106.00 [lb_av] 106.00 [lb_av] [facility] T ([facility]) Body height 62 [in_i] 62 [in_i] [facility]) 5'2" Body mass index (BMI) [Ratio] 19.4 kg/m2 19.4 k g/m2 [facility]) Systolic blood pressure 119 mm[Hg] 119 mm[Hg] [facility] Diastolic blood pressure 82 mm[Hg] 82 mm[Hg] [facility]) Heart rate 91 /min 91 /min [facility] ([facility]) Body height 62 [in_i] 62 [in_i] [facility]) 5'2" Body weight 111.00 [lb_av] 111.00 [lb_av] [facility] T ([facility]) Body mass index (BMI) [Ratio] 20.3 kg/m2 20.3 k g/m2 [facility] ([facility]) Oxygen saturation in Arterial blood by Pulse oximetry 98 % 98 % [facility] ([facility]) Systolic blood pressure 100 mm[Hg] 100 mm[Hg] M EDENT ([facility]) Diastolic blood pressure 60 mm[Hg] 60 mm[Hg] [facility] ([facility]) Heart rate 92 /min 92 /min [facility] ([facility]) Body height 62 [in_i] 62 [in_i] [facility] ([facility]) 5'2" Body weight 111.00 [lb_av] 111.00 [lb_av] [facility] T ([facility]) Body mass index (BMI) [Ratio] 20.3 kg/m2 20.3 k g/m2 [facility] ([facility]) Body weight 120 [lb_av] 120 [lb_av] eCW1 ([facility]) Body weight 54.43 kg 54.43 kg W1 ([facility]) Body height 61.8 [in_i] 61.8 [in_i] eCW1 ([facility]) Body mass index (BMI) [Ratio] 22.09 kg/m2 22.09 kg/m2 W1 ([facility]) Heart rate 83 /min 83 /min W1 ([facility]) Respiratory rate 18 /min 18 /min W1 ([facility]) Body temperature 96.8 [degF] 96.8 [degF] eCW1 ( [facility]) Systolic blood pressure 118 mm[Hg] 118 mm[Hg] e CW1 ([facility]) Diastolic blood pressure 72 mm[Hg] 72 mm[Hg] eCW1 ([facility]) Body height 154.94 cm 154.94 cm [facility] Body weight 53.524 kg 53.524 kg [facility] ([facility]) Systolic blood pressure 122 mm[Hg] 122 mm[Hg] N extGen ([facility]) Diastolic blood pressure 80 mm[Hg] 80 mm[Hg] [facility] ([facility]) Body mass index (BMI) [Ratio] 22.30 kg/m2 22.30 kg/m2 [facility] ([facility]) Systolic blood pressure 122 mm[Hg] 122 mm[Hg] [facility] Diastolic blood pressure 72 mm[Hg] 72 mm[Hg] [facility] ([facility]) Heart rate 80 /min 80 /min [facility] ([facility]) Body height 62 [in_i] 62 [in_i] [facility] ([facility]) 5'2" Body weight 119.00 [lb_av] 119.00 [lb_av] [facility] T ([facility]) Body mass index (BMI) [Ratio] 21.8 kg/m2 21.8 k g/m2 [facility] ([facility]) Diastolic blood pressure 78 mm[Hg] 78 mm[Hg] [facility] Body mass index (BMI) [Ratio] 23.2 kg/m2 23.2 k g/m2 [facility] ([facility]) Systolic blood pressure 120 mm[Hg] 120 mm[Hg] M EDENT ([facility]) Heart rate 68 /min 68 /min [facility] ([facility]) Body height 62 [in_i] 62 [in_i] [facility] ([facility]) 5'2" Body weight 127.00 [lb_av] 127.00 [lb_av] MED[facility] T ([facility]) Body height 154.94 cm 154.94 cm [facility] ([facility]) Body weight 58.060 kg 58.060 kg [facility] ([facility]) Systolic blood pressure 122 mm[Hg] 122 mm[Hg] N extGen ([facility]) Diastolic blood pressure 76 mm[Hg] 76 mm[Hg] [facility] ([facility]) Body mass index (BMI) [Ratio] 24.19 kg/m2 24.19 kg/m2 [facility] ([facility]) Body weight 143 [lb_av] 143 [lb_av] eCW1 ([facility]) Body weight 64.86 kg 64.86 kg eCW1 ([facility]) Body height 61.8 [in_i] 61.8 [in_i] eCW1 ([facility]) Body mass index (BMI) [Ratio] 26.32 kg/m2 26.32 kg/m2 eCW1 ([facility]) Heart rate 65 /min 65 /min eCW1 ([facility]) Respiratory rate 18 /min 18 /min eCW1 ([facility]) Body temperature 97.6 [degF] 97.6 [degF] eCW1 ( [facility]) Systolic blood pressure 120 mm[Hg] 120 mm[Hg] e CW1 ([facility]) Diastolic blood pressure 62 mm[Hg] 62 mm[Hg] eCW1 ([facility]) Diastolic blood pressure 72 mm[Hg] 72 mm[Hg] [facility] ([facility]) Heart rate 80 /min 80 /min [facility] ([facility]) Systolic blood pressure 118 mm[Hg] 118 mm[Hg] M EDENT ([facility]) Body height 62 [in_i] 62 [in_i] [facility] ([facility]) 5'2" Body weight 135.00 [lb_av] 135.00 [lb_av] MED[facility] T ([facility]) Body mass index (BMI) [Ratio] 24.7 kg/m2 24.7 k g/m2 [facility] ([facility]) ID Date Data Source [id number] 03/02/2020 10:01:46 AM [facility] Name Value Range Interpretation Code Description Data Source(s) WEIGHT RECORDED 132.00 pounds 132.00 pounds [facility] Height 61 Inches 061 Inches [facility] Patient Treatment Plan of Care Planned Activity Planned Date Details Description Data Source (s) Sulfasalazine 500 MG Oral Tablet 06/27/2020 12:00:00 AM EDT [facility] ([facility]) Folic Acid 1 MG Oral Tablet 06/27/2020 12:00:00 AM EDT [facility] ([facility]) Sulfasalazine 500 MG Oral Tablet 06/01/2020 12:00:00 AM EST [facility] ([facility]) Sulfasalazine 500 MG Oral Tablet 03/01/2020 12:00:00 AM EST [facility] ([facility]) Sulfasalazine 500 MG Oral Tablet 11/26/2019 12:00:00 AM EDT [facility] ([facility]) Prednisone 5 MG Oral Tablet 11/12/2019 12:00:00 AM EDT [facility] ([facility]) Folic Acid 1 MG Oral Tablet 04/27/2019 12:00:00 AM EST [facility] ([facility]) prednisolone acetate 10 MG/ML Ophthalmic Suspension [facility] ([facility]) travoprost 0.04 MG/ML Ophthalmic Solution [Travatan] [facility] ([facility]) brinzolamide 10 MG/ML Ophthalmic Suspension [Azopt] [facility] ([facility])
[2021-03-02] MEDS ORDERED: BREO1INH3 (17:53)
[2021-03-02] MEDS ORDERED: ALBU8.5H (17:53)
[2021-03-03 00:11] LABS: BASO # 0.1 10^3/uL (0.0-0.2); BASO % 0.5 % (0.0-1.0); EOS # 0.1 10^3/uL (0.0-0.5); HEMATOCRIT 37.9 % (36.0-47.0); HEMOGLOBIN 13.1 g/dl (12.0-15.5); MEAN CORPUSCULAR HEMOGLOBIN 33.1 pg (27.0-33.0); MEAN CORPUSCULAR HGB CONC 34.6 g/dl (32.0-36.5); MEAN CORPUSCULAR VOLUME 95.7 fl (80.0-96.0); NEUTROPHILS # 7.7 10^3/uL (1.5-8.5); NEUTROPHILS % 70.6 % (36.0-66.0); PLATELET COUNT, AUTOMATED 249 10^3/uL (150-450); RED BLOOD COUNT 3.96 10^6/uL (4.00-5.40); WHITE BLOOD COUNT 10.9 10^3/uL (4.0-10.0)
[2021-03-03 00:14] LABS: INR 0.94
[2021-03-03 00:15] LABS: PARTIAL THROMBOPLASTIN TIME 41.6 SECONDS (25.9-37.0)
--- OUTSIDE RECORDS SUMMARY | 2021-03-03 00:20 | CCD ---
Author Author [facility] Organization [facility] Address Unknown Phone Unavailable Care Team Providers Care Umbrella Finisher Name Role Phone LePine, M Jayne DRAINMAN Unavailable Unavailable LePine, M Jayne DRAINMAN Unavailable Unavailable LePine, M Jayne DRAINMAN Unavailable Unavailable LePine, M Jayne DRAINMAN Unavailable Unavailable LePine, M Jayne DRAINMAN Unavailable Unavailable LePine, M Jayne DRAINMAN Unavailable Unavailable LePine, M Jayne DRAINMAN Unavailable Unavailable LePine, M Jayne DRAINMAN Unavailable Unavailable LePine, M Jayne DRAINMAN Unavailable Unavailable LePine, M Jayne DRAINMAN Unavailable Unavailable LePine, M Jayne DRAINMAN Unavailable Unavailable LePine, M Jayne DRAINMAN Unavailable Unavailable LePine, M Jayne DRAINMAN Unavailable Unavailable LePine, M Jayne DRAINMAN Unavailable Unavailable LePine, M Jayne DRAINMAN Unavailable Unavailable LePine, M Jayne DRAINMAN Unavailable Unavailable LePine, M Jayne DRAINMAN Unavailable Unavailable LePine, M Jayne DRAINMAN Unavailable Unavailable LePine, M Jayne DRAINMAN Unavailable Unavailable LePine, M Jayne DRAINMAN Unavailable Unavailable LePine, M Jayne DRAINMAN Unavailable Unavailable LePine, M Jayne DRAINMAN Unavailable Unavailable LePine, M Jayne DRAINMAN Unavailable Unavailable LePine, M Jayne DRAINMAN Unavailable Unavailable LePine, M Jayne DRAINMAN Unavailable Unavailable LePine, M Jayne DRAINMAN Unavailable Unavailable LePine, M Jayne DRAINMAN Unavailable Unavailable LePine, M Jayne DRAINMAN Unavailable Unavailable LePine, M Jayne DRAINMAN Unavailable Unavailable LePine, M Jayne DRAINMAN Unavailable Unavailable LePine, M Jayne DRAINMAN Unavailable Unavailable LePine, M Jayne DRAINMAN Unavailable Unavailable LePine, M Jayne DRAINMAN Unavailable Unavailable LePine, M Jayne DRAINMAN Unavailable Unavailable LePine, M Jayne DRAINMAN Unavailable Unavailable LePine, M Jayne DRAINMAN Unavailable Unavailable LePine, M Jayne DRAINMAN Unavailable Unavailable LePine, M Jayne DRAINMAN Unavailable Unavailable LePine, M Jayne DRAINMAN Unavailable Unavailable LePine, M Jayne DRAINMAN Unavailable Unavailable LePine, M Jayne DRAINMAN Unavailable Unavailable LePine, M Jayne DRAINMAN Unavailable Unavailable LePine, M Jayne DRAINMAN Unavailable Unavailable LePine, M Jayne DRAINMAN Unavailable Unavailable LePine, M Jayne DRAINMAN Unavailable Unavailable LePine, M Jayne DRAINMAN Unavailable Unavailable LePine, M Jayne DRAINMAN Unavailable Unavailable LePine, M Jayne DRAINMAN Unavailable Unavailable LePine, M Jayne DRAINMAN Unavailable Unavailable LePine, M Jayne DRAINMAN Unavailable Unavailable LePine, M Jayne DRAINMAN Unavailable Unavailable LePine, M Jayne DRAINMAN Unavailable Unavailable LePine, M Jayne DRAINMAN Unavailable Unavailable LePine, M Jayne DRAINMAN Unavailable Unavailable LePine, M Jayne DRAINMAN Unavailable Unavailable LePine, M Jayne DRAINMAN Unavailable Unavailable LePine, M Jayne DRAINMAN Unavailable Unavailable NO, PCP Unavailable Unavailable Rc [...] Unavailable Unavailable Rc Rae MD Unavailable Unavailable cR Rae MD Unavailable Unavailable Pikarsky, Sharan STATION SUPERINTENDENT Unavailable Unavailable Pikarsky, Sharan STATION SUPERINTENDENT Unavailable Unavailable Pikarsky, Sharan STATION SUPERINTENDENT Unavailable Unavailable Pikarsky, Sharan STATION SUPERINTENDENT Unavailable Unavailable Pikarsky, Sharan STATION SUPERINTENDENT Unavailable Unavailable Pikarsky, Sharan STATION SUPERINTENDENT Unavailable Unavailable Pikarsky, Sharan STATION SUPERINTENDENT Unavailable Unavailable Pikarsky, Sharan STATION SUPERINTENDENT Unavailable Unavailable Pikarsky, Sharan STATION SUPERINTENDENT Unavailable Unavailable Pikarsky, Sharan STATION SUPERINTENDENT Unavailable Unavailable Pikarsky, Sharan STATION SUPERINTENDENT Unavailable Unavailable Pikarsky, Sharan STATION SUPERINTENDENT Unavailable Unavailable Pikarsky, Sharan STATION SUPERINTENDENT Unavailable Unavailable Pikarsky, Sharan STATION SUPERINTENDENT Unavailable Unavailable Pikarsky, Sharan STATION SUPERINTENDENT Unavailable Unavailable Pikarsky, Sharan STATION SUPERINTENDENT Unavailable Unavailable Pikarsky, Sharan STATION SUPERINTENDENT Unavailable Unavailable Pikarsky, Sharan STATION SUPERINTENDENT Unavailable Unavailable Pikarsky, Sharan STATION SUPERINTENDENT Unavailable Unavailable Pikarsky, Sharan STATION SUPERINTENDENT Unavailable Unavailable Pikarsky, Sharan STATION SUPERINTENDENT Unavailable Unavailable Pikarsky, Sharan STATION SUPERINTENDENT Unavailable Unavailable Pikarsky, Sharan STATION SUPERINTENDENT Unavailable Unavailable Pikarsky, Sharan STATION SUPERINTENDENT Unavailable Unavailable Pikarsky, Sharan STATION SUPERINTENDENT Unavailable Unavailable Pikarsky, Sharan STATION SUPERINTENDENT Unavailable Unavailable Pikarsky, Sharan STATION SUPERINTENDENT Unavailable Unavailable Pikarsky, Sharan STATION SUPERINTENDENT Unavailable Unavailable Pikarsky, Sharan STATION SUPERINTENDENT Unavailable Unavailable Pikarsky, Sharan STATION SUPERINTENDENT Unavailable Unavailable Everette Ortega MD Unavailable Unavailable [...] is protected by Article 27-F of the [facility] Public Health law. If you continue you may have access to information: Regarding HIV / AIDS; Provided by facilities licensed or operated by the [facility] Office of Mental Health; or Provided by the [facility] Office for People With Developmental Disabilities. If such information is present, then the following [facility] mandated warning applies: This information has been [...] law may result in a fine or shelter sentence or both. A general authorization for the release of medical or other information is NOT sufficient authorization for further disc losure. Allergies and Adverse Reactions Type Description Substance Reaction Status Data Source(s ) Drug allergy NICKEL NICKEL SORE [facility]RO[facility] Family History Family Member Name Family Member Gender Family Member Status Date o f Status Description Data Source(s) Unknown Male Problem (finding) 06/25/2017 12:00:00 AM EDT [facility] ([facility]) Unknown Male Problem (finding) 06/25/2017 12:00:00 AM EDT [facility] ([facility]) Unknown Unknown Problem [facility] ([facility]) Unknown Unknown Problem [facility] ([facility] ) Unknown Female Problem MEDENT ([facility]) Unknown Female Problem MEDENT ([facility] Encounters Encounter Providers Location Date Indications Data Source(s ) [place] [address] [facility] [address] 01/06/2021 12:00:00 AM EDT eCW1 ([facility]) Outpatient Attender: Krzysztof Sims/Jeanna/Luis/Sarah cook 12/20/2020 02:45:00 PM EDT MEDENT ([facility], ) Outpatient Attender: Krzysztof Sims/Deanne/Sarah cook 12/14/2020 01:00:00 PM EDT [facility] Outpatient Attender: Krzysztof Sims/[place]/Fitz cook 11/14/2020 10:00:00 AM EDT [facility] ([facility] [place] [address] [facility] [address] 10/28/2020 12:00:00 AM EDT eCW1 ([facility]) Outpatient Attender: Kiko Shipman 10/11 03:00:00 PM EDT MEDENT ([facility] ) Outpatient Attender: Jayne Shipman 09/02 09:20:00 AM EDT [facility] ([facility] ) [place] [address] [facility] [address] 07/08/2020 12:00:00 AM EDT eCW1 ([facility]) OFFICE/OUTPATIENT VISIT, ESTOutpatient Attender: Sharan paulino NP [facility] 06/27/2020 11:40:00 AM EDT - 06/27/2020 11:40:00 AM ED T Other usp (current) drug therapyRheumatoid arthritis with rheumatoid factor of multiple sites without organ or systems involvement Next[facility] ([facility]) 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 Rheumatoid arthritis with rheumatoid fac tor of multiple sites without organ or systems involvement [place] [address] [facility] [address] 06/24/2020 12:00:00 AM EDT eCW1 ([facility]) Outpatient Attender: Kiko Shipman 06/21 03:00:00 PM EDT MEDENT ([facility] ) Attender: Sharan Mora NP [facility] 06/01/2020 02:19:00 PM EST - 06/01/2020 02:19:00 PM EST [facility] ( [facility]) [place] [address] [facility] [address] 05/12/2020 12:00:00 AM EST eCW1 ([facility]) [place] [address] [facility] [address] 04/27/2020 12:00:00 AM EST eCW1 ([facility]) Outpatient Attender: Kiko Shipman 04/12 10:00:00 AM EST MEDENT ([facility] ) OutpatientOFFICE/OUTPATIENT VISIT, EST Attender: Sharan paulino NP [facility] 03/22/2020 12:20:00 PM EST - 03/22/2020 12:20:00 PM ES T 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Rheumatoid arthritis without rheumatoid factor, multiple sites Next[facility] ([facility]) Other usp (current) drug therapy Rheumatoid arthritis without rheumatoid factor, multiple sites Attender: Sharan Mora NP [facility] 03/01/2020 03:16:00 PM EST - 03/01/2020 03:16:00 PM EST [facility] ( [facility]) Outpatient Attender: Everette Ortega MDConsultant: PCP DONAVON 02/10/2020 08:00:00 AM EST - 02/10/2020 11:46:00 AM EST [facility] Patient discharged. Outpatient Attender: Everette Ortega MDConsultant: PCP DONAVON 02/03/2020 08:00:00 AM EST - 02/03/2020 09:58:00 AM EST [facility] Patient discharged. Outpatient Attender: Everette Ortega MDConsultant: PCP DONAVON 01/28/2020 10:51:27 AM EDT - 02/02/2020 12:20:00 PM EST [facility] Patient discharged. [place] [address] [facility] [address] 01/18/2020 12:00:00 AM EDT eCW1 ([facility]) [facility] [address] [place] [address] 01/14/2020 12:00:00 AM EDT eCW1 ([facility]) Outpatient Attender: Kiko Shipman 01/05 10:30:00 AM EDT MEDENT ([facility] ) Immunizations Vaccine Date Status Description Data Source(s) COVID-19 VACCINE Moderna 02/08/2021 12:00:00 AM EST completed NYSIIS Vaccine Series Complete: YESThis Data wa s Submitted to [facility] Via [facility]. Influenza, injectable, MDCK, preservative free, nandini valent 01/12/2021 10:23:00 AM EDT completed [facility] ([facility]) COVID-19 VACCINE Moderna 07/09/2020 12:00:00 AM EDT completed NYSIIS Vaccine Series Complete: YESThis Data wa s Submitted to [facility] Via [employer]. Covid 19 Moderna Vaccine 06/03/2020 12:00:00 AM EST completed Covid 19 Moderna Vaccine [facility] ([facility]) Source: Other Provider COVID-19 VACCINE Moderna 06/03/2020 12:00:00 AM EST completed NYSIIS Vaccine Series Complete: NOThis Data was Submitted to [facility] Via [employer]. Influenza, injectable, MDCK, preservative free, nandini valent 01/12/2020 12:00:00 AM EDT completed Flucelvax [facility] ([facility]) Note: approx ; Source: Other Provider Influenza, injectable, MDCK, preservative free, nandini valent 01/06/2020 10:55:00 AM EDT completed [facility] ([facility]) Medications Medication Brand Name Start Date Product Form Dose Route Admi nistrative Instructions Pharmacy Instructions Status Indications Reaction Description Data Source(s) Administration Of Flu Vaccine 01/12/2021 12:00:00 AM EDT completed [facility] ([facility]) Medication administered onsite 60 ACTUAT Albuterol 0.09 MG/ACTUAT Metered Dose Inhaler Albu terol Sulfate HFA 12/20/2020 12:00:00 AM EDT ORAL active MEDENT ([facility], ) 30 ACTUAT fluticasone furoate 0.2 MG/ACT UAT / vilanterol 0.025 MG/ACTUAT Dry Powder Inhaler [Breo] Breo Ellipta 12/20/2020 12:00:00 AM EDT RESPIRATORY active MEDENT ([facility], ) Cholecalciferol 97751 UNT Oral Tablet Vitamin D3 Ultra Poten cy 10/11/2020 12:00:00 AM EDT active M EDENT ([facility]) Vitamin B 12 3 MG Sublingual Tablet Vitamin B12 10/11/2020 12:00:00 A M EDT ORAL active MEDENT ([facility]) 1 ML denosumab 60 MG/ML Prefilled Syringe [Prolia] Prolia 10/11/2020 12:00:00 AM EDT active MEDENT ([facility]) letrozole 2.5 MG Oral Tablet Letrozole 10/11/2020 12:00:00 AM EDT ORAL active MEDENT ([facility]) Folic Acid 1 MG Oral [...] 06/21/2020 12:00:00 AM EDT ORAL active MEDENT ([facility]) Sulfasalazine 500 MG Oral Tablet sulfasalazine [...] System 04/15/2020 12:00:00 AM EST active MEDENT ([facility]) Onetouch Delica Lancing Dev 04/15/2020 12:00:00 AM EST active MEDENT ([facility]) Onetouch Delica Plus Lancets Extra Fine 33G 04/15/2020 12:00 :00 AM EST active MEDENT ([facility]) Onetouch Verio 04/15/2020 12:00:00 AM EST act luis MEDENT ([facility]) Onetouch Ultrasoft Lancets 04/15/2020 12:00:00 AM EST active MEDENT ([facility]) 24 HR Metformin hydrochloride 500 MG Extended Release Oral Tablet Metformin HCL ER 04/12/2020 12:00:00 AM EST ORAL active MEDENT ([facility]) Sulfasalazine 500 MG Oral Tablet sulfasalazine [...] Vaccine 01/06/2020 12:00:00 AM EDT completed [facility]) Medication administered onsite Sulfasalazine 500 [...] completed travoprost 0.04 MG/ML Ophthalmic Solution [facility] brinzolamide 10 MG/ML Ophthalmic Suspens ion [Azopt] Azopt 1 % eye drops,suspension Azopt 1 % eye drops,suspension 1.00 drop OPHTHA LMIC completed brinzolamide 10 MG/ML Ophthalmic Suspension [Azopt] [facility]) prednisolone acetate 10 MG/ML Ophthalmic Suspension prednisolone acetate 1 % eye drops,suspension prednisolone acetate 1 % eye drops,suspension 1 drop OPHTHALMIC completed instill 1 drop by ophthalmic route 3 times every day into affected eye(s) Next ([facility]) Insurance Providers Payer name Policy type / Coverage type Policy ID Covered green party ID Covered green party's relationship to zuleta Policy [place] Plan Information Medicare Natl Govt Servic Medicare Primary [id number] Self [id number] Medicare Natl Govt Servic Medicare Primary [id number] Self [id number] Medicare Natl Govt Servic Medicare Primary [id number] Self Medicare Natl Govt Serv Medicare Primary [id number] Self [id number] MEDICARE BLUE PPO 306 [id number] SP [id number] Medicare Blue Ppo Commercial [id number] Self [id number] MEDICARE BLUE PPO 306 [id number] SP [id number] Medicare Blue Ppo Commercial [id number] Self [id number] Medicare Blue Ppo Commercial [id number] Self [id number] MEDICARE BLUE PPO 306 [id number] SP [id number] Place[employer]ine [id number] [facility] Medicare Aga Commercial [id number] Self [id number] MEDICARE COMPLETE [id number] SP [id number] TODAYS OPTIONS [id number] SP [id number] [employer] [id number] 00 [id number] Self [id number] 00 WELLCARE [id number] SP [id number] WELLCARE MEDICARE HMO G [id number] Self [id number] Medicare Medigap Part B [id number] Self BC/BS OF [place] P [id number] S [id number] WELLCARE [id number] SP [id number] WELLCARE [id number] SP [id number] WELLCARE [id number] SP [id number] WELLCARE [id number] SP [id number] WELLCARE -O/P [id number] 18 [id number] WELLCARE [id number] SP [id number] WELLCARE O [id number] O [id number] MEDICARE [id number] SP [id number] WELLCARE O [id number] S [id number] [place] Medicare Primary [id number] Self [id number] United[employer] Medicare Commercial [id number] Self [id number] [facility] [id number] SP [id number] MEDICARE COMPLETE-UHC O [id number] S [id number] MEDICAID [id number] SP [id number] [employer] BCBS B [id number] S [id number] Blue Shield MCR Advantage Commercial [id number] Self BS [place] Commercial [id number] Self Problems, Conditions, and Diagnoses Code Display Name Description Problem Type Effective Dates Data Source(s) 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, left eye, stage uns pecified Pigmentary glaucoma, left eye, stage unspecified Diagnosis 02/10/2020 08:00:00 AM [facility] 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, right eye, stage un specified Pigmentary glaucoma, right eye, stage unspecified Diagnosis 02/03/2020 08:00:00 AM [facility] [id number] Encounter for other preprocedural examin ation Encounter for other preprocedural examination Diagnosis 02/02/2020 11:40:00 AM [facility] C50.919 Malignant neoplasm of female breast Inva sive lobular carcinoma of breast in female Problem 12/30/2020 12:00:00 AM EDT eCW1 ([facility]) Surgeries/Procedures Procedure Description Date Indications Data Source(s) DEMO&/EVAL OF PT UTILIZ AERSL GEN/NEB/INHLR/IPPB 12/20 12:00:00 AM EDT MEDENT ([facility], ) OFFICE OUTPATIENT VISIT 25 MINUTES 12/20/2020 12:00:00 AM EDT MEDENT ([facility], ) Bronchospasm Evaluation 12/15/2020 12:00:00 AM EDT MEDENT ([facility], ) Plethysmography Determination Lung Volumes & Per Airway Resi st 12/15/2020 12:00:00 AM EDT MEDENT ([facility], ) DIFFUSING CAPACITY 12/15/2020 12:00:00 AM EDT MEDENT ([facility]) OFFICE OUTPATIENT VISIT 25 MINUTES 12/14/2020 12:00:00 AM EDT MEDENT ([facility]) OFFICE OUTPATIENT NEW 45 MINUTES 11/14/2020 12:00:00 A M EDT MEDENT ([facility]) OFFICE OUTPATIENT VISIT 25 MINUTES 10/11/2020 12:00:00 AM EDT MEDENT ([facility]) OFFICE OUTPATIENT VISIT 25 MINUTES 09/02/2020 12:00:00 AM EDT MEDENT ([facility]) RBC SED RATE, AUTOMATED 06/27/2020 12:00 [...] 15 MINUTES 06/21/2020 12:00:00 AM EDT MEDENT ([facility]) OFFICE/OUTPATIENT VISIT, EST 03/22/2020 12:00:00 AM [...] W/I&R 01/06/2020 12:00: 00 AM EDT MEDENT ([facility]) Results ID Date Data Source [id number] 12/13/2020 03:33:00 PM EDT MEDENT ([facility]) Name Value Range Interpretation Code Description Data Luciana rce(s) Supporting Document(s) Parathyrin.intact [Mass/volume] in Serum or Plasma 63.5 pg/mL 18.5-88 .0 [facility] ([facility]) Calcium.ionized [Mass/volume] in Serum o r Plasma by Ion-selective membrane electrode (ISE) 5.5 mg/dL 4.5-5.3 [facility] ([place] [facility]) C reactive protein [Mass/volume] in Serum or Plasma by High sensitivity method 0.62 mg/dL 0.00-0.30 MED[facility] ([facility] ) ID Date Data Source [id number] 12/13/2020 03:32:00 PM EDT MEDENT ([facility]) Name Value Range Interpretation Code Description Data Luciana rce(s) Supporting Document(s) Glucose [Mass/volume] in Serum or Plasma 218 mg/dL 74-99 [facility] ([facility]) 100-125 mg/dL PRE-DIABETES/FASTING >126 mg/dL DIABETES/FASTING Creatinine 0.9 mg/dL 0.6-1.3 MEDENT ([facility]) Sodium [Moles/volume] in Serum or Plasma 140 meq/L 136-145 [facility] ([facility]) Urea nitrogen [Mass/volume] in Serum or Plasma 14 mg/dL 7-18 [facility] ([facility]) Chloride [Moles/volume] in Serum or Plasma 103 meq/L 98-107 [facility] ([facility]) Potassium [Moles/volume] in Serum or Plasma 4.0 meq/L 3.5-5.1 [facility] ([facility]) Alkaline phosphatase isoenzyme [Units/volume] in Serum or Pl asma 54 mg/dL 46-116 [facility] ([facility]) Calcium [Mass/volume] in Serum or Plasma 10.5 mg/dL 8.5-10.1 [facility] ([facility]) NOTE: RESULT VERIFIED. Carbon dioxide, total [Moles/volume] in Serum or Plasma 32 meq/L 21 -32 MED[facility] ([facility]) Total Bilirubin 0.3 mg/dL 0.2-1.0 MEDENT ([facility]) Aspartate aminotransferase [Enzymatic activity/volume] in Serum or Plasma 19 U/L 15-37 MED[facility] ([facility] ) Albumin [Mass/volume] in Serum or Plasma 3.4 g/dL 3.4-5.0 [facility] ([facility]) Alanine aminotransferase [Enzymatic activity/volume] in Seru m or Plasma 19 U/L 12-78 [facility] ([facility]) Proteinase 3 Ab [Units/volume] in Serum 7.0 g/dL 6.4-8.2 [facility] ([facility]) Glomerular filtration rate/1.73 sq M pre dicted among blacks [Volume Rate/Area] in Serum or Plasma by Creatinine-based formula (MDRD) Laboratory [facility] [facility] <content>CHRONIC KIDNEY DISEASE STAGING PER NKF</content>
<content></content>
<content>STAGE I & II GFR >= 60 NORMAL TO MILDLY DECREASED</content>
<content>STAGE III GFR 30-59 MODERATELY DECREASED</content>
<content>STAGE IV GFR 15-29 SEVERELY DECREASED</content>
<content>STAGE V GFR <15 VERY LITTLE GFR LEFT</content>
<content>ESRD GFR <15 ON REPLANTING MACHINE CREWMAN</content>
<content></content> Glomerular filtration rate/1.73 sq M pre dicted among non-blacks [Volume Rate/Area] in Serum or Plasma by Creatinine-based formula (MDRD) Laboratory test result [facility] ([facility] ) A/G Ratio 0.94 CALC 1.00-1.90 [facility] ([facility] [place] [facility]) ID Date Data Source [id number] 12/13/2020 03:32:00 PM EDT [facility] ([facility]) Name Value Range Interpretation Code Description Data Luciana rce(s) Supporting Document(s) Hemoglobin A1c/Hemoglobin.total in Blood 6.6 % [facility] ([facility]) Lab Result Notes: Pre-Diabetes 5.7 - 6.4 % Diabetes = or > 6.5% Glucose mean value [Mass/volume] in Blood Estimated fr om glycated hemoglobin 143 mg/dL 60-110 [facility] ([facility] ) ID Date Data Source [id number] 12/13/2020 03:32:00 PM EDT [facility] Name Value Range Interpretation Code Description Data Luciana rce(s) Supporting Document(s) Hemoglobin A1c/Hemoglobin.total in Blood Laboratory test result [facility] ([facility]) Erythrocyte sedimentation rate by Westergren method 30 mm/hr 0-15 [facility] ([facility]) ID Date Data Source [id number] 12/13/2020 03:32:00 PM EDT [facility] ([facility]) Name Value Range Interpretation Code Description Data Luciana rce(s) Supporting Document(s) Leukocytes [#/volume] in Blood by Automated count 11.6 x10*3/UL 4.1-1 0.9 [facility] ([facility]) NOTE: RESULT VERIFIED. Hematocrit [Volume Fraction] of Blood by Automated count 41.5 % 3 7.0-51.0 [facility] ([facility]) Erythrocytes [#/volume] in Blood by Automated count 4.39 x10*6/UL 4.2 0-6.30 [facility] [facility] Hemoglobin [Mass/volume] in Blood 14.1 g/dL 12.0-18.0 [facility] ([facility]) MCH 32.1 pg 26.0-32.0 [facility] ([facility]) MCV 94.4 fL 80.0-97.0 [facility] ([facility]) MCHC 34.0 g/dL 31.0-38.0 [facility] ([facility]) Platelets [#/volume] in Blood by Automated count 302 x10*3/UL 140-440 [facility] ([facility]) Erythrocyte distribution width [Ratio] by Automated count 12.7 % 11.6-13.7 [facility] ([place] [facility] MPV 9.0 FL 7.8-11.0 [facility] ([facility]) Mid % 6.3 % 1.7-9.3 [facility] ([facility]) Lymph % 21.4 % 10.0-58.5 [facility] ([facility]) Lymph # 2.5 x10*3/UL 0.6-4.1 [facility] ([facility]) Neut % 72.3 % 37.0-92.0 [facility] ([facility]) Mid # 0.7 x10*3/UL 0.1-0.6 [facility] ([facility]) Neut # 8.4 x10*3/UL 2.0-7.8 [facility] ([facility]) ID Date Data Source [id number] 11/22/2020 10:16:00 AM EDT [facility] ([facility]) Name Value Range Interpretation Code Description Data Luciana rce(s) Supporting Document(s) Inr 0.93 [facility] ([facility]) THERAPUTIC HUMAN INR VALUES INDICATIONS NORMAL RANGES PROPHYLAXIS/TREATMENT OF: VENOUS THROMBOSIS 2.0-3.0 PULMONARY EMBOLISM 2.0-3.0 PREVENTION OF SYSTEMIC EMBOLISM FROM: TISSUE HEART VALVES 2.0-3.0 ACUTE MYOCARDIAL INFARCTION 2.0-3.0 VALVULAR HEART DISEASE 2.0-3.0 ATRIAL FIBRILLATION 2.0-3.0 MECHANICAL VALVES(HIGH RISK) 2.5-3.5 RECURRENT MYOCARDIAL INFARCTION 2.5-3.5 Prothrombin Time 12.8 s 12.7-14.5 [facility] ([facility]) Partial Thromboplastin Time 38.8 s 25.9-37.0 [facility] ([facility]) ID Date Data Source [id number] 11/22/2020 10:16:00 AM EDT [facility] ([facility]) Name Value Range Interpretation Code Description Data Luciana rce(s) Supporting Document(s) Platelets [#/volume] in Blood by Automated count 265 10 150-450 [facility] ([facility]) ID Date Data Source [id number] 11/22/2020 10:16:00 AM EDT [facility] ([facility], ) Name Value Range Interpretation Code Description Data Luciana rce(s) Supporting Document(s) Inr 0.93 Normal (applies to non-numeric resul ts) [facility] ([facility]) THERAPUTIC HUMAN INR VALUES INDICATIONS NORMAL RANGES PROPHYLAXIS/TREATMENT OF: VENOUS THROMBOSIS 2.0-3.0 PULMONARY EMBOLISM 2.0-3.0 PREVENTION OF SYSTEMIC EMBOLISM FROM: TISSUE HEART VALVES 2.0-3.0 ACUTE MYOCARDIAL INFARCTION 2.0-3.0 VALVULAR HEART DISEASE 2.0-3.0 ATRIAL FIBRILLATION 2.0-3.0 MECHANICAL VALVES(HIGH RISK) 2.5-3.5 RECURRENT MYOCARDIAL INFARCTION 2.5-3.5 Prothrombin Time 12.8 s 12.7-14.5 Normal (applies to non-numeric results) [facility] ([facility]) Partial Thromboplastin Time 38.8 s 25.9-37.0 Above high normal [facility] ([facility]) ID Date Data Source [id number] 11/22/2020 10:16:00 AM EDT [facility] ([facility]) Name Value Range Interpretation Code Description Data Luciana rce(s) Supporting Document(s) Platelets [#/volume] in Blood by Automated count 265 10 150-450 Normal (applies to non-numeric results) [facility] ([facility]) ID Date Data Source [id number] 10/14/2020 11:23:00 AM EDT [facility] ([facility] Name Value Range Interpretation Code Description Data Luciana rce(s) Supporting Document(s) Glucose, Fasting 126 mg/dL 70-100 [facility]) Blood Urea Nitrogen 16 mg/dL 7-18 [facility] ([facility]) Creatinine For GFR 0.62 mg/dL 0.55-1.30 [facility] ([facility]) Glomerular Filtration Rate Laboratory test result [facility] ([place] [facility]) <content>Units are mL/min/1.73 m2</content>
<content></content>
<content>Chronic Kidney Disease Staging per NKF:</content>
<content></content>
<content>Stage I & II GFR >=60 Normal to Mildly Decreased</content>
<content>Stage III GFR 30- 59 Moderately Decreased</content>
<content>Stage IV GFR 15-29 Severely Decreased</content>
<content>Stage V GFR <15 Very Little GFR Left</content>
<content>ESRD GFR <15 on REPLANTING MACHINE CREWMAN</content>
<content></content> Sodium Level 143 meq/L 136-145 [facility] ([facility]) Carbon Dioxide Level 29 meq/L 21-32 [facility] ([facility]) Potassium Serum 4.4 meq/L 3.5-5.1 [facility] ([facility]) Chloride Level 110 meq/L 98-107 [facility] ([facility]) Calcium Level 10.3 mg/dL 8.8-10.2 [facility] ([facility]) Anion Gap 4 meq/L 8-16 [facility] ([facility]) ID Date Data Source [id number] 10/10/2020 10:37:00 AM EDT [facility] ([facility]) Name Value Range Interpretation Code Description Data Luciana rce(s) Supporting Document(s) Calcium.ionized [Mass/volume] in Serum o r Plasma by Ion-selective membrane electrode (ISE) 5.2 mg/dL 4.5-5.3 [facility] ([facility]) ID Date Data Source [id number] 10/10/2020 10:36:00 AM EDT [facility] ([facility]) Name Value Range Interpretation Code Description Data Luciana rce(s) Supporting Document(s) Triglyceride [Mass/volume] in Serum or Plasma 186 mg/dL 30-150 [facility] ([facility]) Cholesterol [Mass/volume] in Serum or Plasma 183 mg/dL 131-200 [facility] ([facility]) Cholesterol in HDL [Mass/volume] in Serum or Plasma 67 mg/dL 35-60 [facility] ([facility]) Cholesterol in LDL [Mass/volume] in Serum or Plasma by calcu lation 79 CALC 50-159 [facility] ([facility]) ID Date Data Source [id number] 10/10/2020 10:36:00 AM EDT [facility] ([facility]) Name Value Range Interpretation Code Description Data Luciana rce(s) Supporting Document(s) Microalbumin Urine 29.8 mg/L 1.3-20.0 [facility] ([facility]) Urine Creatinine 141.3 mg/dL 30.0-125.0 [facility] ([facility]) Microalb/Creat Ratio 21.1 ug/mg 0.0-30.0 [facility] ( [facility]) ID Date Data Source [id number] 10/10/2020 10:36:00 AM EDT [facility] ([facility]) Name Value Range Interpretation Code Description Data Luciana rce(s) Supporting Document(s) Glucose [Mass/volume] in Serum or Plasma 138 mg/dL 74-99 [facility] ([facility]) 100-125 mg/dL PRE-DIABETES/FASTING >126 mg/dL DIABETES/FASTING Urea nitrogen [Mass/volume] in Serum or Plasma 17 mg/dL 7-18 [facility] ([facility]) Creatinine 0.7 mg/dL 0.6-1.3 [facility] ([facility]) Sodium [Moles/volume] in Serum or Plasma 141 meq/L 136-145 [facility] ([facility]) Potassium [Moles/volume] in Serum or Plasma 4.4 meq/L 3.5-5.1 [facility] ([facility]) Carbon dioxide, total [Moles/volume] in Serum or Plasma 29 meq/L 21 -32 [facility] ([facility]) Chloride [Moles/volume] in Serum or Plasma 104 meq/L 98-107 [facility] ([facility]) Calcium [Mass/volume] in Serum or Plasma 10.4 mg/dL 8.5-10.1 [facility] ([facility]) NOTE: RESULT VERIFIED. Alkaline phosphatase isoenzyme [Units/volume] in Serum or Pl asma 52 mg/dL 46-116 [facility] ([facility]) Total Bilirubin 0.5 mg/dL 0.2-1.0 [facility] ([facility]) Aspartate aminotransferase [Enzymatic activity/volume] in Serum or Plasma 15 U/L 15-37 [facility] ([facility] ) Alanine aminotransferase [Enzymatic activity/volume] in Seru m or Plasma 16 U/L 12-78 [facility] ([facility]) Albumin [Mass/volume] in Serum or Plasma 3.2 g/dL 3.4-5.0 [facility] ([place] [facility]) A/G Ratio 1.07 CALC 1.00-1.90 [facility]) Proteinase 3 Ab [Units/volume] in Serum 6.2 g/dL 6.4-8.2 [facility] ([place] [facility]) Glomerular filtration rate/1.73 sq M pre dicted among blacks [Volume Rate/Area] in Serum or Plasma by Creatinine-based formula (MDRD) Laboratory test result [facility] ([facility]) <content>CHRONIC KIDNEY DISEASE STAGING PER NKF</content>
<content></content>
<content>STAGE I & II GFR >= 60 NORMAL TO MILDLY DECREASED</content>
<content>STAGE III GFR 30-59 MODERATELY DECREASED</content>
<content>STAGE IV GFR 15-29 SEVERELY DECREASED</content>
<content>STAGE V GFR <15 VERY LITTLE GFR LEFT</content>
<content>ESRD GFR <15 ON REPLANTING MACHINE CREWMAN</content>
<content></content> Glomerular filtration rate/1.73 sq M pre dicted among non-blacks [Volume Rate/Area] in Serum or Plasma by Creatinine-based formula (MDRD) Laboratory test result [facility] ([place] [facility] ) ID Date Data Source [id number] 09/02/2020 10:08:00 AM EDT [facility] ([facility]) Name Value Range Interpretation Code Description Data Luciana rce(s) Supporting Document(s) Cobalamin (Vitamin B12) [Mass/volume] in Serum or Plasma 421 pg/mL 2 47-911 [facility] ([place] [facility]) VITAMIN B12 NORMAL RANGE NORMAL 247 - 911 PG/ML INDETERMINATE 211 - 246 PG/ML DEFICIENT LESS THAN 211 PG/ML Parathyrin.intact [Mass/volume] in Serum or Plasma 43.4 pg/mL 18.5-88 .0 [facility] ([place] [facility]) ID Date Data Source [id number] 09/02/2020 10:06:00 AM EDT [facility] ([facility]) Name Value Range Interpretation Code Description Data Luciana rce(s) Supporting Document(s) Calcidiol [Mass/volume] in Serum or Plasma 47.2 ng/mL 24.0-80.0 [facility] ([facility]) This test was performed using [employer] I P Vitamin D immunoassay kit. Values obtained with different assay methods should not be used interchangeably. ID Date Data Source [id number] 09/02/2020 10:05:00 AM EDT [facility] ([facility]) Name Value Range Interpretation Code Description Data Luciana rce(s) Supporting Document(s) Thyrotropin [Units/volume] in Serum or Plasma by Detec tion limit <= 0.05 mIU/L 2.61 uIU/mL 0.36-3.74 [facility] ([facility] ) ID Date Data Source [id number] 09/02/2020 10:05:00 AM EDT [facility] ([facility]) Name Value Range Interpretation Code Description Data Luciana rce(s) Supporting Document(s) Urea nitrogen [Mass/volume] in Serum or Plasma 15 mg/dL 7-18 [facility] ([facility]) Glucose [Mass/volume] in Serum or Plasma 146 mg/dL 74-99 [facility] ([facility]) 100-125 mg/dL PRE-DIABETES/FASTING >126 mg/dL DIABETES/FASTING Creatinine 0.8 mg/dL 0.6-1.3 [facility] ([facility]) Sodium [Moles/volume] in Serum or Plasma 142 meq/L 136-145 [facility] ([facility]) Potassium [Moles/volume] in Serum or Plasma 4.1 meq/L 3.5-5.1 [facility] ([facility]) Chloride [Moles/volume] in Serum or Plasma 105 meq/L 98-107 [facility] ([facility]) Carbon dioxide, total [Moles/volume] in Serum or Plasma 26 meq/L 21 -32 [facility] ([facility]) Calcium [Mass/volume] in Serum or Plasma 10.7 mg/dL 8.5-10.1 [facility] ([facility]) NOTE: CALCIUM,ALBUMIN,T.PROTEIN VERIFIED Alkaline phosphatase isoenzyme [Units/volume] in Serum or Pl asma 51 mg/dL 46-116 [facility] ([facility]) Total Bilirubin 0.4 mg/dL 0.2-1.0 [facility] ([facility]) Alanine aminotransferase [Enzymatic activity/volume] in Seru m or Plasma 14 U/L 12-78 [facility] ([facility]) Aspartate aminotransferase [Enzymatic activity/volume] in Serum or Plasma 12 U/L 15-37 [facility] ([facility] ) Proteinase 3 Ab [Units/volume] in Serum 6.2 g/dL 6.4-8.2 [facility] ([facility]) Albumin [Mass/volume] in Serum or Plasma 3.4 g/dL 3.4-5.0 [facility] ([facility]) A/G Ratio 1.21 CALC 1.00-1.90 [facility] ([facility]) Glomerular filtration rate/1.73 sq M pre dicted among blacks [Volume Rate/Area] in Serum or Plasma by Creatinine-based formula (MDRD) Laboratory test result [facility] ([facility]) <content>CHRONIC KIDNEY DISEASE STAGING PER NKF</content>
<content></content>
<content>STAGE I & II GFR >= 60 NORMAL TO MILDLY DECREASED</content>
<content>STAGE III GFR 30-59 MODERATELY DECREASED</content>
<content>STAGE IV GFR 15-29 SEVERELY DECREASED</content>
<content>STAGE V GFR <15 VERY LITTLE GFR LEFT</content>
<content>ESRD GFR <15 ON REPLANTING MACHINE CREWMAN</content>
<content></content> Glomerular filtration rate/1.73 sq M pre dicted among non-blacks [Volume Rate/Area] in Serum or Plasma by Creatinine-based formula (MDRD) Laboratory test result [facility] ([facility] ) ID Date Data Source [id number] 09/02/2020 10:05:00 AM EDT [facility] ([facility]) Name Value Range Interpretation Code Description Data Luciana rce(s) Supporting Document(s) Hemoglobin A1c/Hemoglobin.total in Blood 7.6 % [facility] ([place] [facility]) Lab Result Notes: Pre-Diabetes 5.7 - 6.4 % Diabetes = or > 6.5% Glucose mean value [Mass/volume] in Blood Estimated fr om glycated hemoglobin 171 mg/dL 60-110 [facility] ([place] [facility] ) ID Date Data Source [id number] 09/02/2020 10:05:00 AM EDT [facility] ([facility]) Name Value Range Interpretation Code Description Data Luciana rce(s) Supporting Document(s) Leukocytes [#/volume] in Blood by Automated count 11.3 x10*3/UL 4.1-1 0.9 [facility] ([place] [facility]) Erythrocytes [#/volume] in Blood by Automated count 4.59 x10*6/UL 4.2 0-6.30 [facility] ([place] [facility]) Hemoglobin [Mass/volume] in Blood 14.5 g/dL 12.0-18.0 [facility] ([facility]) MCH 31.5 pg 26.0-32.0 [facility] ([facility]) MCV 94.2 fL 80.0-97.0 [facility] ([facility]) Hematocrit [Volume Fraction] of Blood by Automated count 43.3 % 3 7.0-51.0 [facility] ([place] [facility]) Erythrocyte distribution width [Ratio] by Automated count 13.1 % 11.6-13.7 [facility] ([place] [facility]) MCHC 33.4 g/dL 31.0-38.0 [facility] ([facility]) Lymph % 16.8 % 10.0-58.5 [facility] ([facility]) Platelets [#/volume] in Blood by Automated count 336 x10*3/UL 140-440 [facility] ([place] [facility]) MPV 8.9 FL 7.8-11.0 [facility] ([facility]) Mid % 4.8 % 1.7-9.3 [facility] ([facility]) Neut % 78.4 % 37.0-92.0 [facility] ([facility]) Lymph # 1.9 x10*3/UL 0.6-4.1 [facility] ([facility]) Mid # 0.5 x10*3/UL 0.1-0.6 [facility] ([facility]) Neut # 8.9 x10*3/UL 2.0-7.8 [facility] ([facility]) ID Date Data Source [id number] 06/27/2020 11:55:00 AM EDT [facility] ([facility]) Name Value Range Interpretation Code Description Data Luciana rce(s) Supporting Document(s) 1.2 mg/dL 0.0-0.5 Above high normal CRP [facility] ([facility]) ID Date Data Source [id number] 06/27/2020 11:55:00 AM EDT [facility] ([facility]) Name Value Range Interpretation Code Description Data Luciana rce(s) Supporting Document(s) 0.9 mg/dL 0.6-1.2 CREATININE [facility] ([facility]) >60 eGFR Non- [facility] ([facility]) >60 eGFR [facility] ([facility]) ID Date Data Source [id number] 06/27/2020 11:55:00 AM EDT [facility] ([facility]) Name Value Range Interpretation Code Description Data Luciana rce(s) Supporting Document(s) 12 mg/dL 10-23 BUN [facility] ([facility]) ID Date Data Source [id number] 06/27/2020 11:55:00 AM EDT [facility] ([facility]) Name Value Range Interpretation Code Description Data Luciana rce(s) Supporting Document(s) 12 U/L 15-37 Below low normal AST [facility] ([facility]) ID Date Data Source [id number] 06/27/2020 11:55:00 AM EDT [facility] ([facility]) Name Value Range Interpretation Code Description Data Luciana rce(s) Supporting Document(s) 17 U/L 30-65 Below low normal ALT [facility] ([facility]) ID Date Data Source [id number] 06/27/2020 11:55:00 AM EDT [facility] ([facility]) Name Value Range Interpretation Code Description Data Luciana rce(s) Supporting Document(s) 3.6 g/dL 3.4-4.4 ALB [facility] ([facility]) ID Date Data Source [id number] 06/27/2020 11:55:00 AM EDT [facility] ([facility]) Name Value Range Interpretation Code Description Data Luciana rce(s) Supporting Document(s) 9 mm/Hr 0-20 ESR [facility] ([facility]) ID Date Data Source [id number] 06/27/2020 11:55:00 AM EDT [facility] ([facility]) Name Value Range Interpretation Code Description Data Luciana rce(s) Supporting Document(s) 4.45 10*6/uL 3.50-5.50 RBC [facility] ([facility]) 11.3 10*3/uL 3.7-10.1 Above high normal WBC [facility] ([facility]) 14.4 g/dL 12.0-16.0 HGB [facility] ([facility]) 45.4 % 36.0-48.0 HCT [facility] ([facility]) 32.4 pg 26.0-34.0 MCH [facility] ([facility]) 102.0 fL 80.0-100.0 Above high normal MCV [facility] ([facility]) 11.8 % 10.0-15.0 RDW [facility] ([facility]) 31.7 g/dL 31.0-37.0 MCHC [facility] ([facility]) 8.6 fL 6.0-10.0 MPV [facility] ([facility]) 291 10*3/uL 150-500 PLATELETS [facility] ([facility]) 7.56 10*3/uL 2.10-8.00 LIBERTAD# [facility] ([facility]) 2.57 10*3/uL 1.00-5.00 LYM# [facility] 0.1 10*3/uL 0.0-0.5 EOS# [facility] ([facility]) 0.85 10*3/uL 0.10-1.00 MONO# [facility] ([facility]) 22.8 % 25.0-50.0 Below low normal LYM% [facility] ([facility]) 67.1 % 50.0-80.0 LIBERTAD% [facility] ([facility]) 0.2 10*3/uL 0.0-0.2 BASO# [facility] ([facility]) 7.6 % 2.0-10.0 MONO% [facility] ([facility]) 0.9 % 0.0-5.0 EOS% [facility] ([facility]) 1.7 % 0.0-4.0 BASO% [facility] ([facility]) ID Date Data Source [id number] 06/20/2020 10:51:00 AM EDT [facility]) Name Value Range Interpretation Code Description Data Luciana rce(s) Supporting Document(s) Glucose mean value [Mass/volume] in Blood Estimated fr om glycated hemoglobin 235 mg/dL 60-110 [facility] ([place] [facility] ) Hemoglobin A1c/Hemoglobin.total in Blood 9.8 % [facility] ([facility]) Lab Result Notes: Pre-Diabetes 5.7 - 6.4 % Diabetes = or > 6.5% ID Date Data Source [id number] 06/20/2020 10:51:00 AM EDT [facility]) Name Value Range Interpretation Code Description Data Luciana rce(s) Supporting Document(s) Urea nitrogen [Mass/volume] in Serum or Plasma 10 mg/dL 7-18 [facility] ([facility]) Glucose [Mass/volume] in Serum or Plasma 160 mg/dL 74-99 [facility] ([facility]) 100-125 mg/dL PRE-DIABETES/FASTING >126 mg/dL DIABETES/FASTING Sodium [Moles/volume] in Serum or Plasma 143 meq/L 136-145 [facility] ([facility]) Creatinine 0.8 mg/dL 0.6-1.3 [facility] ([facility]) Chloride [Moles/volume] in Serum or Plasma 105 meq/L 98-107 [facility] ([facility]) Potassium [Moles/volume] in Serum or Plasma 3.7 meq/L 3.5-5.1 [facility] ([facility]) Calcium [Mass/volume] in Serum or Plasma 9.9 mg/dL 8.5-10.1 [facility] ([facility]) Carbon dioxide, total [Moles/volume] in Serum or Plasma 26 meq/L 21 -32 [facility] ([facility]) Alkaline phosphatase isoenzyme [Units/volume] in Serum or Pl asma 50 mg/dL 46-116 [facility] ([facility]) Total Bilirubin 0.5 mg/dL 0.2-1.0 [facility] ([facility]) Aspartate aminotransferase [Enzymatic activity/volume] in Serum or Plasma 13 U/L 15-37 [facility] ([facility] ) Alanine aminotransferase [Enzymatic activity/volume] in Seru m or Plasma 12 U/L 12-78 [facility] ([facility]) Proteinase 3 Ab [Units/volume] in Serum 6.3 g/dL 6.4-8.2 [facility] ([facility]) Albumin [Mass/volume] in Serum or Plasma 3.5 g/dL 3.4-5.0 [facility] ([facility]) A/G Ratio 1.25 CALC 1.00-1.90 [facility] ([facility]) Glomerular filtration rate/1.73 sq M pre dicted among non-blacks [Volume Rate/Area] in Serum or Plasma by Creatinine-based formula (MDRD) Laboratory test result [facility] ([place] [facility] Glomerular filtration rate/1.73 sq M pre dicted among blacks [Volume Rate/Area] in Serum or Plasma by Creatinine-based formula (MDRD) Laboratory test result [facility] ([place] [facility]) <content>CHRONIC KIDNEY DISEASE STAGING PER NKF</content>
<content></content>
<content>STAGE I & II GFR >= 60 NORMAL TO MILDLY DECREASED</content>
<content>STAGE III GFR 30-59 MODERATELY DECREASED</content>
<content>STAGE IV GFR 15-29 SEVERELY DECREASED</content>
<content>STAGE V GFR <15 VERY LITTLE GFR LEFT</content>
<content>ESRD GFR <15 ON REPLANTING MACHINE CREWMAN</content>
<content></content> ID Date Data Source [id number] 06/20/2020 10:51:00 AM EDT [facility] ([facility]) Name Value Range Interpretation Code Description Data Luciana rce(s) Supporting Document(s) Hemoglobin A1c/Hemoglobin.total in Blood Laboratory test result [facility] ([facility]) ID Date Data Source [id number] 05/25/2020 03:10:00 PM EST [facility] ([facility]) Name Value Range Interpretation Code Description Data Luciana rce(s) Supporting Document(s) Creatinine For GFR 0.81 mg/dL 0.55-1.30 [facility] ([facility] [facility]) Blood Urea Nitrogen 12 mg/dL 7-18 MED[facility] ([facility]) Glucose, Fasting 181 mg/dL 70-100 [facility] ([facility]) Sodium Level 140 meq/L 136-145 [facility] ([facility]) Glomerular Filtration Rate Laboratory test result [facility] ([place] [facility] <content>Units are mL/min/1.73 m2</content>
<content></content>
<content>Chronic Kidney Disease Staging per NKF:</content>
<content></content>
<content>Stage I & II GFR >=60 Normal to Mildly Decreased</content>
<content>Stage III GFR 30-59 Moderately Decreased</content>
<content>Stage IV GFR 15-29 Severely Decreased</content>
<content>Stage V GFR <15 Very Little GFR Left</content>
<content>ESRD GFR <15 on REPLANTING MACHINE CREWMAN</content>
<content></content> Potassium Serum 3.8 meq/L 3.5-5.1 [facility] ([facility]) Chloride Level 106 meq/L 98-107 MED[facility] ([facility]) Calcium Level 9.3 mg/dL 8.8-10.2 [facility] ([facility]) Carbon Dioxide Level 29 meq/L 21-32 [facility] ([facility]) Anion Gap 5 meq/L 8-16 [facility] [facility] Alt/SGPT 13 U/L 12-78 [facility] [facility] Ast/Sgot 8 U/L 7-37 [facility] ([place] [facility]) Total Protein 6.5 GM/DL 6.4-8.2 MED[facility] ([facility]) Alkaline Phosphatase 60 U/L 45-117 MED[facility] ([facility]) Bilirubin,Total 0.4 mg/dL 0.2-1.0 MED[facility] ([facility]) Albumin/Globulin Ratio 1.0 1.2-2.2 [facility] ([facility]) Albumin 3.2 GM/DL 3.2-5.2 [facility] ([place] [facility]) ID Date Data Source [id number] 05/25/2020 03:10:00 PM EST MEDENT ([facility]) Name Value Range Interpretation Code Description Data Luciana rce(s) Supporting Document(s) Red Blood Count 4.32 10 4.00-5.40 MED[facility] ([facility]) White Blood Count 9.4 10 4.0-10.0 MED[facility] ([facility]) Mean Corpuscular Volume 97.5 fl 80.0-96.0 [facility] ([facility]) Hemoglobin 13.8 g/dL 12.0-15.5 [facility] ([place] [facility]) Hematocrit 42.1 % 36.0-47.0 [facility] ([place] [facility]) Mean Corpuscular Hemoglobin 31.9 pg 27.0-33.0 ME DENT ([facility]) Mean Corpuscular HGB Conc 32.8 g/dL 32.0-36.5 MEDE NT ([facility]) Neutrophils % 66.6 % 36.0-66.0 MEDENT ([facility]) Platelet Count, Automated 263 10 150-450 MEDE NT ([facility]) Red Cell Distribution Width 11.9 % 11.5-14.5 ME DENT ([facility]) [place] % 9.6 % 2.0-8.0 [facility] [facility] Lymph % 21.7 % 24.0-44.0 [facility] ([place] [facility]) Immature Granulocyte % 0.6 % 0-3.0 [facility] ([facility]) Eos % 0.9 % 0.0-3.0 [facility] ([place] [facility]) Baso % 0.6 % 0.0-1.0 [facility] ([place] [facility]) Neutrophils # 6.3 10 1.5-8.5 MED[facility] ([facility]) Nucleated Red Blood Cell % 0.0 % 0-0 MED ENT ([facility]) Lymph # 2.0 10 1.5-5.0 [facility] ([place] [facility]) Eos # 0.1 10 0.0-0.5 [facility] ([place] [facility]) [place] # 0.9 10 0.0-0.8 [facility] ([place] [facility]) Baso # 0.1 10 0.0-0.2 [facility] ([place] [facility]) ID Date Data Source [id number] 04/11/2020 09:45:00 AM EST MEDENT ([facility]) Name Value Range Interpretation Code Description Data Luciana rce(s) Supporting Document(s) Thyrotropin [Units/volume] in Serum or Plasma by Detec tion limit <= 0.05 mIU/L 2.42 uIU/mL 0.36-3.74 MEDENT ([facility] ) ID Date Data Source [id number] 04/11/2020 09:45:00 AM EST MEDENT ([facility]) Name Value Range Interpretation Code Description Data Luciana rce(s) Supporting Document(s) Hemoglobin A1c 13.3 % MED[facility] ([facility] <content>REFERENCE RANGES:</content><br/ ><content></content>
<content><=5.6% NORMAL</content>
<content>5.7-6.4% SUGGESTS IMPAIRED GLUCOSE METABOLISM/PREDIABETIC</content>
<content>>= 6.5% ABNORMAL</content>
<content></content> Estimated Average Glucose 335 mg/dL 60-110 MEDE NT ([facility]) ID Date Data Source [id number] 04/11/2020 09:45:00 AM EST MEDENT ([facility]) Name Value Range Interpretation Code Description Data Luciana rce(s) Supporting Document(s) Glucose [Mass/volume] in Serum or Plasma 458 mg/dL 74-99 Above upper panic limits MEDENT ([facility]) CRITICAL: DR RAE NOTIFIED 100-125 mg/dL PRE-DIABETES/FASTING >126 mg/dL DIABETES/FASTING Creatinine 0.8 mg/dL 0.6-1.3 [facility] ([facility]) Urea nitrogen [Mass/volume] in Serum or Plasma 12 mg/dL 7-18 MED[facility] ([facility]) Potassium [Moles/volume] in Serum or Plasma 4.2 meq/L 3.5-5.1 MEDENT ([facility]) Sodium [Moles/volume] in Serum or Plasma 135 meq/L 136-145 MED[facility] ([facility]) Carbon dioxide, total [Moles/volume] in Serum or Plasma 31 meq/L 21 -32 MED[facility] ([facility]) Chloride [Moles/volume] in Serum or Plasma 99 meq/L 98-107 MED[facility] ([facility]) Calcium [Mass/volume] in Serum or Plasma 10.1 mg/dL 8.5-10.1 [facility] ([facility]) Alkaline phosphatase isoenzyme [Units/volume] in Serum or Pl asma 138 mg/dL 46-116 MED[facility] ([facility]) Total Bilirubin 0.5 mg/dL 0.2-1.0 MED[facility] ([facility]) Aspartate aminotransferase [Enzymatic activity/volume] in Serum or Plasma 12 U/L 15-37 MED[facility] ([facility] ) Alanine aminotransferase [Enzymatic activity/volume] in Seru m or Plasma 18 U/L 12-78 [facility] ([facility]) Albumin [Mass/volume] in Serum or Plasma 3.4 g/dL 3.4-5.0 [facility] Proteinase 3 Ab [Units/volume] in Serum 6.5 g/dL 6.4-8.2 [facility]) A/G Ratio 1.10 CALC 1.00-1.90 [facility] ([place] [facility]) Glomerular filtration rate/1.73 sq M pre dicted among non-blacks [Volume Rate/Area] in Serum or Plasma by Creatinine-based formula (MDRD) [facility] [facility] Glomerular filtration rate/1.73 sq M pre dicted among blacks [Volume Rate/Area] in Serum or Plasma by Creatinine-based formula (MDRD) Laboratory test result [facility] ([place] [facility] <content>CHRONIC KIDNEY DISEASE STAGING PER NKF</content>
<content></content>
<content>STAGE I & II GFR >= 60 NORMAL TO MILDLY DECREASED</content>
<content>STAGE III GFR 30-59 MODERATELY DECREASED</content>
<content>STAGE IV GFR 15-29 SEVERELY DECREASED</content>
<content>STAGE V GFR <15 VERY LITTLE GFR LEFT</content>
<content>ESRD GFR <15 ON REPLANTING MACHINE CREWMAN</content>
<content></content> ID Date Data Source [id number] 04/11/2020 09:45:00 AM EST MEDENT ([facility]) Name Value Range Interpretation Code Description Data Luciana rce(s) Supporting Document(s) Leukocytes [#/volume] in Blood by Automated count 9.7 x10*3/UL 4.1-10 .9 [facility] ([facility]) Erythrocytes [#/volume] in Blood by Automated count 4.67 x10*6/UL 4.2 0-6.30 [facility]) Hemoglobin [Mass/volume] in Blood 15.0 g/dL 12.0-18.0 [facility] ([facility]) MCV 93.7 fL 80.0-97.0 [facility] ([facility]) Hematocrit [Volume Fraction] of Blood by Automated count 43.7 % 3 7.0-51.0 [facility] ([place] [facility]) MCHC 34.3 g/dL 31.0-38.0 [facility] ([place] [facility]) MCH 32.1 pg 26.0-32.0 [facility] ([facility]) Erythrocyte distribution width [Ratio] by Automated count 12.3 % 11.6-13.7 [facility] ([place] [facility]) Platelets [#/volume] in Blood by Automated count 268 x10*3/UL 140-440 [facility] ([place] [facility]) Lymph % 19.0 % 10.0-58.5 [facility] ([facility]) MPV 9.6 FL 7.8-11.0 [facility] ([facility]) Mid % 4.5 % 1.7-9.3 [facility] ([facility]) Neut % 76.5 % 37.0-92.0 [facility] ([facility]) Lymph # 1.8 x10*3/UL 0.6-4.1 [facility] ([facility]) Neut # 7.4 x10*3/UL 2.0-7.8 [facility] ([facility]) Mid # 0.5 x10*3/UL 0.1-0.6 [facility] ([facility]) ID Date Data Source [id number] 04/11/2020 09:45:00 AM EST [facility] ([facility]) Name Value Range Interpretation Code Description Data Luciana rce(s) Supporting Document(s) Hemoglobin A1c/Hemoglobin.total in Blood Laboratory test result [facility] ([facility]) ID Date Data Source [id number] 03/22/2020 12:49:00 PM EST [facility] ([facility]) Name Value Range Interpretation Code Description Data Luciana rce(s) Supporting Document(s) 3.0 mg/dL 0.0-0.5 Above high normal CRP [facility] ([facility]) ID Date Data Source [id number] 03/22/2020 12:49:00 PM EST [facility] ([facility]) Name Value Range Interpretation Code Description Data Luciana rce(s) Supporting Document(s) 45.8 mL/min/1.73m eGFR Non- A merican [facility] ([facility]) 1.2 mg/dL 0.6-1.2 CREATININE [facility] ([facility]) 53.0 mL/min/1.73 eGFR [place] an [facility] ([facility]) ID Date Data Source [id number] 03/22/2020 12:49:00 PM EST [facility] ([facility]) Name Value Range Interpretation Code Description Data Luciana rce(s) Supporting Document(s) 12 U/L 15-37 Below low normal AST [facility] ([facility]) ID Date Data Source [id number] 03/22/2020 12:49:00 PM EST [facility] ([facility]) Name Value Range Interpretation Code Description Data Luciana rce(s) Supporting Document(s) 18 U/L 30-65 Below low normal ALT [facility] ([facility]) ID Date Data Source [id number] 03/22/2020 12:49:00 PM EST [facility] ([facility]) Name Value Range Interpretation Code Description Data Luciana rce(s) Supporting Document(s) 3.2 g/dL 3.4-4.4 Below low normal ALB [facility] ([facility]) ID Date Data Source [id number] 03/22/2020 12:49:00 PM EST [facility] ([facility]) Name Value Range Interpretation Code Description Data Luciana rce(s) Supporting Document(s) 17 mm/Hr 0-20 ESR [facility] ID Date Data Source [id number] 03/22/2020 12:49:00 PM EST [facility] ID Date Data Source [id number] 02/29/2020 07:18:00 [place] [address] OPERATIVE SUMMARYNAME: PATSY CHAWLA DATE OF : 1950ATTENDING PHYS: Everette Ortega MD DATE: 02/10/20 MR#: [id number] OF PROCEDURE: 02/10/2020PREOPERATIVE DIAGNOSIS: Glaucoma, left eye.POSTOPERATIVE DIAGNOSIS: Glaucoma, left eye.PROCEDURE: Placement of a XEN gel stent, lot #[id number], using the external approach.SURGEON: Everette Ortega MD.MARINE STEAMFITTER: None.COMPLICATIONS: None.INDICATION: Glaucoma and intolerance to drops.DETAILS [...] advanced and the XEN stent wasdeployed. The chain tender was retracted. The XEN implant was noted [...] condition where postop instructions were given. [address] [place] [address] OPERATIVE SUMMARYNAME: PATSY CHAWLA DATE OF : 1950ATTENDING PHYS: Everette Ortega MD DATE: 02/10/20 MR#: [id number]: Everette Ortega MD 02/29/20 04:14DT: SSR 02/29/20 07:16DS: Everette Ortega MD 03/02/20 09:59 2 Name Value Range Interpretation Code Description Data Luciana rce(s) Supporting Document(s) ID Date Data Source [id number] 02/05/2020 08:28:00 [place] [address] OPERATIVE SUMMARYNAME: PATSY CHAWLA DATE OF : 1950ATTENDING PHYS: Everette Ortega MD DATE: 02/03/20 MR#: [id number] OF PROCEDURE: 02/03/2020PREOPERATIVE DIAGNOSIS: Glaucoma, right eye.POSTOPERATIVE DIAGNOSIS: Glaucoma, right eye.PROCEDURE: Placement of a XEN gel stent, right eye, using the external approach. Serial#[id number].SURGEON: Everette Ortega MD.MARINE STEAMFITTER: None.COMPLICATIONS: None.INDICATION: Glaucoma and intolerance to drops.DETAILS [...] and the XEN stent w asdeployed. The chain tender was retracted. The XEN implant was noted [...] condition where postop instructions were given. [address] [place] [address] OPERATIVE SUMMARYNAME: PATSY CHAWLA DATE OF : 1950ATTENDING PHYS: Everette Ortega MD DATE: 02/03/20 MR#: [id number]: Everette Ortega MD 02/04/20 17:44DT: SSR 02/05/20 08:26DS: Everette Ortega MD 03/02/20 09:59 2 Name Value Range Interpretation Code Description Data Luciana rce(s) Supporting Document(s) ID Date Data Source [id number] 02/05/2020 06:01:00 PM EST [facility] Name Value Range Interpretation Code Description Data Luciana rce(s) Supporting Document(s) SARS-CoV-2 (COVID-19) [facility] This lab was ordered by [facility] and reported by [facility]. ID Date Data Source [id number] 01/29/2020 05:57:00 PM EDT [facility] Name Value Range Interpretation Code Description Data Luciana rce(s) Supporting Document(s) SARS-CoV-2 (COVID19) [facility] This lab was ordered by [facility] and reported by [facility]. ID Date Data Source [id number] 01/05/2020 09:25:00 AM EDT [facility] ([facility]) Name Value Range Interpretation Code Description Data Luciana rce(s) Supporting Document(s) Glucose mean value [Mass/volume] in Blood Estimated fr om glycated hemoglobin 194 mg/dL 60-110 [facility] ([facility] ) Hemoglobin A1c/Hemoglobin.total in Blood 8.4 % [facility]) Lab Result Notes: Pre-Diabetes 5.7 - 6.4 % Diabetes = or > 6.5% ID Date Data Source [id number] 01/05/2020 09:25:00 AM EDT [facility] ([facility]) Name Value Range Interpretation Code Description Data Luciana rce(s) Supporting Document(s) Thyrotropin [Units/volume] in Serum or Plasma by Detec tion limit <= 0.05 mIU/L 2.57 uIU/mL 0.36-3.74 [facility] ([facility] ) ID Date Data Source [id number] 01/05/2020 09:25:00 AM EDT [facility] ([facility]) Name Value Range Interpretation Code Description Data Luciana rce(s) Supporting Document(s) Cholesterol in HDL [Mass/volume] in Serum or Plasma 55 mg/dL 35-60 [facility] ([facility]) Triglyceride [Mass/volume] in Serum or Plasma 206 mg/dL 30-150 [facility] ([facility]) Cholesterol [Mass/volume] in Serum or Plasma 204 mg/dL 131-200 [facility] ([facility]) Cholesterol in LDL [Mass/volume] in Serum or Plasma by calcu lation 108 CALC 50-159 [facility] ([facility]) ID Date Data Source [id number] 01/05/2020 09:25:00 AM EDT [facility] ([facility]) Name Value Range Interpretation Code Description Data Luciana rce(s) Supporting Document(s) Glucose [Mass/volume] in Serum or Plasma 200 mg/dL 74-99 [facility] ([facility]) 100-125 mg/dL PRE-DIABETES/FASTING >126 mg/dL DIABETES/FASTING Urea nitrogen [Mass/volume] in Serum or Plasma 11 mg/dL 7-18 [facility] ([facility]) Sodium [Moles/volume] in Serum or Plasma 140 meq/L 136-145 [facility] ([facility]) Creatinine 0.9 mg/dL 0.6-1.3 [facility] ([facility]) Potassium [Moles/volume] in Serum or Plasma 4.2 meq/L 3.5-5.1 [facility] ([facility]) Calcium [Mass/volume] in Serum or Plasma 10.1 mg/dL 8.5-10.1 [facility] ([facility]) Chloride [Moles/volume] in Serum or Plasma 103 meq/L 98-107 [facility] ([facility]) Carbon dioxide, total [Moles/volume] in Serum or Plasma 30 meq/L 21 -32 [facility] ([place] [facility] Total Bilirubin 0.6 mg/dL 0.2-1.0 [facility] ([facility]) Aspartate aminotransferase [Enzymatic activity/volume] in Serum or Plasma 18 U/L 15-37 [facility] ([facility] ) Alkaline phosphatase isoenzyme [Units/volume] in Serum or Pl asma 89 mg/dL 46-116 [facility] ([facility]) Albumin [Mass/volume] in Serum or Plasma 3.5 g/dL 3.4-5.0 [facility] ([facility]) Alanine aminotransferase [Enzymatic activity/volume] in Seru m or Plasma 28 U/L 12-78 [facility] ([place] [facility] Proteinase 3 Ab [Units/volume] in Serum 6.8 g/dL 6.4-8.2 [facility] ([facility]) Glomerular filtration rate/1.73 sq M pre dicted among non-blacks [Volume Rate/Area] in Serum or Plasma by Creatinine-based formula (MDRD) Laboratory test result [facility] ([place] [facility] Glomerular filtration rate/1.73 sq M pre dicted among blacks [Volume Rate/Area] in Serum or Plasma by Creatinine-based formula (MDRD) Laboratory test result [facility] [facility] <content>CHRONIC KIDNEY DISEASE STAGING PER NKF</content>
<content></content>
<content>STAGE I & II GFR >= 60 NORMAL TO MILDLY DECREASED</content>
<content>STAGE III GFR 30-59 MODERATELY DECREASED</content>
<content>STAGE IV GFR 15-29 SEVERELY DECREASED</content>
<content>STAGE V GFR <15 VERY LITTLE GFR LEFT</content>
<content>ESRD GFR <15 ON REPLANTING MACHINE CREWMAN</content>
<content></content> A/G Ratio 1.06 CALC 1.00-1.90 [facility] ([place] [facility]) ID Date Data Source [id number] 01/05/2020 09:25:00 AM EDT [facility] ([facility]) Name Value Range Interpretation Code Description Data Luciana rce(s) Supporting Document(s) Erythrocytes [#/volume] in Blood by Automated count 4.69 x10*6/UL 4.2 0-6.30 [facility] ([facility]) Leukocytes [#/volume] in Blood by Automated count 12.5 x10*3/UL 4.1-1 0.9 [facility] ([facility]) MCV 91.1 fL 80.0-97.0 [facility] ([place] [facility]) Hemoglobin [Mass/volume] in Blood 15.1 g/dL 12.0-18.0 [facility] ([facility]) Hematocrit [Volume Fraction] of Blood by Automated count 42.8 % 3 7.0-51.0 [facility] ([facility]) Erythrocyte distribution width [Ratio] by Automated count 12.7 % 11.6-13.7 [facility] ([facility]) MCHC 35.3 g/dL 31.0-38.0 [facility] MCH 32.2 pg 26.0-32.0 [facility] MPV 8.7 FL 7.8-11.0 [facility] ([place] [facility]) Platelets [#/volume] in Blood by Automated count 243 x10*3/UL 140-440 [facility] ([facility]) Lymph % 12.3 % 10.0-58.5 [facility] [facility] Neut % 84.6 % 37.0-92.0 [facility] [facility] Lymph # 1.5 x10*3/UL 0.6-4.1 [facility] ([facility]) Mid % 3.1 % 1.7-9.3 [facility] [facility] Mid # 0.4 x10*3/UL 0.1-0.6 [facility] ([facility]) Neut # 10.6 x10*3/UL 2.0-7.8 [facility] ([facility]) Procedure Social History Code Duration Value Status Description Data Source(s ) Smoking 01/14/2021 12:00:00 AM EDT Former Smoker completed Former Smoker eCW1 ([facility]) Smoking 12/20/2020 12:00:00 AM EDT Patient is a former smoker completed Patient is a former smoker [facility] ([facility], ) Smoking 07/08/2020 12:00:00 AM EDT Former Smoker completed Former Smoker eCW1 ([facility]) Smoking 07/08/2020 12:00:00 AM EDT Former Smoker completed Former Smoker eCW1 ([facility]) Caffeine Use Details 06/27/2020 12:00:00 AM EDT coffee, 3 cups comp leted coffee, 3 cups [facility] ([facility]) 06/27/2020 12:00:00 AM EDT Ex-cigarette smoker completed Ex-cigarette smoker [facility] ([facility]) Smoking 06/27/2020 12:00:00 AM EDT Unknown if ever smoked comp leted Unknown if ever smoked [facility] ([facility]) Smoking 02/15/2020 12:00:00 AM EST Former Smoker completed Former Smoker eCW1 ([facility]) Smoking 02/15/2020 12:00:00 AM EST Former Smoker completed Former Smoker eCW1 ([facility]) Smoking 02/15/2020 12:00:00 AM EST Former Smoker completed Former Smoker eCW1 ([facility]) Smoking 02/15/2020 12:00:00 AM EST Former Smoker completed Former Smoker eCW1 ([facility]) Vital Signs ID Date Data Source UNK Name Value Range Interpretation Code Description Data Source(s) Body weight 113.6 [lb_av] 113.6 [lb_av] eCW1 ([facility]) Body weight 51.53 kg 51.53 kg eCW1 ([facility]) Body height 61.8 [in_i] 61.8 [in_i] eCW1 ([facility]) Body mass index (BMI) [Ratio] 20.91 kg/m2 20.91 kg/m2 W1 ([facility]) Heart rate 64 /min 64 /min eCW1 ([facility]) Respiratory rate 18 /min 18 /min eCW1 ([facility]) Body temperature 98.1 [degF] 98.1 [degF] eCW1 ( [facility]) Heart rate 101 /min 101 /min [facility], ) Systolic blood pressure 124 mm[Hg] 124 mm[Hg] [facility], ) Diastolic blood pressure 80 mm[Hg] 80 mm[Hg] [facility]) [place] body weight 110 [lb_av] 110 [lb_av] MEDEN T ([facility]) Oxygen saturation in Arterial blood by Pulse oximetry 95 % 95 % [facility] ([facility]) Room Air Body height 62 [in_i] 62 [in_i] [facility] ([facility]) 5'2" Systolic blood pressure 120 mm[Hg] 120 mm[Hg] [facility] ([facility]) Diastolic blood pressure 70 mm[Hg] 70 mm[Hg] [facility]) Heart rate 78 /min 78 /min [facility] ([facility]) Body weight 106.00 [lb_av] 106.00 [lb_av] MEDEN T ([facility]) Body height 62 [in_i] 62 [in_i] [facility] ([facility]) 5'2" Body mass index (BMI) [Ratio] 19.4 kg/m2 19.4 k g/m2 [facility]) Heart rate 91 /min 91 /min [facility] ([facility]) Systolic blood pressure 119 mm[Hg] 119 mm[Hg] [facility]) Diastolic blood pressure 82 mm[Hg] 82 mm[Hg] [facility]) Body height 62 [in_i] 62 [in_i] [facility]) 5'2" Body weight 111.00 [lb_av] 111.00 [lb_av] MEDEN T ([facility]) Body mass index (BMI) [Ratio] 20.3 kg/m2 20.3 k g/m2 [facility]) Oxygen saturation in Arterial blood by Pulse oximetry 98 % 98 % [facility] ([facility]) Systolic blood pressure 100 mm[Hg] 100 mm[Hg] M EDENT ([facility]) Diastolic blood pressure 60 mm[Hg] 60 mm[Hg] [facility] ([facility]) Body mass index (BMI) [Ratio] 20.3 kg/m2 20.3 k g/m2 [facility] ([facility]) Heart rate 92 /min 92 /min [facility] ([facility]) Body height 62 [in_i] 62 [in_i] [facility] ([facility]) 5'2" Body weight 111.00 [lb_av] 111.00 [lb_av] MEDEN T ([facility]) Body weight 120 [lb_av] 120 [lb_av] eCW1 ([facility]) Body weight 54.43 kg 54.43 kg W1 ([facility]) Body height 61.8 [in_i] 61.8 [in_i] eCW1 ([facility]) Body mass index (BMI) [Ratio] 22.09 kg/m2 22.09 kg/m2 W1 ([facility]) Heart rate 83 /min 83 /min W1 ([facility]) Respiratory rate 18 /min 18 /min W1 ([facility]) Body temperature 96.8 [degF] 96.8 [degF] eCW1 ( [facility]) Systolic blood pressure 118 mm[Hg] 118 mm[Hg] e CW1 ([facility]) Diastolic blood pressure 72 mm[Hg] 72 mm[Hg] eCW1 ([facility]) Body height 154.94 cm 154.94 cm NextGen ([facility]) Body weight 53.524 kg 53.524 kg NextGen ([facility]) Systolic blood pressure 122 mm[Hg] 122 mm[Hg] N extGen ([facility]) Diastolic blood pressure 80 mm[Hg] 80 mm[Hg] NextGen ([facility]) Body mass index (BMI) [Ratio] 22.30 kg/m2 22.30 kg/m2 NextGen ([facility]) Systolic blood pressure 122 mm[Hg] 122 mm[Hg] [facility] Diastolic blood pressure 72 mm[Hg] 72 mm[Hg] MEDENT ([facility]) Heart rate 80 /min 80 /min MEDENT ([facility]) Body height 62 [in_i] 62 [in_i] MEDENT ([facility]) 5'2" Body weight 119.00 [lb_av] 119.00 [lb_av] MEDEN T ([facility]) Body mass index (BMI) [Ratio] 21.8 kg/m2 21.8 k g/m2 MEDENT ([facility]) Diastolic blood pressure 78 mm[Hg] 78 mm[Hg] [facility] Body mass index (BMI) [Ratio] 23.2 kg/m2 23.2 k g/m2 MEDENT ([facility]) Heart rate 68 /min 68 /min MEDENT ([facility]) Body height 62 [in_i] 62 [in_i] [facility] 5'2" Body weight 127.00 [lb_av] 127.00 [lb_av] MEDEN T ([facility]) Systolic blood pressure 120 mm[Hg] 120 mm[Hg] [facility] Body height 154.94 cm 154.94 cm [...] Body weight 143 [lb_av] 143 [lb_av] eCW1 ([facility]) Body weight 64.86 kg 64.86 kg eCW1 ([facility]) Body height 61.8 [in_i] 61.8 [in_i] eCW1 ([facility]) Body mass index (BMI) [Ratio] 26.32 kg/m2 26.32 kg/m2 eCW1 ([facility]) Heart rate 65 /min 65 /min eCW1 ([facility]) Respiratory rate 18 /min 18 /min eCW1 ([facility]) Body temperature 97.6 [degF] 97.6 [degF] eCW1 ( [facility]) Systolic blood pressure 120 mm[Hg] 120 mm[Hg] e CW1 ([facility]) Diastolic blood pressure 62 mm[Hg] 62 mm[Hg] eCW1 ([facility]) Diastolic blood pressure 72 mm[Hg] 72 mm[Hg] MEDENT ([facility]) Heart rate 80 /min 80 /min MEDENT ([facility]) Body weight 135.00 [lb_av] 135.00 [lb_av] MEDEN T ([facility]) Body mass index (BMI) [Ratio] 24.7 kg/m2 24.7 k g/m2 MEDENT ([facility]) Systolic blood pressure 118 mm[Hg] 118 mm[Hg] M EDENT ([facility]) Body height 62 [in_i] 62 [in_i] MEDENT ([facility]) 5'2" ID Date Data Source [id number] 03/02/2020 10:01:46 AM [facility] Name Value Range Interpretation Code Description Data Source(s) WEIGHT RECORDED 132.00 pounds 132.00 pounds Health system Height 61 Inches 061 Inches [facility] Patient Treatment Plan of Care [...]
[2021-03-03 00:38] LABS: ALBUMIN 2.8 GM/DL (3.2-5.2); ALT/SGPT 341 U/L (12-78); AMYLASE 48 U/L (25-115); BILIRUBIN,TOTAL 3.9 MG/DL (0.2-1.0); BLOOD UREA NITROGEN 18 MG/DL (7-18); CARBON DIOXIDE LEVEL 26 MEQ/L (21-32); CHLORIDE LEVEL 103 MEQ/L (98-107); CREATININE FOR GFR 0.61 MG/DL (0.55-1.30); GLOMERULAR FILTRATION RATE > 60.0 (>39); GLUCOSE, FASTING 137 MG/DL (70-100); LIPASE 211 U/L (73-393); MAGNESIUM LEVEL 1.5 MG/DL (1.8-2.4); POTASSIUM SERUM 3.8 MEQ/L (3.5-5.1); SODIUM LEVEL 136 MEQ/L (136-145); TOTAL PROTEIN 6.1 GM/DL (6.4-8.2)
[2021-03-03] MEDS ORDERED: MAG SULF 1GM/100ML (MAG RUN) 1 GM in IV 1 EA IV ONE ×2 (01:30→03:00)
--- NOTE | 2021-03-03 01:40 | REPVR ---
PROCEDURE INFORMATION: Exam: CT Abdomen And Pelvis Without Contrast Exam date and time: 03/02/2021 11:57 PM Age: 70 years old Clinical indication: Other: Right upper quadrant abdominal pain TECHNIQUE: Imaging protocol: Computed tomography of the abdomen and pelvis without contrast. Radiation optimization: All CT scans at this facility use at least one of these dose optimization techniques: automated exposure control; mA and/or kV adjustment per patient size (includes targeted exams where dose is matched to clinical indication); or iterative reconstruction. COMPARISON: 1. XA Upper G.I. with small bowel 2020-09-28 09:04 2. LOW DOSE LUNG SCREENING CT 2020-10-17 11:04 FINDINGS: Liver: Moderate to severe intrahepatic and extrahepatic biliary duct dilatation. Small, less than 5 mm, liver hypodensity. Highly likely to be benign and does not require follow-up imaging or biopsy per ACR. Gallbladder and bile ducts: Hyperdense gallbladder, suspect milk of calcium. Pancreas: Pancreatic duct dilatation. Suspect pancreatic head mass measuring 3.5 x 4 cm, recommend MRI. Spleen: Normal. No splenomegaly. Adrenal glands: Normal. No mass. Kidneys and ureters: 1.7 cm left superior renal pole simple cyst. Stomach and bowel: Unremarkable. No obstruction. No mucosal thickening. Appendix: No evidence of appendicitis. Intraperitoneal space: Unremarkable. No free air. No significant fluid collection. Vasculature: Infrarenal aortic ectasia with onion calcification, and maximal diameter 2.7 cm. Lymph nodes: Unremarkable. No enlarged lymph nodes. Urinary bladder: Unremarkable as visualized. Reproductive: Hysterectomy. Bones/joints: L4-L5 disc bulge and small central disc protrusion. Soft tissues: Unremarkable. IMPRESSION: 1. Hyperdense gallbladder, milk of calcium. 2. Moderate to severe intrahepatic and extrahepatic biliary duct dilatation. Pancreatic duct dilatation. 3. Suspect pancreatic head mass measuring 3.5 x 4 cm, recommend MRI. Consider GI consultation. COMMENTS: Consistent with the [employer]'s Incidental Findings Committee white paper (J Am Blaire Radiol 2018): Any incidental renal lesion less than 1 cm or classified as too small to characterize, or any incidental cystic renal lesion characterized as simple-appearing, is likely benign. No follow-up imaging is recommended for these lesions per consensus recommendations based on imaging criteria. Electronically signed by: Alfonzo Whalen On 03/03/2021 01:39:41 AM
[2021-03-03] MEDS ORDERED: PIPERACILLIN/TAZOBACTAM SOD 4.5 GM in D5W MINI-BAG PLUS 50 ML IV ONE (01:45)
[2021-03-03] MEDS ORDERED: GLUCAGON INJ 1MG VIAL SC PRN (02:05)
[2021-03-03] MEDS ORDERED: GLUCOSE 4GM CHEW TABLET PO PRN (02:05)
[2021-03-03] MEDS ORDERED: DEXTROSE 50% 50 ML SYRINGE IV PRN (02:05)
--- OUTSIDE RECORDS SUMMARY | 2021-03-03 02:22 | CCD ---
Author Author [facility] Organization [facility] Address Unknown Phone Unavailable Care Team Providers Care Medical Director/Head Team Physician Name Role Phone LePine, M Jayne PIPE COREMAKER Unavailable Unavailable LePine, M Jayne PIPE COREMAKER Unavailable Unavailable LePine, M Jayne PIPE COREMAKER Unavailable Unavailable LePine, M Jayne PIPE COREMAKER Unavailable Unavailable LePine, M Jayne PIPE COREMAKER Unavailable Unavailable LePine, M Jayne PIPE COREMAKER Unavailable Unavailable LePine, M Jayne PIPE COREMAKER Unavailable Unavailable LePine, M Jayne PIPE COREMAKER Unavailable Unavailable LePine, M Jayne PIPE COREMAKER Unavailable Unavailable LePine, M Jayne PIPE COREMAKER Unavailable Unavailable LePine, M Jayne PIPE COREMAKER Unavailable Unavailable LePine, M Jayne PIPE COREMAKER Unavailable Unavailable LePine, M Jayne PIPE COREMAKER Unavailable Unavailable LePine, M Jayne PIPE COREMAKER Unavailable Unavailable LePine, M Jayne PIPE COREMAKER Unavailable Unavailable LePine, M Jayne PIPE COREMAKER Unavailable Unavailable LePine, M Jayne PIPE COREMAKER Unavailable Unavailable LePine, M Jayne PIPE COREMAKER Unavailable Unavailable LePine, M Jayne PIPE COREMAKER Unavailable Unavailable LePine, M Jayne PIPE COREMAKER Unavailable Unavailable LePine, M Jayne PIPE COREMAKER Unavailable Unavailable LePine, M Jayne PIPE COREMAKER Unavailable Unavailable LePine, M Jayne PIPE COREMAKER Unavailable Unavailable LePine, M Jayne PIPE COREMAKER Unavailable Unavailable LePine, M Jayne PIPE COREMAKER Unavailable Unavailable LePine, M Jayne PIPE COREMAKER Unavailable Unavailable LePine, M Jayne PIPE COREMAKER Unavailable Unavailable LePine, M Jayne PIPE COREMAKER Unavailable Unavailable LePine, M Jayne PIPE COREMAKER Unavailable Unavailable LePine, M Jayne PIPE COREMAKER Unavailable Unavailable LePine, M Jayne PIPE COREMAKER Unavailable Unavailable LePine, M Jayne PIPE COREMAKER Unavailable Unavailable LePine, M Jayne PIPE COREMAKER Unavailable Unavailable LePine, M Jayne PIPE COREMAKER Unavailable Unavailable LePine, M Jayne PIPE COREMAKER Unavailable Unavailable LePine, M Jayne PIPE COREMAKER Unavailable Unavailable LePine, M Jayne PIPE COREMAKER Unavailable Unavailable LePine, M Jayne PIPE COREMAKER Unavailable Unavailable LePine, M Jayne PIPE COREMAKER Unavailable Unavailable LePine, M Jayne PIPE COREMAKER Unavailable Unavailable LePine, M Jayne PIPE COREMAKER Unavailable Unavailable LePine, M Jayne PIPE COREMAKER Unavailable Unavailable LePine, M Jayne PIPE COREMAKER Unavailable Unavailable LePine, M Jayne PIPE COREMAKER Unavailable Unavailable LePine, M Jayne PIPE COREMAKER Unavailable Unavailable LePine, M Jayne PIPE COREMAKER Unavailable Unavailable LePine, M Jayne PIPE COREMAKER Unavailable Unavailable LePine, M Jayne PIPE COREMAKER Unavailable Unavailable LePine, M Jayne PIPE COREMAKER Unavailable Unavailable LePine, M Jayne PIPE COREMAKER Unavailable Unavailable LePine, M Jayne PIPE COREMAKER Unavailable Unavailable LePine, M Jayne PIPE COREMAKER Unavailable Unavailable LePine, M Jayne PIPE COREMAKER Unavailable Unavailable LePine, M Jayne PIPE COREMAKER Unavailable Unavailable LePine, M Jayne PIPE COREMAKER Unavailable Unavailable LePine, M Ajyne PIPE COREMAKER Unavailable Unavailable LePine, M Jayne PIPE COREMAKER Unavailable Unavailable NO, PCP Unavailable Unavailable Rc [...] Rc Rae MD Unavailable Unavailable Pikarsky, Sharan CONDUIT CLEANER Unavailable Unavailable Pikarsky, Sharan CONDUIT CLEANER Unavailable Unavailable Pikarsky, Sharan CONDUIT CLEANER Unavailable Unavailable Pikarsky, Sharan CONDUIT CLEANER Unavailable Unavailable Pikarsky, Sharan CONDUIT CLEANER Unavailable Unavailable Pikarsky, Sharan CONDUIT CLEANER Unavailable Unavailable Pikarsky, Sharan CONDUIT CLEANER Unavailable Unavailable Pikarsky, Sharan CONDUIT CLEANER Unavailable Unavailable Pikarsky, Sharan CONDUIT CLEANER Unavailable Unavailable Pikarsky, Sharan CONDUIT CLEANER Unavailable Unavailable Pikarsky, Sharan CONDUIT CLEANER Unavailable Unavailable Pikarsky, Sharan CONDUIT CLEANER Unavailable Unavailable Pikarsky, Sharan CONDUIT CLEANER Unavailable Unavailable Pikarsky, Sharan CONDUIT CLEANER Unavailable Unavailable Pikarsky, Sharan CONDUIT CLEANER Unavailable Unavailable Pikarsky, Sharan CONDUIT CLEANER Unavailable Unavailable Pikarsky, Sharan CONDUIT CLEANER Unavailable Unavailable Pikarsky, Sharan CONDUIT CLEANER Unavailable Unavailable Pikarsky, Sharan CONDUIT CLEANER Unavailable Unavailable Pikarsky, Sharan CONDUIT CLEANER Unavailable Unavailable Pikarsky, Sharan CONDUIT CLEANER Unavailable Unavailable Pikarsky, Sharan CONDUIT CLEANER Unavailable Unavailable Pikarsky, Sharan CONDUIT CLEANER Unavailable Unavailable Pikarsky, Shaarn CONDUIT CLEANER Unavailable Unavailable Pikarsky, Sharan CONDUIT CLEANER Unavailable Unavailable Pikarsky, Sharan CONDUIT CLEANER Unavailable Unavailable Pikarsky, Sharan CONDUIT CLEANER Unavailable Unavailable Pikarsky, Sharan CONDUIT CLEANER Unavailable Unavailable Pikarsky, Sharan CONDUIT CLEANER Unavailable Unavailable Pikarsky, Sharan CONDUIT CLEANER Unavailable Unavailable Everette Ortega MD Unavailable Unavailable [...] Isaias Blankenship MD Unavailable Unavailable Ohara, Isaias Blankenhsip MD Unavailable Unavailable Ohara, Isaias Blankenship MD [...] is protected by Article 27-F of the [facility] Public Health law. If you continue you may have access to information: Regarding HIV / AIDS; Provided by facilities licensed or operated by the [facility] Office of Mental Health; or Provided by the [facility] Office for People With Developmental Disabilities. If such information is present, then the following [facility] mandated warning applies: This information has been [...] law may result in a fine or fpc sentence or both. A general authorization for the release of medical or other information is NOT sufficient authorization for further disc losure. Allergies and Adverse Reactions Type Description Substance Reaction Status Data Source(s ) Drug allergy NICKEL NICKEL SORE THROAT [facility] Family History Family Member Name Family Member Gender Family Member Status Date o f Status Description Data Source(s) Unknown Male Problem (finding) 06/25/2017 12:00:00 AM EDT [facility] ([facility]) Unknown Male Problem (finding) 06/25/2017 12:00:00 AM EDT [facility] ([facility]) Unknown Unknown Problem [facility] ([facility]) Unknown Unknown Problem MED[facility] ([facility] ) Unknown Female Problem MEDENT ([facility]) Unknown Female Problem MEDENT ([facility] Encounters Encounter Providers Location Date Indications Data Source(s ) Outpatient [address] [facility] [address] 01/06/2021 12:00:00 AM EDT eCW1 ([facility]) Outpatient Attender: Krzysztof Sims/Jeanna/Luis/Sarah cook 12/20/2020 02:45:00 PM EDT MEDENT ([facility], ) Outpatient Attender: Krzysztof Sims/Deanne/Sarah cook 12/14/2020 01:00:00 PM EDT [facility] Outpatient Attender: Krzysztof Sims/[place]/Fitz cook 11/14/2020 10:00:00 AM EDT [facility] ([facility] Unknown [address] [facility] [address] 10/28/2020 12:00:00 AM EDT eCW1 ([facility]) Outpatient Attender: Kiko Shipman 10/11 03:00:00 PM EDT MEDENT ([facility] ) Outpatient Attender: Jayne Shipman 09/02 09:20:00 AM EDT MEDENT ([facility] ) Outpatient [address] [facility] [address] 07/08/2020 12:00:00 AM EDT eCW1 ([facility]) OFFICE/OUTPATIENT VISIT, ESTOutpatient Attender: Sharan paulino NP [facility] 06/27/2020 11:40:00 AM EDT - 06/27/2020 11:40:00 AM ED T Other half-way (current) drug therapyRheumatoid arthritis with rheumatoid factor of multiple sites without organ or systems involvement NextGen ([facility]) Other long term care phlebotomist (current) drug therapy Rheumatoid arthritis with rheumatoid fac tor of multiple sites without organ or systems involvement Unknown [address] [facility] [address] 06/24/2020 12:00:00 AM EDT eCW1 ([facility]) Outpatient Attender: Kiko Shipman 06/21 03:00:00 PM EDT MEDENT ([facility] ) Attender: Sharan Mora NP [facility] 06/01/2020 02:19:00 PM EST - 06/01/2020 02:19:00 PM EST [facility] ( [facility]) Unknown [address] [facility] [address] 05/12/2020 12:00:00 AM EST eCW1 ([facility]) Unknown [address] [facility] [address] 04/27/2020 12:00:00 AM EST eCW1 ([facility]) Outpatient Attender: Kiko Shipman 04/12 10:00:00 AM EST MEDENT ([facility] ) OutpatientOFFICE/OUTPATIENT VISIT, EST Attender: Sharan paulino NP [facility] 03/22/2020 12:20:00 PM EST - 03/22/2020 12:20:00 PM ES T Other long term care phlebotomist (current) drug therapyRheumatoid arthritis without rheumatoid factor, multiple sites NextGen ([facility]) Other half-way (current) drug therapy Rheumatoid arthritis without rheumatoid factor, multiple sites Attender: Sharan Mora NP [facility] 03/01/2020 03:16:00 PM EST - 03/01/2020 03:16:00 PM EST [facility] ( [facility]) Outpatient Attender: Everette Ortega MDConsultant: PCP DONAVON 02/10/2020 08:00:00 AM EST - 02/10/2020 11:46:00 AM EST [facility] Patient discharged. Outpatient Attender: Everette Ortega MDConsultant: PCP DONAVON 02/03/2020 08:00:00 AM EST - 02/03/2020 09:58:00 AM EST [facility] Patient discharged. Outpatient Attender: Everette Ortega MDConsultant: PCP DONAVON 01/28/2020 10:51:27 AM EDT - 02/02/2020 12:20:00 PM EST [facility] Patient discharged. Outpatient [address] [facility] [address] 01/18/2020 12:00:00 AM EDT eCW1 ([facility]) [facility] [address] [place] [address] 01/14/2020 12:00:00 AM EDT eCW1 ([facility]) Outpatient Attender: Kiko Shipman 01/05 10:30:00 AM EDT MEDENT ([facility] ) Immunizations Vaccine Date Status Description Data Source(s) COVID-19 VACCINE Moderna 02/08/2021 12:00:00 AM EST completed [facility] Vaccine Series Complete: YESThis Data wa s Submitted to [facility] Via Bliips. Influenza, injectable, MDCK, preservative free, nandini valent 01/12/2021 10:23:00 AM EDT completed [facility] ([facility]) COVID-19 VACCINE Moderna 07/09/2020 12:00:00 AM EDT completed [place] Vaccine Series Complete: YESThis Data wa s Submitted to [facility] Via [employer]. Covid 19 Moderna Vaccine 06/03/2020 12:00:00 AM EST completed Covid 19 Moderna Vaccine [facility] ([facility]) Source: Other Provider COVID-19 VACCINE Moderna 06/03/2020 12:00:00 AM EST completed [facility] Vaccine Series Complete: NOThis Data was Submitted to [facility] Via [employer]. Influenza, injectable, MDCK, preservative free, nandini valent 01/12/2020 12:00:00 AM EDT completed Flucelvax NextGen ([facility]) Note: approx ; Source: Other Provider Influenza, injectable, MDCK, preservative free, nandini valent 01/06/2020 10:55:00 AM EDT completed [facility] ([facility]) Medications Medication Brand Name Start Date Product Form Dose Route Admi nistrative Instructions Pharmacy Instructions Status Indications Reaction Description Data Source(s) Administration Of Flu Vaccine 01/12/2021 12:00:00 AM EDT completed [facility] ([facility]) Medication administered onsite 60 ACTUAT Albuterol 0.09 MG/ACTUAT Metered Dose Inhaler Albu terol Sulfate HFA 12/20/2020 12:00:00 AM EDT ORAL active MEDENT ([facility], ) 30 ACTUAT fluticasone furoate 0.2 MG/ACT UAT / vilanterol 0.025 MG/ACTUAT Dry Powder Inhaler [Breo] Breo Ellipta 12/20/2020 12:00:00 AM EDT RESPIRATORY active MEDENT ([facility], ) Cholecalciferol 35625 UNT Oral Tablet Vitamin D3 Ultra Poten cy 10/11/2020 12:00:00 AM EDT active M EDENT ([facility]) Vitamin B 12 3 MG Sublingual Tablet Vitamin B12 10/11/2020 12:00:00 A M EDT ORAL active MEDENT ([facility]) 1 ML denosumab 60 MG/ML Prefilled Syringe [Prolia] Prolia 10/11/2020 12:00:00 AM EDT active MEDENT ([facility]) letrozole 2.5 MG Oral Tablet Letrozole 10/11/2020 12:00:00 AM EDT ORAL active MEDENT ([facility]) Folic Acid 1 MG Oral Tablet [...] 12:00:00 AM EDT ORAL active MEDENT ([facility]) Sulfasalazine 500 MG Oral Tablet sulfasalazine [...] System 04/15/2020 12:00:00 AM EST active MEDENT ([facility]) Onetouch Delica Lancing Dev 04/15/2020 12:00:00 AM EST active MEDENT ([facility]) Onetouch Delica Plus Lancets Extra Fine 33G 04/15/2020 12:00 :00 AM EST active MEDENT ([facility]) Onetouch Verio 04/15/2020 12:00:00 AM EST act luis MEDENT ([facility]) Onetouch Ultrasoft Lancets 04/15/2020 12:00:00 AM EST active MEDENT ([facility]) 24 HR Metformin hydrochloride 500 MG Extended Release Oral Tablet Metformin HCL ER 04/12/2020 12:00:00 AM EST ORAL active MEDENT ([facility]) Sulfasalazine 500 MG Oral Tablet sulfasalazine [...] Vaccine 01/06/2020 12:00:00 AM EDT completed [facility]) Medication administered onsite Sulfasalazine 500 [...] completed travoprost 0.04 MG/ML Ophthalmic Solution [Travatan] [facility] ([facility]) brinzolamide 10 MG/ML Ophthalmic Suspens ion [Azopt] Azopt 1 % eye drops,suspension Azopt 1 % eye drops,suspension 1.00 drop OPHTHA LMIC completed brinzolamide 10 MG/ML Ophthalmic Suspension [Azopt] [facility] ([facility]) prednisolone acetate 10 MG/ML Ophthalmic Suspension prednisolone acetate 1 % eye drops,suspension prednisolone acetate 1 % eye drops,suspension 1 drop OPHTHALMIC completed instill 1 drop by ophthalmic route 3 times every day into affected eye(s) Next ([facility]) Insurance Providers Payer name Policy type / Coverage type Policy ID Covered alliance party ID Covered alliance party's relationship to zuleta Policy [place] Plan Information Medicare Natl Govt Servic Medicare Primary [id number] Self [id number] Medicare Natl Govt Servic Medicare Primary [id number] Self [id number] Medicare Natl Govt Servic Medicare Primary [id number] Self Medicare Natl Govt Serv Medicare Primary [id number] Self [id number] MEDICARE BLUE PPO [id number] SP [id number] Medicare Blue Ppo Commercial [id number] Self [id number] MEDICARE BLUE PPO 306 [id number] SP [id number] Medicare Blue Ppo Commercial [id number] Self [id number] Medicare Blue Ppo Commercial [id number] Self [id number] MEDICARE BLUE PPO [id number] SP [id number] Billboard Jungle [id number] Self [id number] 00 [facility] Medicare Aga Commercial [id number] Self [id number] MEDICARE COMPLETE [id number] SP [id number] TODAYS OPTIONS [id number] SP [id number] [employer] [id number] 00 [id number] Self [id number] WELLCARE [id number] SP [id number] WELLCARE MEDICARE HMO G [id number] Self [id number] Medicare Medigap Part B [id number] Self BC/BS OF [place] P [id number] S [id number] WELLCARE [id number] SP [id number] WELLCARE [id number] SP [id number] WELLCARE [id number] SP [id number] WELLCARE [id number] SP [id number] WELLCARE -O/P [id number] 18 [id number] WELLCARE [id number] SP [id number] WELLCARE O [id number] O [id number] MEDICARE [id number] SP [id number] WELLCARE O [id number] S [id number] Medicare [place] Medicare Primary [id number] Self [id number] [employer] Medicare Commercial [id number] Self [id number] [facility] [id number] SP [id number] MEDICARE COMPLETE-UHC O [id number] S [id number] MEDICAID [id number] SP [id number] [place] BCBS B [id number] S [id number] Blue Shield MCR Advantage Commercial [id number] Self BS [place] Commercial [id number] Self Problems, Conditions, and Diagnoses Code Display Name Description Problem Type Effective Dates Data Source(s) 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, left eye, stage uns pecified Pigmentary glaucoma, left eye, stage unspecified Diagnosis 02/10/2020 08:00:00 AM [facility] 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, right eye, stage un specified Pigmentary glaucoma, right eye, stage unspecified Diagnosis 02/03/2020 08:00:00 AM [facility] [id number] Encounter for other preprocedural examin ation Encounter for other preprocedural examination Diagnosis 02/02/2020 11:40:00 AM [facility] C50.919 Malignant neoplasm of female breast Inva sive lobular carcinoma of breast in female Problem 12/30/2020 12:00:00 AM EDT eCW1 ([facility]) Surgeries/Procedures Procedure Description Date Indications Data Source(s) DEMO&/EVAL OF PT UTILIZ AERSL GEN/NEB/INHLR/IPPB 12/20 12:00:00 AM EDT MEDENT ([facility], ) OFFICE OUTPATIENT VISIT 25 MINUTES 12/20/2020 12:00:00 AM EDT MEDENT ([facility], ) Bronchospasm Evaluation 12/15/2020 12:00:00 AM EDT MEDENT ([facility], ) Plethysmography Determination Lung Volumes & Per Airway Resi st 12/15/2020 12:00:00 AM EDT MEDENT ([facility], ) DIFFUSING CAPACITY 12/15/2020 12:00:00 AM EDT MEDENT ([facility]) OFFICE OUTPATIENT VISIT 25 MINUTES 12/14/2020 12:00:00 AM EDT MEDENT ([facility]) OFFICE OUTPATIENT NEW 45 MINUTES 11/14/2020 12:00:00 A M EDT MEDENT ([facility]) OFFICE OUTPATIENT VISIT 25 MINUTES 10/11/2020 12:00:00 AM EDT MEDENT ([facility]) OFFICE OUTPATIENT VISIT 25 MINUTES 09/02/2020 12:00:00 AM EDT MEDENT ([facility]) RBC SED RATE, AUTOMATED 06/27/2020 12:00 [...] 15 MINUTES 06/21/2020 12:00:00 AM EDT MEDENT ([facility]) OFFICE/OUTPATIENT VISIT, EST 03/22/2020 12:00:00 AM [...] W/I&R 01/06/2020 12:00: 00 AM EDT MEDENT ([facility]) Results ID Date Data Source [id number] 12/13/2020 03:33:00 PM EDT MEDENT ([facility]) Name Value Range Interpretation Code Description Data Luciana rce(s) Supporting Document(s) Parathyrin.intact [Mass/volume] in Serum or Plasma 63.5 pg/mL 18.5-88 .0 MEDENT ([facility]) Calcium.ionized [Mass/volume] in Serum o r Plasma by Ion-selective membrane electrode (ISE) 5.5 mg/dL 4.5-5.3 [facility] ([place]) C reactive protein [Mass/volume] in Serum or Plasma by High sensitivity method 0.62 mg/dL 0.00-0.30 MEDENT ([facility] ) ID Date Data Source [id number] 12/13/2020 03:32:00 PM EDT MEDENT ([facility]) Name Value Range Interpretation Code Description Data Luciana rce(s) Supporting Document(s) Glucose [Mass/volume] in Serum or Plasma 218 mg/dL 74-99 MEDENT ([facility]) 100-125 mg/dL PRE-DIABETES/FASTING >126 mg/dL DIABETES/FASTING Creatinine 0.9 mg/dL 0.6-1.3 MEDENT ([facility]) Sodium [Moles/volume] in Serum or Plasma 140 meq/L 136-145 MEDENT ([facility]) Urea nitrogen [Mass/volume] in Serum or Plasma 14 mg/dL 7-18 MEDENT ([facility]) Chloride [Moles/volume] in Serum or Plasma 103 meq/L 98-107 MED[facility] ([facility]) Potassium [Moles/volume] in Serum or Plasma 4.0 meq/L 3.5-5.1 MEDENT ([facility]) Alkaline phosphatase isoenzyme [Units/volume] in Serum or Pl asma 54 mg/dL 46-116 MED[facility] ([facility]) Calcium [Mass/volume] in Serum or Plasma 10.5 mg/dL 8.5-10.1 MEDENT ([facility]) NOTE: RESULT VERIFIED. Carbon dioxide, total [Moles/volume] in Serum or Plasma 32 meq/L 21 -32 MEDENT ([facility]) Total Bilirubin 0.3 mg/dL 0.2-1.0 MEDENT ([facility]) Aspartate aminotransferase [Enzymatic activity/volume] in Serum or Plasma 19 U/L 15-37 MEDENT ([facility] ) Albumin [Mass/volume] in Serum or Plasma 3.4 g/dL 3.4-5.0 MEDENT ([facility]) Alanine aminotransferase [Enzymatic activity/volume] in Seru m or Plasma 19 U/L 12-78 MEDENT ([facility]) Proteinase 3 Ab [Units/volume] in Serum 7.0 g/dL 6.4-8.2 MEDENT ([facility]) Glomerular filtration rate/1.73 sq M pre dicted among blacks [Volume Rate/Area] in Serum or Plasma by Creatinine-based formula (MDRD) Laboratory test result [facility] [facility] <content>CHRONIC KIDNEY DISEASE STAGING PER NKF</content>
<content></content>
<content>STAGE I & II GFR >= 60 NORMAL TO MILDLY DECREASED</content>
<content>STAGE III GFR 30-59 MODERATELY DECREASED</content>
<content>STAGE IV GFR 15-29 SEVERELY DECREASED</content>
<content>STAGE V GFR <15 VERY LITTLE GFR LEFT</content>
<content>ESRD GFR <15 ON SENIOR SOFTWARE QA ANALYST</content>
<content></content> Glomerular filtration rate/1.73 sq M pre dicted among non-blacks [Volume Rate/Area] in Serum or Plasma by Creatinine-based formula (MDRD) Laboratory test result [facility] ([facility] ) A/G Ratio 0.94 CALC 1.00-1.90 [facility] [place] [facility]) ID Date Data Source [id number] 12/13/2020 03:32:00 PM EDT [facility] ([facility]) Name Value Range Interpretation Code Description Data Luciana rce(s) Supporting Document(s) Hemoglobin A1c/Hemoglobin.total in Blood 6.6 % [facility] ([facility]) Lab Result Notes: Pre-Diabetes 5.7 - 6.4 % Diabetes = or > 6.5% Glucose mean value [Mass/volume] in Blood Estimated fr om glycated hemoglobin 143 mg/dL 60-110 [facility] ([facility] ) ID Date Data Source [id number] 12/13/2020 03:32:00 PM EDT [facility] Name Value Range Interpretation Code Description Data Luciana rce(s) Supporting Document(s) Hemoglobin A1c/Hemoglobin.total in Blood Laboratory test result [facility] ([facility]) Erythrocyte sedimentation rate by Westergren method 30 mm/hr 0-15 [facility] ([facility]) ID Date Data Source [id number] 12/13/2020 03:32:00 PM EDT [facility] ([facility]) Name Value Range Interpretation Code Description Data Luciana rce(s) Supporting Document(s) Leukocytes [#/volume] in Blood by Automated count 11.6 x10*3/UL 4.1-1 0.9 [facility] ([facility]) NOTE: RESULT VERIFIED. Hematocrit [Volume Fraction] of Blood by Automated count 41.5 % 3 7.0-51.0 [facility] ([facility]) Erythrocytes [#/volume] in Blood by Automated count 4.39 x10*6/UL 4.2 0-6.30 [facility] [facility] Hemoglobin [Mass/volume] in Blood 14.1 g/dL 12.0-18.0 [facility] ([facility]) MCH 32.1 pg 26.0-32.0 [facility]) MCV 94.4 fL 80.0-97.0 [facility] ([facility]) MCHC 34.0 g/dL 31.0-38.0 [facility] ([facility]) Platelets [#/volume] in Blood by Automated count 302 x10*3/UL 140-440 [facility] ([facility]) Erythrocyte distribution width [Ratio] by Automated count 12.7 % 11.6-13.7 [facility] MPV 9.0 FL 7.8-11.0 [facility] ([facility] [place]) Mid % 6.3 % 1.7-9.3 [facility] ([facility] [place]) Lymph % 21.4 % 10.0-58.5 [facility] ([place]) Lymph # 2.5 x10*3/UL 0.6-4.1 [facility] ([facility]) Neut % 72.3 % 37.0-92.0 [facility] ([facility] [place]) Mid # 0.7 x10*3/UL 0.1-0.6 [facility] ([facility]) Neut # 8.4 x10*3/UL 2.0-7.8 [facility] ([facility]) ID Date Data Source [id number] 11/22/2020 10:16:00 AM EDT [facility] ([facility]) Name Value Range Interpretation Code Description Data Luciana rce(s) Supporting Document(s) Inr 0.93 [facility] ([facility]) THERAPUTIC HUMAN INR VALUES INDICATIONS NORMAL RANGES PROPHYLAXIS/TREATMENT OF: VENOUS THROMBOSIS 2.0-3.0 PULMONARY EMBOLISM 2.0-3.0 PREVENTION OF SYSTEMIC EMBOLISM FROM: TISSUE HEART VALVES 2.0-3.0 ACUTE MYOCARDIAL INFARCTION 2.0-3.0 VALVULAR HEART DISEASE 2.0-3.0 ATRIAL FIBRILLATION 2.0-3.0 MECHANICAL VALVES(HIGH RISK) 2.5-3.5 RECURRENT MYOCARDIAL INFARCTION 2.5-3.5 Prothrombin Time 12.8 s 12.7-14.5 [facility] ([facility]) Partial Thromboplastin Time 38.8 s 25.9-37.0 [facility] ([facility]) ID Date Data Source [id number] 11/22/2020 10:16:00 AM EDT [facility] ([facility]) Name Value Range Interpretation Code Description Data Luciana rce(s) Supporting Document(s) Platelets [#/volume] in Blood by Automated count 265 10 150-450 [facility] ([facility]) ID Date Data Source [id number] 11/22/2020 10:16:00 AM EDT [facility] ([facility], ) Name Value Range Interpretation Code Description Data Luciana rce(s) Supporting Document(s) Inr 0.93 Normal (applies to non-numeric resul ts) [facility] ([facility]) THERAPUTIC HUMAN INR VALUES INDICATIONS NORMAL RANGES PROPHYLAXIS/TREATMENT OF: VENOUS THROMBOSIS 2.0-3.0 PULMONARY EMBOLISM 2.0-3.0 PREVENTION OF SYSTEMIC EMBOLISM FROM: TISSUE HEART VALVES 2.0-3.0 ACUTE MYOCARDIAL INFARCTION 2.0-3.0 VALVULAR HEART DISEASE 2.0-3.0 ATRIAL FIBRILLATION 2.0-3.0 MECHANICAL VALVES(HIGH RISK) 2.5-3.5 RECURRENT MYOCARDIAL INFARCTION 2.5-3.5 Prothrombin Time 12.8 s 12.7-14.5 Normal (applies to non-numeric results) [facility] ([facility]) Partial Thromboplastin Time 38.8 s 25.9-37.0 Above high normal [facility] ([facility]) ID Date Data Source [id number] 11/22/2020 10:16:00 AM EDT [facility] ([facility]) Name Value Range Interpretation Code Description Data Luciana rce(s) Supporting Document(s) Platelets [#/volume] in Blood by Automated count 265 10 150-450 Normal (applies to non-numeric results) [facility] ([facility]) ID Date Data Source [id number] 10/14/2020 11:23:00 AM EDT [facility] Name Value Range Interpretation Code Description Data Luciana rce(s) Supporting Document(s) Glucose, Fasting 126 mg/dL 70-100 [facility] ([facility]) Blood Urea Nitrogen 16 mg/dL 7-18 [facility] Creatinine For GFR 0.62 mg/dL 0.55-1.30 [facility] Glomerular Filtration Rate Laboratory test result [facility] ([place] [facility]) <content>Units are mL/min/1.73 m2</content>
<content></content>
<content>Chronic Kidney Disease Staging per NKF:</content>
<content></content>
<content>Stage I & II GFR >=60 Normal to Mildly Decreased</content>
<content>Stage III GFR 30- 59 Moderately Decreased</content>
<content>Stage IV GFR 15-29 Severely Decreased</content>
<content>Stage V GFR <15 Very Little GFR Left</content>
<content>ESRD GFR <15 on SENIOR SOFTWARE QA ANALYST</content>
<content></content> Sodium Level 143 meq/L 136-145 [facility] ([facility]) Carbon Dioxide Level 29 meq/L 21-32 [facility] ([facility]) Potassium Serum 4.4 meq/L 3.5-5.1 [facility] ([facility]) Chloride Level 110 meq/L 98-107 [facility] ([facility]) Calcium Level 10.3 mg/dL 8.8-10.2 [facility] ([facility]) Anion Gap 4 meq/L 8-16 [facility] ([facility]) ID Date Data Source [id number] 10/10/2020 10:37:00 AM EDT [facility] ([facility] Name Value Range Interpretation Code Description Data Luciana rce(s) Supporting Document(s) Calcium.ionized [Mass/volume] in Serum o r Plasma by Ion-selective membrane electrode (ISE) 5.2 mg/dL 4.5-5.3 [facility] ([facility]) ID Date Data Source [id number] 10/10/2020 10:36:00 AM EDT [facility] ([facility]) Name Value Range Interpretation Code Description Data Luciana rce(s) Supporting Document(s) Triglyceride [Mass/volume] in Serum or Plasma 186 mg/dL 30-150 [facility] ([facility]) Cholesterol [Mass/volume] in Serum or Plasma 183 mg/dL 131-200 [facility] ([facility]) Cholesterol in HDL [Mass/volume] in Serum or Plasma 67 mg/dL 35-60 [facility] ([facility]) Cholesterol in LDL [Mass/volume] in Serum or Plasma by calcu lation 79 CALC 50-159 [facility] ([facility]) ID Date Data Source [id number] 10/10/2020 10:36:00 AM EDT [facility] ([facility]) Name Value Range Interpretation Code Description Data Luciana rce(s) Supporting Document(s) Microalbumin Urine 29.8 mg/L 1.3-20.0 [facility] ([facility]) Urine Creatinine 141.3 mg/dL 30.0-125.0 [facility] ([facility]) Microalb/Creat Ratio 21.1 ug/mg 0.0-30.0 [facility] ( [facility]) ID Date Data Source [id number] 10/10/2020 10:36:00 AM EDT [facility] ([facility]) Name Value Range Interpretation Code Description Data Luciana rce(s) Supporting Document(s) Glucose [Mass/volume] in Serum or Plasma 138 mg/dL 74-99 [facility] ([facility]) 100-125 mg/dL PRE-DIABETES/FASTING >126 mg/dL DIABETES/FASTING Urea nitrogen [Mass/volume] in Serum or Plasma 17 mg/dL 7-18 [facility] ([facility]) Creatinine 0.7 mg/dL 0.6-1.3 [facility] ([facility]) Sodium [Moles/volume] in Serum or Plasma 141 meq/L 136-145 [facility] ([facility]) Potassium [Moles/volume] in Serum or Plasma 4.4 meq/L 3.5-5.1 [facility] ([facility]) Carbon dioxide, total [Moles/volume] in Serum or Plasma 29 meq/L 21 -32 [facility] ([facility]) Chloride [Moles/volume] in Serum or Plasma 104 meq/L 98-107 [facility] ([facility]) Calcium [Mass/volume] in Serum or Plasma 10.4 mg/dL 8.5-10.1 [facility] ([facility]) NOTE: RESULT VERIFIED. Alkaline phosphatase isoenzyme [Units/volume] in Serum or Pl asma 52 mg/dL 46-116 [facility] ([facility]) Total Bilirubin 0.5 mg/dL 0.2-1.0 [facility] ([facility]) Aspartate aminotransferase [Enzymatic activity/volume] in Serum or Plasma 15 U/L 15-37 [facility] ([facility] ) Alanine aminotransferase [Enzymatic activity/volume] in Seru m or Plasma 16 U/L 12-78 [facility] ([facility]) Albumin [Mass/volume] in Serum or Plasma 3.2 g/dL 3.4-5.0 [facility] [facility] A/G Ratio 1.07 CALC 1.00-1.90 [facility]) Proteinase 3 Ab [Units/volume] in Serum 6.2 g/dL 6.4-8.2 [facility] ([place] [facility] Glomerular filtration rate/1.73 sq M pre dicted among blacks [Volume Rate/Area] in Serum or Plasma by Creatinine-based formula (MDRD) Laboratory test result [facility] ([facility]) <content>CHRONIC KIDNEY DISEASE STAGING PER NKF</content>
<content></content>
<content>STAGE I & II GFR >= 60 NORMAL TO MILDLY DECREASED</content>
<content>STAGE III GFR 30-59 MODERATELY DECREASED</content>
<content>STAGE IV GFR 15-29 SEVERELY DECREASED</content>
<content>STAGE V GFR <15 VERY LITTLE GFR LEFT</content>
<content>ESRD GFR <15 ON SENIOR SOFTWARE QA ANALYST</content>
<content></content> Glomerular filtration rate/1.73 sq M pre dicted among non-blacks [Volume Rate/Area] in Serum or Plasma by Creatinine-based formula (MDRD) Laboratory test result [facility] ([place] [facility] ) ID Date Data Source [id number] 09/02/2020 10:08:00 AM EDT [facility]) Name Value Range Interpretation Code Description Data Luciana rce(s) Supporting Document(s) Cobalamin (Vitamin B12) [Mass/volume] in Serum or Plasma 421 pg/mL 2 47-911 [facility] ([place] [facility]) VITAMIN B12 NORMAL RANGE NORMAL 247 - 911 PG/ML INDETERMINATE 211 - 246 PG/ML DEFICIENT LESS THAN 211 PG/ML Parathyrin.intact [Mass/volume] in Serum or Plasma 43.4 pg/mL 18.5-88 .0 [facility] ([place] [facility]) ID Date Data Source [id number] 09/02/2020 10:06:00 AM EDT [facility] ([facility]) Name Value Range Interpretation Code Description Data Luciana rce(s) Supporting Document(s) Calcidiol [Mass/volume] in Serum or Plasma 47.2 ng/mL 24.0-80.0 [facility] ([facility]) This test was performed using [employer] I P Vitamin D immunoassay kit. Values obtained with different assay methods should not be used interchangeably. ID Date Data Source [id number] 09/02/2020 10:05:00 AM EDT [facility] ([facility]) Name Value Range Interpretation Code Description Data Luciana rce(s) Supporting Document(s) Thyrotropin [Units/volume] in Serum or Plasma by Detec tion limit <= 0.05 mIU/L 2.61 uIU/mL 0.36-3.74 [facility] ([facility] ) ID Date Data Source [id number] 09/02/2020 10:05:00 AM EDT [facility] ([facility]) Name Value Range Interpretation Code Description Data Luciana rce(s) Supporting Document(s) Urea nitrogen [Mass/volume] in Serum or Plasma 15 mg/dL 7-18 [facility] ([facility]) Glucose [Mass/volume] in Serum or Plasma 146 mg/dL 74-99 [facility] ([facility]) 100-125 mg/dL PRE-DIABETES/FASTING >126 mg/dL DIABETES/FASTING Creatinine 0.8 mg/dL 0.6-1.3 [facility]) Sodium [Moles/volume] in Serum or Plasma 142 meq/L 136-145 [facility] ([facility]) Potassium [Moles/volume] in Serum or Plasma 4.1 meq/L 3.5-5.1 [facility] ([facility]) Chloride [Moles/volume] in Serum or Plasma 105 meq/L 98-107 [facility] ([facility]) Carbon dioxide, total [Moles/volume] in Serum or Plasma 26 meq/L 21 -32 [facility] ([facility]) Calcium [Mass/volume] in Serum or Plasma 10.7 mg/dL 8.5-10.1 [facility] ([facility]) NOTE: CALCIUM,ALBUMIN,T.PROTEIN VERIFIED Alkaline phosphatase isoenzyme [Units/volume] in Serum or Pl asma 51 mg/dL 46-116 [facility] ([facility]) Total Bilirubin 0.4 mg/dL 0.2-1.0 [facility] ([facility]) Alanine aminotransferase [Enzymatic activity/volume] in Seru m or Plasma 14 U/L 12-78 [facility] ([facility]) Aspartate aminotransferase [Enzymatic activity/volume] in Serum or Plasma 12 U/L 15-37 [facility] ([facility] ) Proteinase 3 Ab [Units/volume] in Serum 6.2 g/dL 6.4-8.2 [facility] ([facility]) Albumin [Mass/volume] in Serum or Plasma 3.4 g/dL 3.4-5.0 [facility] ([facility]) A/G Ratio 1.21 CALC 1.00-1.90 [facility] ([facility] [place] [facility]) Glomerular filtration rate/1.73 sq M pre dicted among blacks [Volume Rate/Area] in Serum or Plasma by Creatinine-based formula (MDRD) Laboratory test result [facility] ([place] [facility]) <content>CHRONIC KIDNEY DISEASE STAGING PER NKF</content>
<content></content>
<content>STAGE I & II GFR >= 60 NORMAL TO MILDLY DECREASED</content>
<content>STAGE III GFR 30-59 MODERATELY DECREASED</content>
<content>STAGE IV GFR 15-29 SEVERELY DECREASED</content>
<content>STAGE V GFR <15 VERY LITTLE GFR LEFT</content>
<content>ESRD GFR <15 ON SENIOR SOFTWARE QA ANALYST</content>
<content></content> Glomerular filtration rate/1.73 sq M pre dicted among non-blacks [Volume Rate/Area] in Serum or Plasma by Creatinine-based formula (MDRD) Laboratory test result [facility] ([place] [facility] ) ID Date Data Source [id number] 09/02/2020 10:05:00 AM EDT [facility] ([facility]) Name Value Range Interpretation Code Description Data Luciana rce(s) Supporting Document(s) Hemoglobin A1c/Hemoglobin.total in Blood 7.6 % [facility] ([place] [facility]) Lab Result Notes: Pre-Diabetes 5.7 - 6.4 % Diabetes = or > 6.5% Glucose mean value [Mass/volume] in Blood Estimated fr om glycated hemoglobin 171 mg/dL 60-110 [facility] ([place] [facility] ) ID Date Data Source [id number] 09/02/2020 10:05:00 AM EDT [facility] ([facility]) Name Value Range Interpretation Code Description Data Luciana rce(s) Supporting Document(s) Leukocytes [#/volume] in Blood by Automated count 11.3 x10*3/UL 4.1-1 0.9 [facility] ([place] [facility]) Erythrocytes [#/volume] in Blood by Automated count 4.59 x10*6/UL 4.2 0-6.30 [facility] ([place] [facility]) Hemoglobin [Mass/volume] in Blood 14.5 g/dL 12.0-18.0 [facility] ([facility]) MCH 31.5 pg 26.0-32.0 [facility] ([place] [facility]) MCV 94.2 fL 80.0-97.0 [facility] ([facility]) Hematocrit [Volume Fraction] of Blood by Automated count 43.3 % 3 7.0-51.0 [facility] ([place] [facility]) Erythrocyte distribution width [Ratio] by Automated count 13.1 % 11.6-13.7 [facility] ([place] [facility]) MCHC 33.4 g/dL 31.0-38.0 [facility] ([facility] [place]) Lymph % 16.8 % 10.0-58.5 [facility] ([facility]) Platelets [#/volume] in Blood by Automated count 336 x10*3/UL 140-440 [facility] ([place] [facility]) MPV 8.9 FL 7.8-11.0 [facility] ([facility] [place] [facility]) Mid % 4.8 % 1.7-9.3 [facility] ([facility] [place] [facility]) Neut % 78.4 % 37.0-92.0 [facility] [place] [facility]) Lymph # 1.9 x10*3/UL 0.6-4.1 [facility] ([facility]) Mid # 0.5 x10*3/UL 0.1-0.6 [facility] ([facility]) Neut # 8.9 x10*3/UL 2.0-7.8 [facility] ([facility]) ID Date Data Source [id number] 06/27/2020 11:55:00 AM EDT [facility] ([facility]) Name Value Range Interpretation Code Description Data Luciana rce(s) Supporting Document(s) 1.2 mg/dL 0.0-0.5 Above high normal CRP [facility] ([facility]) ID Date Data Source [id number] 06/27/2020 11:55:00 AM EDT [facility] ([facility]) Name Value Range Interpretation Code Description Data Luciana rce(s) Supporting Document(s) 0.9 mg/dL 0.6-1.2 CREATININE [facility] ([facility]) >60 eGFR Non- [facility] ([facility]) >60 eGFR [facility] ([facility]) ID Date Data Source [id number] 06/27/2020 11:55:00 AM EDT [facility] ([facility]) Name Value Range Interpretation Code Description Data Luciana rce(s) Supporting Document(s) 12 mg/dL 10-23 BUN [facility] ([facility]) ID Date Data Source [id number] 06/27/2020 11:55:00 AM EDT [facility] ([facility]) Name Value Range Interpretation Code Description Data Luciana rce(s) Supporting Document(s) 12 U/L 15-37 Below low normal AST [facility] ([facility]) ID Date Data Source [id number] 06/27/2020 11:55:00 AM EDT [facility] ([facility]) Name Value Range Interpretation Code Description Data Luciana rce(s) Supporting Document(s) 17 U/L 30-65 Below low normal ALT [facility] ([facility]) ID Date Data Source [id number] 06/27/2020 11:55:00 AM EDT [facility] ([facility]) Name Value Range Interpretation Code Description Data Luciana rce(s) Supporting Document(s) 3.6 g/dL 3.4-4.4 ALB [facility] ([facility]) ID Date Data Source [id number] 06/27/2020 11:55:00 AM EDT [facility] ([facility]) Name Value Range Interpretation Code Description Data Luciana rce(s) Supporting Document(s) 9 mm/Hr 0-20 ESR [facility] ([facility]) ID Date Data Source [id number] 06/27/2020 11:55:00 AM EDT [facility] ([facility]) Name Value Range Interpretation Code Description Data Luciana rce(s) Supporting Document(s) 4.45 10*6/uL 3.50-5.50 RBC [facility] ([facility]) 11.3 10*3/uL 3.7-10.1 Above high normal WBC [facility] ([facility]) 14.4 g/dL 12.0-16.0 HGB [facility] ([facility]) 45.4 % 36.0-48.0 HCT [facility] ([facility]) 32.4 pg 26.0-34.0 MCH [facility] ([facility]) 102.0 fL 80.0-100.0 Above high normal MCV [facility] ([facility]) 11.8 % 10.0-15.0 RDW [facility] ([facility]) 31.7 g/dL 31.0-37.0 MCHC [facility] ([facility]) 8.6 fL 6.0-10.0 MPV [facility] ([facility]) 291 10*3/uL 150-500 PLATELETS [facility] ([facility]) 7.56 10*3/uL 2.10-8.00 LIBERTAD# [facility] ([facility]) 2.57 10*3/uL 1.00-5.00 LYM# [facility] 0.1 10*3/uL 0.0-0.5 EOS# [facility] ([facility]) 0.85 10*3/uL 0.10-1.00 MONO# [facility] ([facility]) 22.8 % 25.0-50.0 Below low normal LYM% [facility] ([facility]) 67.1 % 50.0-80.0 LIBERTAD% [facility] ([facility]) 0.2 10*3/uL 0.0-0.2 BASO# [facility] ([facility]) 7.6 % 2.0-10.0 MONO% [facility] ([facility]) 0.9 % 0.0-5.0 EOS% [facility] ([facility]) 1.7 % 0.0-4.0 BASO% [facility] ([facility]) ID Date Data Source [id number] 06/20/2020 10:51:00 AM EDT [facility] Name Value Range Interpretation Code Description Data Luciana rce(s) Supporting Document(s) Glucose mean value [Mass/volume] in Blood Estimated fr om glycated hemoglobin 235 mg/dL 60-110 [facility] ([place] [facility] ) Hemoglobin A1c/Hemoglobin.total in Blood 9.8 % [facility] ([facility]) Lab Result Notes: Pre-Diabetes 5.7 - 6.4 % Diabetes = or > 6.5% ID Date Data Source [id number] 06/20/2020 10:51:00 AM EDT [facility] Name Value Range Interpretation Code Description Data Luciana rce(s) Supporting Document(s) Urea nitrogen [Mass/volume] in Serum or Plasma 10 mg/dL 7-18 [facility] ([facility]) Glucose [Mass/volume] in Serum or Plasma 160 mg/dL 74-99 [facility] ([facility]) 100-125 mg/dL PRE-DIABETES/FASTING >126 mg/dL DIABETES/FASTING Sodium [Moles/volume] in Serum or Plasma 143 meq/L 136-145 [facility] ([facility]) Creatinine 0.8 mg/dL 0.6-1.3 [facility] ([facility]) Chloride [Moles/volume] in Serum or Plasma 105 meq/L 98-107 [facility] ([facility]) Potassium [Moles/volume] in Serum or Plasma 3.7 meq/L 3.5-5.1 [facility] ([facility]) Calcium [Mass/volume] in Serum or Plasma 9.9 mg/dL 8.5-10.1 [facility] ([facility]) Carbon dioxide, total [Moles/volume] in Serum or Plasma 26 meq/L 21 -32 [facility] ([facility]) Alkaline phosphatase isoenzyme [Units/volume] in Serum or Pl asma 50 mg/dL 46-116 [facility] ([facility]) Total Bilirubin 0.5 mg/dL 0.2-1.0 [facility] ([facility]) Aspartate aminotransferase [Enzymatic activity/volume] in Serum or Plasma 13 U/L 15-37 [facility] ([facility] ) Alanine aminotransferase [Enzymatic activity/volume] in Seru m or Plasma 12 U/L 12-78 [facility] ([facility]) Proteinase 3 Ab [Units/volume] in Serum 6.3 g/dL 6.4-8.2 [facility] ([facility]) Albumin [Mass/volume] in Serum or Plasma 3.5 g/dL 3.4-5.0 [facility] ([facility]) A/G Ratio 1.25 CALC 1.00-1.90 [facility] ([facility] [place]) Glomerular filtration rate/1.73 sq M pre dicted among non-blacks [Volume Rate/Area] in Serum or Plasma by Creatinine-based formula (MDRD) Laboratory test result [facility] ([place] [facility] Glomerular filtration rate/1.73 sq M pre dicted among blacks [Volume Rate/Area] in Serum or Plasma by Creatinine-based formula (MDRD) Laboratory test result [facility] ([place] [facility]) <content>CHRONIC KIDNEY DISEASE STAGING PER NKF</content>
<content></content>
<content>STAGE I & II GFR >= 60 NORMAL TO MILDLY DECREASED</content>
<content>STAGE III GFR 30-59 MODERATELY DECREASED</content>
<content>STAGE IV GFR 15-29 SEVERELY DECREASED</content>
<content>STAGE V GFR <15 VERY LITTLE GFR LEFT</content>
<content>ESRD GFR <15 ON SENIOR SOFTWARE QA ANALYST</content>
<content></content> ID Date Data Source [id number] 06/20/2020 10:51:00 AM EDT [facility] ([facility]) Name Value Range Interpretation Code Description Data Luciana rce(s) Supporting Document(s) Hemoglobin A1c/Hemoglobin.total in Blood Laboratory test result [facility] ([facility]) ID Date Data Source [id number] 05/25/2020 03:10:00 PM EST MEDENT ([facility]) Name Value Range Interpretation Code Description Data Luciana rce(s) Supporting Document(s) Creatinine For GFR 0.81 mg/dL 0.55-1.30 MED[facility] ([facility]) Blood Urea Nitrogen 12 mg/dL 7-18 [facility] ([facility]) Glucose, Fasting 181 mg/dL 70-100 [facility] ([facility]) Sodium Level 140 meq/L 136-145 [facility] ([facility]) Glomerular Filtration Rate Laboratory test result [facility] [facility] <content>Units are mL/min/1.73 m2</content>
<content></content>
<content>Chronic Kidney Disease Staging per NKF:</content>
<content></content>
<content>Stage I & II GFR >=60 Normal to Mildly Decreased</content>
<content>Stage III GFR 30-59 Moderately Decreased</content>
<content>Stage IV GFR 15-29 Severely Decreased</content>
<content>Stage V GFR <15 Very Little GFR Left</content>
<content>ESRD GFR <15 on SENIOR SOFTWARE QA ANALYST</content>
<content></content> Potassium Serum 3.8 meq/L 3.5-5.1 MED[facility] ([facility]) Chloride Level 106 meq/L 98-107 MED[facility] ([facility]) Calcium Level 9.3 mg/dL 8.8-10.2 MED[facility] ([facility]) Carbon Dioxide Level 29 meq/L 21-32 MED[facility] ([facility]) Anion Gap 5 meq/L 8-16 [facility] [facility] Alt/SGPT 13 U/L 12-78 [facility] [facility] Ast/Sgot 8 U/L 7-37 [facility] ([place] [facility]) Total Protein 6.5 GM/DL 6.4-8.2 [facility] ([facility]) Alkaline Phosphatase 60 U/L 45-117 MED[facility] ([facility]) Bilirubin,Total 0.4 mg/dL 0.2-1.0 MEDENT ([facility]) Albumin/Globulin Ratio 1.0 1.2-2.2 [facility] ([facility]) Albumin 3.2 GM/DL 3.2-5.2 [facility] ([place] [facility]) ID Date Data Source [id number] 05/25/2020 03:10:00 PM EST MEDENT ([facility]) Name Value Range Interpretation Code Description Data Luciana rce(s) Supporting Document(s) Red Blood Count 4.32 10 4.00-5.40 MED[facility] ([facility]) White Blood Count 9.4 10 4.0-10.0 [facility] ([facility]) Mean Corpuscular Volume 97.5 fl 80.0-96.0 MED[facility] ([facility]) Hemoglobin 13.8 g/dL 12.0-15.5 [facility] ([place] [facility]) Hematocrit 42.1 % 36.0-47.0 [facility] ([place] [facility] Mean Corpuscular Hemoglobin 31.9 pg 27.0-33.0 ME DENT ([facility]) Mean Corpuscular HGB Conc 32.8 g/dL 32.0-36.5 MEDE NT ([facility]) Neutrophils % 66.6 % 36.0-66.0 MED[facility] ([facility]) Platelet Count, Automated 263 10 150-450 MEDE NT ([facility]) Red Cell Distribution Width 11.9 % 11.5-14.5 ME DENT ([facility]) Barren % 9.6 % 2.0-8.0 [facility] ([place] [facility] Lymph % 21.7 % 24.0-44.0 [facility] ([place] [facility]) Immature Granulocyte % 0.6 % 0-3.0 [facility] ([facility]) Eos % 0.9 % 0.0-3.0 [facility] ([place] [facility]) Baso % 0.6 % 0.0-1.0 [facility] ([place] [facility]) Neutrophils # 6.3 10 1.5-8.5 MED[facility] ([facility]) Nucleated Red Blood Cell % 0.0 % 0-0 MED ENT ([facility]) Lymph # 2.0 10 1.5-5.0 [facility] ([place] [facility]) Eos # 0.1 10 0.0-0.5 [facility] ([place] [facility]) Barren # 0.9 10 0.0-0.8 [facility] ([place] [facility]) Baso # 0.1 10 0.0-0.2 [facility] ([place] [facility]) ID Date Data Source [id number] 04/11/2020 09:45:00 AM EST MEDENT ([facility]) Name Value Range Interpretation Code Description Data Luciana rce(s) Supporting Document(s) Thyrotropin [Units/volume] in Serum or Plasma by Detec tion limit <= 0.05 mIU/L 2.42 uIU/mL 0.36-3.74 [facility] ([facility] ) ID Date Data Source [id number] 04/11/2020 09:45:00 AM EST MEDENT ([facility]) Name Value Range Interpretation Code Description Data Luciana rce(s) Supporting Document(s) Hemoglobin A1c 13.3 % [facility] <content>REFERENCE RANGES:</content><br/ ><content></content>
<content><=5.6% NORMAL</content>
<content>5.7-6.4% SUGGESTS IMPAIRED GLUCOSE METABOLISM/PREDIABETIC</content>
<content>>= 6.5% ABNORMAL</content>
<content></content> Estimated Average Glucose 335 mg/dL 60-110 MEDE NT ([facility]) ID Date Data Source [id number] 04/11/2020 09:45:00 AM EST [facility] ([facility]) Name Value Range Interpretation Code Description Data Luciana rce(s) Supporting Document(s) Glucose [Mass/volume] in Serum or Plasma 458 mg/dL 74-99 Above upper panic limits MEDENT ([facility]) CRITICAL: DR RAE NOTIFIED 100-125 mg/dL PRE-DIABETES/FASTING >126 mg/dL DIABETES/FASTING Creatinine 0.8 mg/dL 0.6-1.3 [facility] ([facility]) Urea nitrogen [Mass/volume] in Serum or Plasma 12 mg/dL 7-18 [facility] ([facility]) Potassium [Moles/volume] in Serum or Plasma 4.2 meq/L 3.5-5.1 MED[facility] ([facility]) Sodium [Moles/volume] in Serum or Plasma 135 meq/L 136-145 MED[facility] ([facility]) Carbon dioxide, total [Moles/volume] in Serum or Plasma 31 meq/L 21 -32 [facility] ([facility]) Chloride [Moles/volume] in Serum or Plasma 99 meq/L 98-107 [facility] ([facility]) Calcium [Mass/volume] in Serum or Plasma 10.1 mg/dL 8.5-10.1 [facility] ([facility]) Alkaline phosphatase isoenzyme [Units/volume] in Serum or Pl asma 138 mg/dL 46-116 MED[facility] ([facility] [place]) Total Bilirubin 0.5 mg/dL 0.2-1.0 MED[facility] ([facility]) Aspartate aminotransferase [Enzymatic activity/volume] in Serum or Plasma 12 U/L 15-37 [facility] ([facility] ) Alanine aminotransferase [Enzymatic activity/volume] in Seru m or Plasma 18 U/L 12-78 [facility] ([facility]) Albumin [Mass/volume] in Serum or Plasma 3.4 g/dL 3.4-5.0 [facility] [place] Proteinase 3 Ab [Units/volume] in Serum 6.5 g/dL 6.4-8.2 [facility] ([facility] [place]) A/G Ratio 1.10 CALC 1.00-1.90 [facility] ([place] [facility]) Glomerular filtration rate/1.73 sq M pre dicted among non-blacks [Volume Rate/Area] in Serum or Plasma by Creatinine-based formula (MDRD) Laboratory [facility] [facility] Glomerular filtration rate/1.73 sq M pre dicted among blacks [Volume Rate/Area] in Serum or Plasma by Creatinine-based formula (MDRD) Laboratory test result [facility] [facility] <content>CHRONIC KIDNEY DISEASE STAGING PER NKF</content>
<content></content>
<content>STAGE I & II GFR >= 60 NORMAL TO MILDLY DECREASED</content>
<content>STAGE III GFR 30-59 MODERATELY DECREASED</content>
<content>STAGE IV GFR 15-29 SEVERELY DECREASED</content>
<content>STAGE V GFR <15 VERY LITTLE GFR LEFT</content>
<content>ESRD GFR <15 ON SENIOR SOFTWARE QA ANALYST</content>
<content></content> ID Date Data Source [id number] 04/11/2020 09:45:00 AM EST MEDENT ([facility]) Name Value Range Interpretation Code Description Data Luciana rce(s) Supporting Document(s) Leukocytes [#/volume] in Blood by Automated count 9.7 x10*3/UL 4.1-10 .9 [facility] ([facility] [place]) Erythrocytes [#/volume] in Blood by Automated count 4.67 x10*6/UL 4.2 0-6.30 [facility] ([facility] [place]) Hemoglobin [Mass/volume] in Blood 15.0 g/dL 12.0-18.0 [facility] ([facility]) MCV 93.7 fL 80.0-97.0 [facility] ([facility]) Hematocrit [Volume Fraction] of Blood by Automated count 43.7 % 3 7.0-51.0 [facility] [facility] MCHC 34.3 g/dL 31.0-38.0 [facility] ([place] [facility]) MCH 32.1 pg 26.0-32.0 [facility] ([facility]) Erythrocyte distribution width [Ratio] by Automated count 12.3 % 11.6-13.7 [facility] ([facility] [place] [facility] Platelets [#/volume] in Blood by Automated count 268 x10*3/UL 140-440 [facility] ([place] [facility] Lymph % 19.0 % 10.0-58.5 [facility] ([facility]) MPV 9.6 FL 7.8-11.0 [facility] ([facility]) Mid % 4.5 % 1.7-9.3 [facility] ([facility]) Neut % 76.5 % 37.0-92.0 [facility] ([facility]) Lymph # 1.8 x10*3/UL 0.6-4.1 [facility] ([facility]) Neut # 7.4 x10*3/UL 2.0-7.8 [facility] ([facility]) Mid # 0.5 x10*3/UL 0.1-0.6 [facility] ([facility]) ID Date Data Source [id number] 04/11/2020 09:45:00 AM EST [facility] ([facility]) Name Value Range Interpretation Code Description Data Luciana rce(s) Supporting Document(s) Hemoglobin A1c/Hemoglobin.total in Blood Laboratory test result [facility] ([facility]) ID Date Data Source [id number] 03/22/2020 12:49:00 PM EST [facility] ([facility]) Name Value Range Interpretation Code Description Data Luciana rce(s) Supporting Document(s) 3.0 mg/dL 0.0-0.5 Above high normal CRP [facility] ([facility]) ID Date Data Source [id number] 03/22/2020 12:49:00 PM EST [facility] ([facility]) Name Value Range Interpretation Code Description Data Luciana rce(s) Supporting Document(s) 45.8 mL/min/1.73m eGFR Non- A merican [facility] ([facility]) 1.2 mg/dL 0.6-1.2 CREATININE [facility] ([facility]) 53.0 mL/min/1.73 eGFR Americ an [facility] ([facility]) ID Date Data Source [id number] 03/22/2020 12:49:00 PM EST [facility] ([facility]) Name Value Range Interpretation Code Description Data Luciana rce(s) Supporting Document(s) 12 U/L 15-37 Below low normal AST [facility] ([facility]) ID Date Data Source [id number] 03/22/2020 12:49:00 PM EST [facility] ([facility]) Name Value Range Interpretation Code Description Data Luciana rce(s) Supporting Document(s) 18 U/L 30-65 Below low normal ALT [facility] ([facility]) ID Date Data Source [id number] 03/22/2020 12:49:00 PM EST [facility] ([facility]) Name Value Range Interpretation Code Description Data Luciana rce(s) Supporting Document(s) 3.2 g/dL 3.4-4.4 Below low normal ALB [facility] ([facility]) ID Date Data Source [id number] 03/22/2020 12:49:00 PM EST [facility] ([facility]) Name Value Range Interpretation Code Description Data Luciana rce(s) Supporting Document(s) 17 mm/Hr 0-20 ESR [facility] ID Date Data Source [id number] 03/22/2020 12:49:00 PM EST [facility] ID Date Data Source [id number] 02/29/2020 07:18:00 [place] [address] OPERATIVE SUMMARYNAME: PATSY CHAWLA DATE OF : 1950ATTENDING PHYS: Everette Ortega MD DATE: 02/10/20 MR#: [id number] OF PROCEDURE: 02/10/2020PREOPERATIVE DIAGNOSIS: Glaucoma, left eye.POSTOPERATIVE DIAGNOSIS: Glaucoma, left eye.PROCEDURE: Placement of a XEN gel stent, lot #[id number], using the external approach.SURGEON: Everette Ortega MD.GAS FLOW REGULATOR: None.COMPLICATIONS: None.INDICATION: Glaucoma and intolerance to drops.DETAILS [...] advanced and the XEN stent wasdeployed. 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 The XEN implant was noted [...] condition where postop instructions were given. [address] [place] [address] OPERATIVE SUMMARYNAME: PATSY CHAWLA DATE OF : 1950ATTENDING PHYS: Everette Ortega MD DATE: 02/10/20 MR#: [id number]: Everette Ortega MD 02/29/20 04:14DT: SSR 02/29/20 07:16DS: Everette Ortega MD 03/02/20 09:59 2 Name Value Range Interpretation Code Description Data Luciana rce(s) Supporting Document(s) ID Date Data Source [id number] 02/05/2020 08:28:00 [place] [address] OPERATIVE SUMMARYNAME: PATSY CHAWLA DATE OF : 1950ATTENDING PHYS: Everette Ortega MD DATE: 02/03/20 MR#: [id number] OF PROCEDURE: 02/03/2020PREOPERATIVE DIAGNOSIS: Glaucoma, right eye.POSTOPERATIVE DIAGNOSIS: Glaucoma, right eye.PROCEDURE: Placement of a XEN gel stent, right eye, using the external approach. Serial#[id number].SURGEON: Everette Ortega MD.GAS FLOW REGULATOR: None.COMPLICATIONS: None.INDICATION: Glaucoma and intolerance to drops.DETAILS [...] and the XEN stent w asdeployed. 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 The XEN implant was noted [...] condition where postop instructions were given. [address] [place] [address] OPERATIVE SUMMARYNAME: PATSY CHAWLA DATE OF : 1950ATTENDING PHYS: Everette Ortega MD DATE: 02/03/20 MR#: [id number]: Everette Ortega MD 02/04/20 17:44DT: SSR 02/05/20 08:26DS: Everette Ortega MD 03/02/20 09:59 2 Name Value Range Interpretation Code Description Data Luciana rce(s) Supporting Document(s) ID Date Data Source [id number] 02/05/2020 06:01:00 PM EST [facility] Name Value Range Interpretation Code Description Data Luciana rce(s) Supporting Document(s) SARS-CoV-2 (COVID-19) [facility] This lab was ordered by [facility] and reported by [facility]. ID Date Data Source [id number] 01/29/2020 05:57:00 PM EDT [facility] Name Value Range Interpretation Code Description Data Luciana rce(s) Supporting Document(s) SARS-CoV-2 (COVID19) [facility] This lab was ordered by [facility] and reported by [facility]. ID Date Data Source [id number] 01/05/2020 09:25:00 AM EDT [facility] ([facility]) Name Value Range Interpretation Code Description Data Luciana rce(s) Supporting Document(s) Glucose mean value [Mass/volume] in Blood Estimated fr om glycated hemoglobin 194 mg/dL 60-110 [facility] ([facility] ) Hemoglobin A1c/Hemoglobin.total in Blood 8.4 % [facility] ([facility]) Lab Result Notes: Pre-Diabetes 5.7 - 6.4 % Diabetes = or > 6.5% ID Date Data Source [id number] 01/05/2020 09:25:00 AM EDT [facility] ([facility]) Name Value Range Interpretation Code Description Data Luciana rce(s) Supporting Document(s) Thyrotropin [Units/volume] in Serum or Plasma by Detec tion limit <= 0.05 mIU/L 2.57 uIU/mL 0.36-3.74 [facility] ([facility] ) ID Date Data Source [id number] 01/05/2020 09:25:00 AM EDT [facility] ([facility]) Name Value Range Interpretation Code Description Data Luciana rce(s) Supporting Document(s) Cholesterol in HDL [Mass/volume] in Serum or Plasma 55 mg/dL 35-60 [facility] ([facility]) Triglyceride [Mass/volume] in Serum or Plasma 206 mg/dL 30-150 [facility] ([facility]) Cholesterol [Mass/volume] in Serum or Plasma 204 mg/dL 131-200 [facility] ([facility]) Cholesterol in LDL [Mass/volume] in Serum or Plasma by calcu lation 108 CALC 50-159 [facility] ([facility]) ID Date Data Source [id number] 01/05/2020 09:25:00 AM EDT [facility] ([facility]) Name Value Range Interpretation Code Description Data Luciana rce(s) Supporting Document(s) Glucose [Mass/volume] in Serum or Plasma 200 mg/dL 74-99 [facility] ([facility]) 100-125 mg/dL PRE-DIABETES/FASTING >126 mg/dL DIABETES/FASTING Urea nitrogen [Mass/volume] in Serum or Plasma 11 mg/dL 7-18 [facility] ([facility]) Sodium [Moles/volume] in Serum or Plasma 140 meq/L 136-145 [facility] ([facility]) Creatinine 0.9 mg/dL 0.6-1.3 [facility] [facility] Potassium [Moles/volume] in Serum or Plasma 4.2 meq/L 3.5-5.1 [facility] ([facility]) Calcium [Mass/volume] in Serum or Plasma 10.1 mg/dL 8.5-10.1 [facility] ([facility]) Chloride [Moles/volume] in Serum or Plasma 103 meq/L 98-107 [facility] ([facility]) Carbon dioxide, total [Moles/volume] in Serum or Plasma 30 meq/L 21 -32 [facility] [facility] Total Bilirubin 0.6 mg/dL 0.2-1.0 [facility] ([facility]) Aspartate aminotransferase [Enzymatic activity/volume] in Serum or Plasma 18 U/L 15-37 [facility] ([facility] ) Alkaline phosphatase isoenzyme [Units/volume] in Serum or Pl asma 89 mg/dL 46-116 [facility] ([facility]) Albumin [Mass/volume] in Serum or Plasma 3.5 g/dL 3.4-5.0 [facility] ([facility]) Alanine aminotransferase [Enzymatic activity/volume] in Seru m or Plasma 28 U/L 12-78 [facility] [facility] Proteinase 3 Ab [Units/volume] in Serum 6.8 g/dL 6.4-8.2 [facility] ([facility]) Glomerular filtration rate/1.73 sq M pre dicted among non-blacks [Volume Rate/Area] in Serum or Plasma by Creatinine-based formula (MDRD) Laboratory test result [facility] ([place] [facility] Glomerular filtration rate/1.73 sq M pre dicted among blacks [Volume Rate/Area] in Serum or Plasma by Creatinine-based formula (MDRD) Laboratory test result [facility] [facility] <content>CHRONIC KIDNEY DISEASE STAGING PER NKF</content>
<content></content>
<content>STAGE I & II GFR >= 60 NORMAL TO MILDLY DECREASED</content>
<content>STAGE III GFR 30-59 MODERATELY DECREASED</content>
<content>STAGE IV GFR 15-29 SEVERELY DECREASED</content>
<content>STAGE V GFR <15 VERY LITTLE GFR LEFT</content>
<content>ESRD GFR <15 ON SENIOR SOFTWARE QA ANALYST</content>
<content></content> A/G Ratio 1.06 CALC 1.00-1.90 [facility] ([place] [facility]) ID Date Data Source [id number] 01/05/2020 09:25:00 AM EDT [facility] ([facility]) Name Value Range Interpretation Code Description Data Luciana rce(s) Supporting Document(s) Erythrocytes [#/volume] in Blood by Automated count 4.69 x10*6/UL 4.2 0-6.30 [facility] ([facility]) Leukocytes [#/volume] in Blood by Automated count 12.5 x10*3/UL 4.1-1 0.9 [facility] ([facility]) MCV 91.1 fL 80.0-97.0 [facility] ([place] [facility]) Hemoglobin [Mass/volume] in Blood 15.1 g/dL 12.0-18.0 [facility] ([facility]) Hematocrit [Volume Fraction] of Blood by Automated count 42.8 % 3 7.0-51.0 [facility] ([facility]) Erythrocyte distribution width [Ratio] by Automated count 12.7 % 11.6-13.7 [facility] ([facility]) MCHC 35.3 g/dL 31.0-38.0 [facility] [facility] MCH 32.2 pg 26.0-32.0 [facility] [facility] MPV 8.7 FL 7.8-11.0 [facility] ([place] [facility]) Platelets [#/volume] in Blood by Automated count 243 x10*3/UL 140-440 [facility] ([facility]) Lymph % 12.3 % 10.0-58.5 [facility] ([place] [facility] Neut % 84.6 % 37.0-92.0 [facility] [facility] Lymph # 1.5 x10*3/UL 0.6-4.1 [facility] ([facility]) Mid % 3.1 % 1.7-9.3 [facility] [facility] Mid # 0.4 x10*3/UL 0.1-0.6 [facility] ([facility]) Neut # 10.6 x10*3/UL 2.0-7.8 [facility] ([facility]) Procedure Social History Code Duration Value Status Description Data Source(s ) Smoking 01/14/2021 12:00:00 AM EDT Former Smoker completed Former Smoker [email or web address] ([facility]) Smoking 12/20/2020 12:00:00 AM EDT Patient is a former smoker completed Patient is a former smoker [facility] ([facility], ) Smoking 07/08/2020 12:00:00 AM EDT Former Smoker completed Former Smoker eCW1 ([facility]) Smoking 07/08/2020 12:00:00 AM EDT Former Smoker completed Former Smoker eCW1 ([facility]) Caffeine Use Details 06/27/2020 12:00:00 AM EDT coffee, 3 cups comp leted coffee, 3 cups [facility] ([facility]) 06/27/2020 12:00:00 AM EDT Ex-cigarette smoker completed Ex-cigarette smoker [facility] ([facility]) Smoking 06/27/2020 12:00:00 AM EDT Unknown if ever smoked comp leted Unknown if ever smoked [facility] ([facility]) Smoking 02/15/2020 12:00:00 AM EST Former Smoker completed Former Smoker eCW1 ([facility]) Smoking 02/15/2020 12:00:00 AM EST Former Smoker completed Former Smoker eCW1 ([facility]) Smoking 02/15/2020 12:00:00 AM EST Former Smoker completed Former Smoker eCW1 ([facility]) Smoking 02/15/2020 12:00:00 AM EST Former Smoker completed Former Smoker eCW1 ([facility]) Vital Signs ID Date Data Source UNK Name Value Range Interpretation Code Description Data Source(s) Body weight 113.6 [lb_av] 113.6 [lb_av] eCW1 ([facility]) Body weight 51.53 kg 51.53 kg eCW1 ([facility]) Body height 61.8 [in_i] 61.8 [in_i] eCW1 ([facility]) Body mass index (BMI) [Ratio] 20.91 kg/m2 20.91 kg/m2 W1 ([facility]) Heart rate 64 /min 64 /min eCW1 ([facility]) Respiratory rate 18 /min 18 /min eCW1 ([facility]) Body temperature 98.1 [degF] 98.1 [degF] eCW1 ( [facility]) Heart rate 101 /min 101 /min [facility] ([facility], ) Oxygen saturation in Arterial blood by Pulse oximetry 95 % 95 % [facility] ([facility], ) Room Air Body height 62 [in_i] 62 [in_i] [facility] ([facility], ) 5'2" Systolic blood pressure 124 mm[Hg] 124 mm[Hg] [facility] ([facility], ) Diastolic blood pressure 80 mm[Hg] 80 mm[Hg] [facility] ([facility]) [place] body weight 110 [lb_av] 110 [lb_av] [facility] T ([facility]) Systolic blood pressure 120 mm[Hg] 120 mm[Hg] [facility] ([facility]) Diastolic blood pressure 70 mm[Hg] 70 mm[Hg] [facility] ([facility]) Heart rate 78 /min 78 /min [facility] ([facility]) Body weight 106.00 [lb_av] 106.00 [lb_av] MED[facility] T ([facility]) Body height 62 [in_i] 62 [in_i] [facility] ([facility]) 5'2" Body mass index (BMI) [Ratio] 19.4 kg/m2 19.4 k g/m2 [facility] ([facility]) Systolic blood pressure 119 mm[Hg] 119 mm[Hg] [facility] Diastolic blood pressure 82 mm[Hg] 82 mm[Hg] [facility] ([facility]) Heart rate 91 /min 91 /min [facility] ([facility]) Body height 62 [in_i] 62 [in_i] [facility] ([facility]) 5'2" Body weight 111.00 [lb_av] 111.00 [lb_av] MED[facility] T ([facility]) Body mass index (BMI) [Ratio] 20.3 kg/m2 20.3 k g/m2 [facility] ([facility]) Oxygen saturation in Arterial blood by Pulse oximetry 98 % 98 % [facility] ([facility]) Systolic blood pressure 100 mm[Hg] 100 mm[Hg] M EDENT ([facility]) Diastolic blood pressure 60 mm[Hg] 60 mm[Hg] MEDENT ([facility]) Heart rate 92 /min 92 /min MEDENT ([facility]) Body height 62 [in_i] 62 [in_i] MEDENT ([facility]) 5'2" Body weight 111.00 [lb_av] 111.00 [lb_av] MEDEN T ([facility]) Body mass index (BMI) [Ratio] 20.3 kg/m2 20.3 k g/m2 MEDENT ([facility]) Body weight 120 [lb_av] 120 [lb_av] eCW1 ([facility]) Body weight 54.43 kg 54.43 kg W1 ([facility]) Body height 61.8 [in_i] 61.8 [in_i] eCW1 ([facility]) Body mass index (BMI) [Ratio] 22.09 kg/m2 22.09 kg/m2 W1 ([facility]) Heart rate 83 /min 83 /min W1 ([facility]) Respiratory rate 18 /min 18 /min W1 ([facility]) Body temperature 96.8 [degF] 96.8 [degF] eCW1 ( [facility]) Systolic blood pressure 118 mm[Hg] 118 mm[Hg] e CW1 ([facility]) Diastolic blood pressure 72 mm[Hg] 72 mm[Hg] eCW1 ([facility]) Body height 154.94 cm 154.94 cm NextGen [facility] Body weight 53.524 kg 53.524 kg NextGen ([facility]) Systolic blood pressure 122 mm[Hg] 122 mm[Hg] N extGen ([facility]) Diastolic blood pressure 80 mm[Hg] 80 mm[Hg] NextGen ([facility]) Body mass index (BMI) [Ratio] 22.30 kg/m2 22.30 kg/m2 NextGen ([facility]) Systolic blood pressure 122 mm[Hg] 122 mm[Hg] [facility] Diastolic blood pressure 72 mm[Hg] 72 mm[Hg] MEDENT ([facility]) Heart rate 80 /min 80 /min MEDENT ([facility]) Body height 62 [in_i] 62 [in_i] MEDENT ([facility]) 5'2" Body weight 119.00 [lb_av] 119.00 [lb_av] MEDEN T ([facility]) Body mass index (BMI) [Ratio] 21.8 kg/m2 21.8 k g/m2 MEDENT ([facility]) Diastolic blood pressure 78 mm[Hg] 78 mm[Hg] [facility] Body mass index (BMI) [Ratio] 23.2 kg/m2 23.2 k g/m2 MEDENT ([facility]) Systolic blood pressure 120 mm[Hg] 120 mm[Hg] M EDENT ([facility]) Heart rate 68 /min 68 /min MEDENT ([facility]) Body height 62 [in_i] 62 [in_i] [facility] ([facility]) 5'2" Body weight 127.00 [lb_av] 127.00 [lb_av] MEDEN T ([facility]) Body height 154.94 cm 154.94 cm [...] Body weight 143 [lb_av] 143 [lb_av] eCW1 ([facility]) Body weight 64.86 kg 64.86 kg eCW1 ([facility]) Body height 61.8 [in_i] 61.8 [in_i] eCW1 ([facility]) Body mass index (BMI) [Ratio] 26.32 kg/m2 26.32 kg/m2 eCW1 ([facility]) Heart rate 65 /min 65 /min eCW1 ([facility]) Respiratory rate 18 /min 18 /min eCW1 ([facility]) Body temperature 97.6 [degF] 97.6 [degF] eCW1 ( [facility]) Systolic blood pressure 120 mm[Hg] 120 mm[Hg] e CW1 ([facility]) Diastolic blood pressure 62 mm[Hg] 62 mm[Hg] eCW1 ([facility]) Diastolic blood pressure 72 mm[Hg] 72 mm[Hg] MEDENT ([facility]) Heart rate 80 /min 80 /min MEDENT ([facility]) Systolic blood pressure 118 mm[Hg] 118 mm[Hg] M EDENT ([facility]) Body height 62 [in_i] 62 [in_i] MEDENT ([facility]) 5'2" Body weight 135.00 [lb_av] 135.00 [lb_av] MEDEN T ([facility]) Body mass index (BMI) [Ratio] 24.7 kg/m2 24.7 k g/m2 MEDENT ([facility]) ID Date Data Source [id number] 03/02/2020 10:01:46 AM [facility] Name Value Range Interpretation Code Description Data Source(s) WEIGHT RECORDED 132.00 pounds 132.00 pounds [facility] Height 61 Inches 061 Inches [facility] Patient Treatment Plan of Care Planned Activity [...]
--- NOTE | 2021-03-03 02:27 | HPEPDOC ---
General Date of Admission 05/04/20 Date of Service: Mar 03, 2021 Chief Complaint The patient is a 70-year-old female admitted with a reason for visit of Jaundice. Source: Patient History of Present Illness Gloria Raza is a 70-year-old female with significant history of hypertension, hyperlipidemia, NIDDM, anxiety and right breast cancer status post lumpectomy 1 year ago who presents with transaminitis. Patient reportedly had seen her sensitized paper tester today for her RA and fibromyalgia and with lab review found to have elevated bili, AST, ALT, and alk phos. patient also noted to have jaundice appearance and was encouraged to go to ED. Patient frail appearance;reports she feels tired. She describes recently she has been having weight loss about 30 pounds in the past 3 months. She does endorse poor p.o. and concern with "eating too much" related to her diabetes. She had been started on Glucerna to help with her nutrition. Additionally, because of the weight loss and weakness/general fatigue pt had gone to her right breast surgeon Dr. Delaney for work-up and mammography and liver ultrasound unremarkable other than cyst on liver; patient would not have follow-up again until June 2021. Patient reports that she also sees her PCP Dr. Rae and there was a concern for abdominal scanning given patient with her genetic testing has increased risk of colon cancer; but imaging had not yet been arranged however Cologuard was negative per patient. Patient in [facility] does report that she has been having right upper quadrant wrapping around right thoracic region intermittent moderate aching type pain. She also reports increase in back pain unrelieved by her traditional arthritis medication. She felt this pain may be from her fibromyalgia. Pt denies weinberg, sinus congestion, sore throat, productive cough, sob, palpitations, chest pain, n/v/d, n/t or syncope. Patient does report with her weight loss; additional fatigue and progressive generalized weakness. Patient reports that she recently went to [employer] and was unable to complete her shopping because she "felt too weak". She reports that for the past week she has been "laying in bed" because of her fatigue. Of note, patient afebrile. WBC 10.9 with elevated mono lympho and neutrophils. Bili 3.9, AST 170, ALT 341, alk phos 4 9, albumin 2.8, lipase 211, amylase 48 CT abdomen pelvis completed and showed concern for pancreatic head mass measuring 3.5 x 4 cm with recommendation for MRI or consideration for GI consult. Additionally, hyperdense gallbladder, milk of calcium. GI consulted in ED with recommendations for Zosyn and will see patient in a.m. Patient will be admitted for further evaluation management presenting concerns. Home Medications Scheduled Aspirin (Aspirin EC) 81 Mg Tab, 81 MG PO DAILY, (Reported) Buspirone HCl (Buspirone HCl) 15 Mg Tab, 15 MG PO TID, (Reported) Loperamide HCl (Loperamide) 2 Mg Capsule, 2 MG PO PRN, (Reported) Metformin HCl (Metformin HCl ER) 500 Mg Tab.er.24h, 1 TAB PO BID, (Reported) Metoprolol Tartrate (Metoprolol Tartrate) 50 Mg Tab, 50 MG PO BID, (Reported) Multivit-Min/Iron/Folic/Vit K1 (Centrum Chewables Adults Tab) 1 Each Tab.chew, 1 TAB PO DAILY, (Reported) Nortriptyline HCl (Nortriptyline HCl) 75 Mg Cap, 75 MG PO QHS, (Reported) Nortriptyline HCl (Nortriptyline HCl) 25 Mg Cap, 25 MG PO QHS, (Reported) Cornell-3/Dha/Epa/Fish Oil (Fish Oil 1,000 mg Softgel) 1 Each Capsule, 1 CAP PO DAILY, (Reported) Omeprazole (Omeprazole) 20 Mg Cap, 20 MG PO DAILY, (Reported) Simvastatin (Simvastatin) 10 Mg Tab, 10 MG PO QHS, (Reported) Sulfasalazine (Sulfasalazine) 500 Mg Tablet, 1 TAB PO BID, (Reported) Tamoxifen Citrate (Tamoxifen Citrate) 20 Mg Tablet, 20 MG PO DAILY Scheduled PRN Alprazolam (Alprazolam) 0.25 Mg Tab, 0.25 MG PO PRN PRN for ANXIETY/AGITATION, (Reported) Miscellaneous Medications Albuterol Sulfate (Albuterol Sulfate Hfa) 8.5 Gm Hfa.aer.ad, (Reported) Fluticasone/Vilanterol (Breo Ellipta 200-25 Mcg INH) 1 Each Blst.w.dev, (Reported) Allergies Coded Allergies: nickel (Verified Allergy, Intermediate, rash, 07/03/19) adhesive (Verified Adverse Reaction, Mild, redness, 07/03/19) Past Medical History Medical History NIDDM, history right breast cancer, hyperlipidemia, hypertension, GERD, IBS, fibromyalgia, RA, anxiety Surgical History R breast lumpectomy 2019, R breast radiation 2019, cataracts and stents in eyes, jaw surgery 1965, vocal cord polyp removal, appendectomy, hysterectomy Family History Significant Family History: Cancer Daughter: breast CA Social History * Smoker: former Smoker, quit greater than 1 year Alcohol: Denies Drugs: denies Recent Travel/Sick Contacts: Denies: Recent travel, Recent sick contacts Psychosocial History: Anxiety Lives alone, can drive and manages her own medications. Daughter Adela is a nurse and medical proxy. A-FIB/CHADSVASC A-FIB History Current/History of A-Fib/PAF?: No Current PO Anticoag Therapy: No Review of Systems Constitutional: Reports: Weakness, Fatigue, Weight Loss; Denies: Chills, Fever, Night Sweats Eyes: Denies: Pain, Vision change ENT: Denies: Head Aches, Ear Pain, Dysphagia Skin: Reports: Jaundice; Denies: Rash, Lesions, Breakdown Pulmonary: Denies: Dyspnea, Cough Cardiovascular: Denies: Chest Pain, Palpitations, Orthopnea, Paroxysmal Noc. Dyspnea, Lt Headedness Gastrointestinal: Reports: Abdominal Pain (RUQ); Denies: Nausea, Vomiting, Diarrhea Genitourinary: Denies: Dysuria, Frequency, Incontinence, Retention Hematologic: Denies: Bruising, Bleeding Excessively Musculoskeletal: Reports: Back Pain; Denies: Neck Pain, Joint Pain, Muscle Pain, Spasms Neurological: Denies: Weakness, Numbness, Change in speech, Confusion Psych: Reports: Mood Normal; Denies: Depression, Memory Issues Physical Examination General Exam: Positive: Alert, Cooperative, No Acute Distress Eye Exam: Positive: PERRLA, Conjunctiva & lids normal, EOMI; Negative: Sclera icteric ENT Exam: Positive: Atraumatic, Mucous membr. moist/pink, Pharynx Normal Neck Exam: Positive: Supple; Negative: JVD, thyromegaly Chest Exam: Positive: Clear to auscultation, Normal air movement Heart Exam: Positive: Rate Normal, Regular Rhythm, Normal S1, Normal S2; Negative: Murmurs, Rubs Telemetry: Positive: No significant arrhythmia Abdomen Exam: Positive: Normal bowel sounds, Soft; Negative: Tenderness, Hepatospenomegaly Extremity Exam: Positive: Normal pulses; Negative: Clubbing, Cyanosis, Edema Skin Exam: Positive: Nl turgor and temperature, Other skin issue (+jaundice); Negative: Rash, Breakdown, Lesion Neuro Exam: Positive: Normal Gait, Normal Speech, Cranial Nerves 3-12 NL, Reflexes 2+ Psych Exam: Positive: Mental status NL, Mood NL, Oriented x 3 Vital Signs Vital Signs Date Time Temp Pulse Resp B/P (MAP) Pulse Ox O2 Delivery O2 Flow Rate FiO2 03/02/21 17:36 97.7 118 16 126/65 (85) 96 Room Air Laboratory Data Labs 24H Laboratory Tests 2 03/02/21 23:45: Immature Granulocyte % (Auto) 0.9, Neutrophils (%) (Auto) 70.6H, Lymphocytes (%) (Auto) 18.0L, Monocytes (%) (Auto) 9.0H, Eosinophils (%) (Auto) 1.0, Basophils (%) (Auto) 0.5, Neutrophils # (Auto) 7.7, Lymphocytes # (Auto) 2.0, Monocytes # (Auto) 1.0H, Eosinophils # (Auto) 0.1, Basophils # (Auto) 0.1, Nucleated Red Blood Cells % (auto) 0.0, Prothrombin Time 13.0, Prothromb Time International Ratio 0.94, Activated Partial Thromboplast Time 41.6H, Anion Gap 7L, Glomerular Filtration Rate > 60.0, Calcium Level 10.0, Magnesium Level 1.5L, Total Bilirubin 3.9H, Aspartate Amino Transf (AST/SGOT) 170H, Alanine Aminotransferase (ALT/SGPT) 341H, Alkaline Phosphatase 409H, Total Protein 6.1L, Albumin 2.8L, Albumin/Globulin Ratio 0.8L, Amylase Level 48, Lipase 211 CBC/BMP Laboratory Tests 03/02/21 23:45 RAD Interpretation STUDY: ct a/p Rad Actions: Report Reviewed RAD Interpretation: Other Result Comments: (Impression :"Suspect pancreatic head mass measuring 3.5 x 4 cm, recommend MRI. Consider GI consult") Assessment/Plan 1. Transaminitis 2/2 possible pancreatic head mass versus cholangitis: -IV hydration -Symptom management/supportive care with antiemetics and analgesics as needed -Empiric coverage with Zosyn -A.m. lab -Avoid any hepatotoxic agents -Appreciate GI consult for further recommendation; Dr. Still has been contacted 2. HTN: Monitor BP in setting of above. Continue metoprolol once reconciled. 3. Tachycardia: In setting of low magnesium, poor po, and patient not having taken nighttime metoprolol -Plan for hydrating patient, magnesium repletion and continue home medications. 4. Diabetes: -Hold Metformin in setting of above. -Check A1c. -Monitor patient blood glucose,Sliding scale insulin. -A.m. labs. 5. HDL: Hold statin in setting of transaminitis 6. Anxiety: -Monitor patient, encourage nonpharmacologic methods to manage. De-escalation techniques accordingly. -Continue home medication buspirone once reconciled -As needed antianxiety for breakthrough anxiety. Patient typically takes Xanax prn at home per preliminary med rec; w/ has been nidus would hold. 7. History of breast cancer: Patient is supposed to take tamoxifen for 5 years; side effects include hepatotoxicity-this is also nonformulary and patient have to bring from home once reinitiated. 8. Weight loss/poor p.o.: Continue Glucerna. Consider additional nutrition consult. DVT prophylaxis: SCDs CODE STATUS: Full code; daughter Adela identified as medical surrogate decision maker. Patient reports that she does have some advanced directive at home- requested to bring from file Disposition planning: Home pending GI recommendations Plan / VTE VTE Prophylaxis Ordered?: Yes JOSELIN ARCHER NP Mar 03, 2021 02:03
[2021-03-03] MEDS ORDERED: NS 1,000 ML IV SCH (03:55)
[2021-03-03 04:01] LABS: RSV AMPLIFICATION NEGATIVE (NEGATIVE)
[2021-03-03] MEDS ORDERED: GLIM1TAB4 PO (04:47)
[2021-03-03] MEDS ORDERED: ASPI1CHW3 PO (04:47)
[2021-03-03] MEDS ORDERED: FISH1000 PO (04:47)
[2021-03-03] MEDS ORDERED: SULF500T2 PO (04:47)
[2021-03-03] MEDS ORDERED: VITMTA PO (04:47)
[2021-03-03] MEDS ORDERED: PROAAER10 INH (04:47)
[2021-03-03] MEDS ORDERED: BREO1INH3 INH (04:47)
[2021-03-03] MEDS ORDERED: ANTI2TAB16 PO (04:47)
[2021-03-03] MEDS ORDERED: SULF1TAB30 PO (04:47)
[2021-03-03] MEDS ORDERED: METF-838 PO (04:47)
[2021-03-03] MEDS ORDERED: HOME MED LIST COMPLETE! XX SCH (04:50)
[2021-03-03] MEDS: HumaLOG INSULIN (NovoLOG) PER UNIT SC SCH ×3 (07:30→21:00)
[2021-03-03] MEDS ORDERED: LOPERAMIDE 2 MG CAPLET PO PRN (07:35)
[2021-03-03] MEDS ORDERED: ALBUTEROL 90 MCG/ACT 8GM HFA INHALER INH PRN (07:35)
[2021-03-03 07:42] LABS: BASO % 0.4 % (0.0-1.0); EOS # 0.1 10^3/uL (0.0-0.5); HEMATOCRIT 35.6 % (36.0-47.0); HEMOGLOBIN 12.1 g/dl (12.0-15.5); LYMPH # 1.6 10^3/uL (1.5-5.0); LYMPH % 17.1 % (24.0-44.0); MEAN CORPUSCULAR HEMOGLOBIN 32.4 pg (27.0-33.0); MEAN CORPUSCULAR VOLUME 95.4 fl (80.0-96.0); MONO % 10.4 % (2.0-8.0); NEUTROPHILS # 6.5 10^3/uL (1.5-8.5); NEUTROPHILS % 70.2 % (36.0-66.0); PLATELET COUNT, AUTOMATED 215 10^3/uL (150-450); RED BLOOD COUNT 3.73 10^6/uL (4.00-5.40); WHITE BLOOD COUNT 9.2 10^3/uL (4.0-10.0)
[2021-03-03 08:09] LABS: ALBUMIN 2.7 GM/DL (3.2-5.2); ALT/SGPT 331 U/L (12-78); BILIRUBIN,TOTAL 6.4 MG/DL (0.2-1.0); BLOOD UREA NITROGEN 13 MG/DL (7-18); CALCIUM LEVEL 9.9 MG/DL (8.8-10.2); CARBON DIOXIDE LEVEL 26 MEQ/L (21-32); CHLORIDE LEVEL 104 MEQ/L (98-107); CREATININE FOR GFR 0.61 MG/DL (0.55-1.30); GLOMERULAR FILTRATION RATE > 60.0 (>39); GLUCOSE, FASTING 159 MG/DL (70-100); SODIUM LEVEL 138 MEQ/L (136-145); TOTAL PROTEIN 5.7 GM/DL (6.4-8.2)
[2021-03-03] MEDS: TAMOXIFEN CITRATE 10 MG TAB PO SCH (09:00)
[2021-03-03] MEDS ORDERED: PROHANCE 279.3MG/ML 15ML VIAL As Ordered ONE (09:00)
--- NOTE | 2021-03-03 10:23 | REP ---
INDICATION: Pancreatic mass. COMPARISON: None. TECHNIQUE: MIP reformatted 3-D images of the common bile duct and pancreatic duct were obtained along with source images in the axial and coronal scan planes. FINDINGS: There is marked undulating pancreatic ductal dilatation with a maximal dimension of approximately 6.18 mm. This is dilatation abruptly terminates the pancreatic head/neck region. There is marked intrahepatic ductal dilatation. The common bile duct measures approximately 16 mm. The CBD terminates abruptly proximal to the pancreatic head region. The pancreas is seen in a limited fashion on this MRCP. IMPRESSION: Abnormal ductal dilatation as described above. <Electronically signed by Gus Anthony > 03/03/21 [id number]
--- NOTE | 2021-03-03 10:49 | REP ---
INDICATION: pancreatic head lesion suspected. Planned ERCP. stat please. COMPARISON: None. TECHNIQUE: Pre and post contrast 3T MRI of the pancreas was performed utilizing various sequences. Gadolinium utilized: 10 cc ProHance FINDINGS: There is an area of mixed heterogenous enhancement involving the pancreatic neck region which is at the level of and abruptly terminating dilated pancreatic duct. A dilated common bile duct abruptly terminates in the same region. This abnormal heterogeneously enhancing mass continues into the suhail hepatis with an overall measurement of approximately 2.5 x 4 cm. There is no evidence of peripancreatic adenopathy or free fluid. The gallbladder appears debris-filled. There is no evidence of an enhancing gallbladder or hepatic lesion. There is marked intrahepatic ductal dilatation. There are multiple bilateral renal cysts. The spleen and adrenal glands are within normal limits. There is no free fluid in the abdomen. IMPRESSION: There is a large pancreatic mass as described above. <Electronically signed by Gus Anthony > 03/03/21 [id number]
[2021-03-03] MEDS: OMEPRAZOLE 20 MG CAP PO SCH (11:45)
[2021-03-03] MEDS: ASPIRIN 81 MG CHEW TABLET PO SCH (11:45)
[2021-03-03] MEDS: METOPROLOL TART 50 MG TAB PO SCH ×2 (11:45→22:00)
[2021-03-03] MEDS: LACTOBACILLUS ACIDOPHILUS CAP (BACID) PO SCH (11:45)
[2021-03-03] MEDS: MULTIVITAMINS/MINERALS THERAP 1 TAB PO SCH (11:45)
[2021-03-03] MEDS: busPIRone 5 MG TAB PO SCH (11:45)
[2021-03-03] MEDS: PIPERACILLIN/TAZOBACTAM SOD 3.375 GM in D5W MINI-BAG PLUS 50 ML IV SCH ×2 (11:45→18:06)
[2021-03-03] MEDS ORDERED: ROCURONIUM BROMIDE 50 MG/5 ML VIAL As Ordered ONE (14:26)
[2021-03-03] MEDS ORDERED: propofoL 200 MG/20 ML VIAL As Ordered ONE (14:26)
[2021-03-03] MEDS ORDERED: KETOROLAC 60MG 2ML VIAL As Ordered ONE (14:26)
[2021-03-03] MEDS ORDERED: ACETAMINOPHEN 1000MG 100ML IV BTL (OFIRMEV) (J0131 PER 10MG) As Ordered ONE (14:26)
[2021-03-03] MEDS ORDERED: SUGAMMADEX SODIUM 500 MG/5 ML VIAL (BRIDION) As Ordered ONE (14:26)
[2021-03-03] MEDS ORDERED: LIDOCAINE 2% 100MG/5ML SDV (FOR ANES.) As Ordered ONE (14:26)
[2021-03-03] MEDS ORDERED: dexameTHASONE 4 MG/ML 1ML VIAL (J1100 PER 1MG) As Ordered ONE (14:26)
[2021-03-03] MEDS ORDERED: ONDANSETRON 4MG/2ML VIAL As Ordered ONE (14:26)
[2021-03-03] MEDS ORDERED: MIDAZOLAM INJ 2MG/2ML VIAL (J2250 PER 1MG) As Ordered ONE (14:27)
[2021-03-03] MEDS ORDERED: fentaNYL 100 MCG/2 ML INJECTION (J3010) As Ordered ONE (14:28)
[2021-03-03] MEDS ORDERED: ISOVUE-300 61% 50ML VIAL As Ordered ONE ×2 (14:35→15:02)
--- NOTE | 2021-03-03 15:11 | IPNPDOC ---
Text Note Date of Service The patient was seen on 03/03/21. NOTE Subjective: No any acute events overnight. Patient stated that she feels little better in the morning less abdominal pain Objective: GENERAL APPEARANCE: Frail female HEENT: no scleral icterus, no JVD, EOMI CARDIOVASCULAR: S1S2 LUNGS: Diminished lung sounds bilaterally ABDOMEN: soft & not tender w palpation MUSCULOSKELETAL: no cyanosis, no swelling INTEGUMENT: no generalized pallor NEUROLOGICAL: cranial nerve function from 2-12 intact, follows commands, speech not dysarthric Assessment and plan Gloria Raza is a 70-year-old female with significant history of hypertension, hyperlipidemia, NIDDM, anxiety and right breast cancer status post lumpectomy 1 year ago who presents with transaminitis. Patient reportedly had seen her interpretive naturalist today for her RA and fibromyalgia and with lab review found to have elevated bili, AST, ALT, and alk phos. patient also noted to have jaundice appearance and was encouraged to go to ED. Pancreatic mass There is concern for pancreatic malignancy MRCP was done today and showed There is marked intrahepatic ductal dilatation. The common bile duct measures approximately 16 mm. The CBD terminates abruptly proximal to the pancreatic head region. This abnormal heterogeneously enhancing mass continues into the suhail hepatis with an overall measurement of approximately 2.5 x 4 cm GI team will proceed with ERCP with stent and biopsy today Abnormal LFT Secondary to biliary duct obstruction secondary to most likely pancreatic malignancy ERCP with stent placement to relieve obstruction Hypertension Continue home meds Type 2 diabetes Insulin sliding scale Diabetes diet Hyperlipidemia Statin on hold due to transaminitis Anxiety Continue home meds History of breast cancer Continue home meds Follow-up with oncologist in the outpatient settings Cachexia Loss of muscles with temporal wasting BMI 19.7 Full frozen food selector assessment DVT prophylaxis with heparin VS,Fishbone, I+O VS, Fishbone, I+O Laboratory Tests 03/02/21 23:45 03/03/21 06:38 Vital Signs Date Time Temp Pulse Resp B/P (MAP) Pulse Ox O2 Delivery O2 Flow Rate FiO2 03/03/21 08:45 87 97 03/03/21 06:30 132/65 (87) 03/03/21 06:00 98.0 18 Room Air I&O- Last 24 Hours up to 6 AM 03/03/21 06:00 Intake Total 100 ml Balance 100 ml JESUS GARCIA DO Mar 03, 2021 15:11
--- NOTE | 2021-03-03 17:25 | CR.PDOC ---
General Date of Consultation: Mar 03, 2021 Attending Physician: JESUS GARCIA DO Consultation REASON FOR CONSULTATION/CHIEF COMPLAINT: [weakness]. HISTORY OF PRESENT ILLNESS: . 70 yo female with recurrent abdominal pain episodes she ascribed to her IBS and reduction of her PPI meds to once a day rather than her usual BID dosing. Her symptoms are progressive for several monthsand there is a significant weight loss for which she had appointment for evaluation. She presents to the emergency room with weakness, fatigue and intermittent back pain , Her initial lab work up showed abnormal liver enzymes. she had a CT A/P performed showing a probable pancreatic head mass and marked biliary and pancreatic ductal dialtion/double duct sign. MRI pancreas confirms a 4 cm lesion in the head of the pancreas, obstructing her bile duct at that level. ALLERGIES: Please see below. HOME MEDICATIONS: Please see below. PAST MEDICAL HISTORY: 1. [GERD,IBS,Anxiety,Breast CA,NIDDM,RA]. 2. . PAST SURGICAL HISTORY: 1. [right breast lumpectomy, appy,hysterectomy] 2. FAMILY HISTORY: Father: [NC] Mother: [NC] Siblings: Children: Hereditary Diseases: [N] Unexpected deaths due to medical reasons: SOCIAL HISTORY: Tobacco use:[quit 12 months ago] ETOH: [N] Illicit drug use: [N] IV drug use: [N] Other relevant social factors: [N] REVIEW OF SYSTEMS: CONSTITUTIONAL: [Weight loss, fatigue,jaundice]. HEENT: [jaundice]. CARDIOVASCULAR: [neg]. RESPIRATORY: [neg]. GENITOURINARY: [dark urine]. MUSCULOSKELETAL: [neg]. GASTROINTESTINAL: [above]. SKIN: [Neg]. NEUROLOGICAL: [Neg]. PSYCHIATRIC: [Neg]. ENDOCRINE: [neg]. HEMATOLOGIC/LYMPHATIC: [neg]. ALLERGIC/IMMUNOLOGIC: . PHYSICAL EXAMINATION: VITAL SIGNS: Please see below. GENERAL APPEARANCE: [Jaundiced white female, comfortably in bed. not toxic.]. HEENT: [jaundice]. RESPIRATORY: [normal/clear b/l]. CARDIOVASCULAR: [RRR, no Murmur]. ABDOMEN: [soft, not tender, no masses felt,moderate xyphoid tenderness/xyphodynia]. EXTREMITIES: [neg fpor edema]. NEUROLOGICAL: [AAOx3, movea all extremities equally and bilaterally]. PSYCHIATRIC: . LABORATORY DATA: Please see below. ASSESSMENT/PLAN: 1. [Painless Jaundice]. 2. [Pancreatic head mass]. REC: 1) agree with empiric antibiotics to cover biliary tree 2) ERCP for biliary drainage and for diagnostic purposes. 3) The MRI/CT/MRCP shows a large suspicious pancreatic head mass (4 cm), but does not show any obvious lymph nodes or obvious metastases. --resectability to be determined/she should be referred to oncology and possibly pancreatic/biliary surgery Vital Signs/I&O Vital Signs Date Time Temp Pulse Resp B/P (MAP) Pulse Ox O2 Delivery O2 Flow Rate FiO2 03/03/21 08:45 87 97 03/03/21 06:30 132/65 (87) 03/03/21 06:00 98.0 18 Room Air I&O- Last 24 Hours up to 6 AM 03/03/21 06:00 Intake Total 100 ml Balance 100 ml Laboratory Data Labs 24H Laboratory Tests 2 03/02/21 23:45: Immature Granulocyte % (Auto) 0.9, Neutrophils (%) (Auto) 70.6H, Lymphocytes (%) (Auto) 18.0L, Monocytes (%) (Auto) 9.0H, Eosinophils (%) (Auto) 1.0, Basophils (%) (Auto) 0.5, Neutrophils # (Auto) 7.7, Lymphocytes # (Auto) 2.0, Monocytes # (Auto) 1.0H, Eosinophils # (Auto) 0.1, Basophils # (Auto) 0.1, Nucleated Red Blood Cells % (auto) 0.0, Prothrombin Time 13.0, Prothromb Time International Ratio 0.94, Activated Partial Thromboplast Time 41.6H, Anion Gap 7L, Glomerular Filtration Rate > 60.0, Calcium Level 10.0, Magnesium Level 1.5L, Total Bilirubin 3.9H, Aspartate Amino Transf (AST/SGOT) 170H, Alanine Aminotransferase (ALT/SGPT) 341H, Alkaline Phosphatase 409H, Total Protein 6.1L, Albumin 2.8L, Albumin/Globulin Ratio 0.8L, Amylase Level 48, Lipase 211 03/03/21 02:39: Coronavirus (COVID-19)(PCR) NEGATIVE, Influenza Type A (RT-PCR) NEGATIVE, Influenza Type B (RT-PCR) NEGATIVE, Respiratory Syncytial Virus (PCR) NEGATIVE 03/03/21 06:38: Immature Granulocyte % (Auto) 0.9, Neutrophils (%) (Auto) 70.2H, Lymphocytes (%) (Auto) 17.1L, Monocytes (%) (Auto) 10.4H, Eosinophils (%) (Auto) 1.0, Basophils (%) (Auto) 0.4, Neutrophils # (Auto) 6.5, Lymphocytes # (Auto) 1.6, Monocytes # (Auto) 1.0H, Eosinophils # (Auto) 0.1, Basophils # (Auto) 0.0, Nucleated Red Blood Cells % (auto) 0.0, Anion Gap 8, Glomerular Filtration Rate > 60.0, Calcium Level 9.9, Magnesium Level 2.0, Total Bilirubin 6.4#H, Aspartate Amino T ransf (AST/SGOT) 207H, Alanine Aminotransferase (ALT/SGPT) 331H, Alkaline Phosphatase 396H, Total Protein 5.7L, Albumin 2.7L, Albumin/Globulin Ratio 0.9L, Estimated Mean Plasma Glucose 126H, Hemoglobin A1c 6.0, Lactic Acid Level 0.6 03/03/21 07:37: Bedside Glucose (Misc Panel) 185H 03/03/21 12:32: Bedside Glucose (Misc Panel) 75L CBC/BMP Laboratory Tests 03/02/21 23:45 03/03/21 06:38 Allergies Coded Allergies: nickel (Verified Allergy, Intermediate, rash, 07/03/19) adhesive (Verified Adverse Reaction, Mild, redness, 07/03/19) Home Medications Scheduled Aspirin (Aspirin) 81 Mg Tab.chew, 81 MG PO DAILY, (Reported) Buspirone HCl (Buspirone HCl) 15 Mg Tab, 15 MG PO TID, (Reported) Fluticasone/Vilanterol (Breo Ellipta 200-25 Mcg INH) 1 Each Blst.w.dev, 1 PUFF INH DAILY, (Reported) Glimepiride (Glimepiride) 1 Mg Tablet, 1 MG PO DAILY, (Reported) Metformin HCl (Metformin HCl ER) 500 Mg Tab.er.24h, 500 MG PO BID, (Reported) Metoprolol Tartrate (Metoprolol Tartrate) 50 Mg Tab, 50 MG PO BID, (Reported) Multivitamins (Thera M Plus Tablet) 1 Each Tablet, 1 TAB PO DAILY, (Reported) Nortriptyline HCl (Nortriptyline HCl) 75 Mg Cap, 75 MG PO QHS, (Reported) TAKES WITH 25MG FOR 100MG TOTAL Nortriptyline HCl (Nortriptyline HCl) 25 Mg Cap, 25 MG PO QHS, (Reported) TAKES WITH 75MG FOR 100MG TOTAL Keiser-3 Fatty Acids/Fish Oil (Fish Oil 1,000 mg Capsule) 1 Each Capsule, 1,000 MG PO DAILY, (Reported) Omeprazole (Omeprazole) 20 Mg Cap, 20 MG PO DAILY, (Reported) Simvastatin (Simvastatin) 10 Mg Tab, 10 MG PO QHS, (Reported) Sulfasalazine (Sulfasalazine) 500 Mg Tablet, 1 TAB PO BID, (Reported) Sulfasalazine (Sulfasalazine) 500 Mg Tablet, 1,000 MG PO DAILY, (Reported) Sulfasalazine (Sulfasalazine) 500 Mg Tablet, 500 MG PO QHS, (Reported) Tamoxifen Citrate (Tamoxifen Citrate) 20 Mg Tablet, 20 MG PO DAILY, #90 Scheduled PRN Albuterol Sulfate (Proair Hfa) 8.5 Gm Hfa.aer.ad, 2 PUFF INH Q4H PRN for SHORTNESS OF BREATH, (Reported) Loperamide HCl (Anti-Diarrheal) 2 Mg Tablet, 4 MG PO TID PRN for DIARRHEA, (Reported) DAINA VAUGHN MD Mar 03, 2021 17:25
[2021-03-03] MEDS ORDERED: SCOPOLAMINE 1MG TRANSDERMAL PATCH As Ordered ONE (18:12)
[2021-03-03] MEDS ORDERED: SCOPOLAMINE 1MG TRANSDERMAL PATCH TOP ONE (18:15)
[2021-03-03] MEDS ORDERED: SUCCINYLCHOLINE 100 MG/5 ML SYRINGE (J0330) As Ordered ONE (18:23)
[2021-03-03] MEDS: HEPARIN SOD (PORCINE) 5000UNITS/ML 1ML VIAL/SYRINGE SQ SCH (21:00)
[2021-03-03] MEDS ORDERED: SIMVASTATIN 10 MG TAB PO SCH (21:00)
[2021-03-03] MEDS ORDERED: NORTRIPTYLINE 25 MG CAP PO SCH (21:00)
[2021-03-03] MEDS ORDERED: fentaNYL 100 MCG/2 ML INJECTION (J3010) IV PRN (21:25)
[2021-03-03] MEDS ORDERED: LR 1,000 ML IV SCH (21:25)
[2021-03-03] MEDS ORDERED: ONDANSETRON 4MG/2ML VIAL IV PRN (21:25)
[2021-03-03] MEDS ORDERED: oxyCODONE 5MG TAB PO PRN (21:25)
--- NOTE | 2021-03-03 21:26 | ROOR ---
Patient Name: Gloria Raza Procedure Date: 03/03/2021 2:32 PM Date of : 1950 Age: 70 Room: Main OR Gender: Female Note Status: Finalized Procedure: ERCP Indications: Abnormal abdominal CT, Abnormal MRCP, Jaundice, Tumor of the head of pancreas Providers: Alfonzo Clifford MD Referring MD: 2. Inpatient 2. Inpatient, Nuvia HOLLIS MD Requesting Provider: Medicines: General Anesthesia Complications: No immediate complications. Procedure: Pre-Anesthesia Assessment: - The heart rate, respiratory rate, oxygen saturations, blood pressure, adequacy of pulmonary ventilation, and response to care were monitored throughout the procedure. The Duodenoscope was introduced through the mouth, and advanced to the duodenum and used to inject contrast into the bile duct. The ERCP was technically difficult and complex due to challenging cannulation because of abnormal anatomy and difficulty passing guidewires through biliary ductal stenosis. The patient tolerated the procedure well. Findings: The design printing machine set up operator film was normal. The esophagus was successfully intubated under direct vision. The scope was advanced to a normal major papilla in the descending duodenum without detailed examination of the pharynx, larynx and associated structures, and upper GI tract. The upper GI tract was grossly normal. A straight Roadrunner wire was passed into the biliary tree. The bile duct was then deeply cannulated over the guidewire. Contrast was injected. I personally interpreted the bile duct images. The flow of contrast through the ducts was poor. Image quality was suboptimal. The middle third of the main bile duct was completely obstructed by what appeared to be a mass. Cells for cytology were obtained by brushing in the middle third of the main bile duct. A 5 mm biliary sphincterotomy was made with a traction (standard) sphincterotome using ERBE electrocautery. There was no post-sphincterotomy bleeding. One 10 mm by 6 cm covered metal stent was placed into the common bile duct. Bile flowed through the stent. The stent was in good position. Impression: - A biliary tract obstruction secondary to what appeared to be a mass/extrinsic compression) was found in the middle third of the main duct. The pancreatic duct, could not be cannulated. - Cells for cytology obtained in the middle third of the main bile duct. - One covered metal stent was placed into the common bile duct. - A biliary sphincterotomy was performed. Recommendation: - Observe patient's clinical course. - Watch for pancreatitis, bleeding, perforation, and cholangitis. - Await cytology results. Procedure Code(s): --- Professional --- 60243, Endoscopic retrograde cholangiopancreatography (ERCP); with placement of endoscopic stent into biliary or pancreatic duct, including pre- and post-dilation and guide wire passage, when performed, including sphincterotomy, when performed, each stent [id number], 59, Endoscopic retrograde cholangiopancreatography (ERCP); with biopsy, single or multiple Diagnosis Code(s): --- Professional --- R93.2, Abnormal findings on diagnostic imaging of liver and biliary tract R93.5, Abnormal findings on diagnostic imaging of other abdominal regions, including retroperitoneum D49.0, Neoplasm of unspecified behavior of digestive system R17, Unspecified jaundice K83.1, Obstruction of bile duct CPT copyright 2019 [employer]. All rights reserved. The codes documented in this report are preliminary and upon cadd drafter review may be revised to meet current compliance requirements. Alfonzo Clifford MD Alfonzo Clifford MD 03/03/2021 9:24:49 PM Electronically signed by Alfonzo Clifford MD Number of Addenda: 0 Note Initiated On: 03/03/2021 2:32 PM Estimated Blood Loss: Estimated blood loss: none.
[2021-03-03] MEDS ORDERED: LABETALOL 100MG/20ML VIAL As Ordered ONE (21:35)
[2021-03-03] MEDS ORDERED: hydrALAZINE 20MG/ML 1ML VIAL (J0360 PER 20MG) IV PRN (21:40)
[2021-03-03] MEDS: LABETALOL 100MG/20ML VIAL IV PRN ×4 (21:46→22:02)
[2021-03-03] MEDS ORDERED: METOCLOPRAMIDE INJ 10MG/2ML VIAL (J2765 PER 1) As Ordered ONE (22:04)
[2021-03-03] MEDS: HYDROMORPHONE HCL 0.5 MG/ 0.5 ML SYRINGE (J1170 PER 1) IV PRN ×2 (22:08→22:16)
[2021-03-03] MEDS ORDERED: METOCLOPRAMIDE INJ 10MG/2ML VIAL (J2765 PER 1) IV PRN (22:10)
[2021-03-03] MEDS ORDERED: diphenhydrAMINE 50MG/ML VIAL (J1200) As Ordered ONE (22:22)
[2021-03-03] MEDS ORDERED: diphenhydrAMINE 50MG/ML VIAL (J1200) IV PRN (22:25)
[2021-03-04] MEDS: HYDROMORPHONE HCL 0.5 MG/ 0.5 ML SYRINGE (J1170 PER 1) IV PRN ×2 (01:12→01:24)
[2021-03-04] MEDS: busPIRone 5 MG TAB PO SCH ×5 (01:49→20:43)
[2021-03-04] MEDS: PIPERACILLIN/TAZOBACTAM SOD 3.375 GM in D5W MINI-BAG PLUS 50 ML IV SCH ×5 (01:49→23:21)
[2021-03-04] MEDS: HumaLOG INSULIN (NovoLOG) PER UNIT SC SCH ×5 (01:50→20:44)
[2021-03-04] MEDS: NORTRIPTYLINE 25 MG CAP PO SCH ×2 (01:51→20:42)
[2021-03-04 02:28] VITALS: BP 141/58
[2021-03-04] MEDS ORDERED: carisoprodoL 350 MG TAB PO PRN (04:45)
[2021-03-04 06:00] VITALS: BP 145/61
[2021-03-04] MEDS: HEPARIN SOD (PORCINE) 5000UNITS/ML 1ML VIAL/SYRINGE SQ SCH ×2 (09:30→20:43)
[2021-03-04] MEDS: ASPIRIN 81 MG CHEW TABLET PO SCH (09:35)
[2021-03-04] MEDS: OMEPRAZOLE 20 MG CAP PO SCH (09:35)
[2021-03-04] MEDS: MULTIVITAMINS/MINERALS THERAP 1 TAB PO SCH (09:35)
[2021-03-04] MEDS: LACTOBACILLUS ACIDOPHILUS CAP (BACID) PO SCH (09:35)
[2021-03-04] MEDS: METOPROLOL TART 50 MG TAB PO SCH ×2 (09:36→20:44)
[2021-03-04] MEDS: TAMOXIFEN CITRATE 10 MG TAB PO SCH (09:38)
[2021-03-04] MEDS: MORPHINE 2 MG/ML 1ML VIAL (J2270) IV PRN ×2 (09:41→21:05)
[2021-03-04 10:00] VITALS: BP 137/72
[2021-03-04 10:32] LABS: BASO % 0.3 % (0.0-1.0); EOS % 0.1 % (0.0-3.0); HEMATOCRIT 33.2 % (36.0-47.0); HEMOGLOBIN 11.4 g/dl (12.0-15.5); LYMPH # 1.5 10^3/uL (1.5-5.0); LYMPH % 9.5 % (24.0-44.0); MEAN CORPUSCULAR HEMOGLOBIN 32.9 pg (27.0-33.0); MEAN CORPUSCULAR HGB CONC 34.3 g/dl (32.0-36.5); MEAN CORPUSCULAR VOLUME 95.7 fl (80.0-96.0); MONO # 1.2 10^3/uL (0.0-0.8); MONO % 8.1 % (2.0-8.0); NEUTROPHILS # 12.4 10^3/uL (1.5-8.5); NEUTROPHILS % 81.4 % (36.0-66.0); PLATELET COUNT, AUTOMATED 247 10^3/uL (150-450); RED BLOOD COUNT 3.47 10^6/uL (4.00-5.40); WHITE BLOOD COUNT 15.3 10^3/uL (4.0-10.0)
[2021-03-04] MEDS: cefTRIAXone SOD 2 GM in D5W MINI-BAG PLUS 50 ML IV SCH (11:06)
[2021-03-04 11:09] LABS: ALBUMIN 2.5 GM/DL (3.2-5.2); ALT/SGPT 265 U/L (12-78); BILIRUBIN,TOTAL 2.7 MG/DL (0.2-1.0); BLOOD UREA NITROGEN 10 MG/DL (7-18); CALCIUM LEVEL 8.4 MG/DL (8.8-10.2); CARBON DIOXIDE LEVEL 24 MEQ/L (21-32); CHLORIDE LEVEL 109 MEQ/L (98-107); CREATININE FOR GFR 0.63 MG/DL (0.55-1.30); GLOMERULAR FILTRATION RATE > 60.0 (>39); GLUCOSE, FASTING 174 MG/DL (70-100); MAGNESIUM LEVEL 1.4 MG/DL (1.8-2.4); POTASSIUM SERUM 3.7 MEQ/L (3.5-5.1); SODIUM LEVEL 139 MEQ/L (136-145); TOTAL PROTEIN 5.8 GM/DL (6.4-8.2)
[2021-03-04] MEDS: NS 1,000 ML IV SCH (13:19)
[2021-03-04 14:00] VITALS: BP 139/71
[2021-03-04] MEDS ORDERED: NS 500 ML IV ONE (14:00)
--- NOTE | 2021-03-04 17:03 | IPNPDOC ---
Text Note Date of Service The patient was seen on 03/04/21. NOTE Subjective: No any acute events overnight. Patient denied fever, chills, michel sea, vomiting. She complains of moderate abdominal pain in the left upper quadrant Objective: GENERAL APPEARANCE: Frail female HEENT: no scleral icterus, no JVD, EOMI CARDIOVASCULAR: S1S2 LUNGS: Diminished lung sounds bilaterally ABDOMEN: soft & not tender w palpation MUSCULOSKELETAL: no cyanosis, no swelling INTEGUMENT: no generalized pallor NEUROLOGICAL: cranial nerve function from 2-12 intact, follows commands, speech not dysarthric Assessment and plan Gloria Raza is a 70-year-old female with significant history of hypertension, hyperlipidemia, NIDDM, anxiety and right breast cancer status post lumpectomy 1 year ago who presents with transaminitis. Patient reportedly had seen her rheu matologist today for her RA and fibromyalgia and with lab review found to have elevated bili, AST, ALT, and alk phos. patient also noted to have jaundice appearance and was encouraged to go to ED. Pancreatic mass There is concern for pancreatic malignancy MRCP was done today and showed There is marked intrahepatic ductal dilatation. The common bile duct measures approximately 16 mm. The CBD terminates abruptly proximal to the pancreatic head region. This abnormal heterogeneously enhancing mass continues into the suhail hepatis with an overall measurement of approximately 2.5 x 4 cm ERCP was done yesterday A biliary tract obstruction secondary to what appeared to be a mass/extrinsic compression) was found in the middle third of the main duct. The pancreatic duct, could not be cannulated. Cells for cytology obtained in the middle third of the main bile duct. One covered metal stent was placed into the common bile duct. A biliary sphincterotomy was performed. We will continue ceftriaxone IV as needed GI recommendation Abnormal LFT Secondary to biliary duct obstruction secondary to most likely pancreatic malignancy Improved today Hypertension Continue home meds Type 2 diabetes Insulin sliding scale Diabetes diet Hyperlipidemia Statin on hold due to transaminitis Anxiety Continue home meds History of breast cancer Continue home meds Follow-up with oncologist in the outpatient settings Cachexia Loss of muscles with temporal wasting BMI 19.7 Full can worker assessment DVT prophylaxis with heparin VS,Fishbone, I+O VS, Fishbone, I+O Laboratory Tests 03/04/21 10:09 Vital Signs Date Time Temp Pulse Resp B/P (MAP) Pulse Ox O2 Delivery O2 Flow Rate FiO2 03/04/21 14:00 98.4 69 18 139/71 (93) 98 Room Air 03/04/21 00:00 2.0 I&O- Last 24 Hours up to 6 AM 03/04/21 06:00 Intake Total 1850 ml Balance 1850 ml JESUS GARCIA DO Mar 04, 2021 17:03
[2021-03-04] MEDS: oxyCODONE 5MG TAB PO PRN (17:42)
[2021-03-04] MEDS: MAGNESIUM OXIDE 400MG TAB (MAG-OX) PO SCH (20:43)
[2021-03-04 22:00] VITALS: BP 128/70
[2021-03-05] MEDS: NS 1,000 ML IV SCH ×3 (05:18→17:55)
[2021-03-05] MEDS: PIPERACILLIN/TAZOBACTAM SOD 3.375 GM in D5W MINI-BAG PLUS 50 ML IV SCH ×4 (05:18→22:33)
[2021-03-05 06:00] VITALS: BP 154/81
[2021-03-05 06:21] LABS: BASO % 0.4 % (0.0-1.0); EOS # 0.1 10^3/uL (0.0-0.5); EOS % 0.6 % (0.0-3.0); HEMATOCRIT 31.4 % (36.0-47.0); HEMOGLOBIN 10.5 g/dl (12.0-15.5); LYMPH # 1.8 10^3/uL (1.5-5.0); LYMPH % 16.3 % (24.0-44.0); MEAN CORPUSCULAR HEMOGLOBIN 32.5 pg (27.0-33.0); MEAN CORPUSCULAR HGB CONC 33.4 g/dl (32.0-36.5); MEAN CORPUSCULAR VOLUME 97.2 fl (80.0-96.0); MONO # 1.3 10^3/uL (0.0-0.8); MONO % 11.2 % (2.0-8.0); NEUTROPHILS # 7.9 10^3/uL (1.5-8.5); NEUTROPHILS % 70.8 % (36.0-66.0); PLATELET COUNT, AUTOMATED 222 10^3/uL (150-450); RED BLOOD COUNT 3.23 10^6/uL (4.00-5.40); WHITE BLOOD COUNT 11.2 10^3/uL (4.0-10.0)
[2021-03-05 06:58] LABS: ALBUMIN 2.3 GM/DL (3.2-5.2); ALT/SGPT 198 U/L (12-78); BILIRUBIN,TOTAL 1.8 MG/DL (0.2-1.0); BLOOD UREA NITROGEN 7 MG/DL (7-18); CALCIUM LEVEL 8.3 MG/DL (8.8-10.2); CARBON DIOXIDE LEVEL 24 MEQ/L (21-32); CHLORIDE LEVEL 108 MEQ/L (98-107); CREATININE FOR GFR 0.52 MG/DL (0.55-1.30); GLOMERULAR FILTRATION RATE > 60.0 (>39); GLUCOSE, FASTING 153 MG/DL (70-100); MAGNESIUM LEVEL 1.5 MG/DL (1.8-2.4); POTASSIUM SERUM 3.5 MEQ/L (3.5-5.1); SODIUM LEVEL 140 MEQ/L (136-145); TOTAL PROTEIN 5.1 GM/DL (6.4-8.2)
[2021-03-05] MEDS: HumaLOG INSULIN (NovoLOG) PER UNIT SC SCH ×4 (08:14→21:00)
[2021-03-05] MEDS: ASPIRIN 81 MG CHEW TABLET PO SCH (08:15)
[2021-03-05] MEDS: busPIRone 5 MG TAB PO SCH ×3 (08:16→21:51)
[2021-03-05] MEDS: OMEPRAZOLE 20 MG CAP PO SCH (08:17)
[2021-03-05] MEDS: HEPARIN SOD (PORCINE) 5000UNITS/ML 1ML VIAL/SYRINGE SQ SCH ×2 (08:17→21:53)
[2021-03-05] MEDS: LACTOBACILLUS ACIDOPHILUS CAP (BACID) PO SCH (08:17)
[2021-03-05] MEDS: MULTIVITAMINS/MINERALS THERAP 1 TAB PO SCH (08:17)
[2021-03-05] MEDS: METOPROLOL TART 50 MG TAB PO SCH ×2 (08:17→21:52)
[2021-03-05] MEDS: TAMOXIFEN CITRATE 10 MG TAB PO SCH (08:18)
[2021-03-05] MEDS: oxyCODONE 5MG TAB PO PRN ×2 (08:19→16:15)
[2021-03-05] MEDS: MAGNESIUM OXIDE 400MG TAB (MAG-OX) PO SCH ×2 (08:20→21:52)
[2021-03-05] MEDS: cefTRIAXone SOD 2 GM in D5W MINI-BAG PLUS 50 ML IV SCH (10:15)
--- NOTE | 2021-03-05 12:57 | IPNPDOC ---
Text Note Date of Service The patient was seen on 03/05/21. NOTE Subjective: No any acute events overnight. Patient stated that her abdominal pain significantly subsided Objective: GENERAL APPEARANCE: Frail female HEENT: no scleral icterus, no JVD, EOMI CARDIOVASCULAR: S1S2 LUNGS: Diminished lung sounds bilaterally ABDOMEN: soft & not tender w palpation MUSCULOSKELETAL: no cyanosis, no swelling INTEGUMENT: no generalized pallor NEUROLOGICAL: cranial nerve function from 2-12 intact, follows commands, speech not dysarthric Assessment and plan Gloria Raza is a 70-year-old female with significant history of hypertension, hyperlipidemia, NIDDM, anxiety and right breast cancer status post lumpectomy 1 year ago who presents with transaminitis. Patient reportedly had seen her application technician today for her RA and fibromyalgia and with lab review found to have elevated bili, AST, ALT, and alk phos. patient also noted to have jaundice appearance and was encouraged to go to ED. Pancreatic mass There is concern for pancreatic malignancy MRCP was done today and showed There is marked intrahepatic ductal dilatation. The common bile duct measures approximately 16 mm. The CBD terminates abruptly proximal to the pancreatic head region. This abnormal heterogeneously enhancing mass continues into the suhail hepatis with an overall measurement of approximately 2.5 x 4 cm ERCP was done yesterday A biliary tract obstruction secondary to what appeared to be a mass/extrinsic compression) was found in the middle third of the main duct. The pancreatic duct, could not be cannulated. Cells for cytology obtained in the middle third of the main bile duct. One covered metal stent was placed into the common bile duct. A biliary sphincterotomy was performed. We will continue ceftriaxone IV as needed GI recommendation Abnormal LFT Secondary to biliary duct obstruction secondary to most likely pancreatic malignancy Continue improving Hypertension Continue home meds Type 2 diabetes Insulin sliding scale Diabetes diet Hyperlipidemia Statin on hold due to transaminitis Anxiety Continue home meds History of breast cancer Continue home meds Follow-up with oncologist in the outpatient settings Cachexia Loss of muscles with temporal wasting BMI 19.7 Full country manager assessment Hypomagnesemia Replaced DVT prophylaxis with heparin VS,Fishbone, I+O VS, Fishbone, I+O Laboratory Tests 03/05/21 06:10 Vital Signs Date Time Temp Pulse Resp B/P (MAP) Pulse Ox O2 Delivery O2 Flow Rate FiO2 03/05/21 09:03 16 03/05/21 08:19 85 147/82 03/05/21 06:00 97.9 96 Room Air 03/04/21 00:00 2.0 I&O- Last 24 Hours up to 6 AM 03/05/21 06:00 Intake Total 2887 ml Output Total 870 ml Balance 2017 ml JESUS GARCIA DO Mar 05, 2021 12:57
[2021-03-05 14:00] VITALS: BP 145/75
[2021-03-05] MEDS: ONDANSETRON 4MG/2ML VIAL IV PRN (17:46)
[2021-03-05] MEDS: MORPHINE 2 MG/ML 1ML VIAL (J2270) IV PRN (18:00)
[2021-03-05] MEDS: NORTRIPTYLINE 25 MG CAP PO SCH (21:51)
[2021-03-05 23:34] VITALS: BP 147/73
[2021-03-06] MEDS: PIPERACILLIN/TAZOBACTAM SOD 3.375 GM in D5W MINI-BAG PLUS 50 ML IV SCH ×4 (04:07→23:18)
[2021-03-06 06:00] VITALS: BP 139/71
[2021-03-06 06:58] LABS: BASO # 0.1 10^3/uL (0.0-0.2); BASO % 0.5 % (0.0-1.0); EOS # 0.1 10^3/uL (0.0-0.5); EOS % 1.3 % (0.0-3.0); HEMOGLOBIN 10.4 g/dl (12.0-15.5); LYMPH # 1.8 10^3/uL (1.5-5.0); LYMPH % 17.5 % (24.0-44.0); MEAN CORPUSCULAR HEMOGLOBIN 32.8 pg (27.0-33.0); MEAN CORPUSCULAR HGB CONC 33.5 g/dl (32.0-36.5); MEAN CORPUSCULAR VOLUME 97.8 fl (80.0-96.0); MONO # 1.2 10^3/uL (0.0-0.8); MONO % 11.6 % (2.0-8.0); NEUTROPHILS # 6.9 10^3/uL (1.5-8.5); NEUTROPHILS % 68.4 % (36.0-66.0); PLATELET COUNT, AUTOMATED 230 10^3/uL (150-450); RED BLOOD COUNT 3.17 10^6/uL (4.00-5.40)
[2021-03-06 07:23] LABS: ALBUMIN 2.2 GM/DL (3.2-5.2); ALT/SGPT 157 U/L (12-78); BILIRUBIN,TOTAL 1.5 MG/DL (0.2-1.0); BLOOD UREA NITROGEN 4 MG/DL (7-18); CALCIUM LEVEL 8.1 MG/DL (8.8-10.2); CARBON DIOXIDE LEVEL 27 MEQ/L (21-32); CHLORIDE LEVEL 106 MEQ/L (98-107); CREATININE FOR GFR 0.54 MG/DL (0.55-1.30); GLOMERULAR FILTRATION RATE > 60.0 (>39); GLUCOSE, FASTING 152 MG/DL (70-100); MAGNESIUM LEVEL 1.6 MG/DL (1.8-2.4); POTASSIUM SERUM 3.1 MEQ/L (3.5-5.1); SODIUM LEVEL 140 MEQ/L (136-145); TOTAL PROTEIN 4.9 GM/DL (6.4-8.2)
[2021-03-06] MEDS: NS 1,000 ML IV SCH (07:39)
[2021-03-06] MEDS: HEPARIN SOD (PORCINE) 5000UNITS/ML 1ML VIAL/SYRINGE SQ SCH ×2 (08:15→20:58)
[2021-03-06] MEDS: HumaLOG INSULIN (NovoLOG) PER UNIT SC SCH ×4 (08:16→20:09)
[2021-03-06] MEDS: ASPIRIN 81 MG CHEW TABLET PO SCH (08:16)
[2021-03-06] MEDS: OMEPRAZOLE 20 MG CAP PO SCH (08:16)
[2021-03-06] MEDS: MULTIVITAMINS/MINERALS THERAP 1 TAB PO SCH (08:16)
[2021-03-06] MEDS: LACTOBACILLUS ACIDOPHILUS CAP (BACID) PO SCH (08:16)
[2021-03-06] MEDS: busPIRone 5 MG TAB PO SCH ×3 (08:16→20:57)
[2021-03-06] MEDS: METOPROLOL TART 50 MG TAB PO SCH ×2 (08:17→20:56)
[2021-03-06] MEDS: MAGNESIUM OXIDE 400MG TAB (MAG-OX) PO SCH ×2 (08:17→20:57)
[2021-03-06] MEDS: ONDANSETRON 4MG/2ML VIAL IV PRN ×3 (08:22→20:56)
[2021-03-06] MEDS: TAMOXIFEN CITRATE 10 MG TAB PO SCH (12:16)
[2021-03-06 14:00] VITALS: BP 150/77
--- NOTE | 2021-03-06 14:02 | IPNPDOC ---
Text Note Date of Service The patient was seen on 03/06/21. NOTE Subjective: No any acute events overnight. Patient denied fever, chills, chest pain, palpitations Objective: GENERAL APPEARANCE: Frail female HEENT: no scleral icterus, no JVD, EOMI CARDIOVASCULAR: S1S2 LUNGS: Diminished lung sounds bilaterally ABDOMEN: soft & not tender w palpation MUSCULOSKELETAL: no cyanosis, no swelling INTEGUMENT: no generalized pallor NEUROLOGICAL: cranial nerve function from 2-12 intact, follows commands, speech not dysarthric Assessment and plan Gloria Raza is a 70-year-old female with significant history of hypertension, hyperlipidemia, NIDDM, anxiety and right breast cancer status post lumpectomy 1 year ago who presents with transaminitis. 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 patient also noted to have jaundice appearance and was encouraged to go to ED. Pancreatic mass There is concern for pancreatic malignancy. MRCP was done today and showed There is marked intrahepatic ductal dilatation. The common bile duct measures approximately 16 mm. The CBD terminates abruptly proximal to the pancreatic head region. This abnormal heterogeneously enhancing mass continues into the suhail hepatis with an overall measurement of approximately 2.5 x 4 cm ERCP was done yesterday A biliary tract obstruction secondary to what appeared to be a mass/extrinsic compression) was found in the middle third of the main duct. The pancreatic duct, could not be cannulated. Cells for cytology obtained in the middle third of the main bile duct. One covered metal stent was placed into the common bile duct. A biliary sphincterotomy was performed. Pathology showed atypical cells, nondiagnostic Continue Zosyn IV I talked to Dr. Niño about CT-guided biopsy of the pancreatic mass. He told me that it is technically difficult and he recommended an ultrasound guided endoscopy with biopsy. I will talk to Dr. Evangelista about discharge plan. Most likely patient will get biopsy in [place]. regular diet Abnormal LFT Secondary to biliary duct obstruction secondary to most likely pancreatic malignancy Continue improving Hypertension Continue home meds Type 2 diabetes Insulin sliding scale Diabetes diet Hyperlipidemia Statin on hold due to transaminitis Anxiety Continue home meds History of breast cancer Continue home meds Follow-up with oncologist in the outpatient settings Cachexia Loss of muscles with temporal wasting BMI 19.7 Full wall taper helper assessment Hypomagnesemia Replaced DVT prophylaxis with heparin VS,Fishbone, I+O VS, Fishbone, I+O Laboratory Tests 03/06/21 06:17 Vital Signs Date Time Temp Pulse Resp B/P (MAP) Pulse Ox O2 Delivery O2 Flow Rate FiO2 03/06/21 08:17 87 139/71 03/06/21 06:00 98.1 18 98 Room Air 03/04/21 00:00 2.0 l I&O- Last 24 Hours up to 6 AM 03/06/21 05:59 Intake Total 3422 ml Output Total 2450 ml Balance 972 ml JESUS GARCIA DO Mar 06, 2021 14:02
[2021-03-06] MEDS: oxyCODONE 5MG TAB PO PRN (14:17)
[2021-03-06] MEDS ORDERED: POTASSIUM CHLORIDE 10MEQ SR TABLET PO ONE (15:15)
[2021-03-06] MEDS: MORPHINE 2 MG/ML 1ML VIAL (J2270) IV PRN (20:56)
[2021-03-06] MEDS: NORTRIPTYLINE 25 MG CAP PO SCH (20:57)
[2021-03-06 22:00] VITALS: BP 155/73
[2021-03-07] MEDS: PIPERACILLIN/TAZOBACTAM SOD 3.375 GM in D5W MINI-BAG PLUS 50 ML IV SCH ×2 (05:25→10:24)
[2021-03-07 06:00] VITALS: BP 149/75
[2021-03-07 07:27] LABS: BASO # 0.1 10^3/uL (0.0-0.2); BASO % 0.8 % (0.0-1.0); EOS # 0.2 10^3/uL (0.0-0.5); EOS % 1.8 % (0.0-3.0); HEMATOCRIT 31.5 % (36.0-47.0); HEMOGLOBIN 10.4 g/dl (12.0-15.5); LYMPH # 1.7 10^3/uL (1.5-5.0); LYMPH % 19.9 % (24.0-44.0); MONO % 11.4 % (2.0-8.0); NEUTROPHILS # 5.7 10^3/uL (1.5-8.5); NEUTROPHILS % 65.3 % (36.0-66.0); PLATELET COUNT, AUTOMATED 255 10^3/uL (150-450); RED BLOOD COUNT 3.15 10^6/uL (4.00-5.40); WHITE BLOOD COUNT 8.7 10^3/uL (4.0-10.0)
[2021-03-07 07:56] LABS: ALBUMIN 2.1 GM/DL (3.2-5.2); ALT/SGPT 133 U/L (12-78); BILIRUBIN,TOTAL 1.2 MG/DL (0.2-1.0); BLOOD UREA NITROGEN 4 MG/DL (7-18); CALCIUM LEVEL 8.4 MG/DL (8.8-10.2); CARBON DIOXIDE LEVEL 27 MEQ/L (21-32); CHLORIDE LEVEL 106 MEQ/L (98-107); CREATININE FOR GFR 0.58 MG/DL (0.55-1.30); GLOMERULAR FILTRATION RATE > 60.0 (>39); GLUCOSE, FASTING 137 MG/DL (70-100); MAGNESIUM LEVEL 1.7 MG/DL (1.8-2.4); POTASSIUM SERUM 3.4 MEQ/L (3.5-5.1); SODIUM LEVEL 143 MEQ/L (136-145); TOTAL PROTEIN 5.2 GM/DL (6.4-8.2)
[2021-03-07] MEDS: MAGNESIUM OXIDE 400MG TAB (MAG-OX) PO SCH (09:00)
[2021-03-07] MEDS: TAMOXIFEN CITRATE 10 MG TAB PO SCH (10:12)
[2021-03-07] MEDS: ASPIRIN 81 MG CHEW TABLET PO SCH (10:12)
[2021-03-07] MEDS: MULTIVITAMINS/MINERALS THERAP 1 TAB PO SCH (10:13)
[2021-03-07] MEDS: HEPARIN SOD (PORCINE) 5000UNITS/ML 1ML VIAL/SYRINGE SQ SCH (10:13)
[2021-03-07] MEDS: OMEPRAZOLE 20 MG CAP PO SCH (10:13)
[2021-03-07] MEDS: LACTOBACILLUS ACIDOPHILUS CAP (BACID) PO SCH (10:13)
[2021-03-07] MEDS: HumaLOG INSULIN (NovoLOG) PER UNIT SC SCH ×2 (10:14→12:38)
[2021-03-07 10:18] VITALS: BP 149/75
[2021-03-07] MEDS: METOPROLOL TART 50 MG TAB PO SCH (10:18)
[2021-03-07] MEDS: busPIRone 5 MG TAB PO SCH (10:23)
[2021-03-07] MEDS ORDERED: AMOX875T2 PO (12:44)
[2021-03-07] MEDS ORDERED: ZOFR4TAB16 PO (12:45)
[2021-03-07] MEDS ORDERED: TRAM50TA2 PO (12:46)
--- NOTE | 2021-03-07 15:44 | DS.PDOC ---
Discharge Summary General Date of Admission Mar 02, 2021 at 17:36 Date of Discharge 03/07/21 Discharge Summary PROCEDURES PERFORMED DURING STAY: [None]. ADMITTING DIAGNOSES: Pancreatic mass Abnormal LFT Hypertension Type 2 diabetes Hyperlipidemia Anxiety History of breast cancer Cachexia DISCHARGE DIAGNOSES: Pancreatic mass Abnormal LFT Hypertension Type 2 diabetes Hyperlipidemia Anxiety History of breast cancer Cachexia COMPLICATIONS/CHIEF COMPLAINT: Transaminitis. HISTORY OF PRESENT ILLNESS:Cammy Raza is a 70-year-old female with significant history of hypertension, hyperlipidemia, NIDDM, anxiety and right breast cancer status post lumpectomy 1 year ago who presents with transaminitis. Patient reportedly had seen her embroidery worker today for her RA and fibromyalgia and with lab review found to have elevated bili, AST, ALT, and alk phos. patient also noted to have jaundice appearance and was encouraged to go to ED. HOSPITAL COURSE: During the hospital stay the following issue addressed There is concern for pancreatic malignancy. MRCP was done today and showed There is marked intrahepatic ductal dilatation. The common bile duct measures approximately 16 mm. The CBD terminates abruptly proximal to the pancreatic head region. This abnormal heterogeneously enhancing mass continues into the suhail hepatis with an overall measurement of approximately 2.5 x 4 cm ERCP was done yesterday A biliary tract obstruction secondary to what appeared to be a mass/extrinsic compression) was found in the middle third of the main duct. The pancreatic duct, could not be cannulated. Cells for cytology obtained in the middle third of the main bile duct. One covered metal stent was placed into the common bile duct. A biliary sphincterotomy was performed. Pathology showed atypical cells, nondiagnostic Patient received treatment with Zosyn IV I talked to Dr. Niño about CT-guided biopsy of the pancreatic mass. He told me that it is technically difficult and he recommended an ultrasound guided endoscopy with biopsy. I will talk to Dr. Evangelista about discharge plan. Most likely patient will get biopsy in [place]. 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 ALLERGIES: Please see below. PHYSICAL EXAMINATION ON DISCHARGE: VITAL SIGNS: Please see below. HEENT: no scleral icterus, no JVD, EOMI CARDIOVASCULAR: S1S2 LUNGS: Diminished lung sounds bilaterally ABDOMEN: soft & not tender w palpation MUSCULOSKELETAL: no cyanosis, no swelling INTEGUMENT: no generalized pallor NEUROLOGICAL: cranial nerve function from 2-12 intact, follows commands, speech not dysarthric LABORATORY DATA: Please see below. IMAGING: [facility] NAME: CAMMY RAZA DATE OF : 1950 AGE: 70 SEX: F REPORT #: [id number] ROOM: [facility] INP TECHNOLOGIST: [id number] DOCTOR: DAINA VAUGHN MD Ordered for Date&Time: 03/03/21 0733 cc: [~ rep ct ivnm] Service Date&Time: 03/03/21 0940 This report is in Signed status. If this report is in a DRAFT status it has not yet been reviewed by the radiologist for accuracy. Thank you for having your radiology procedures performed at [facility] RADIOLOGY REPORT Date&Time printed: [~ rep prt dt last] [~ rep prt tm last] Page 2 of 2 [place] [address] RADIOLOGY REPORT This report is in Signed status. If this report is in a DRAFT status it has not yet been reviewed by the radiologist for accuracy. Thank you for having your radiology procedures performed at [facility] RADIOLOGY REPORT Date&Time printed: [~ rep prt dt last] [~ rep prt tm last] Page 1 of 1 pancreatic head lesion suspected. Planned ERCP. stat please. COMPARISON: None. TECHNIQUE: Pre and post contrast 3T MRI of the pancreas was performed utilizing various sequences. Gadolinium utilized: 10 cc ProHance FINDINGS: There is an area of mixed heterogenous enhancement involving the pancreatic neck region which is at the level of and abruptly terminating dilated pancreatic duct. A dilated common bile duct abruptly terminates in the same region. This abnormal heterogeneously enhancing mass continues into the suhail hepatis with an overall measurement of approximately 2.5 x 4 cm. There is no evidence of peripancreatic adenopathy or free fluid. The gallbladder appears debris-filled. There is no evidence of an enhancing gallbladder or hepatic lesion. There is marked intrahepatic ductal dilatation. There are multiple bilateral renal cysts. The spleen and adrenal glands are within normal limits. There is no free fluid in the abdomen. IMPRESSION: There is a large pancreatic mass as described above. <Electronically signed by Gus Anthony > 03/03/21 1045 DD: Gus Anthony MD DO 03/03/21 1020 DT: HEYDI 03/03/21 1045 DS: PHIDE 03/03/21 1020 03/03/21 1020 [~ rep ct labl] PROGNOSIS: Poor ACTIVITY: [As tolerated]. DIET: Regular DISPOSITION: 01 Home, Self-Care. DISCHARGE INSTRUCTIONS: Follow-up with oncologist to schedule biopsy in [facility] TO FOLLOWUP ON ON OUTPATIENT: Follow-up with PCP and oncology/nuclear waste process operator DISCHARGE CONDITION: [Stable]. TIME SPENT ON DISCHARGE:50 minutes. Vital Signs/I&Os Vital Signs Date Time Temp Pulse Resp B/P (MAP) Pulse Ox O2 Delivery O2 Flow Rate FiO2 03/07/21 10:18 65 149/75 03/07/21 06:00 98.9 18 95 Room Air 03/04/21 00:00 2.0 I&O- Last 24 Hours up to 6 AM 03/07/21 06:00 Intake Total 1610 ml Output Total 2650 ml Balance -1040 ml Laboratory Data Labs 24H Laboratory Tests 2 03/06/21 17:11: Bedside Glucose (Misc Panel) 107 03/06/21 20:07: Bedside Glucose (Misc Panel) 88 03/07/21 06:43: Immature Granulocyte % (Auto) 0.8, Neutrophils (%) (Auto) 65.3, Lymphocytes (%) (Auto) 19.9L, Monocytes (%) (Auto) 11.4H, Eosinophils (%) (Auto) 1.8, Basophils (%) (Auto) 0.8, Neutrophils # (Auto) 5.7, Lymphocytes # (Auto) 1.7, Monocytes # (Auto) 1.0H, Eosinophils # (Auto) 0.2, Basophils # (Auto) 0.1, Nucleated Red Blood Cells % (auto) 0.0, Anion Gap 10, Glomerular Filtration Rate > 60.0, Calcium Level 8.4L, Magnesium Level 1.7L, Total Bilirubin 1.2H, Aspartate Amino Transf (AST/SGOT) 36, Alanine Aminotransferase (ALT/SGPT) 133H, Alkaline Phosphatase 191H, Total Protein 5.2L, Albumin 2.1L, Albumin/Globulin Ratio 0.7L 03/07/21 11:52: Bedside Glucose (Misc Panel) 256H CBC/BMP Laboratory Tests 03/07/21 06:43 FSBS Laboratory Tests Test 03/06/21 17:11 03/06/21 20:07 03/07/21 11:52 Range/Units Bedside Glucose (Misc Panel) 107 88 256 83-110 MG/DL Discharge Medications Scheduled Amoxicillin/Potassium Clav (Amox-Clav 875-125 mg Tablet) 1 Each Tablet, 875 MG PO BID Aspirin (Aspirin) 81 Mg Tab.chew, 81 MG PO DAILY, (Reported) Buspirone HCl (Buspirone HCl) 15 Mg Tab, 15 MG PO TID, (Reported) Fluticasone/Vilanterol (Breo Ellipta 200-25 Mcg INH) 1 Each Blst.w.dev, 1 PUFF INH DAILY, (Reported) Glimepiride (Glimepiride) 1 Mg Tablet, 1 MG PO DAILY, (Reported) Metformin HCl (Metformin HCl ER) 500 Mg Tab.er.24h, 500 MG PO BID, (Reported) Metoprolol Tartrate (Metoprolol Tartrate) 50 Mg Tab, 50 MG PO BID, (Reported) Multivitamins (Thera M Plus Tablet) 1 Each Tablet, 1 TAB PO DAILY, (Reported) Nortriptyline HCl (Nortriptyline HCl) 75 Mg Cap, 75 MG PO QHS, (Reported) TAKES WITH 25MG FOR 100MG TOTAL Nortriptyline HCl (Nortriptyline HCl) 25 Mg Cap, 25 MG PO QHS, (Reported) TAKES WITH 75MG FOR 100MG TOTAL [place]-3 Fatty Acids/Fish Oil (Fish Oil 1,000 mg Capsule) 1 Each Capsule, 1,000 MG PO DAILY, (Reported) Omeprazole (Omeprazole) 20 Mg Cap, 20 MG PO DAILY, (Reported) Ondansetron HCl (Zofran) 4 Mg Tablet, 1 TAB PO Q6H Simvastatin (Simvastatin) 10 Mg Tab, 10 MG PO QHS, (Reported) Sulfasalazine (Sulfasalazine) 500 Mg Tablet, 1 TAB PO BID, (Reported) Sulfasalazine (Sulfasalazine) 500 Mg Tablet, 1,000 MG PO DAILY, (Reported) Sulfasalazine (Sulfasalazine) 500 Mg Tablet, 500 MG PO QHS, (Reported) Tamoxifen Citrate (Tamoxifen Citrate) 20 Mg Tablet, 20 MG PO DAILY Scheduled PRN Albuterol Sulfate (Proair Hfa) 8.5 Gm Hfa.aer.ad, 2 PUFF INH Q4H PRN for SHORTNESS OF BREATH, (Reported) Loperamide HCl (Anti-Diarrheal) 2 Mg Tablet, 4 MG PO TID PRN for DIARRHEA, (Reported) Tramadol HCl (Tramadol HCl) 50 Mg Tablet, 1 TAB PO Q6HP PRN for pain Allergies Coded Allergies: nickel (Verified Allergy, Intermediate, rash, 07/03/19) adhesive (Verified Adverse Reaction, Mild, redness, 07/03/19) JESUS GARCIA DO Mar 07, 2021 15:44
[2021-03-07] MEDS ORDERED: AUGMENTIN 875 MG TAB PO SCH (21:00)
[2021-03-08] MEDS ORDERED: ROLLMIS8 XX (15:24)
[2021-03-10] MEDS ORDERED: ZOFR4TAB16 PO (09:47)
[2021-03-10] MEDS ORDERED: TRAM50TA2 PO (09:49)
[2021-03-10] MEDS ORDERED: IBUP200C25 PO (16:32)
[2021-03-10] MEDS ORDERED: XARE10TA PO (16:32)
[2021-04-04] MEDS ORDERED: TRAM50TA2 PO (14:51)
== END 2021-03-07 13:31 | disposition home health service (06) | DRG 435 ==
LOC: M ED 17:35 → M ED INP 17:36 → M MSPAV 03-04 02:28 → OBSVTOIN 03-06 16:56
PROVIDERS: ADMIT Family Medicine; ATTEND Internal Medicine
PROC: 0F798DZ Dilation of Common Bile Duct with Intraluminal Device, Via Natural or Artificial Opening Endoscopic (ICD-10-PCS; 2021-03-03)
PROC: 0FB98ZX Excision of Common Bile Duct, Via Natural or Artificial Opening Endoscopic, Diagnostic (ICD-10-PCS; principal; 2021-03-03 08:13)
DX: C25.1 Malignant neoplasm of body of pancreas (principal); K83.1 Obstruction of bile duct; R64 Cachexia; Z68.1 Body mass index [BMI] 19.9 or less, adult; R74.01 Elevation of levels of liver transaminase levels; I10 Essential (primary) hypertension; R00.0 Tachycardia, unspecified; E11.9 Type 2 diabetes mellitus without complications; F41.9 Anxiety disorder, unspecified; K86.89 Other specified diseases of pancreas; E78.5 Hyperlipidemia, unspecified; Z85.3 Personal history of malignant neoplasm of breast; E83.42 Hypomagnesemia; M79.7 Fibromyalgia; R53.83 Other fatigue; R53.1 Weakness; Z79.82 Long term (current) use of aspirin; Z79.84 Long term (current) use of oral hypoglycemic drugs; Z79.899 Other long term (current) drug therapy; Z91.048 Other nonmedicinal substance allergy status; Z87.891 Personal history of nicotine dependence

== ENCOUNTER → 2021-03-10 | Outpatient (CLI) | payer MEDICARE ==
[~2021-03-10] MED LIST changes: +ALBU8.5H; +AMOX875T2 PO; +ANTI2TAB16 PO; +ASPI1CHW3 PO; +BREO1INH3; +BREO1INH3 INH; +FISH1000 PO; +GLIM1TAB4 PO; +IBUP200C25 PO; +PROAAER10 INH; +ROLLMIS8 XX; +SULF1TAB30 PO; +VITMTA PO; +XARE10TA PO; +ZOFR4TAB16 PO
--- NOTE | 2021-03-10 14:52 | REP ---
INDICATION: LT ARM PAIN AND SWELLING ?DVT COMPARISON: None. TECHNIQUE: Real time compression and duplex Doppler evaluation of the Left upper extremity deep venous system is performed. FINDINGS: The Left subclavian, jugular, axillary, brachial, and basilic veins are fully compressible where accessible with transducer pressure, and demonstrate no intraluminal thrombus and normal venous waveforms. There is no evidence of deep venous thrombosis. There is superficial thrombus in the left cephalic vein at the antecubital fossa. IMPRESSION: No evidence of deep venous thrombosis of the Left upper extremity deep vein system. There is superficial thrombus in the left cephalic vein at the antecubital fossa. <Electronically signed by Guillermo Niño > 03/10/21 1948
--- NOTE | 2021-03-10 16:29 | MEDONCTEEN ---
Date/Time of Encounter Date of Encounter: Mar 10, 2021 Time of Encounter: 16:23 Telephone Encounter The patient reported no relief of pain on left arm. She was sent for a Doppler ultrasound today 03/10/2021 and this showed no evidence of deep vein thrombosis of left upper extremity deep vein system. There was note of superficial thrombus in left cephalic vein at the antecubital fossa. On conferring with Dr. Niño he stated that this was about 3 cm in length. I discussed with Gloria over the phone that she could start nonsteroidal anti- inflammatory agents such as ibuprofen. Alternately since she is at risk for a DVT as she recently was on tamoxifen and because of possible pancreatic malignancy, prophylactic anticoagulation would be reasonable. This could be in the form of fondaparinux, low molecular weight he heriberto or rivaroxaban. Will prescribe rivaroxaban 10 mg daily to be taken for 45 days. She has agreed to the above plan. TEO HOLLIS MD FACP Mar 10, 2021 16:29
== END ==
LOC: M RAD 12:44
PROVIDERS: ATTEND Internal Medicine Medical Oncology
DX: M79.602 Pain in left arm (principal); R22.32 Localized swelling, mass and lump, left upper limb

== ENCOUNTER 2021-04-29 20:37 | Emergency (ER) | payer MEDICARE ==
[~2021-04-29] VITALS: Ht 154.9 cm; Wt 50.0 kg
[~2021-04-29 20:37] MED LIST changes: +ONDA-83 PO
[2021-04-29 21:06] VITALS: BP 90/62
== END 2021-04-30 00:30 | disposition home or self-care (01) ==
LOC: M ED 20:37
DX: M79.661 Pain in right lower leg (principal); C25.0 Malignant neoplasm of head of pancreas; M25.861 Other specified joint disorders, right knee; I10 Essential (primary) hypertension; E11.9 Type 2 diabetes mellitus without complications; Z87.891 Personal history of nicotine dependence; Z79.899 Other long term (current) drug therapy; Z79.82 Long term (current) use of aspirin

== ENCOUNTER → 2021-06-16 | Outpatient (CLI) | payer MEDICARE ==
[~2021-06-16] MED LIST changes: -D31000TA2 PO; +PROC10TA5 PO; +VITA100093 PO
== END ==
LOC: M RAD 07:05
PROVIDERS: ATTEND Internal Medicine Medical Oncology
DX: K80.80 Other cholelithiasis without obstruction (principal)

== ENCOUNTER → 2021-06-26 | Outpatient (CLI) | payer MEDICARE ==
[~2021-06-26] MED LIST changes: +CIPR500T39 PO; +GASTROGRAFIN SOLUTION 30ML (Q9963) As Ordered ONE; +ISOVUE-370 76% 100ML VIAL As Ordered ONE; +METR-265 PO
== END ==
LOC: M RAD 13:56
PROVIDERS: ATTEND Internal Medicine Medical Oncology
DX: R93.5 Abnormal findings on diagnostic imaging of other abdominal regions, including retroperitoneum (principal); R10.11 Right upper quadrant pain; C25.9 Malignant neoplasm of pancreas, unspecified
CPT/HCPCS: 74177; Q9963; Q9967

== ENCOUNTER 2021-07-10 14:16 | Inpatient (IN) | payer MEDICARE ==
[~2021-07-10] VITALS: Ht 152.4 cm; Wt 48.3 kg
[~2021-07-10 14:16] MED LIST changes: -GASTROGRAFIN SOLUTION 30ML (Q9963) As Ordered ONE; -ISOVUE-370 76% 100ML VIAL As Ordered ONE
[2021-07-10 15:31] LABS: VENOUS BASE EXCESS 2.4 (-2.0-2.0); VENOUS O2 SATURATION 42.9 % (60.0-80.0); VENOUS PARTIAL PRESSURE CO2 41.9 mmHg (38.0-50.0); VENOUS PARTIAL PRESSURE O2 23.8 mmHg (30.0-50.0); VENOUS PH 7.427 UNITS (7.330-7.430); VENOUS STANDARD HCO3 25.7 MEQ/L; VENOUS TOTAL CO2 28.3 MEQ/L (24.0-28.0)
[2021-07-10 15:34] LABS: HEMATOCRIT 26.6 % (36.0-47.0); HEMOGLOBIN 8.6 g/dl (12.0-15.5); MEAN CORPUSCULAR HEMOGLOBIN 30.1 pg (27.0-33.0); MEAN CORPUSCULAR HGB CONC 32.3 g/dl (32.0-36.5); PLATELET COUNT, AUTOMATED 798 10^3/uL (150-450); RED BLOOD COUNT 2.86 10^6/uL (4.00-5.40); WHITE BLOOD COUNT 26.5 10^3/uL (4.0-10.0)
[2021-07-10 16:03] LABS: LYMPHOCYTES 7 % (16-44); METAMYELOCYTES 3 % (0-0); MONOCYTES 14 % (0-5); MYELOCYTES 1 % (0-0); NEUTROPHILS 71 % (28-66); PLATELET ESTIMATE INCREASED (NORMAL)
[2021-07-10 16:07] LABS: CK-MB VALUE MASS < 1.0 NG/ML (<3.6); CPK CREATINE PHOSPHOKINASE 27 U/L (26-192)
[2021-07-10 16:17] LABS: BLOOD UREA NITROGEN 13 MG/DL (7-18); CALCIUM LEVEL 10.5 MG/DL (8.8-10.2); CARBON DIOXIDE LEVEL 28 MEQ/L (21-32); CHLORIDE LEVEL 99 MEQ/L (98-107); CREATININE FOR GFR 0.65 MG/DL (0.55-1.30); GLOMERULAR FILTRATION RATE > 60.0 (>39); GLUCOSE, FASTING 152 MG/DL (70-100); POTASSIUM SERUM 4.5 MEQ/L (3.5-5.1); SODIUM LEVEL 135 MEQ/L (136-145)
[2021-07-10 16:18] LABS: ALBUMIN 2.4 GM/DL (3.2-5.2); ALT/SGPT 38 U/L (12-78); BILIRUBIN,DIRECT 0.2 MG/DL (0.0-0.2); BILIRUBIN,TOTAL 0.4 MG/DL (0.2-1.0); NT-PRO BNP 597 PG/ML (<125); THYROID STIMULATING HORMONE 0.659 uIU/ML (0.358-3.740); THYROXINE (T4) 12.4 UG/DL (4.5-12.0); TOTAL PROTEIN 6.3 GM/DL (6.4-8.2)
[2021-07-10] MEDS ORDERED: AZITHROMYCIN INJ 500 MG, VIAL MATE ADAPTER 1 EACH in NS 250 ML IV ONE (16:40)
[2021-07-10] MEDS ORDERED: cefTRIAXone SOD 1 GM in D5W MINI-BAG PLUS 50 ML IV ONE (16:40)
[2021-07-10] MEDS ORDERED: GLUCAGON INJ 1MG VIAL SC PRN (17:50)
[2021-07-10] MEDS ORDERED: DEXTROSE 50% 50 ML SYRINGE IV PRN (17:50)
[2021-07-10] MEDS ORDERED: GLUCOSE 4GM CHEW TABLET PO PRN (17:50)
[2021-07-10] MEDS ORDERED: VITA100093 PO (17:51)
[2021-07-10] MEDS ORDERED: HOME MED LIST COMPLETE! XX SCH (17:55)
[2021-07-10] MEDS ORDERED: PROCHLORPERAZINE 5MG TAB PO PRN (18:45)
[2021-07-10] MEDS ORDERED: ONDANSETRON 4MG TAB PO PRN (18:45)
[2021-07-10] MEDS ORDERED: ALBUTEROL 90 MCG/ACT 8GM HFA INHALER INH PRN (18:45)
[2021-07-10] MEDS ORDERED: traMADol 50 MG TAB PO PRN (18:45)
[2021-07-10] MEDS: LACTOBACILLUS ACIDOPHILUS CAP (BACID) PO SCH (18:50)
[2021-07-10] MEDS: HumaLOG INSULIN (NovoLOG) PER UNIT SC SCH (18:50)
[2021-07-10 19:20] LABS: INR 1.4; PROTHROMBIN TIME 17.6 SECONDS (12.7-14.5)
[2021-07-10 19:21] LABS: PARTIAL THROMBOPLASTIN TIME 46.5 SECONDS (25.9-37.0)
[2021-07-10] MEDS: ADVAIR HFA 115/21MCG INHALER INH SCH (20:00)
[2021-07-10 20:05] VITALS: BP 127/67
[2021-07-10] MEDS: ENOXAPARIN 40MG/0.4ML SYRINGE (J1650 PER 10MG) SC SCH (20:43)
[2021-07-10] MEDS: SIMVASTATIN 10 MG TAB PO SCH (20:43)
[2021-07-10] MEDS: busPIRone 5 MG TAB PO SCH (20:43)
[2021-07-10] MEDS: METOPROLOL TART 50 MG TAB PO SCH (20:44)
[2021-07-10] MEDS ORDERED: NORTRIPTYLINE 25 MG CAP PO SCH (21:00)
[2021-07-10] MEDS ORDERED: VANCOMYCIN HCL 1,000 MG, VIAL MATE ADAPTER 1 EACH in NS 250 ML IV ONE (21:00)
[2021-07-11] VITALS (8 sets, daily range): BP systolic 106–137; BP diastolic 59–65
[2021-07-11] MEDS: NORTRIPTYLINE 25 MG CAP PO SCH ×2 (01:51→20:03)
[2021-07-11] MEDS: PIPERACILLIN/TAZOBACTAM SOD 3.375 GM in D5W MINI-BAG PLUS 50 ML IV SCH ×2 (01:51→06:36)
[2021-07-11 05:55] LABS: HEMOGLOBIN 7.3 g/dl (12.0-15.5); MEAN CORPUSCULAR HGB CONC 33.2 g/dl (32.0-36.5); MEAN CORPUSCULAR VOLUME 90.5 fl (80.0-96.0); PLATELET COUNT, AUTOMATED 738 10^3/uL (150-450); RED BLOOD COUNT 2.43 10^6/uL (4.00-5.40); WHITE BLOOD COUNT 20.5 10^3/uL (4.0-10.0)
[2021-07-11 06:30] LABS: ALBUMIN 1.8 GM/DL (3.2-5.2); ALT/SGPT 41 U/L (12-78); BILIRUBIN,TOTAL 0.5 MG/DL (0.2-1.0); BLOOD UREA NITROGEN 11 MG/DL (7-18); CALCIUM LEVEL 9.5 MG/DL (8.8-10.2); CARBON DIOXIDE LEVEL 26 MEQ/L (21-32); CHLORIDE LEVEL 102 MEQ/L (98-107); CREATININE FOR GFR 0.53 MG/DL (0.55-1.30); GLOMERULAR FILTRATION RATE > 60.0 (>39); GLUCOSE, FASTING 128 MG/DL (70-100); POTASSIUM SERUM 3.9 MEQ/L (3.5-5.1); SODIUM LEVEL 137 MEQ/L (136-145); TOTAL PROTEIN 5.2 GM/DL (6.4-8.2)
[2021-07-11] MEDS: ADVAIR HFA 115/21MCG INHALER INH SCH ×2 (07:12→19:51)
[2021-07-11] MEDS: METOPROLOL TART 50 MG TAB PO SCH ×2 (08:48→20:03)
[2021-07-11] MEDS: HumaLOG INSULIN (NovoLOG) PER UNIT SC SCH ×3 (08:48→18:35)
[2021-07-11] MEDS: MULTIVITAMINS/MINERALS THERAP 1 TAB PO SCH (08:49)
[2021-07-11] MEDS: ASPIRIN 81 MG CHEW TABLET PO SCH (08:49)
[2021-07-11] MEDS: OMEPRAZOLE 20MG CAP PO SCH (08:49)
[2021-07-11] MEDS: VITAMIN D 1,000 INTERNATIONAL UNITS TABLET PO SCH (08:49)
[2021-07-11] MEDS: busPIRone 5 MG TAB PO SCH ×3 (08:49→20:03)
[2021-07-11] MEDS: LACTOBACILLUS ACIDOPHILUS CAP (BACID) PO SCH ×2 (08:49→18:35)
[2021-07-11] MEDS ORDERED: VANCOMYCIN HCL 750 MG, VIAL MATE ADAPTER 1 EACH in NS 250 ML IV SCH (09:00)
[2021-07-11] MEDS: PIPERACILLIN/TAZOBACTAM SOD 4.5 GM in D5W MINI-BAG PLUS 50 ML IV SCH ×3 (14:01→23:45)
[2021-07-11] MEDS: SODIUM CHLORIDE 0.9% INJ 10 ML SYR IV PRN ×2 (16:19→20:13)
[2021-07-11] MEDS: ACETAMINOPHEN TAB 650MG DOSE (2X325MG) PO PRN (17:00)
[2021-07-11] MEDS: ENOXAPARIN 40MG/0.4ML SYRINGE (J1650 PER 10MG) SC SCH (20:03)
[2021-07-11] MEDS: SIMVASTATIN 10 MG TAB PO SCH (20:03)
[2021-07-11] MEDS: DOXYCYCLINE HYCLATE 100MG TABLET PO SCH (21:15)
[2021-07-11 21:39] LABS: HEMATOCRIT 24.7 % (36.0-47.0); HEMOGLOBIN 7.9 g/dl (12.0-15.5)
[2021-07-12] MEDS: SODIUM CHLORIDE 0.9% INJ 10 ML SYR IV PRN ×3 (01:05→20:34)
[2021-07-12 05:02] VITALS: BP 123/59
[2021-07-12] MEDS: PIPERACILLIN/TAZOBACTAM SOD 4.5 GM in D5W MINI-BAG PLUS 50 ML IV SCH ×3 (05:05→17:31)
[2021-07-12 06:08] LABS: HEMATOCRIT 25.4 % (36.0-47.0); HEMOGLOBIN 8.3 g/dl (12.0-15.5); MEAN CORPUSCULAR HGB CONC 32.7 g/dl (32.0-36.5); MEAN CORPUSCULAR VOLUME 85.8 fl (80.0-96.0); PLATELET COUNT, AUTOMATED 789 10^3/uL (150-450); RED BLOOD COUNT 2.96 10^6/uL (4.00-5.40); WHITE BLOOD COUNT 19.4 10^3/uL (4.0-10.0)
[2021-07-12 06:35] LABS: ALBUMIN 1.7 GM/DL (3.2-5.2); ALT/SGPT 60 U/L (12-78); BILIRUBIN,TOTAL 0.6 MG/DL (0.2-1.0); BLOOD UREA NITROGEN 7 MG/DL (7-18); CALCIUM LEVEL 9.2 MG/DL (8.8-10.2); CARBON DIOXIDE LEVEL 26 MEQ/L (21-32); CHLORIDE LEVEL 105 MEQ/L (98-107); CREATININE FOR GFR 0.49 MG/DL (0.55-1.30); GLOMERULAR FILTRATION RATE > 60.0 (>39); GLUCOSE, FASTING 151 MG/DL (70-100); POTASSIUM SERUM 3.6 MEQ/L (3.5-5.1); SODIUM LEVEL 138 MEQ/L (136-145); TOTAL PROTEIN 5.1 GM/DL (6.4-8.2)
[2021-07-12] MEDS: ADVAIR HFA 115/21MCG INHALER INH SCH ×2 (07:20→19:34)
[2021-07-12] MEDS: ASPIRIN 81 MG CHEW TABLET PO SCH (07:58)
[2021-07-12] MEDS: HumaLOG INSULIN (NovoLOG) PER UNIT SC SCH ×3 (07:58→17:31)
[2021-07-12] MEDS: LACTOBACILLUS ACIDOPHILUS CAP (BACID) PO SCH ×2 (07:58→17:31)
[2021-07-12] MEDS: DOXYCYCLINE HYCLATE 100MG TABLET PO SCH ×2 (07:58→20:33)
[2021-07-12] MEDS: VITAMIN D 1,000 INTERNATIONAL UNITS TABLET PO SCH (07:59)
[2021-07-12] MEDS: busPIRone 5 MG TAB PO SCH ×3 (07:59→20:32)
[2021-07-12] MEDS: OMEPRAZOLE 20MG CAP PO SCH (07:59)
[2021-07-12] MEDS: MULTIVITAMINS/MINERALS THERAP 1 TAB PO SCH (07:59)
[2021-07-12] MEDS: METOPROLOL TART 50 MG TAB PO SCH ×2 (07:59→20:32)
[2021-07-12] MEDS: SODIUM CHLORIDE 0.9% INJ 10 ML SYR IV SCH (08:00)
[2021-07-12] MEDS ORDERED: ISOVUE-370 76% 100ML VIAL As Ordered ONE (09:14)
[2021-07-12 14:00] VITALS: BP 119/58
[2021-07-12] MEDS: ACETAMINOPHEN TAB 650MG DOSE (2X325MG) PO PRN ×2 (14:11→22:07)
[2021-07-12 18:00] VITALS: BP 135/69
[2021-07-12] MEDS: ENOXAPARIN 40MG/0.4ML SYRINGE (J1650 PER 10MG) SC SCH (20:32)
[2021-07-12] MEDS: NORTRIPTYLINE 25 MG CAP PO SCH (20:32)
[2021-07-12] MEDS: SIMVASTATIN 10 MG TAB PO SCH (20:33)
[2021-07-13] MEDS: PIPERACILLIN/TAZOBACTAM SOD 4.5 GM in D5W MINI-BAG PLUS 50 ML IV SCH ×5 (00:04→23:46)
[2021-07-13] MEDS: SODIUM CHLORIDE 0.9% INJ 10 ML SYR IV PRN ×2 (05:49→16:43)
[2021-07-13 05:55] VITALS: BP 159/92
[2021-07-13 06:31] LABS: HEMATOCRIT 27.4 % (36.0-47.0); HEMOGLOBIN 8.7 g/dl (12.0-15.5); MEAN CORPUSCULAR HEMOGLOBIN 27.4 pg (27.0-33.0); MEAN CORPUSCULAR HGB CONC 31.8 g/dl (32.0-36.5); MEAN CORPUSCULAR VOLUME 86.2 fl (80.0-96.0); PLATELET COUNT, AUTOMATED 963 10^3/uL (150-450); RED BLOOD COUNT 3.18 10^6/uL (4.00-5.40); WHITE BLOOD COUNT 18.6 10^3/uL (4.0-10.0)
[2021-07-13 06:55] LABS: ANISOCYTOSIS 2+; ATYPICAL LYMPH 3 % (0-5); EOSINOPHILS 4 % (0-3); LYMPHOCYTES 4 % (16-44); MONOCYTES 14 % (0-5); MYELOCYTES 3 % (0-0); NEUTROPHILS 72 % (28-66); PLATELET ESTIMATE INCREASED (NORMAL); POLYCHROMASIA 1+; TEAR DROP CELLS 1+
[2021-07-13 06:56] LABS: POIKILOCYTOSIS 2+; SCHISTOCYTES 1+
[2021-07-13 06:59] LABS: ALBUMIN 1.9 GM/DL (3.2-5.2); ALT/SGPT 66 U/L (12-78); BILIRUBIN,TOTAL 0.5 MG/DL (0.2-1.0); BLOOD UREA NITROGEN 7 MG/DL (7-18); CALCIUM LEVEL 10.1 MG/DL (8.8-10.2); CARBON DIOXIDE LEVEL 26 MEQ/L (21-32); CHLORIDE LEVEL 106 MEQ/L (98-107); GLOMERULAR FILTRATION RATE > 60.0 (>39); GLUCOSE, FASTING 142 MG/DL (70-100); MAGNESIUM LEVEL 1.3 MG/DL (1.8-2.4); SODIUM LEVEL 141 MEQ/L (136-145); TOTAL PROTEIN 5.5 GM/DL (6.4-8.2)
[2021-07-13] MEDS: ADVAIR HFA 115/21MCG INHALER INH SCH ×2 (07:10→20:09)
[2021-07-13] MEDS: LACTOBACILLUS ACIDOPHILUS CAP (BACID) PO SCH ×2 (08:25→17:31)
[2021-07-13] MEDS: DOXYCYCLINE HYCLATE 100MG TABLET PO SCH ×2 (08:25→20:20)
[2021-07-13] MEDS: ASPIRIN 81 MG CHEW TABLET PO SCH (08:25)
[2021-07-13] MEDS: OMEPRAZOLE 20MG CAP PO SCH (08:25)
[2021-07-13] MEDS: MULTIVITAMINS/MINERALS THERAP 1 TAB PO SCH (08:25)
[2021-07-13] MEDS: SODIUM CHLORIDE 0.9% INJ 10 ML SYR IV SCH (08:26)
[2021-07-13] MEDS: methylPREDNISolone 125MG 2ML VIAL IV SCH ×3 (08:26→23:47)
[2021-07-13] MEDS: METOPROLOL TART 50 MG TAB PO SCH ×2 (08:27→20:24)
[2021-07-13] MEDS: HumaLOG INSULIN (NovoLOG) PER UNIT SC SCH ×4 (08:28→20:19)
[2021-07-13] MEDS: busPIRone 5 MG TAB PO SCH ×3 (08:30→20:31)
[2021-07-13] MEDS: VITAMIN D 1,000 INTERNATIONAL UNITS TABLET PO SCH (08:30)
[2021-07-13 09:00] VITALS: BP 134/78
[2021-07-13 14:00] VITALS: BP 118/68
[2021-07-13] MEDS: MAG SULF 1GM/100ML (MAG RUN) 1 GM in IV 1 EA IV SCH ×2 (14:08→15:17)
[2021-07-13 19:25] VITALS: BP 119/67
[2021-07-13] MEDS: ENOXAPARIN 40MG/0.4ML SYRINGE (J1650 PER 10MG) SC SCH (20:18)
[2021-07-13] MEDS: SIMVASTATIN 10 MG TAB PO SCH (20:20)
[2021-07-13] MEDS: NORTRIPTYLINE 25 MG CAP PO SCH (20:20)
[2021-07-14] MEDS: PIPERACILLIN/TAZOBACTAM SOD 4.5 GM in D5W MINI-BAG PLUS 50 ML IV SCH (05:37)
[2021-07-14 05:56] VITALS: BP 144/82
[2021-07-14 07:12] LABS: HEMATOCRIT 26.7 % (36.0-47.0); HEMOGLOBIN 8.7 g/dl (12.0-15.5); MEAN CORPUSCULAR HGB CONC 32.6 g/dl (32.0-36.5); MEAN CORPUSCULAR VOLUME 85.9 fl (80.0-96.0); RED BLOOD COUNT 3.11 10^6/uL (4.00-5.40)
[2021-07-14 07:15] LABS: PLATELET COUNT, AUTOMATED 1102 10^3/uL (150-450)
[2021-07-14] MEDS: ADVAIR HFA 115/21MCG INHALER INH SCH ×2 (07:33→19:31)
[2021-07-14 07:46] LABS: ALT/SGPT 57 U/L (12-78); BILIRUBIN,TOTAL 0.3 MG/DL (0.2-1.0); BLOOD UREA NITROGEN 12 MG/DL (7-18); CALCIUM LEVEL 9.6 MG/DL (8.8-10.2); CARBON DIOXIDE LEVEL 26 MEQ/L (21-32); CHLORIDE LEVEL 108 MEQ/L (98-107); CREATININE FOR GFR 0.49 MG/DL (0.55-1.30); GLOMERULAR FILTRATION RATE > 60.0 (>39); GLUCOSE, FASTING 266 MG/DL (70-100); MAGNESIUM LEVEL 1.9 MG/DL (1.8-2.4); POTASSIUM SERUM 4.2 MEQ/L (3.5-5.1); SODIUM LEVEL 142 MEQ/L (136-145); TOTAL PROTEIN 5.7 GM/DL (6.4-8.2)
[2021-07-14 07:59] LABS: LYMPHOCYTES 5 % (16-44); METAMYELOCYTES 3 % (0-0); MONOCYTES 3 % (0-5); MYELOCYTES 3 % (0-0); NEUTROPHILS 78 % (28-66); PLATELET ESTIMATE INCREASED (NORMAL)
[2021-07-14 08:00] LABS: MICROCYTOSIS 2+; TEAR DROP CELLS 1+
[2021-07-14] MEDS: methylPREDNISolone 125MG 2ML VIAL IV SCH (09:09)
[2021-07-14] MEDS: HumaLOG INSULIN (NovoLOG) PER UNIT SC SCH ×4 (09:10→22:03)
[2021-07-14] MEDS: OMEPRAZOLE 20MG CAP PO SCH (09:11)
[2021-07-14] MEDS: busPIRone 5 MG TAB PO SCH ×4 (09:11→22:49)
[2021-07-14] MEDS: SODIUM CHLORIDE 0.9% INJ 10 ML SYR IV SCH (09:11)
[2021-07-14] MEDS: LACTOBACILLUS ACIDOPHILUS CAP (BACID) PO SCH ×2 (09:12→17:54)
[2021-07-14] MEDS: MULTIVITAMINS/MINERALS THERAP 1 TAB PO SCH (09:12)
[2021-07-14] MEDS: VITAMIN D 1,000 INTERNATIONAL UNITS TABLET PO SCH (09:12)
[2021-07-14] MEDS: DOXYCYCLINE HYCLATE 100MG TABLET PO SCH ×3 (09:12→22:50)
[2021-07-14] MEDS: ASPIRIN 81 MG CHEW TABLET PO SCH (09:12)
[2021-07-14] MEDS: METOPROLOL TART 50 MG TAB PO SCH ×3 (09:14→22:50)
[2021-07-14] MEDS ORDERED: IBUPROFEN 400MG TAB PO ONE (09:55)
[2021-07-14] MEDS ORDERED: ISOVUE-370 76% 100ML VIAL As Ordered ONE (10:59)
[2021-07-14] MEDS: AUGMENTIN 875 MG TAB PO SCH ×3 (11:40→22:50)
[2021-07-14 14:00] VITALS: BP 146/91
[2021-07-14] MEDS: ACETAMINOPHEN TAB 650MG DOSE (2X325MG) PO PRN (16:04)
[2021-07-14 18:00] VITALS: BP 150/82
[2021-07-14] MEDS: ENOXAPARIN 40MG/0.4ML SYRINGE (J1650 PER 10MG) SC SCH (22:02)
[2021-07-14] MEDS: NORTRIPTYLINE 25 MG CAP PO SCH ×2 (22:04→22:49)
[2021-07-14] MEDS: SIMVASTATIN 10 MG TAB PO SCH ×2 (22:05→22:50)
[2021-07-14] MEDS: SODIUM CHLORIDE 0.9% INJ 10 ML SYR IV PRN (22:31)
[2021-07-14] MEDS: ONDANSETRON 4MG/2ML VIAL IV PRN (22:33)
[2021-07-15] MEDS ORDERED: PROMETHAZINE 25MG/ML 1ML VIAL IV ONE (00:40)
[2021-07-15] MEDS ORDERED: diphenhydrAMINE 25MG CAP PO ONE (01:15)
[2021-07-15] MEDS: ACETAMINOPHEN TAB 650MG DOSE (2X325MG) PO PRN (04:11)
[2021-07-15 05:48] VITALS: BP 160/70
[2021-07-15 06:48] LABS: HEMATOCRIT 25.8 % (36.0-47.0); HEMOGLOBIN 8.2 g/dl (12.0-15.5); MEAN CORPUSCULAR HEMOGLOBIN 28.1 pg (27.0-33.0); MEAN CORPUSCULAR HGB CONC 31.8 g/dl (32.0-36.5); MEAN CORPUSCULAR VOLUME 88.4 fl (80.0-96.0); RED BLOOD COUNT 2.92 10^6/uL (4.00-5.40); WHITE BLOOD COUNT 26.8 10^3/uL (4.0-10.0)
[2021-07-15 06:52] LABS: PLATELET COUNT, AUTOMATED 1106 10^3/uL (150-450)
[2021-07-15 07:06] LABS: ALBUMIN 2.1 GM/DL (3.2-5.2); ALT/SGPT 50 U/L (12-78); BILIRUBIN,TOTAL 0.9 MG/DL (0.2-1.0); BLOOD UREA NITROGEN 15 MG/DL (7-18); CALCIUM LEVEL 9.7 MG/DL (8.8-10.2); CARBON DIOXIDE LEVEL 29 MEQ/L (21-32); CHLORIDE LEVEL 104 MEQ/L (98-107); CREATININE FOR GFR 0.57 MG/DL (0.55-1.30); GLOMERULAR FILTRATION RATE > 60.0 (>39); GLUCOSE, FASTING 182 MG/DL (70-100); MAGNESIUM LEVEL 1.7 MG/DL (1.8-2.4); POTASSIUM SERUM 3.2 MEQ/L (3.5-5.1); SODIUM LEVEL 141 MEQ/L (136-145); TOTAL PROTEIN 5.6 GM/DL (6.4-8.2)
[2021-07-15] MEDS: ADVAIR HFA 115/21MCG INHALER INH SCH ×2 (07:15→18:00)
[2021-07-15] MEDS ORDERED: POTASSIUM CHLORIDE 10MEQ SR TABLET PO ONE (07:25)
[2021-07-15 07:58] LABS: ATYPICAL LYMPH 1 % (0-5); LYMPHOCYTES 5 % (16-44); METAMYELOCYTES 2 % (0-0); MONOCYTES 8 % (0-5); NEUTROPHILS 81 % (28-66)
[2021-07-15 07:59] LABS: ANISOCYTOSIS 1+; PLATELET ESTIMATE INCREASED (NORMAL)
[2021-07-15] MEDS: HumaLOG INSULIN (NovoLOG) PER UNIT SC SCH ×4 (08:26→21:00)
[2021-07-15] MEDS: LACTOBACILLUS ACIDOPHILUS CAP (BACID) PO SCH ×2 (08:27→17:45)
[2021-07-15] MEDS: MULTIVITAMINS/MINERALS THERAP 1 TAB PO SCH (08:27)
[2021-07-15] MEDS: OMEPRAZOLE 20MG CAP PO SCH (08:27)
[2021-07-15] MEDS: ASPIRIN 81 MG CHEW TABLET PO SCH (08:27)
[2021-07-15] MEDS: AUGMENTIN 875 MG TAB PO SCH ×2 (08:27→21:45)
[2021-07-15] MEDS: VITAMIN D 1,000 INTERNATIONAL UNITS TABLET PO SCH (08:28)
[2021-07-15] MEDS: predniSONE 20 MG TAB PO SCH (08:28)
[2021-07-15] MEDS: busPIRone 5 MG TAB PO SCH ×3 (08:28→21:45)
[2021-07-15] MEDS: DOXYCYCLINE HYCLATE 100MG TABLET PO SCH ×2 (08:28→21:45)
[2021-07-15] MEDS: METOPROLOL TART 50 MG TAB PO SCH ×2 (08:28→21:45)
[2021-07-15] MEDS: SODIUM CHLORIDE 0.9% INJ 10 ML SYR IV SCH (08:30)
[2021-07-15] MEDS ORDERED: predniSONE 20 MG TAB PO SCH (09:00)
[2021-07-15] MEDS ORDERED: LORazepam 2 MG/ML VIAL IM STA (11:27)
[2021-07-15] MEDS ORDERED: LORazepam 2 MG/ML VIAL As Ordered ONE (12:42)
[2021-07-15 14:00] VITALS: BP 148/92
[2021-07-15] MEDS: MAG SULF 1GM/100ML (MAG RUN) 1 GM in IV 1 EA IV SCH ×2 (16:51→18:12)
[2021-07-15 20:25] VITALS: BP 146/84
[2021-07-15] MEDS: SODIUM CHLORIDE 0.9% INJ 10 ML SYR IV PRN (20:44)
[2021-07-15] MEDS: NORTRIPTYLINE 25 MG CAP PO SCH (21:45)
[2021-07-15] MEDS: SIMVASTATIN 10 MG TAB PO SCH (21:45)
[2021-07-15] MEDS: ENOXAPARIN 40MG/0.4ML SYRINGE (J1650 PER 10MG) SC SCH (21:46)
[2021-07-16 04:49] VITALS: BP 138/72
[2021-07-16 06:36] LABS: HEMATOCRIT 31.2 % (36.0-47.0); HEMOGLOBIN 9.6 g/dl (12.0-15.5); MEAN CORPUSCULAR HEMOGLOBIN 27.2 pg (27.0-33.0); MEAN CORPUSCULAR HGB CONC 30.8 g/dl (32.0-36.5); MEAN CORPUSCULAR VOLUME 88.4 fl (80.0-96.0); RED BLOOD COUNT 3.53 10^6/uL (4.00-5.40); WHITE BLOOD COUNT 22.6 10^3/uL (4.0-10.0)
[2021-07-16 07:04] LABS: ALBUMIN 2.2 GM/DL (3.2-5.2); ALT/SGPT 47 U/L (12-78); BILIRUBIN,TOTAL 0.6 MG/DL (0.2-1.0); BLOOD UREA NITROGEN 14 MG/DL (7-18); CALCIUM LEVEL 9.6 MG/DL (8.8-10.2); CARBON DIOXIDE LEVEL 31 MEQ/L (21-32); CHLORIDE LEVEL 105 MEQ/L (98-107); CREATININE FOR GFR 0.68 MG/DL (0.55-1.30); GLOMERULAR FILTRATION RATE > 60.0 (>39); GLUCOSE, FASTING 123 MG/DL (70-100); MAGNESIUM LEVEL 2.3 MG/DL (1.8-2.4); POTASSIUM SERUM 4.1 MEQ/L (3.5-5.1); SODIUM LEVEL 141 MEQ/L (136-145); TOTAL PROTEIN 5.9 GM/DL (6.4-8.2)
[2021-07-16] MEDS: ADVAIR HFA 115/21MCG INHALER INH SCH (07:23)
[2021-07-16 07:31] LABS: PLATELET COUNT, AUTOMATED 1161 10^3/uL (150-450)
[2021-07-16 07:59] LABS: ANISOCYTOSIS 1+; EOSINOPHILS 3 % (0-3); LYMPHOCYTES 10 % (16-44); METAMYELOCYTES 4 % (0-0); MONOCYTES 8 % (0-5); MYELOCYTES 2 % (0-0); NEUTROPHILS 71 % (28-66); PLATELET ESTIMATE INCREASED (NORMAL)
[2021-07-16] MEDS: HumaLOG INSULIN (NovoLOG) PER UNIT SC SCH ×2 (08:15→12:00)
[2021-07-16] MEDS: predniSONE 20 MG TAB PO SCH (08:16)
[2021-07-16] MEDS: ASPIRIN 81 MG CHEW TABLET PO SCH (08:16)
[2021-07-16] MEDS: DOXYCYCLINE HYCLATE 100MG TABLET PO SCH (08:16)
[2021-07-16] MEDS: LACTOBACILLUS ACIDOPHILUS CAP (BACID) PO SCH (08:16)
[2021-07-16] MEDS: MULTIVITAMINS/MINERALS THERAP 1 TAB PO SCH (08:16)
[2021-07-16] MEDS: OMEPRAZOLE 20MG CAP PO SCH (08:16)
[2021-07-16] MEDS: VITAMIN D 1,000 INTERNATIONAL UNITS TABLET PO SCH (08:16)
[2021-07-16] MEDS: AUGMENTIN 875 MG TAB PO SCH (08:16)
[2021-07-16 08:17] VITALS: BP 125/77
[2021-07-16] MEDS: METOPROLOL TART 50 MG TAB PO SCH (08:17)
[2021-07-16] MEDS: busPIRone 5 MG TAB PO SCH (08:17)
[2021-07-16] MEDS: SODIUM CHLORIDE 0.9% INJ 10 ML SYR IV SCH (08:18)
[2021-07-16] MEDS ORDERED: ONDA-83 PO ×2 (09:44→11:58)
[2021-07-16] MEDS ORDERED: ATIV1TAB10 PO ×2 (09:44→11:58)
[2021-07-16] MEDS ORDERED: RISATAB3 PO ×2 (09:44→11:58)
[2021-07-16] MEDS ORDERED: ACET1TAB55 PO ×2 (09:44→11:58)
[2021-07-16] MEDS ORDERED: AMOX875T2 PO ×2 (09:44→11:58)
[2021-07-16] MEDS ORDERED: DOXY100T PO ×2 (09:44→11:58)
[2021-07-16] MEDS: ACETAMINOPHEN TAB 650MG DOSE (2X325MG) PO PRN (12:37)
[2021-07-16] MEDS: ONDANSETRON 4MG/2ML VIAL IV PRN (12:37)
[2021-07-16] MEDS: SODIUM CHLORIDE 0.9% INJ 10 ML SYR IV PRN (12:39)
[2021-07-17 18:07] LABS: BODY FLUID CULTURE Not indicated. (.); ORGANISM ID Not indicated. (.); SPECIMEN SOURCE Urine (.); URINE STREP PNEUMONIAE ANTIGEN Negative (Negative)
[2021-07-18 16:08] LABS: BODY FLUID CULTURE Not indicated. (.); LEGIONELLA ANTIGEN URINE Negative (Negative); ORGANISM ID Not indicated. (.); SPECIMEN SOURCE Urine (.); URINE STREP PNEUMONIAE ANTIGEN Negative (Negative)
== END 2021-07-16 14:03 | disposition home health service (06) | DRG 871 ==
LOC: M ED 14:16 → M ED INP 17:05 → M MSPAV 20:05
PROVIDERS: ADMIT Internal Medicine; ATTEND Family Medicine
PROC: 30233N1 Transfusion of Nonautologous Red Blood Cells into Peripheral Vein, Percutaneous Approach (ICD-10-PCS; principal; 2021-07-10)
DX: A41.9 Sepsis, unspecified organism (principal); J18.9 Pneumonia, unspecified organism; C25.9 Malignant neoplasm of pancreas, unspecified; C78.7 Secondary malignant neoplasm of liver and intrahepatic bile duct; K52.1 Toxic gastroenteritis and colitis; A09 Infectious gastroenteritis and colitis, unspecified; J44.0 Chronic obstructive pulmonary disease with (acute) lower respiratory infection; E11.9 Type 2 diabetes mellitus without complications; I10 Essential (primary) hypertension; E78.5 Hyperlipidemia, unspecified; D64.9 Anemia, unspecified; Z66 Do not resuscitate; R53.1 Weakness; D75.839 Thrombocytosis, unspecified; T45.1X5A Adverse effect of antineoplastic and immunosuppressive drugs, initial encounter; Z85.3 Personal history of malignant neoplasm of breast; Z87.891 Personal history of nicotine dependence; Z90.49 Acquired absence of other specified parts of digestive tract; Z95.828 Presence of other vascular implants and grafts; Z79.82 Long term (current) use of aspirin; Z79.899 Other long term (current) drug therapy; Z79.84 Long term (current) use of oral hypoglycemic drugs; Z91.048 Other nonmedicinal substance allergy status

== ENCOUNTER 2021-08-02 18:07 | Emergency (ER) | payer MEDICARE ==
[~2021-08-02] VITALS: Ht 152.4 cm; Wt 47.8 kg
[~2021-08-02 18:07] MED LIST changes: +ACET1TAB55 PO; +ATIV1TAB10 PO; +DOXY100T PO; +RISATAB3 PO
[2021-08-02 19:20] LABS: HEMATOCRIT 29.1 % (36.0-47.0); HEMOGLOBIN 8.9 g/dl (12.0-15.5); MEAN CORPUSCULAR HEMOGLOBIN 29.1 pg (27.0-33.0); MEAN CORPUSCULAR HGB CONC 30.6 g/dl (32.0-36.5); MEAN CORPUSCULAR VOLUME 95.1 fl (80.0-96.0); PLATELET COUNT, AUTOMATED 214 10^3/uL (150-450); RED BLOOD COUNT 3.06 10^6/uL (4.00-5.40); WHITE BLOOD COUNT 5.6 10^3/uL (4.0-10.0)
[2021-08-02 19:51] LABS: ALBUMIN 2.5 GM/DL (3.2-5.2); ALT/SGPT 28 U/L (12-78); BILIRUBIN,DIRECT < 0.1 MG/DL (0.0-0.2); BILIRUBIN,TOTAL 0.2 MG/DL (0.2-1.0); BLOOD UREA NITROGEN 14 MG/DL (7-18); CALCIUM LEVEL 10.9 MG/DL (8.8-10.2); CARBON DIOXIDE LEVEL 31 MEQ/L (21-32); CHLORIDE LEVEL 106 MEQ/L (98-107); CK-MB VALUE MASS < 1.0 NG/ML (<3.6); CPK CREATINE PHOSPHOKINASE 20 U/L (26-192); CREATININE FOR GFR 0.62 MG/DL (0.55-1.30); GLOMERULAR FILTRATION RATE > 60.0 (>39); GLUCOSE, FASTING 190 MG/DL (70-100); LIPASE 111 U/L (73-393); POTASSIUM SERUM 4.3 MEQ/L (3.5-5.1); SODIUM LEVEL 143 MEQ/L (136-145); TOTAL PROTEIN 5.9 GM/DL (6.4-8.2)
[2021-08-02 20:23] LABS: BASOPHILS 2 % (0-1); EOSINOPHILS 4 % (0-3); LYMPHOCYTES 30 % (16-44); METAMYELOCYTES 1 % (0-0); MONOCYTES 5 % (0-5); NEUTROPHILS 57 % (28-66)
[2021-08-02 20:24] LABS: ANISOCYTOSIS 4+; HYPOCHROMASIA 1+; PLATELET ESTIMATE NORMAL (NORMAL)
[2021-08-02] MEDS ORDERED: PERCOCET 5MG/325MG TAB PO ONE (21:40)
[2021-08-02] MEDS ORDERED: ISOVUE-370 76% 100ML VIAL As Ordered ONE (21:41)
[2021-08-02 21:57] LABS: CK-MB VALUE MASS < 1.0 NG/ML (<3.6); CPK CREATINE PHOSPHOKINASE 13 U/L (26-192); MB/CK RELATIVE INDEX 7.69 (< OR =4)
[2021-08-03] MEDS ORDERED: OXYCODONE/APAP 5MG/325MG(BULK FOR ED) 1 TABLET PO ONE (00:10)
[2021-08-03] MEDS ORDERED: LEVO750T13 PO (00:11)
[2021-08-03 00:18] VITALS: BP 143/88
[2021-08-03] MEDS ORDERED: LevoFLOXacin 750 MG TABLET PO ONE (01:00)
== END 2021-08-03 00:26 | disposition home or self-care (01) ==
LOC: M ED 18:07
DX: R09.1 Pleurisy (principal); J18.9 Pneumonia, unspecified organism; C25.9 Malignant neoplasm of pancreas, unspecified; E11.9 Type 2 diabetes mellitus without complications; I10 Essential (primary) hypertension; E78.5 Hyperlipidemia, unspecified; Z90.49 Acquired absence of other specified parts of digestive tract; Z95.828 Presence of other vascular implants and grafts
CPT/HCPCS: 36415; 71045; 71275; 80048; 80076; 82550; 82553; 83690; 84484; 85025; 93005; 93041; 94760; 99285; Q9967

== ENCOUNTER 2021-09-25 14:14 | Inpatient (IN) | payer MEDICARE ==
[~2021-09-25] VITALS: Ht 154.9 cm; Wt 49.5 kg
[~2021-09-25 14:14] MED LIST changes: +AUGM500T34 PO; +CICL0.7739 TOP; +LEVO750T13 PO; +XANA0.5T PO; +[UNRECOGNIZED DRUG - OTHER] PO
[2021-09-25 15:46] LABS: HEMATOCRIT 34.7 % (36.0-47.0); HEMOGLOBIN 10.6 g/dl (12.0-15.5); MEAN CORPUSCULAR HGB CONC 30.5 g/dl (32.0-36.5); MEAN CORPUSCULAR VOLUME 94.8 fl (80.0-96.0); PLATELET COUNT, AUTOMATED 504 10^3/uL (150-450); RED BLOOD COUNT 3.66 10^6/uL (4.00-5.40)
[2021-09-25 15:50] LABS: WHITE BLOOD COUNT 64.8 10^3/uL (4.0-10.0)
[2021-09-25 16:10] LABS: ALBUMIN 2.8 GM/DL (3.2-5.2); ALT/SGPT 23 U/L (12-78); BILIRUBIN,DIRECT 0.1 MG/DL (0.0-0.2); BILIRUBIN,TOTAL 0.2 MG/DL (0.2-1.0); BLOOD UREA NITROGEN 14 MG/DL (7-18); CARBON DIOXIDE LEVEL 27 MEQ/L (21-32); CHLORIDE LEVEL 100 MEQ/L (98-107); CREATININE FOR GFR 0.78 MG/DL (0.55-1.30); EOSINOPHILS 1 % (0-3); GLOMERULAR FILTRATION RATE > 60.0 (>39); GLUCOSE, FASTING 210 MG/DL (70-100); LYMPHOCYTES 8 % (16-44); METAMYELOCYTES 2 % (0-0); MONOCYTES 3 % (0-5); MYELOCYTES 2 % (0-0); NEUTROPHILS 77 % (28-66); POTASSIUM SERUM 3.9 MEQ/L (3.5-5.1); PROMYELOCYTES 1 % (0-0); SODIUM LEVEL 136 MEQ/L (136-145); TOTAL PROTEIN 6.8 GM/DL (6.4-8.2)
[2021-09-25 16:11] LABS: ANISOCYTOSIS 1+; PLATELET ESTIMATE INCREASED (NORMAL)
[2021-09-25 16:19] LABS: CK-MB VALUE MASS < 1.0 NG/ML (<3.6); CPK CREATINE PHOSPHOKINASE 51 U/L (26-192); MB/CK RELATIVE INDEX 1.96 (< OR =4)
[2021-09-25] MEDS ORDERED: NS 1,420 ML in IV 1 EA IV ONE (16:30)
[2021-09-25] MEDS ORDERED: ISOVUE-370 76% 100ML VIAL As Ordered ONE (16:34)
[2021-09-25 17:14] LABS: CK-MB VALUE MASS < 1.0 NG/ML (<3.6); CPK CREATINE PHOSPHOKINASE 45 U/L (26-192); MB/CK RELATIVE INDEX 2.22 (< OR =4)
[2021-09-25] MEDS ORDERED: LevoFLOXacin IV 750 MG in IV 1 EA IV ONE (17:20)
[2021-09-25] MEDS ORDERED: PIPERACILLIN/TAZOBACTAM SOD 4.5 GM in D5W MINI-BAG PLUS 50 ML IV ONE (17:20)
[2021-09-25] MEDS ORDERED: MAALOX 30 ML SUSP *UDC PO PRN (19:05)
[2021-09-25] MEDS ORDERED: MOM 30ML SUSPENSION UDC PO PRN (19:05)
[2021-09-25] MEDS ORDERED: ACETAMINOPHEN TAB 650MG DOSE (2X325MG) PO PRN (19:05)
[2021-09-25] MEDS: NS 1,000 ML IV SCH (19:30)
[2021-09-25] MEDS ORDERED: CICL0.7716 TOP (19:46)
[2021-09-25] MEDS ORDERED: HOME MED LIST COMPLETE! XX SCH (19:50)
[2021-09-25] MEDS: ADVAIR HFA 115/21MCG INHALER INH SCH (20:00)
[2021-09-25] MEDS ORDERED: LOPERAMIDE 2 MG CAPLET PO PRN (20:10)
[2021-09-25] MEDS ORDERED: GLUCOSE 4GM CHEW TABLET PO PRN (20:10)
[2021-09-25] MEDS ORDERED: GLUCAGON INJ 1MG VIAL SC PRN (20:10)
[2021-09-25] MEDS ORDERED: ONDANSETRON 4MG TAB PO PRN (20:10)
[2021-09-25] MEDS ORDERED: PERCOCET 5MG/325MG TAB PO PRN (20:10)
[2021-09-25] MEDS ORDERED: traMADol 50 MG TAB PO PRN (20:10)
[2021-09-25] MEDS ORDERED: guaiFENesin DM LIQ 10ML UD PO PRN (20:10)
[2021-09-25] MEDS ORDERED: DEXTROSE 50% 50 ML SYRINGE IV PRN (20:10)
[2021-09-25] MEDS ORDERED: ALBUTEROL 90 MCG/ACT 8GM HFA INHALER INH PRN (20:10)
[2021-09-25 20:31] LABS: APPEARANCE, URINE HAZY (CLEAR); BACTERIA, URINE AUTO NEGATIVE (NEGATIVE); BILIRUBIN, URINE AUTO NEGATIVE (NEGATIVE); BLOOD, URINE BLOOD NEGATIVE (NEGATIVE); COLOR, URINE YELLOW (YELLOW); GLUCOSE, URINE (UA) AUTO NEGATIVE (NEGATIVE); KETONE, URINE AUTO NEGATIVE (NEGATIVE); LEUKOCYTE ESTERASE, URINE AUTO 1+ (NEGATIVE); MUCUS, URINE SMALL (NEGATIVE); NITRITE, URINE AUTO NEGATIVE (NEGATIVE); PROTEIN, URINE AUTO NEGATIVE (NEGATIVE); RBC, URINE AUTO 1 /HPF (0-3); SQUAMOUS EPITHELIAL CELL UR AU 1 /HPF (0-6); UROBILINOGEN, URINE AUTO 0.2 mg/dL (0.0-2.0); WBC, URINE AUTO 6 /HPF (0-3)
[2021-09-25 20:31] LABS: INR 1.05; PROTHROMBIN TIME 14.1 SECONDS (12.7-14.5)
[2021-09-25 20:32] LABS: PARTIAL THROMBOPLASTIN TIME 42.6 SECONDS (25.9-37.0)
[2021-09-25] MEDS: NORTRIPTYLINE 25 MG CAP PO SCH (21:00)
[2021-09-25] MEDS: INSULIN LISPRO (NovoLOG) PER UNIT SC SCH (21:00)
[2021-09-25] MEDS ORDERED: NORTRIPTYLINE 25 MG CAP PO SCH (21:00)
[2021-09-25] MEDS: METOPROLOL TART 50 MG TAB PO SCH (23:04)
[2021-09-25] MEDS: DOCUSATE SODIUM 100MG CAPSULE PO SCH (23:05)
[2021-09-25] MEDS: busPIRone 5 MG TAB PO SCH (23:05)
[2021-09-25] MEDS: SIMVASTATIN 10 MG TAB PO SCH (23:05)
[2021-09-25] MEDS: OMEPRAZOLE 20MG CAP PO SCH (23:05)
[2021-09-26 02:30] VITALS: BP 137/66
[2021-09-26 05:09] LABS: HEMATOCRIT 32.7 % (36.0-47.0); HEMOGLOBIN 10.2 g/dl (12.0-15.5); MEAN CORPUSCULAR HEMOGLOBIN 29.1 pg (27.0-33.0); MEAN CORPUSCULAR HGB CONC 31.2 g/dl (32.0-36.5); MEAN CORPUSCULAR VOLUME 93.4 fl (80.0-96.0); PLATELET COUNT, AUTOMATED 465 10^3/uL (150-450)
[2021-09-26 05:11] LABS: WHITE BLOOD COUNT 72.7 10^3/uL (4.0-10.0)
[2021-09-26 06:11] LABS: BLOOD UREA NITROGEN 9 MG/DL (7-18); CARBON DIOXIDE LEVEL 29 MEQ/L (21-32); CHLORIDE LEVEL 105 MEQ/L (98-107); CREATININE FOR GFR 0.68 MG/DL (0.55-1.30); GLOMERULAR FILTRATION RATE > 60.0 (>39); GLUCOSE, FASTING 80 MG/DL (70-100); MAGNESIUM LEVEL 0.8 MG/DL (1.8-2.4); SODIUM LEVEL 141 MEQ/L (136-145)
[2021-09-26] MEDS: NS 1,000 ML IV SCH (06:21)
[2021-09-26] MEDS: ADVAIR HFA 115/21MCG INHALER INH SCH ×2 (07:19→20:21)
[2021-09-26] MEDS: INSULIN LISPRO (NovoLOG) PER UNIT SC SCH ×4 (07:30→21:00)
[2021-09-26] MEDS: MAG SULF 1GM/100ML (MAG RUN) 1 GM in IV 1 EA IV SCH ×2 (07:44→08:42)
[2021-09-26 08:40] VITALS: BP 139/63
[2021-09-26] MEDS: busPIRone 5 MG TAB PO SCH ×3 (08:40→21:49)
[2021-09-26] MEDS: MULTIVITAMINS/MINERALS THERAP 1 TAB PO SCH (08:40)
[2021-09-26] MEDS: ASPIRIN 81 MG CHEW TABLET PO SCH (08:41)
[2021-09-26] MEDS: DOCUSATE SODIUM 100MG CAPSULE PO SCH ×2 (08:41→21:00)
[2021-09-26] MEDS: METOPROLOL TART 50 MG TAB PO SCH ×2 (08:41→17:13)
[2021-09-26] MEDS: ENOXAPARIN 30MG/0.3ML SYRINGE (J1650 PER 10MG) SC SCH (08:42)
[2021-09-26] MEDS: OMEPRAZOLE 20MG CAP PO SCH ×2 (08:44→18:37)
[2021-09-26] MEDS: KCL 20MEQ IN 0.45NS 1000ML 1,000 ML IV SCH ×2 (10:39→22:40)
[2021-09-26] MEDS ORDERED: MAG SULF 1GM/100ML (MAG RUN) 1 GM in IV 1 EA IV ONE (11:00)
[2021-09-26 15:37] VITALS: BP 114/58
[2021-09-26] MEDS: LevoFLOXacin IV 750 MG in IV 1 EA IV SCH (17:11)
[2021-09-26 19:47] VITALS: BP 127/59
[2021-09-26] MEDS: NORTRIPTYLINE 25 MG CAP PO SCH (21:49)
[2021-09-26] MEDS: SIMVASTATIN 10 MG TAB PO SCH (21:49)
[2021-09-27] VITALS (9 sets, daily range): BP systolic 117–171; BP diastolic 60–72; O2SAT 94–96
[2021-09-27] MEDS: KCL 20MEQ IN 0.45NS 1000ML 1,000 ML IV SCH ×2 (01:23→23:58)
[2021-09-27 05:40] LABS: HEMATOCRIT 29.2 % (36.0-47.0); HEMOGLOBIN 9.5 g/dl (12.0-15.5); MEAN CORPUSCULAR HEMOGLOBIN 29.8 pg (27.0-33.0); MEAN CORPUSCULAR HGB CONC 32.5 g/dl (32.0-36.5); MEAN CORPUSCULAR VOLUME 91.5 fl (80.0-96.0); PLATELET COUNT, AUTOMATED 347 10^3/uL (150-450); RED BLOOD COUNT 3.19 10^6/uL (4.00-5.40)
[2021-09-27 05:41] LABS: WHITE BLOOD COUNT 71.6 10^3/uL (4.0-10.0)
[2021-09-27 06:02] LABS: BLOOD UREA NITROGEN 4 MG/DL (7-18); CALCIUM LEVEL 9.3 MG/DL (8.8-10.2); CARBON DIOXIDE LEVEL 25 MEQ/L (21-32); CHLORIDE LEVEL 112 MEQ/L (98-107); CREATININE FOR GFR 0.58 MG/DL (0.55-1.30); GLOMERULAR FILTRATION RATE > 60.0 (>39); GLUCOSE, FASTING 133 MG/DL (70-100); MAGNESIUM LEVEL 1.4 MG/DL (1.8-2.4); POTASSIUM SERUM 3.9 MEQ/L (3.5-5.1); SODIUM LEVEL 144 MEQ/L (136-145)
[2021-09-27] MEDS: ADVAIR HFA 115/21MCG INHALER INH SCH ×2 (07:49→19:48)
[2021-09-27] MEDS: OMEPRAZOLE 20MG CAP PO SCH ×2 (07:57→18:04)
[2021-09-27] MEDS: busPIRone 5 MG TAB PO SCH ×3 (07:58→20:32)
[2021-09-27] MEDS: ASPIRIN 81 MG CHEW TABLET PO SCH (07:58)
[2021-09-27] MEDS: DOCUSATE SODIUM 100MG CAPSULE PO SCH ×2 (07:58→20:32)
[2021-09-27] MEDS: METOPROLOL TART 50 MG TAB PO SCH ×2 (07:58→15:26)
[2021-09-27] MEDS: INSULIN LISPRO (NovoLOG) PER UNIT SC SCH ×4 (07:59→21:00)
[2021-09-27] MEDS: ENOXAPARIN 30MG/0.3ML SYRINGE (J1650 PER 10MG) SC SCH (07:59)
[2021-09-27] MEDS: MULTIVITAMINS/MINERALS THERAP 1 TAB PO SCH (07:59)
[2021-09-27] MEDS ORDERED: MELATONIN 3MG (PATIENT'S OWN MED) PO PRN (12:20)
[2021-09-27] MEDS ORDERED: MAGNESIUM OXIDE 400MG TAB (MAG-OX) PO ONE (13:25)
[2021-09-27] MEDS ORDERED: MELA3TAB49 PO (13:53)
[2021-09-27 15:08] LABS: MYCOPLASMA PNEUMONIAE IgG 2617 U/mL (0-99); MYCOPLASMA PNEUMONIAE IgM <770 U/mL (0-769)
[2021-09-27] MEDS: LevoFLOXacin IV 750 MG in IV 1 EA IV SCH (17:05)
[2021-09-27] MEDS: traMADol 50 MG TAB PO SCH (18:05)
[2021-09-27] MEDS: ONDANSETRON 4MG TAB PO SCH (18:05)
[2021-09-27] MEDS: SIMVASTATIN 10 MG TAB PO SCH (20:33)
[2021-09-27] MEDS: NORTRIPTYLINE 25 MG CAP PO SCH (20:36)
[2021-09-28 03:55] VITALS: BP 136/64
[2021-09-28] MEDS ORDERED: LevoFLOXacin 750 MG TABLET PO SCH (06:00)
[2021-09-28 06:57] LABS: HEMOGLOBIN 9.8 g/dl (12.0-15.5); MEAN CORPUSCULAR HEMOGLOBIN 29.9 pg (27.0-33.0); MEAN CORPUSCULAR HGB CONC 32.7 g/dl (32.0-36.5); MEAN CORPUSCULAR VOLUME 91.5 fl (80.0-96.0); PLATELET COUNT, AUTOMATED 316 10^3/uL (150-450); RED BLOOD COUNT 3.28 10^6/uL (4.00-5.40)
[2021-09-28 07:02] LABS: WHITE BLOOD COUNT 61.2 10^3/uL (4.0-10.0)
[2021-09-28] MEDS: ADVAIR HFA 115/21MCG INHALER INH SCH (07:09)
[2021-09-28 07:19] LABS: BLOOD UREA NITROGEN 3 MG/DL (7-18); CALCIUM LEVEL 10.1 MG/DL (8.8-10.2); CARBON DIOXIDE LEVEL 29 MEQ/L (21-32); CHLORIDE LEVEL 109 MEQ/L (98-107); CREATININE FOR GFR 0.63 MG/DL (0.55-1.30); GLOMERULAR FILTRATION RATE > 60.0 (>39); GLUCOSE, FASTING 166 MG/DL (70-100); MAGNESIUM LEVEL 1.4 MG/DL (1.8-2.4); POTASSIUM SERUM 4.3 MEQ/L (3.5-5.1); SODIUM LEVEL 142 MEQ/L (136-145)
[2021-09-28 08:24] VITALS: BP 156/68
[2021-09-28] MEDS: OMEPRAZOLE 20MG CAP PO SCH (08:32)
[2021-09-28 08:33] VITALS: BP 156/68
[2021-09-28] MEDS: MULTIVITAMINS/MINERALS THERAP 1 TAB PO SCH (08:33)
[2021-09-28] MEDS: ASPIRIN 81 MG CHEW TABLET PO SCH (08:33)
[2021-09-28] MEDS: METOPROLOL TART 50 MG TAB PO SCH (08:33)
[2021-09-28] MEDS: busPIRone 5 MG TAB PO SCH (08:33)
[2021-09-28] MEDS: ONDANSETRON 4MG TAB PO SCH (08:33)
[2021-09-28] MEDS: traMADol 50 MG TAB PO SCH (08:34)
[2021-09-28] MEDS: ENOXAPARIN 30MG/0.3ML SYRINGE (J1650 PER 10MG) SC SCH (08:34)
[2021-09-28] MEDS: INSULIN LISPRO (NovoLOG) PER UNIT SC SCH ×2 (08:35→11:31)
[2021-09-28] MEDS: DOCUSATE SODIUM 100MG CAPSULE PO SCH (08:36)
[2021-09-28] MEDS ORDERED: MAGNESIUM OXIDE 400MG TAB (MAG-OX) PO SCH (09:00)
[2021-09-28] MEDS: KCL 20MEQ IN 0.45NS 1000ML 1,000 ML IV SCH (12:10)
[2021-09-28] MEDS ORDERED: LEVO750T13 PO (14:46)
[2021-09-29 15:11] LABS: CHLAMYDIA PNEUMONIAE IgM < 1:10 (< 1:10); CHLAMYDIA PSITTACI IgM < 1:10 (< 1:10); CHLAMYDIA TRACHOMATIS IgM < 1:10 (< 1:10)
== END 2021-09-28 16:07 | disposition home health service (06) | DRG 871 ==
LOC: M ED 14:14 → M ED INP 19:04 → ENRESERV 09-26 01:15 → M PCU 09-26 02:18
PROVIDERS: ADMIT Family Medicine; ATTEND Family Medicine
DX: A41.9 Sepsis, unspecified organism (principal); J15.7 Pneumonia due to Mycoplasma pneumoniae; C25.9 Malignant neoplasm of pancreas, unspecified; C78.7 Secondary malignant neoplasm of liver and intrahepatic bile duct; R64 Cachexia; E87.2 Acidosis; E11.9 Type 2 diabetes mellitus without complications; I10 Essential (primary) hypertension; E78.5 Hyperlipidemia, unspecified; F41.9 Anxiety disorder, unspecified; E83.42 Hypomagnesemia; Z66 Do not resuscitate; F32.A Depression, unspecified; Z85.3 Personal history of malignant neoplasm of breast; Z79.82 Long term (current) use of aspirin; Z79.84 Long term (current) use of oral hypoglycemic drugs; Z91.048 Other nonmedicinal substance allergy status; Z79.899 Other long term (current) drug therapy

== ENCOUNTER 2021-11-04 19:14 | Emergency (ER) | payer MEDICARE ==
[~2021-11-04] VITALS: Ht 154.9 cm; Wt 47.7 kg
[~2021-11-04 19:14] MED LIST changes: +CICL0.7716 TOP; +LEVO1TAB40 PO; -LEVO750T13 PO; +MELA3TAB49 PO
[2021-11-04] MEDS ORDERED: ACET500T15 PO (19:40)
[2021-11-04] MEDS ORDERED: NS 1,000 ML IV SCH (20:20)
[2021-11-04 20:33] LABS: RSV AMPLIFICATION NEGATIVE (NEGATIVE)
[2021-11-04 20:48] LABS: BASO # 0.1 10^3/uL (0.0-0.2); BASO % 0.6 % (0.0-1.0); EOS # 0.4 10^3/uL (0.0-0.5); EOS % 2.5 % (0.0-3.0); HEMATOCRIT 35.6 % (36.0-47.0); HEMOGLOBIN 11.2 g/dl (12.0-15.5); LYMPH # 1.5 10^3/uL (1.5-5.0); LYMPH % 8.6 % (24.0-44.0); MEAN CORPUSCULAR HEMOGLOBIN 28.3 pg (27.0-33.0); MEAN CORPUSCULAR HGB CONC 31.5 g/dl (32.0-36.5); MEAN CORPUSCULAR VOLUME 89.9 fl (80.0-96.0); MONO % 19.8 % (2.0-8.0); NEUTROPHILS # 11.1 10^3/uL (1.5-8.5); NEUTROPHILS % 64.9 % (36.0-66.0); PLATELET COUNT, AUTOMATED 319 10^3/uL (150-450); RED BLOOD COUNT 3.96 10^6/uL (4.00-5.40); WHITE BLOOD COUNT 17.1 10^3/uL (4.0-10.0)
[2021-11-04 21:13] LABS: ALBUMIN 2.8 GM/DL (3.2-5.2); ALT/SGPT 59 U/L (12-78); BILIRUBIN,DIRECT 0.2 MG/DL (0.0-0.2); BILIRUBIN,TOTAL 0.6 MG/DL (0.2-1.0); BLOOD UREA NITROGEN 18 MG/DL (7-18); CALCIUM LEVEL 11.2 MG/DL (8.8-10.2); CARBON DIOXIDE LEVEL 28 MEQ/L (21-32); CHLORIDE LEVEL 97 MEQ/L (98-107); CREATININE FOR GFR 0.92 MG/DL (0.55-1.30); GLOMERULAR FILTRATION RATE > 60.0 (>39); GLUCOSE, FASTING 159 MG/DL (70-100); POTASSIUM SERUM 4.8 MEQ/L (3.5-5.1); SODIUM LEVEL 133 MEQ/L (136-145)
[2021-11-04 21:19] LABS: MONO # 3.4 10^3/uL (0.0-0.8)
[2021-11-04] MEDS ORDERED: HOME MED LIST COMPLETE! XX SCH (23:20)
[2021-11-05] MEDS ORDERED: CEFD300C PO (00:43)
[2021-11-05] MEDS ORDERED: CEFDINIR 300 MG CAP (OMNICEF) PO ONE (00:45)
[2021-11-05 01:12] VITALS: BP 118/62
== END 2021-11-05 01:22 | disposition home or self-care (01) ==
LOC: M ED 19:14
DX: N39.0 Urinary tract infection, site not specified (principal); R91.8 Other nonspecific abnormal finding of lung field; E78.5 Hyperlipidemia, unspecified; I10 Essential (primary) hypertension; E11.9 Type 2 diabetes mellitus without complications; C50.919 Malignant neoplasm of unspecified site of unspecified female breast; C25.9 Malignant neoplasm of pancreas, unspecified; Z87.891 Personal history of nicotine dependence; Z91.09 Other allergy status, other than to drugs and biological substances

== ENCOUNTER 2021-11-06 18:26 | Observation (INO) | payer MEDICARE ==
[~2021-11-06] VITALS: Ht 152.4 cm; Wt 45.0 kg
[~2021-11-06 18:26] MED LIST changes: +ACET500T15 PO; +CEFD300C PO
[2021-11-06] MEDS: busPIRone 5 MG TAB PO SCH (21:00)
[2021-11-06] MEDS ORDERED: DOXYCYCLINE HYCLATE 100MG TABLET PO SCH (21:00)
[2021-11-06] MEDS ORDERED: NORTRIPTYLINE 25 MG CAP PO SCH (21:00)
[2021-11-06] MEDS: traMADol 50 MG TAB PO SCH (21:00)
[2021-11-06] MEDS ORDERED: SIMVASTATIN 10 MG TAB PO SCH (21:00)
[2021-11-06] MEDS: metFORMIN XR 500MG TAB *GLUCOPHAGE XR PO SCH (21:00)
[2021-11-06] MEDS ORDERED: ISOVUE-370 76% 100ML VIAL As Ordered ONE (22:52)
[2021-11-06 22:53] LABS: BASO # 0.1 10^3/uL (0.0-0.2); BASO % 0.6 % (0.0-1.0); EOS # 0.2 10^3/uL (0.0-0.5); EOS % 1.7 % (0.0-3.0); HEMATOCRIT 33.3 % (36.0-47.0); HEMOGLOBIN 10.5 g/dl (12.0-15.5); LYMPH # 1.3 10^3/uL (1.5-5.0); LYMPH % 9.5 % (24.0-44.0); MEAN CORPUSCULAR HEMOGLOBIN 28.1 pg (27.0-33.0); MEAN CORPUSCULAR HGB CONC 31.5 g/dl (32.0-36.5); MONO % 17.6 % (2.0-8.0); NEUTROPHILS # 9.3 10^3/uL (1.5-8.5); NEUTROPHILS % 67.1 % (36.0-66.0); PLATELET COUNT, AUTOMATED 368 10^3/uL (150-450); RED BLOOD COUNT 3.74 10^6/uL (4.00-5.40); WHITE BLOOD COUNT 13.8 10^3/uL (4.0-10.0)
[2021-11-06 23:09] LABS: INR 1.11; PROTHROMBIN TIME 14.7 SECONDS (12.7-14.5)
[2021-11-06 23:12] LABS: MONO # 2.4 10^3/uL (0.0-0.8)
[2021-11-06] MEDS ORDERED: HEPARIN DRIP 25,000 UNITS in IV 1 EA IV SCH (23:35)
[2021-11-06] MEDS ORDERED: HEPARIN SOD (PORCINE) 5000UNITS/ML 1ML VIAL/SYRINGE IV ONE (23:35)
[2021-11-06 23:36] LABS: CK-MB VALUE MASS < 1.0 NG/ML (<3.6); CPK CREATINE PHOSPHOKINASE 21 U/L (26-192); MB/CK RELATIVE INDEX 4.76 (< OR =4)
[2021-11-06 23:44] LABS: PARTIAL THROMBOPLASTIN TIME 54.4 SECONDS (25.9-37.0)
[2021-11-06] MEDS ORDERED: ENOXAPARIN 60MG/0.6ML SYRINGE (J1650 PER 10MG) SC ONE (23:50)
[2021-11-07 00:21] LABS: ALBUMIN 2.6 GM/DL (3.2-5.2); BILIRUBIN,DIRECT 0.2 MG/DL (0.0-0.2); BILIRUBIN,TOTAL 0.6 MG/DL (0.2-1.0); THYROID STIMULATING HORMONE 0.928 uIU/ML (0.358-3.740); THYROXINE (T4) 11.8 UG/DL (4.5-12.0); TOTAL PROTEIN 6.9 GM/DL (6.4-8.2)
[2021-11-07] MEDS ORDERED: ONDA-195 PO (01:33)
[2021-11-07] MEDS ORDERED: CEFD300C41 PO (01:33)
[2021-11-07] MEDS ORDERED: TRAM50TA2 PO (01:33)
[2021-11-07] MEDS ORDERED: MELA3TAB29 PO (01:36)
[2021-11-07] MEDS ORDERED: FISH1000 PO (01:38)
[2021-11-07] MEDS ORDERED: VITATAB73 PO (01:38)
[2021-11-07] MEDS ORDERED: HOME MED LIST COMPLETE! XX SCH (01:40)
[2021-11-07] MEDS ORDERED: ALBUTEROL 90 MCG/ACT 8GM HFA INHALER INH PRN (01:40)
[2021-11-07] MEDS ORDERED: GLUCOSE 4GM CHEW TABLET PO PRN (01:45)
[2021-11-07] MEDS ORDERED: NS 1,000 ML IV SCH (01:45)
[2021-11-07] MEDS ORDERED: ALBUTEROL SULFATE 2.5 MG/0.5 ML INH NEB SOLN NEB PRN (01:45)
[2021-11-07] MEDS ORDERED: DEXTROSE 50% 50 ML SYRINGE IV PRN (01:45)
[2021-11-07] MEDS ORDERED: GLUCAGON INJ 1MG VIAL SC PRN (01:45)
[2021-11-07] MEDS ORDERED: ACETAMINOPHEN TAB 650MG DOSE (2X325MG) PO PRN (01:45)
[2021-11-07] MEDS ORDERED: HYDROMORPHONE HCL 0.5 MG/ 0.5 ML SYRINGE (J1170 PER 1) IV PRN (01:45)
[2021-11-07] MEDS: IPRATROPIUM 0.5MG/ALBUTEROL 2.5MG INH SOL UD 3ML (DUONEB) NEB SCH ×2 (02:00→08:02)
[2021-11-07 04:25] VITALS: BP 117/63
[2021-11-07] MEDS ORDERED: INSULIN LISPRO (NovoLOG) PER UNIT SC SCH (07:30)
[2021-11-07] MEDS ORDERED: ELIQ5TAB PO (07:49)
[2021-11-07 07:59] VITALS: BP 133/77
[2021-11-07] MEDS ORDERED: GLIMEPIRIDE 1 MG TABLET PO SCH ×2 (08:00→09:00)
[2021-11-07 08:08] LABS: HEMATOCRIT 29.2 % (36.0-47.0); HEMOGLOBIN 9.2 g/dl (12.0-15.5); MEAN CORPUSCULAR HEMOGLOBIN 27.5 pg (27.0-33.0); MEAN CORPUSCULAR HGB CONC 31.5 g/dl (32.0-36.5); MEAN CORPUSCULAR VOLUME 87.2 fl (80.0-96.0); PLATELET COUNT, AUTOMATED 328 10^3/uL (150-450); RED BLOOD COUNT 3.35 10^6/uL (4.00-5.40); WHITE BLOOD COUNT 10.2 10^3/uL (4.0-10.0)
[2021-11-07 08:41] LABS: ALBUMIN 2.2 GM/DL (3.2-5.2); ALT/SGPT 73 U/L (12-78); BILIRUBIN,TOTAL 0.5 MG/DL (0.2-1.0); BLOOD UREA NITROGEN 15 MG/DL (7-18); CALCIUM LEVEL 10.2 MG/DL (8.8-10.2); CARBON DIOXIDE LEVEL 25 MEQ/L (21-32); CHLORIDE LEVEL 105 MEQ/L (98-107); CREATININE FOR GFR 0.57 MG/DL (0.55-1.30); GLOMERULAR FILTRATION RATE > 60.0 (>39); GLUCOSE, FASTING 118 MG/DL (70-100); POTASSIUM SERUM 3.9 MEQ/L (3.5-5.1); SODIUM LEVEL 139 MEQ/L (136-145); TOTAL PROTEIN 5.9 GM/DL (6.4-8.2)
[2021-11-07] MEDS ORDERED: METOPROLOL TART 50 MG TAB PO SCH (09:00)
[2021-11-07] MEDS ORDERED: ASPIRIN 81 MG CHEW TABLET PO SCH (09:00)
[2021-11-07] MEDS ORDERED: CEFDINIR 300 MG CAP (OMNICEF) PO SCH ×2 (09:00)
[2021-11-07] MEDS ORDERED: APIXABAN 5 MG TAB (ELIQUIS) PO SCH (09:00)
[2021-11-07] MEDS ORDERED: CEFUROXIME 500 MG TAB PO SCH (09:00)
[2021-11-07] MEDS ORDERED: OMEPRAZOLE 20MG CAP PO SCH (09:00)
[2021-11-07 09:17] VITALS: BP 133/77
[2021-11-07] MEDS: traMADol 50 MG TAB PO SCH (09:19)
[2021-11-07] MEDS: metFORMIN XR 500MG TAB *GLUCOPHAGE XR PO SCH (09:21)
[2021-11-07] MEDS: busPIRone 5 MG TAB PO SCH (09:22)
[2021-11-07] MEDS ORDERED: NORTRIPTYLINE 25 MG CAP PO SCH (21:00)
== END 2021-11-07 12:18 | disposition home or self-care (01) ==
LOC: M ED 18:26 → M ED INP 11-07 01:44 → ENRESERV 11-07 03:04 → M PCU 11-07 04:28
PROVIDERS: ADMIT Internal Medicine; ATTEND Internal Medicine
DX: I26.99 Other pulmonary embolism without acute cor pulmonale (principal); J98.4 Other disorders of lung; N39.0 Urinary tract infection, site not specified; R74.01 Elevation of levels of liver transaminase levels; C25.0 Malignant neoplasm of head of pancreas; E11.9 Type 2 diabetes mellitus without complications; F41.9 Anxiety disorder, unspecified; E78.00 Pure hypercholesterolemia, unspecified; K21.9 Gastro-esophageal reflux disease without esophagitis; M79.7 Fibromyalgia; M32.9 Systemic lupus erythematosus, unspecified; H40.9 Unspecified glaucoma; Z87.891 Personal history of nicotine dependence; Z91.048 Other nonmedicinal substance allergy status; Z79.899 Other long term (current) drug therapy; Z79.82 Long term (current) use of aspirin; Z79.2 Long term (current) use of antibiotics; Z79.84 Long term (current) use of oral hypoglycemic drugs; Z79.891 Long term (current) use of opiate analgesic; Z85.3 Personal history of malignant neoplasm of breast; Z92.3 Personal history of irradiation; Z80.3 Family history of malignant neoplasm of breast; Z66 Do not resuscitate
CPT/HCPCS: 36415; 71045; 71275; 74177; 80047; 80053; 80076; 81001; 82550; 82553; 83605; 83880; 84436; 84443; 84484; 85025; 85027; 85610; 85730; 87040; 87086; 87486; 87581; 87633; 87798; 93005; 93041; 94640; 94760; 96360; 96372; 97161; 97530; 99285; G0378; J1650; Q9967

== ENCOUNTER 2021-12-06 13:55 | Outpatient (CLI) | payer MEDICARE, MEDICAID ==
[~2021-12-06] VITALS: Ht 165.1 cm; Wt 46.9 kg
[~2021-12-06 13:55] MED LIST changes: +CEFD300C41 PO; +ELIQ5TAB PO; +MELA3TAB29 PO; +ONDA-195 PO; +SODIUM CHLORIDE 0.9% INJ 10 ML SYR IV SCH; +VITATAB73 PO
[2021-12-06 14:05] VITALS: BP 130/63
[2021-12-06] MEDS: MAG SULF 1GM/100ML (MAG RUN) X 2 DOSES (2GM TOTAL) IV SCH ×4 (14:12→14:55)
[2021-12-06 15:00] VITALS: BP 112/53
[2021-12-06 16:15] VITALS: BP 116/56
[2021-12-06] MEDS ORDERED: SODIUM CHLORIDE 0.9% INJ 10 ML SYR IV PRN (17:25)
== END 2021-12-06 16:15 | disposition home or self-care (01) ==
LOC: M INFU 13:55
PROVIDERS: ATTEND Internal Medicine Medical Oncology
DX: C25.9 Malignant neoplasm of pancreas, unspecified (principal)
CPT/HCPCS: 36591; 80053; 83735; 85025; 86301; 96365; 96366; G0463; J3475

== ENCOUNTER 2022-01-10 09:03 | Emergency (ER) | payer MEDICARE, MEDICAID ==
[~2022-01-10] VITALS: Ht 152.4 cm; Wt 48.1 kg
[~2022-01-10 09:03] MED LIST changes: -SODIUM CHLORIDE 0.9% INJ 10 ML SYR IV SCH
[2022-01-10] MEDS ORDERED: NS 1,000 ML IV ONE (10:15)
[2022-01-10] MEDS ORDERED: MORPHINE 2 MG/ML 1ML VIAL IV ONE (10:15)
[2022-01-10 11:04] LABS: BASO % 0.2 % (0.0-1.0); EOS # 0.2 10^3/uL (0.0-0.5); EOS % 1.6 % (0.0-3.0); HEMATOCRIT 40.8 % (36.0-47.0); HEMOGLOBIN 12.2 g/dl (12.0-15.5); LYMPH # 1.4 10^3/uL (1.5-5.0); LYMPH % 11.1 % (24.0-44.0); MEAN CORPUSCULAR HEMOGLOBIN 26.9 pg (27.0-33.0); MEAN CORPUSCULAR HGB CONC 29.9 g/dl (32.0-36.5); MEAN CORPUSCULAR VOLUME 90.1 fl (80.0-96.0); MONO # 1.1 10^3/uL (0.0-0.8); NEUTROPHILS # 9.4 10^3/uL (1.5-8.5); NEUTROPHILS % 77.7 % (36.0-66.0); PLATELET COUNT, AUTOMATED 348 10^3/uL (150-450); RED BLOOD COUNT 4.53 10^6/uL (4.00-5.40); WHITE BLOOD COUNT 12.2 10^3/uL (4.0-10.0)
[2022-01-10 11:44] LABS: ALBUMIN 3.1 GM/DL (3.2-5.2); ALT/SGPT 22 U/L (12-78); BILIRUBIN,DIRECT < 0.1 MG/DL (0.0-0.2); BILIRUBIN,TOTAL 0.3 MG/DL (0.2-1.0); BLOOD UREA NITROGEN 16 MG/DL (7-18); CALCIUM LEVEL 10.9 MG/DL (8.8-10.2); CARBON DIOXIDE LEVEL 32 MEQ/L (21-32); CHLORIDE LEVEL 102 MEQ/L (98-107); GLOMERULAR FILTRATION RATE > 60.0 (>39); GLUCOSE, FASTING 169 MG/DL (70-100); LIPASE 196 U/L (73-393); POTASSIUM SERUM 5.3 MEQ/L (3.5-5.1); SODIUM LEVEL 138 MEQ/L (136-145); TOTAL PROTEIN 7.4 GM/DL (6.4-8.2)
[2022-01-10] MEDS ORDERED: ISOVUE-370 76% 100ML VIAL As Ordered ONE (13:35)
[2022-01-10] MEDS ORDERED: AMOX875T2 PO (15:09)
[2022-01-10 15:25] VITALS: BP 124/67
== END 2022-01-10 15:46 | disposition home or self-care (01) ==
LOC: M ED 09:03
DX: K59.00 Constipation, unspecified (principal); K80.20 Calculus of gallbladder without cholecystitis without obstruction; C25.9 Malignant neoplasm of pancreas, unspecified
CPT/HCPCS: 71046; 74177; 76705; 80048; 80076; 83690; 85025; 93005; 96374; 99284; J2270; Q9967

== ENCOUNTER 2022-01-14 11:35 | Observation (INO) | payer MEDICAID, MEDICARE ==
[~2022-01-14] VITALS: Ht 152.4 cm; Wt 47.4 kg
[2022-01-14] MEDS ORDERED: NS 1,380 ML in IV 1 EA IV ONE (13:25)
[2022-01-14] MEDS ORDERED: ONDANSETRON 4MG 2ML VIAL IV ONE (13:25)
[2022-01-14 13:35] LABS: BASO % 0.2 % (0.0-1.0); EOS % 0.1 % (0.0-3.0); HEMATOCRIT 41.4 % (36.0-47.0); HEMOGLOBIN 12.8 g/dl (12.0-15.5); LYMPH # 1.1 10^3/uL (1.5-5.0); LYMPH % 10.3 % (24.0-44.0); MEAN CORPUSCULAR HGB CONC 30.9 g/dl (32.0-36.5); MEAN CORPUSCULAR VOLUME 87.3 fl (80.0-96.0); MONO # 0.5 10^3/uL (0.0-0.8); MONO % 4.6 % (2.0-8.0); NEUTROPHILS # 8.9 10^3/uL (1.5-8.5); NEUTROPHILS % 84.3 % (36.0-66.0); PLATELET COUNT, AUTOMATED 378 10^3/uL (150-450); RED BLOOD COUNT 4.74 10^6/uL (4.00-5.40); WHITE BLOOD COUNT 10.6 10^3/uL (4.0-10.0)
[2022-01-14 13:49] LABS: INR 1.04; PROTHROMBIN TIME 13.8 SECONDS (12.5-14.5)
[2022-01-14 14:03] LABS: ALBUMIN 3.5 GM/DL (3.2-5.2); ALT/SGPT 19 U/L (12-78); BILIRUBIN,DIRECT 0.1 MG/DL (0.0-0.2); BILIRUBIN,TOTAL 0.3 MG/DL (0.2-1.0); BLOOD UREA NITROGEN 14 MG/DL (7-18); CALCIUM LEVEL 11.7 MG/DL (8.8-10.2); CARBON DIOXIDE LEVEL 31 MEQ/L (21-32); CHLORIDE LEVEL 100 MEQ/L (98-107); CREATININE FOR GFR 0.91 MG/DL (0.55-1.30); GLOMERULAR FILTRATION RATE > 60.0 (>39); GLUCOSE, FASTING 225 MG/DL (70-100); LIPASE 107 U/L (73-393); POTASSIUM SERUM 4.1 MEQ/L (3.5-5.1); SODIUM LEVEL 137 MEQ/L (136-145); TOTAL PROTEIN 8.4 GM/DL (6.4-8.2)
[2022-01-14] MEDS: NOREPINEPHRINE 4MG IN D5 250ML 4 MG in IV 1 EA IV SCH ×8 (14:14→16:21)
[2022-01-14 14:15] LABS: CPK CREATINE PHOSPHOKINASE 20 U/L (26-192)
[2022-01-14 16:14] LABS: CPK CREATINE PHOSPHOKINASE 32 U/L (26-192)
[2022-01-14] MEDS ORDERED: ISOVUE-370 76% 100ML VIAL As Ordered ONE (16:30)
[2022-01-14] MEDS ORDERED: CIPROFLOXACIN 400 MG in IV 1 EA IV ONE (18:00)
[2022-01-14] MEDS ORDERED: metroNIDAZOLE 500 MG in IV 1 EA IV ONE (19:00)
[2022-01-14] MEDS ORDERED: ALBU6.7H6 INH (19:17)
[2022-01-14] MEDS ORDERED: HOME MED LIST COMPLETE! XX SCH (19:20)
[2022-01-14] MEDS ORDERED: ALBUTEROL 90 MCG/ACT 8GM HFA INHALER INH PRN (19:35)
[2022-01-14] MEDS ORDERED: LR 1,000 ML IV SCH (19:40)
[2022-01-14] MEDS: FLUTICASONE HFA 220 MCG 12 GM INHALER (FLOVENT) INH SCH (20:22)
[2022-01-14] MEDS ORDERED: NORTRIPTYLINE 25 MG CAP PO SCH (21:00)
[2022-01-14] MEDS: METOPROLOL TART 50 MG TAB PO SCH (22:29)
[2022-01-14] MEDS: OMEPRAZOLE 20MG CAP PO SCH (22:29)
[2022-01-14] MEDS: SIMVASTATIN 10 MG TAB PO SCH (22:30)
[2022-01-14] MEDS: RAMELTEON 8 MG TAB (ROZEREM) PO SCH (22:30)
[2022-01-14] MEDS: APIXABAN 5 MG TAB (ELIQUIS) PO SCH (22:30)
[2022-01-14] MEDS: busPIRone 5 MG TAB PO SCH (22:31)
[2022-01-14] MEDS: NORTRIPTYLINE 25 MG CAP PO SCH (22:31)
[2022-01-15] VITALS (7 sets, daily range): BP systolic 127–171; BP diastolic 65–93
[2022-01-15 06:04] LABS: HEMATOCRIT 35.3 % (36.0-47.0); MEAN CORPUSCULAR HEMOGLOBIN 27.2 pg (27.0-33.0); MEAN CORPUSCULAR HGB CONC 31.2 g/dl (32.0-36.5); MEAN CORPUSCULAR VOLUME 87.2 fl (80.0-96.0); PLATELET COUNT, AUTOMATED 329 10^3/uL (150-450); RED BLOOD COUNT 4.05 10^6/uL (4.00-5.40); WHITE BLOOD COUNT 13.4 10^3/uL (4.0-10.0)
[2022-01-15 06:38] LABS: ALBUMIN 2.7 GM/DL (3.2-5.2); ALT/SGPT 19 U/L (12-78); BILIRUBIN,TOTAL 0.5 MG/DL (0.2-1.0); BLOOD UREA NITROGEN 9 MG/DL (7-18); CALCIUM LEVEL 9.9 MG/DL (8.8-10.2); CARBON DIOXIDE LEVEL 24 MEQ/L (21-32); CHLORIDE LEVEL 106 MEQ/L (98-107); CREATININE FOR GFR 0.74 MG/DL (0.55-1.30); GLOMERULAR FILTRATION RATE > 60.0 (>39); GLUCOSE, FASTING 182 MG/DL (70-100); MAGNESIUM LEVEL 1.6 MG/DL (1.8-2.4); POTASSIUM SERUM 3.4 MEQ/L (3.5-5.1); SODIUM LEVEL 136 MEQ/L (136-145); TOTAL PROTEIN 6.9 GM/DL (6.4-8.2)
[2022-01-15] MEDS: FLUTICASONE HFA 220 MCG 12 GM INHALER (FLOVENT) INH SCH ×2 (07:31→22:09)
[2022-01-15] MEDS ORDERED: POTASSIUM CHLORIDE 10MEQ SR TABLET PO SCH (09:00)
[2022-01-15] MEDS ORDERED: FLUBLOK(EGG FREE)(QUAD)INFLUENZA VACC 0.5ML SYRINGE 18YRS & OLDER IM.IMMUN ONE (09:00)
[2022-01-15] MEDS: traMADol 50 MG TAB PO SCH (09:00)
[2022-01-15] MEDS: ASPIRIN 81 MG CHEW TABLET PO SCH ×3 (09:00→09:53)
[2022-01-15] MEDS ORDERED: MAGNESIUM OXIDE 400MG TAB (MAG-OX) PO SCH (09:00)
[2022-01-15] MEDS: busPIRone 5 MG TAB PO SCH ×3 (09:50→20:50)
[2022-01-15] MEDS: MULTIVITAMINS/MINERALS THERAP 1 TAB PO SCH (09:50)
[2022-01-15] MEDS: OMEPRAZOLE 20MG CAP PO SCH ×2 (09:51→17:58)
[2022-01-15] MEDS: APIXABAN 5 MG TAB (ELIQUIS) PO SCH ×2 (09:51→20:50)
[2022-01-15] MEDS: METOPROLOL TART 50 MG TAB PO SCH ×2 (09:51→17:58)
[2022-01-15] MEDS: VITAMIN D 1,000 INTERNATIONAL UNITS TABLET PO SCH (09:52)
[2022-01-15] MEDS: ONDANSETRON 4MG ORAL DISINTEGRATING TAB SL PRN (11:34)
[2022-01-15] MEDS ORDERED: PROMETHAZINE 25MG/ML 1ML VIAL IV PRN (14:45)
[2022-01-15] MEDS ORDERED: GLUCAGON INJ 1MG VIAL SC PRN (17:05)
[2022-01-15] MEDS ORDERED: DEXTROSE 50% 50 ML SYRINGE IV PRN (17:05)
[2022-01-15] MEDS ORDERED: GLUCOSE 4GM CHEW TABLET PO PRN (17:05)
[2022-01-15] MEDS: LR 1,000 ML IV SCH ×3 (17:35→20:52)
[2022-01-15] MEDS: INSULIN LISPRO (NovoLOG) PER UNIT SC SCH (17:57)
[2022-01-15] MEDS: CIPROFLOXACIN 400 MG in IV 1 EA IV SCH ×2 (17:58→18:00)
[2022-01-15] MEDS: metroNIDAZOLE (FLAGYL) 500MG TABLET PO SCH (20:50)
[2022-01-15] MEDS: SIMVASTATIN 10 MG TAB PO SCH (20:50)
[2022-01-15] MEDS: POTASSIUM CHLORIDE 10MEQ SR TABLET PO SCH (20:51)
[2022-01-15] MEDS: MAGNESIUM OXIDE 400MG TAB (MAG-OX) PO SCH (20:51)
[2022-01-15] MEDS: RAMELTEON 8 MG TAB (ROZEREM) PO SCH (20:51)
[2022-01-15] MEDS ORDERED: INSULIN LISPRO (NovoLOG) PER UNIT SC SCH (21:00)
[2022-01-15] MEDS: NORTRIPTYLINE 25 MG CAP PO SCH (23:36)
[2022-01-16] MEDS: metroNIDAZOLE (FLAGYL) 500MG TABLET PO SCH ×2 (05:16→13:04)
[2022-01-16 06:00] VITALS: BP 136/88
[2022-01-16] MEDS ORDERED: CIPROFLOXACIN 500MG TABLET PO SCH (06:00)
[2022-01-16] MEDS: FLUTICASONE HFA 220 MCG 12 GM INHALER (FLOVENT) INH SCH (07:32)
[2022-01-16] MEDS: LR 1,000 ML IV SCH (07:34)
[2022-01-16] MEDS: INSULIN LISPRO (NovoLOG) PER UNIT SC SCH ×2 (08:42→13:05)
[2022-01-16] MEDS: OMEPRAZOLE 20MG CAP PO SCH ×2 (08:43→15:54)
[2022-01-16] MEDS: POTASSIUM CHLORIDE 10MEQ SR TABLET PO SCH (08:45)
[2022-01-16] MEDS: MAGNESIUM OXIDE 400MG TAB (MAG-OX) PO SCH (08:45)
[2022-01-16] MEDS: APIXABAN 5 MG TAB (ELIQUIS) PO SCH (08:47)
[2022-01-16] MEDS: VITAMIN D 1,000 INTERNATIONAL UNITS TABLET PO SCH (08:47)
[2022-01-16] MEDS: MULTIVITAMINS/MINERALS THERAP 1 TAB PO SCH (08:47)
[2022-01-16] MEDS: traMADol 50 MG TAB PO SCH (08:47)
[2022-01-16] MEDS: busPIRone 5 MG TAB PO SCH ×2 (08:47→15:54)
[2022-01-16] MEDS: METOPROLOL TART 50 MG TAB PO SCH ×2 (08:48→15:55)
[2022-01-16] MEDS: ASPIRIN 81 MG CHEW TABLET PO SCH (08:51)
[2022-01-16] MEDS: ONDANSETRON 4MG ORAL DISINTEGRATING TAB SL PRN (10:15)
[2022-01-16 14:00] VITALS: BP 128/87
[2022-01-16 14:24] LABS: BASO % 0.3 % (0.0-1.0); EOS # 0.1 10^3/uL (0.0-0.5); EOS % 0.6 % (0.0-3.0); HEMATOCRIT 38.7 % (36.0-47.0); LYMPH # 1.5 10^3/uL (1.5-5.0); LYMPH % 11.5 % (24.0-44.0); MEAN CORPUSCULAR VOLUME 87.2 fl (80.0-96.0); MONO # 1.1 10^3/uL (0.0-0.8); MONO % 8.5 % (2.0-8.0); NEUTROPHILS # 10.5 10^3/uL (1.5-8.5); NEUTROPHILS % 78.4 % (36.0-66.0); PLATELET COUNT, AUTOMATED 404 10^3/uL (150-450); RED BLOOD COUNT 4.44 10^6/uL (4.00-5.40); WHITE BLOOD COUNT 13.4 10^3/uL (4.0-10.0)
[2022-01-16 15:06] LABS: BLOOD UREA NITROGEN 9 MG/DL (7-18); CALCIUM LEVEL 10.7 MG/DL (8.8-10.2); CARBON DIOXIDE LEVEL 26 MEQ/L (21-32); CHLORIDE LEVEL 103 MEQ/L (98-107); CREATININE FOR GFR 0.88 MG/DL (0.55-1.30); GLOMERULAR FILTRATION RATE > 60.0 (>39); GLUCOSE, FASTING 240 MG/DL (70-100); MAGNESIUM LEVEL 1.9 MG/DL (1.8-2.4); PHOSPHORUS LEVEL 2.2 MG/DL (2.5-4.9); POTASSIUM SERUM 4.8 MEQ/L (3.5-5.1); SODIUM LEVEL 134 MEQ/L (136-145)
[2022-01-16 15:55] VITALS: BP 124/83
[2022-01-16] MEDS ORDERED: K-PHOS ORIGINAL (POT.ACID PHOSPHATE) 500MG TAB PO ONE (16:10)
[2022-01-16] MEDS ORDERED: CIPR-249 PO (16:15)
[2022-01-16] MEDS ORDERED: METR-265 PO (16:15)
[2022-01-26 11:08] LABS: GIARDIA IgG ANTIBODY 29.8 U/mL (<28.3); GIARDIA IgM ANTIBODY 10.4 U/mL (<25.0)
== END 2022-01-16 16:56 | disposition home or self-care (01) ==
LOC: M ED 11:35 → M ED INP 11:36 → M PCU 01-15 01:43 → M MSPAV 01-15 19:00
PROVIDERS: ADMIT Student in an Organized Health Care Education/Training Program; ATTEND Internal Medicine
DX: K52.9 Noninfective gastroenteritis and colitis, unspecified (principal); I67.4 Hypertensive encephalopathy; E87.8 Other disorders of electrolyte and fluid balance, not elsewhere classified; R00.0 Tachycardia, unspecified; T44.4X1A Poisoning by predominantly alpha-adrenoreceptor agonists, accidental (unintentional), initial encounter; R51.9 Headache, unspecified; R11.2 Nausea with vomiting, unspecified; C25.9 Malignant neoplasm of pancreas, unspecified; Z96.89 Presence of other specified functional implants; Z85.3 Personal history of malignant neoplasm of breast; Z86.711 Personal history of pulmonary embolism; R91.8 Other nonspecific abnormal finding of lung field; I10 Essential (primary) hypertension; M06.9 Rheumatoid arthritis, unspecified; M81.0 Age-related osteoporosis without current pathological fracture; D50.9 Iron deficiency anemia, unspecified; F41.9 Anxiety disorder, unspecified; Z87.891 Personal history of nicotine dependence; I25.10 Atherosclerotic heart disease of native coronary artery without angina pectoris; E11.9 Type 2 diabetes mellitus without complications; K21.9 Gastro-esophageal reflux disease without esophagitis; M79.7 Fibromyalgia; E78.5 Hyperlipidemia, unspecified; G47.00 Insomnia, unspecified; Z80.3 Family history of malignant neoplasm of breast; J43.9 Emphysema, unspecified; K80.20 Calculus of gallbladder without cholecystitis without obstruction; Z79.899 Other long term (current) drug therapy; Z79.01 Long term (current) use of anticoagulants; Z79.82 Long term (current) use of aspirin; Z79.84 Long term (current) use of oral hypoglycemic drugs; Z79.2 Long term (current) use of antibiotics; Z79.891 Long term (current) use of opiate analgesic; Z91.048 Other nonmedicinal substance allergy status; Z66 Do not resuscitate
CPT/HCPCS: 36415; 70450; 71045; 71260; 74177; 76705; 80047; 80048; 80053; 80076; 82550; 83605; 83690; 83735; 84100; 84145; 84484; 85025; 85027; 85610; 85730; 86140; 86674; 87040; 87177; 87207; 87486; 87507; 87581; 87633; 87798; 93005; 93041; 94640; 96361; 96365; 96366; 96367; 96375; 96376; 97161; 97530; 99285; G0008; G0378; J0744; J1815; J2405; Q9967

== ENCOUNTER 2022-02-02 09:50 | Emergency (ER) | payer MEDICARE, MEDICAID ==
[~2022-02-02] VITALS: Ht 152.4 cm; Wt 45.9 kg
[2022-02-02] MEDS: SODIUM CHLORIDE 0.9% INJ 10 ML SYR IV SCH ×2 (09:00→18:08)
[~2022-02-02 09:50] MED LIST changes: +ALBU6.7H6 INH; +CIPR-249 PO
[2022-02-02] MEDS ORDERED: MORPHINE 2 MG/ML 1ML VIAL IV ONE (12:45)
[2022-02-02] MEDS ORDERED: MAG SULF 1GM/100ML (MAG RUN) 1 GM in IV 1 EA IV ONE ×2 (12:45→16:05)
[2022-02-02 14:05] LABS: BASO # 0.1 10^3/uL (0.0-0.2); BASO % 0.5 % (0.0-1.0); EOS # 0.1 10^3/uL (0.0-0.5); EOS % 0.7 % (0.0-3.0); HEMOGLOBIN 11.8 g/dl (12.0-15.5); LYMPH # 1.3 10^3/uL (1.5-5.0); LYMPH % 13.4 % (24.0-44.0); MEAN CORPUSCULAR HEMOGLOBIN 27.2 pg (27.0-33.0); MEAN CORPUSCULAR HGB CONC 31.9 g/dl (32.0-36.5); MEAN CORPUSCULAR VOLUME 85.3 fl (80.0-96.0); MONO # 0.7 10^3/uL (0.0-0.8); MONO % 7.2 % (2.0-8.0); NEUTROPHILS # 7.6 10^3/uL (1.5-8.5); NEUTROPHILS % 77.5 % (36.0-66.0); PLATELET COUNT, AUTOMATED 329 10^3/uL (150-450); RED BLOOD COUNT 4.34 10^6/uL (4.00-5.40); WHITE BLOOD COUNT 9.8 10^3/uL (4.0-10.0)
[2022-02-02 16:08] LABS: ALBUMIN 2.9 GM/DL (3.2-5.2); ALT/SGPT 14 U/L (12-78); BILIRUBIN,DIRECT 0.1 MG/DL (0.0-0.2); BILIRUBIN,TOTAL 0.5 MG/DL (0.2-1.0); BLOOD UREA NITROGEN 13 MG/DL (7-18); C REACTIVE PROTEIN QUANTITATIV 1.07 MG/DL (0.00-0.30); CA19-9 TUMOR MARKER,CARBOHYDRA 671.8 U/ML (<35.0); CALCIUM LEVEL 10.1 MG/DL (8.8-10.2); CARBON DIOXIDE LEVEL 26 MEQ/L (21-32); CHLORIDE LEVEL 103 MEQ/L (98-107); CREATININE FOR GFR 0.54 MG/DL (0.55-1.30); GLOMERULAR FILTRATION RATE > 60.0 (>39); GLUCOSE, FASTING 124 MG/DL (70-100); MAGNESIUM LEVEL 0.9 MG/DL (1.8-2.4); POTASSIUM SERUM 3.8 MEQ/L (3.5-5.1); SODIUM LEVEL 137 MEQ/L (136-145); TOTAL PROTEIN 6.5 GM/DL (6.4-8.2)
[2022-02-02] MEDS ORDERED: HYDR-3713 PO (17:41)
[2022-02-02 17:45] VITALS: BP 144/70
[2022-02-07] MEDS ORDERED: ONDA-195 PO (09:11)
[2022-02-07] MEDS ORDERED: HYDR-3713 PO (13:42)
== END 2022-02-02 18:11 | disposition home or self-care (01) ==
LOC: M ED 09:50
DX: M54.50 Low back pain, unspecified (principal); E83.42 Hypomagnesemia; C25.0 Malignant neoplasm of head of pancreas; M51.37 Other intervertebral disc degeneration, lumbosacral region; N20.0 Calculus of kidney; I10 Essential (primary) hypertension; E78.5 Hyperlipidemia, unspecified; Z90.89 Acquired absence of other organs; Z90.710 Acquired absence of both cervix and uterus; Z79.01 Long term (current) use of anticoagulants; Z87.891 Personal history of nicotine dependence; I25.10 Atherosclerotic heart disease of native coronary artery without angina pectoris; Z79.84 Long term (current) use of oral hypoglycemic drugs; Z79.899 Other long term (current) drug therapy
CPT/HCPCS: 72128; 72131; 80048; 80076; 83735; 85025; 86140; 86301; 96365; 96366; 96375; 99284; J1642; J2270; J3475